=== PATIENT | male | born 1995 | race Caucasian/White ===

== ENCOUNTER 2023-05-27 19:09 | Emergency (ER) | payer OTHER, SELFPAY ==
--- NOTE | 2023-05-27 | ECG_ITS ---
Test Reason : FALL Blood Pressure : / mmHG Vent. Rate : 094 BPM Atrial Rate : 094 BPM P-R Int : 158 ms QRS Dur : 088 ms QT Int : 368 ms P-R-T Axes : 063 050 047 degrees QTc Int : 460 ms Normal sinus rhythm Nonspecific T wave abnormality Prolonged QT Abnormal ECG No previous ECGs available Referred By: Generic ED Physician Electronically Signed By:GEORGI WEAVER
--- NOTE | ~2023-05-27 | XR_ITS ---
EXAMINATION: PORTABLE CHEST 1 VIEW CLINICAL INFORMATION: fall , chest pain left sided. COMPARISON: No recent pertinent prior studies are available for comparison. TECHNIQUE: Portable frontal view of the chest was obtained. FINDINGS: The lungs are well expanded. No focal infiltrate, effusion, edema, or pneumothorax. Cardiac and mediastinal silhouettes are within normal limits for technique. No acute bony abnormality seen. XR/XR chest 1V IMPRESSION: No evidence of acute disease.
[2023-05-27 19:17] VITALS: BP 124/80; PULSE 116; O2SAT 97; BMI 20.7
[2023-05-27 19:24] VITALS: BP 113/79; PULSE 99; RESP 17; TEMP 36.9; O2SAT 89; O2SAT 98
[2023-05-27 19:46] LABS: Hematocrit 34.4 % (42.0-52.0); Hemoglobin 12.5 g/dl (14.0-18.0); Mean Corpuscular HGB Conc 36.3 g/dl (31.0-36.0); Mean Corpuscular Hemoglobin 30.2 pg (27.0-33.0); Mean Corpuscular Volume 83.1 fL (80.0-98.0); Mean Platelet Volume 10.3 fL (9.4-12.4); Platelet Count 423 X10*3/uL (160-400); Red Blood Count 4.14 X10*6/uL (4.60-5.80); Red Cell Distribution Width 11.9 % (11.0-16.0); White Blood Count 9.9 X10*3/uL (4.8-10.8)
[2023-05-27 19:53] LABS: Beta-Hydroxybutyrate 2.52 mmol/L (0.02-0.27)
--- NOTE | 2023-05-27 19:59 | ED_ITS ---
HPI - General Adult General Chief complaint: Fall Stated complaint: L eye bloodshot and blurry, blood sugar is high Time Seen by Provider: 05/27/23 19:36 Source: patient and police Limitations: no limitations History of Present Illness HPI narrative: 28 years old with a past medical history of type 1 diabetes, on short-acting insulin. Not compliant with Lantus, presents emergency room in police custody after a fall. History is taken from the patient and from police. Patient was running away from police when he tripped and fell, banged his head, patient thinks he was unconscious for a few seconds and that he the left side of his face. Placement which is with patient in the room reports that she reach the patient few seconds after he fell and the patient was not unconscious but seemed slightly confused. Confusion however resolved fast. Patient reports pain in the left eye, chest pain, denies ureter weakness, slurred speech. No abdominal pain nausea or vomiting A Patent B bilateral breath sounds C 2+ pulses on all extremities, pelvis stable. D GCS 15 E No deformity. Related Data Allergies Allergy/AdvReac Type Severity Reaction Status Date / Time No Known Allergies Allergy Verified 05/27/23 19:22 Review of Systems 2 Review of Systems: Yes all other systems are reviewed and are negative PMFSH Social History Social History Advance Directives: No Advance Directives Information Provided: No Physical Exam ED Vital Signs: Vital Signs - 24 hr 05/27/23 19:24 05/27/23 19:24 Temperature 98.4 F Pulse Rate 99 Respiratory Rate 17 Blood Pressure 113/79 Pulse Oximetry 89 L 98 Oxygen Delivery Method Room Air Nasal Cannula Oxygen Flow Rate 2 BMI result Body Mass Index 20.7 General: Alert, Not in Distress Skin: No rash, warm HEENT: Atraumatic, No Exudate or Pharyngeal Erythema. Left eye conjunctival erythema> zuniga lamp exam large L eft corneal abrasion Resp: Normal Breath sounds bilaterally Cardio: Regular rate and Rhythm, Normal S1, S2 ABD: Abd soft, non tender, no guarding or rebound. Normal Bowel sounds. : No cva tenderness Neuro: Alert, oriented x4, PERRL Strenght 5/5 on all extremities Sensation is preserved in both lower and upper extremities Index to nose: normal Cranial Nerves II-XII grossly intact No dysarthria, or aphasia No neglet. Visual garg are normal bilaterally Psych: Cooperative, NO SI Course Reevaluation(s) Reevaluation #1: Patient anion gap is 19, creatinine 2.6. VBG is pending lab work is consistent with dehydration, mild DKA. Will give an additional 5 units of insulin for a total of 0.2 units/kg. Time: 20:26 Reevaluation #2: Patient VBG shows pH 7.39 pCO2 51 and bicarb 31. Patient increased anion gap likely secondary from dehydration and acute kidney failure more than DKA. Patient received 10 units of insulin and IV fluids will recheck glucose in 30 minutes. Consulted hospitalist for admission pending recs Time: 20:50 Reevaluation #3: Patient repeated blood sugar is 336. Plan was to admit the patient for HARRIET, lab work including VBG, BMP next meeting patient was more data rated than in the diabetic ketoacidosis, his pH was 7.39 and his bicarb were actually elevated. Patient understands the risk of leaving AMA including . He is able to verbalize the risk and in my opinion has full capacity. Is alert, oriented x4. Will finish 2nd bag of fluid and discharged in police custody. Time: 21:25 Medications Administered Generic Name Dose Route Start Last Admin Trade Name Freq PRN Reason Stop Dose Admin Sodium Chloride 1,000 mls @ 999 mls/hr 05/27/23 21:30 05/27/23 21:24 Ns IV 05/27/23 22:30 999 mls/hr .Q1H1M FRANKLYN Administration Discontinued Medications Generic Name Dose Route Start Last Admin Trade Name Freq PRN Reason Stop Dose Admin Erythromycin 1 cm 05/27/23 20:23 05/27/23 20:29 Erythromycin Base 0.5% Oph Oin 1 Gm Tube EYE-LEFT 05/27/23 20:24 1 cm QID ONE Administration Fluorescein Sodium 1 strip 05/27/23 19:50 05/27/23 20:02 Fluorescein Sodium Strip EYE-LEFT 05/27/23 19:51 1 strip ONCE ONE Administration Sodium Chloride 500 mls @ 999 mls/hr 05/27/23 20:15 05/27/23 20:20 Ns IV 05/27/23 20:45 Not Given .Q31M FRANKLYN Sodium Chloride 500 mls @ 999 mls/hr 05/27/23 20:30 05/27/23 20:29 Ns IV 05/27/23 21:00 Not Given .Q31M FRANKLYN Sodium Chloride 1,000 mls @ 999 mls/hr 05/27/23 20:30 05/27/23 21:24 Ns IV 05/27/23 21:30 Infused .Q1H1M FRANKLYN Infusion Insulin Human Lispro 5 unit 05/27/23 19:47 05/27/23 20:01 Insulin Lispro 100 Unit/Ml 3 Ml Vial SUBCUT 05/27/23 19:48 5 unit ONCE ONE Administration Insulin Human Lispro 5 unit 05/27/23 20:22 05/27/23 20:29 Insulin Lispro 100 Unit/Ml 3 Ml Vial SUBCUT 05/27/23 20:23 5 unit ONCE ONE Administration Tetracaine HCl 3 drop 05/27/23 19:47 05/27/23 20:20 Tetracaine Hcl 0.5% Oph Mony 5 Ml Drops EYE-LEFT 05/27/23 19:48 Not Given ONCE ONE Medical Decision Making Medical Decision Making MDM Narrative: Presents emergency room for medical clearance after a fall. Patient physical exam showed left chest tenderness without crepitus and left eye conjunctival erythema, no signs of depressed skull fracture, laceration no bruising of the face. From a trauma standpoint we will get chest x-ray at this time I do not think patient requires CT head or C-spine based on his physical exam. Patient blood glucose above 700, will give 5 units of insulin and IV fluids betahydroxybutirrate is midly elevated. likely from poor compliance with insulin. Admission/Observation Consideration of admission/observation: Escalation of care including admission/observation considered Consult Healthcare Provider Management of the patient was discussed with: Hospitalist Lab Data 05/27/23 19:32 05/27/23 19:32 Labs: Lab Results 05/27/23 05/27/23 Range/Units 19:32 20:24 WBC 9.9 (4.8-10.8) X10*3/uL RBC 4.14 L (4.60-5.80) X10*6/uL Hgb 12.5 L (14.0-18.0) g/dl Hct 34.4 L (42.0-52.0) % MCV 83.1 (80.0-98.0) fL MCH 30.2 (27.0-33.0) pg MCHC 36.3 H (31.0-36.0) g/dl RDW 11.9 (11.0-16.0) % Plt Count 423 H (160-400) X10*3/uL MPV 10.3 (9.4-12.4) fL Absolute Nucleated RBC 0.000 (0.0-0.012) X10*3/uL Nucleated RBC % (auto) 0.0 (0.0-0.2) /100WBC VBG pH 7.39 (7.32-7.43) VBG pCO2 51 mmHg VBG pO2 71 mmHg VBG HCO3 31 H (22-26) mmol/L VBG O2 Saturation 93.0 % VBG Base Excess 5.3 mmol/L Sodium 127 L (135-145) mmol/L Potassium 3.9 (3.3-5.1) mmol/L Chloride 87 L (96-108) mmol/L Carbon Dioxide 25 (22-29) mmol/L Anion Gap 19 (12-20) BUN 29 H (9-16) mg/dL Creatinine 2.60 H (0.5-1.4) mg/dL Estim Creat Clear Calc 35.5 Estimated GFR 29 Random Glucose 701 H* (60-115) mg/dL Calcium 9.8 (8.4-10.2) mg/dL Total Bilirubin 0.4 (0.0-1.0) mg/dL AST 11 (5-37) U/L ALT 12 (0-40) U/L Alkaline Phosphatase 84 (39-117) U/L Total Protein 7.0 (6.5-8.0) g/dL Albumin 4.2 (3.5-5.0) g/dL Beta-Hydroxybutyrate 2.52 H (0.02-0.27) mmol/L Discharge Plan Discharge Clinical Impression: Acute kidney failure Patient Disposition: Left Against Medical Advice Stand Alone Forms: Against Medical Advice
[2023-05-27] MEDS: Insulin Lispro 100 UNIT/ML 3 ML VIAL SUBCUT ×2 (20:01→20:29)
[2023-05-27] MEDS: Fluorescein Sodium STRIP 1 STRIP EYE-LEFT (20:02)
--- OUTSIDE RECORDS SUMMARY | 2023-05-27 20:03 | XMS_ITS | Continuity of Care Document ---
Author Name Unknown Organization [facility] Address [address] [place] [id number] Care Team Providers Care Balancing Machine Operator Name Role Phone Mylene BUSBY, [facility] Primary Care Physician [place] [facility] [place]): [place] - 03/13/23 [facility] [address] [place] [id number] Attending Physician: Admtr, Izabel Admitting Physician: Admtr, [id number] Referring Physician: Admtr, [id number] Allergies, Adverse Reactions, Alerts No Known Allergies Immunizations Given and Recorded Vaccine Date Status Refusal Reason influenza virus vaccine, inactivated 05/31/13 Give n pneumococcal 23-valent vaccine 05/31/13 Given influ virus vac, H1N1, inactive(oldterm) 05/05/09 Given Medications cloNIDine 0.1 mg oral tablet 0.1 mg, By Mouth, 3 times a day, # 30 tablet, Refills 0, Maintenance, 02/19/23 21:03:00 EDT, Partial fill upon patient request if the prescription is for a schedule II opioid drug. Start Date: 02/19/23 Status: Ordered Dexcom G7 Dexcom G7, See Instructions, # 3 each, Refills 0, Tot. Refills 0, Maintenance, To be used for continuous monitoring of sugars for dosing insulin for management of type I diabetes (E10.9), 03/02/23 14:32:00 EDT, Supply, 170, cm, 02/28/23 23:27:00 EDT,... Start Date: 03/02/23 Status: Ordered hydrOXYzine hydrochloride 25 mg oral tablet 1 tablet = 25 mg, By Mouth, Daily, PRN as needed for anxiety, # 30 tablet, 0 Refills, Maintenance, 02/19/23 21:02:00 EDT, Tablet, Partial fill upon patient request if the prescription is for a schedule II opioid drug. Start Date: 02/19/23 Status: Ordered insulin lispro 100 u/ml subcutaneous injection 5-11 units, Subcutaneous Injection, 3 times a day before meals, << Sliding Scale Comments >> 100 - 149 5 units Call if less than 70 150 - 199 6 units 200 - 249 7 units 250 - 299 8 units 300 - 349 9 units 350 - 399 10 units 400... Start Date: 03/02/23 Status: Ordered Lantus Solostar Pen 100 units/mL subcutaneous solution See Instructions, 24 units Daily, # 15 mL, 5 Refills, Maintenance, 03/02/23 14:29:00 EDT, [facility], duplicate from rx sent 08/06/19 not received by pharmacy, 170, cm, 02/28/23 23:27:00 EDT, Height, 58.8, kg, 02/28/23 23:30:00 EDT, Dry We... Start Date: 03/02/23 Status: Ordered Melatonin 5 mg oral tablet 1 tablet = 5 mg, By Mouth, Daily at bedtime, PRN for insomnia, # 60 tablet, 0 Refills, Maintenance,02/19/23 22:28:00 EDT, Tablet, Partial fill upon patient request if the prescription is for a schedule II opioid drug. Start Date: 02/19/23 Status: Ordered Methadone = 90 mg, By Mouth, Daily, 0 Refills, Maintenance, 02/19/23 22:21:00 EDT, Partial fill upon patient request if the prescription is for a schedule II opioid drug. Start Date: 02/19/23 Status: Ordered Problem List Condition Confirmation Course Effective Dates Status Health Status Informant DIABETES MELLITUS Confirmed 1996 Active Microalbuminuria Confirmed Active PURE HYPERCHOLESTEROLEMIA Confirmed Active Tobacco user Confirmed 03/31/11 Active Type 1 diabetes mellitus Confirmed Active Varicella immune Confirmed 09/29/11 Active Social History Social History Type Response Smoking Status Current every day mae oker; Type: Cigarettes entered on: 04/11/14 Sex Patient Care team information Care Team Personnel Name: Marcelina Vanegas RN Position: [facility] RN Member Role: Primary Care Nurse Name: Lazaro Dodd RN Position: [facility] RN Member Role: Primary Care Nurse Name: Arti Kemp RN Position: [facility] RN Member Role: Primary Care Nurse Name: Tristian Rubalcava RN Position: S RN Member Role: Primary Care Nurse Name: Ben Retana RN Position: S RN Member Role: Primary Care Nurse Name: Thania Chakraborty MD Position: Reference Physician Member Role: PCP Address: Address: [address] [place] [address]- [place] Care Team Related Persons Name: GREGORY MARTINEZ Address: [address] [place] [address] Name: CINDY JIMENEZ Address: home [address] [place], [place] Name: ELVA DHILLON Address: home [address] [place] [address] Name: ANDRE VELEZ Address: home [address] [place] [address]
--- OUTSIDE RECORDS SUMMARY | 2023-05-27 20:03 | XMS_ITS | Continuity of Care Document ---
Author Name Unknown Organization [facility] ter Address [address] [place] [id number] Care Team Providers Care Physician Practice Consultant Name Role Phone Mylene BUSBY, Thania Primary Care Physician Encounter [facility] Date(s): 02/19/23 - 02/21/[address] [address] Encounter Diagnosis DKA (diabetic ketoacidosis)(Final) - 02/19/23 Discharge Disposition: A-D/C Home Attending Physician: Haven Sarah MD Admitting Physician: Danny Morales MD Referring Physician: Not on Staff, Referring MD Allergies, Adverse Reactions, Alerts No Known Allergies Immunizations Given and Recorded Vaccine Date Status Refusal Reason influenza virus vaccine, inactivated 05/31/13 Give n pneumococcal 23-valent vaccine 05/31/13 Given influ virus vac, H1N1, inactive(oldterm) 05/05/09 Given Medications acetaminophen 325 mg oral tablet 650 mg, 2, tablet, By Mouth, Every 4 hours, PRN, # 24 tablet, Refills 0, Tot. Refills 0, Maintenance, as needed for pain, 08/17/16 6:42:58, Print Requisition Start Date: 08/17/16 Status: Ordered cloNIDine 0.1 mg oral tablet 0.1 mg, By Mouth, 3 times a day, # 30 tablet, Refills 0, Maintenance, 02/19/23 21:03:00 EDT, Partial fill upon patient request if the prescription is for a schedule II opioid drug. Start Date: 02/19/23 Status: Ordered hydrOXYzine hydrochloride 25 mg oral tablet 1 tablet = 25 mg, By Mouth, Daily, PRN as needed for anxiety, # 30 tablet, 0 Refills, Maintenance, 02/19/23 21:02:00 EDT, Tablet, Partial fill upon patient request if the prescription is for a schedule II opioid drug. Start Date: 02/19/23 Status: Ordered Insulin Lispro 5-14 units, Subcutaneous Injection, 3 times a day before meals, << Sliding Scale Comments >> 100 - 129 5 units Call if less than 70 130 - 159 6 units 160 - 189 7 units 190 - 219 8 units 220 - 249 9 units 250 - 279 10 units 280... Start Date: 02/21/23 Status: Ordered Lantus Solostar Pen 100 units/mL subcutaneous solution See Instructions, 24 units Daily, # 15 mL, 5 Refills, Maintenance, 07/23/22 15:59:00 EST, [id number], duplicate from rx sent 08/06/19 not received by pharmacy, 167, cm, 07/23/22 15:41:00 EST, Height Start Date: 07/23/22 Status: Ordered Melatonin 5 mg oral tablet [...] drug. Start Date: 02/19/23 Status: Ordered Methadone Tablet 90 mg, Tablet, By Mouth, 02/21/23 9:00:00 EDT Start Date: 02/21/23 Stop Date: 02/21/23 Status: Completed traMADol 50 mg oral tablet 25 mg, Tablet, By Mouth, Every 6 hours, PRN for Pain , Moderate, Routine, 02/19/23 22:44:00 EDT Start Date: 02/19/23 Stop Date: 02/21/23 Status: Discontinued Problem List Condition Confirmation Course Effective Dates Status Health Status Informant DIABETES MELLITUS Confirmed 1996 Active Microalbuminuria Confirmed Active PURE HYPERCHOLESTEROLEMIA Confirmed Active Tobacco user Confirmed 03/31/11 Active Type 1 diabetes mellitus Confirmed Active Varicella immune Confirmed 09/29/11 Active Vital Signs Most recent to oldest [Reference Range]: 1 2 3 Height 170 cm (02/21/23 11:21 AM) 170 cm (02/19/23 11:00 PM) Weight 55.2 kg (02/19/23 11:00 PM) Oxygen Saturation [94-100 %] 98 % (02/21/23 11:21 AM) 99 % (02/21/23 10:00 AM) 100 % (02/21/23 8:00 AM) Pulse Rate [55-90 bpm] 68 bpm (02/21/23 11:21 AM) 71 bpm (02/21/23 8:00 AM) 73 bpm (02/20/23 4:00 PM) Body Mass Index [18.5-24.99 kg/m2] 19.1 kg/m2 (02/19/23 11:00 PM) Blood Pressure [90-138/55-84 mm Hg] 125/83mm Hg (02/21/23 11:21 AM) 100/76mm Hg (02/21/23 8:00 AM) 100/67mm Hg (02/21/23 4:00 AM) Respiratory Rate [16-30 br/min] 18 br/min (02/21/23 11:29 AM) 18 br/min (02/21/23 11:21 AM) 18 br/min (02/21/23 10:51 AM) Temperature [96.8-100.4 DegF] 97.3 DegF (02/21/23 11:21 AM) 97.7 DegF (02/21/23 8:00 AM) 98.3 DegF (02/21/23 4:00 AM) Mode of Delivery (Oxygen) Room air (02/21/23 11:21 AM) Room air (02/21/23 10:00 AM) Room air (02/21/23 8:00 AM) Blood pressure sites Arm, left (02/21/23 11:21 AM) Arm, right (02/21/23 8:00 AM) Arm, right (02/21/23 4:00 AM) Temperature Route Oral (02/21/23 11:21 AM) Axillary (02/21/23 8:00 AM) Oral (02/21/23 4:00 AM) Dry Weight 55.2 kg (02/19/23 11:00 PM) Social History Social History Type Response Smoking Status Current every day mae roberson; Type: Cigarettes entered on: 04/11/14 Sex Admission evaluation note * Rufino Tripp MD: MODIFY, PERFORM Event Display: Admission Note Authored Date: Patient: ??HANS HAND ? Age:??27 Years?Sex:??Male?:??1995?? Chief Complaint/Reason for Consultation n/v/hyperglycemia History of Present Illness 27-year-old male??with PMH of??type 1 diabetes mellitus; opiate dependence on methadone;??presentedto the ED??with chief complaint of??abdominal pain, nausea, vomiting since last 3 days. As per EMS, patient was found at[facility]??acting bizarre. On my evaluation, patient??was??completely alert and oriented,??denied any??fevers, chills,??recentillness??other than??abdominal pain/nausea/vomiting for past 3 days. He also denied any??chest pain, SOB,??diarrhea,??constipation, dysuria,??focal weakness. ?? Vitals:??Afebrile,??HR??90s-100s,??BP 140s/90s,??RR 20, saturating well on room air. Labs:??VBG showed pH 7.26,??PCO2 21.3.?? WBC 21.7; initial??sodium 131,??repeat 139 (another repeatwhat was 109,??labs reading??were spurious, awaiting??repeat BMP);??initial anion gap 39, bicarb 14; initially glucose 670,??beta hydroxybutyrate 10.31, creatinine 1.5, magnesium 2.2, lactate 1.9. ??Urinalysis not suggestive of infection. No imaging or EKG done in the ED. His initial potassium was 5.4,??patient was started on insulin drip. Review of Systems -14 point ROS done, pertinent positives and negative history mentioned in HPI. Objective Vital Signs?? Temperature: 99.5 DegF (09/24/23 00:00:00) Temperature Route: Oral (02/20/23 00:00:00) Pulse Rate:??102 bpm??High (02/19/23 21:59:00) Heart Rate Monitored:??99 bpm??High (02/20/23 00:00:00) Respiratory Rate: 20 br/min (02/20/23 00:00:00) Vented: No (02/20/23 00:00:00) Systolic Blood Pressure:??147 mm Hg??High (02/20/23 00:00:00) Diastolic Blood Pressure:??96 mm Hg??High (02/20/23 00:00:00) Blood pressure sites: Arm, right (02/19/23 21:59:00) Mean Arterial Pressure: 118 mm Hg (02/19/23 14:46:00) Pulse Pressure: 51 mm Hg (02/20/23 00:00:00) Oxygen Saturation: 100 % (02/20/23 00:00:00) Mode of Delivery (Oxygen): Room air (02/20/23 00:00:00) Early Warning Score: 6 (02/20/23 00:55:59) ? Physical Exam General: Awake, alert, oriented x3. ??In moderate distress??because of pain. ??Able to speak in full sentences. Following commands appropriately. HEENT: NC/AT, PERRLA, no pallor, no icterus, moist mucous membranes. Neck: Supple, no JVD Respiratory: Clear to auscultation bilaterally. ??No wheezes, rhonchi or crackles appreciated. CVS: Regular rhythm. ??Normal S1-S2 heard. ??No murmurs appreciated. Abdomen: Soft,??nondistended,??generalized tenderness??to superficial palpation,??hypoactive bowel sounds. Neurological: Moving all 4 limbs freely. ??Speech normal. ??No obvious gross focal neuro deficit appreciated. Extremities: B/L pedal pulses palpable. ??No LE edema. Assessment/Plan Diagnoses HARRIET (acute kidney injury) ??(N17.9) DKA (diabetic ketoacidosis) ??(E11.10) Gastroenteritis ??(K52.9) High anion gap metabolic acidosis ??(E87.29) Leukocytosis ??(D72.829) Opiate dependence ??(F11.20) Sepsis ??(A41.9) Type 1 diabetes mellitus ??(E10.9) ?? Assessment:??27-year-old??male with PMH of type??1 diabetes mellitus;??opiate dependence??on methadone; presented with??abdominal pain??associated with nausea and vomiting;??found to be in DKA;??currently being??admitted under [facility] medicine service. ?? DKA (diabetic ketoacidosis) (E11.10):??- Type 1 diabetes mellitus (E10.9):??- Patient has history of type 1 diabetes mellitus,??takes Lantus??24 units daily??and is on insulin sliding scale.?? He??denies missing??insulin doses,??denies any recent illness, assures compliance. He was found to be??confused,??presented with abdominal pain??with associated nausea and vomiting;??found to have??DKA.?? Started on insulin drip??in the ED. PLAN: -Initially received??2 L??NS, was changed to??half NS??at 150 cc/h;??insulin drip??initially??at the rate of 5 units/h, decreased to 2.5 units/h. -Since blood glucose in??200s,??and??gap has not closed,??continue??insulin drip;??changing fluid to??D5 LR??at 100 cc/h??(sodium 135,??potassium 4.0). -Strict n.p.o.??until gap closes -BMP every 4 hourly -POC glucose checks every hourly. ?? Sepsis (A41.9):??- ??Leukocytosis (D72.829):??- -Patient found to have??tachycardia, leukocytosis; SIRS??likely in setting of DKA. ?? HARRIET (acute kidney injury) (N17.9):??-Likely prerenal in setting of dehydration from DKA. ??Continueto??trend BMP ?? Gastroenteritis (K52.9):??-Likely chemical peritonitis from DKA. ?? High anion gap metabolic acidosis (E87.29):??-Likely in setting of DKA. ??Lactate normal. ?? Opiate dependence (F11.20):??-Patient takes methadone 90 mg once daily,??[facility] [place].?? Morning team??to confirm dose,??reconcile and medications. ?? VTE Prophylaxis:??-PCD ?VTE Prophylaxis Assessment:??Risk Level documented as Low Risk ?? Code Status:??-Full COde ?Order Code Status:??Code Status Ordered ?? Date & Time of Service:??02/19/23; around 8PM Total eval time:: I spent a total of 76 minutes, including both xzao-ja-wqmr and hxg-xesy-pz-face time on the date ofthe encounter, addressing the above diagnoses. Activities performed in this time include chart review, obtaining / reviewing history, performing a medically necessary evaluation, CODE STATUS?? discussion, documentation, charting and counseling, documentation, charting and counseling. ?? Please note: This note has been prepared using voice recognition software. As a result errors may occur. When identified these flavoring maker errors have been corrected. While every attempt is madeto correct errors during dictation, errors may still exist. Histories Allergies Allergies ?(Active and Proposed Allergies Only) NKA? (Severity: Unknown severity, Onset: Unknown) ? Past Medical History/Problem List Active Problems??(6) DIABETES MELLITUS Microalbuminuria PURE HYPERCHOLESTEROLEMIA Tobacco user Type 1 diabetes mellitus Varicella immune ? Past Surgical History No surgery history documented. ? Social History Alcohol Details:??Use: Current. ??Frequency: 1-2 times per year. Employment/School Details:??Status: Unemployed. Exercise Details:??Self assessment: Good condition. ??Regular exercise: Yes. ??Exercise frequency: 1-2 times/week. Home/Environment Details:??Living situation: Home/Independent. ??Lives with: friends. Nutrition/Health Details:??Diet: Regular. Sexual Details:??Sexually involved in last 6 months: Yes. ??Gender identity: Male. Substance Abuse Details:??Use: Current. ??Type: Marijuana. ??Frequency: 1-2 times per week. Tobacco Details:??Current every day smoker, Type: Cigarettes. ? Family History Mother: HIV - Human immunodeficiency virus infection ? Medications Home Medications Acetaminophen (acetaminophen 325 mg oral tablet)?650?Milligram?2?tablet?By Mouth?Every 4 hours?as needed?as needed for pain Clonidine (cloNIDine 0.1 mg oral tablet)?0.1?Milligram?By Mouth?3 times a day Durable Medical Equipment (Ketostix)?See Instructions?Use as directed for type 1 diabetes Durable Medical Equipment (diabetic shoes)?See Instructions?Please provide diabetic shoes.h/odiabetic neuropathy Durable Medical Equipment (Insulin Syringe, BD Ultra-Fine 0.5 cc 31 G x 8 mm (5/16in))?See Instructions?for 30?Days?use as directed for Type 1 Diabetes Mellitus, inject max 5x's/day Durable Medical Equipment (Freestyle Lite Monitor)?See Instructions?for 30?Days?use ??to test SMBG 4 times daily.for T1DM/E10. Durable Medical Equipment (Freestyle Lite Test Strips)?See Instructions?for 30?Days?useto test SMBG 4 times daily. for T1DM/E10. Durable Medical Equipment (Glucagon Emergency Kit)?See Instructions?Inject IM in the event ofsevere hypoglycemia. for T1DM/E10. Durable Medical Equipment (Insulin Syringe, BD Ultra-Fine 1 cc 31 G x 8 mm (5/16in))?See Instructions?Use to inject with insulin up to 5 times a day, E10.9, Must come to appt for further refill Durable Medical Equipment (Pen [place], 31 G x 5 mm BD Ultra Fine III)?See Instructions?Use to inject with insulin up to 4 times a day, E10.9, Durable Medical Equipment (Freestyle Abraham Monitor)?See Instructions?for 30?Days?Use Freestyle 14 Day Mobile to scan blood glucose 4x a day, E10.9 Durable Medical Equipment (Freestyle Abraham Sensor)?See Instructions?for 30?Days?Use Freestyle Abraham 14 Day Sensor to check blood glucose 4x a day, change sensor every 14 days, E10.9 Durable Medical Equipment (DEXCOM G6 BASEBALL PLAYER)?See Instructions?Use to monitor blood glucose levels continuously. E10.9[facility]# [id number] Durable Medical Equipment (DEXCOM G6 TRANSMITTER)?See Instructions?Use with sensor to monitorblood glucose levels continuously. Change every [address]# [id number] Durable Medical Equipment (DEXCOM G6 SENSOR 3-PACK)?See Instructions?Use to monitor blood glucose levels continuously. change every [address]# [id number] Durable Medical Equipment (Alcohol Pads)?See Instructions?Use as directed for type 1 diabetes6-7x/day Durable Medical Equipment (Pen [place], 31 G x 8 mm BD Ultra Fine III)?See Instructions?for 30?Days?use as directed for Type 1 Diabetes Mellitus 90 day QID, E10.9 Durable Medical Equipment (Freestyle Lite Monitor)?See Instructions?for 30?Days?use as directed for Type 1 Diabetes Azwchhkaf12.65 Durable Medical Equipment (Freestyle Lite Test Strips)?See Instructions?for 30?Days?useas directed for Type 1 Diabetes ShyrkfshP83.65 HydrOXYzine (hydrOXYzine hydrochloride 25 mg oral tablet)?1?tab(s)?25?Milligram?By Mouth?Daily?as needed?as needed for anxiety Insulin Glargine (Lantus Solostar Pen 100 units/mL subcutaneous solution)?See Instructions?Take once dailyMax daily dose of 26 units. E10.65 Insulin Lispro (Admelog SoloStar 100 units/mL injectable solution)?TO BE USED DIRECTED FOR TYPE 1 DIABETES. MAX DAILY DOSE 50 UNITS Melatonin (Melatonin 5 mg oral tablet)?1?tab(s)?5?Milligram?By Mouth?Daily at bedtime?as needed?for insomnia Methadone?90?Milligram?By Mouth?Daily Miscellaneous Rx (BD Pen [place] 32G x 6mm)?See Instructions?Use to inject insulin 4 times daily. E10.65 Miscellaneous Rx (FREESTYLE LITE TEST STRIP)?See Instructions?USE DIRECTED ? Results Recent Labs BLOOD COUNT & DIFF WBC 21.7 k/mm3 (High)?? 02/19/2023 15:07 RBC 4.90 m/mm3 ()?? 02/19/2023 15:07 Hgb 14.7 Gm/dL ()?? 02/19/2023 15:07 Hct 45.1 % ()?? 02/19/2023 15:07 MCV 92.0 femtoliters ()?? 02/19/2023 15:07 MCH 30.0 pg ()?? 02/19/2023 15:07 MCHC 32.6 g/dL (Low)?? 02/19/2023 15:07 Platelet Count 474 k/mm3 (High)?? 02/19/2023 15:07 RDW-SD 42.9 femtoliters ()?? 02/19/2023 15:07 MPV 10.7 femtoliters ()?? 02/19/2023 15:07 Nucleated RBC (Automated) 0.0 #/100 WBC'S ()?? 02/19/2023 15:07 Abs. NRBC 0.0 k/mm3 ()?? 02/19/2023 15:07 Hemoglobin (POC) POC Cartridge 12.9 Gm/dL (Low)?? 02/19/2023 21:30 Hematocrit (POC) POC Cartridge 38 % (Low)?? 02/19/2023 21:30 ?? BLOOD GAS pH Venous (POC) POC Cartridge 7.36 ()?? 02/19/2023 21:30 pCO2 Venous (POC) POC Cartridge 28.5 mm Hg (Low)?? 02/19/2023 21:30 pO2 Venous (POC) POC Cartridge 59 mm Hg (High)?? 02/19/2023 21:30 Est Bicarbonate (POC) POC Cartridge 16.1 mmol/L (Low)?? 02/19/2023 21:30 % O2 Sat Venous (POC) POC Cartridge 90 ()?? 02/19/2023 21:30 Base Excess (POC) POC Cartridge NEGATIVE 9 ()?? 02/19/2023 21:30 Specimen Type - Blood Gas VENOUS ()?? 02/19/2023 21:30 pH, Venous 7.29 (Low)?? 02/19/2023 15:47 ?? CHEM GENERAL Sodium 109 mmol/L (Critical)?? 02/19/2023 20:25 Potassium 2.8 mmol/L (Critical)?? 02/19/2023 20:25 Chloride 82 mmol/L (Low)?? 02/19/2023 20:25 Bicarbonate Level 7 mmol/L (Critical)?? 02/19/2023 20:25 Anion Gap 20 (High)?? 02/19/2023 20:25 Sodium (POC) POC Cartridge 135 mmol/L ()?? 02/19/2023 21:30 Potassium (POC) POC Cartridge 4.1 mmol/L ()?? 02/19/2023 21:30 Glucose Level 260 mg/dL (High)?? 02/19/2023 20:25 Glucose (POC) POC Cartridge 386 (High)?? 02/19/2023 21:30 Glucose, POC 218 mg/dL (High)?? 02/20/2023 00:54 Beta Hydroxybutyrate 10.31 mmol/L (High)?? 02/19/2023 15:07 BUN 26 mg/dL (High)?? 02/19/2023 19:15 Creatinine-Blood 1.2 mg/dL ()?? 02/19/2023 19:15 Estimated GFR Creatinine 86 ML/MIN/1.73 M2 ()?? 02/19/2023 19:15 Calcium 4.6 mg/dL (Critical)?? 02/19/2023 20:25 Ionized Calcium (POC) POC Cartridge 1.07 mmol/L (Low)?? 02/19/2023 21:30 Phosphorus 4.8 mg/dL (High)?? 02/19/2023 15:07 Magnesium 1.1 mg/dL (Low)?? 02/19/2023 20:25 Lactate 1.9 mmol/L ()?? 02/19/2023 20:25 ?? HEME OTHER Hold Lavender Top SPECIMEN DISCARDED AFTER 24 HOURS. ()?? 02/19/2023 17:15 ?? MISC. CHEMISTRY Hold Green Top SPECIMEN DISCARDED AFTER 1 WEEK ()?? 02/19/2023 17:15 ?? UA/URINALYSIS Appear/Color, Urine COLORLESS ()?? 02/19/2023 15:58 Specific Earth, Urine 1.026 ()?? 02/19/2023 15:58 pH, Urine 5.5 ()?? 02/19/2023 15:58 Albumin, Urine NEGATIVE ()?? 02/19/2023 15:58 Glucose, Urine 4+ (Abnormal)?? 02/19/2023 15:58 Ketones, Urine 4+ (Abnormal)?? 02/19/2023 15:58 Bilirubin, Urine NEGATIVE ()?? 02/19/2023 15:58 Hemoglobin, Urine NEGATIVE ()?? 02/19/2023 15:58 Nitrite, Urine NEGATIVE ()?? 02/19/2023 15:58 Leukocyte, Urine NEGATIVE ()?? 02/19/2023 15:58 Urobilinogen NORMAL mg/dL ()?? 02/19/2023 15:58 WBC's, Urine <1 /HPF ()?? 02/19/2023 15:58 RBC's, Urine <1 /HPF ()?? 02/19/2023 15:58 Mucus SLIGHT /LPF ()?? 02/19/2023 15:58 Hold Urine Culture Testing available 48 hours from time of collection. ()?? 02/19/2023 15:58 ?? VIROLOGY COVID-19 by RT-PCR NEGATIVE ()?? 02/19/2023 19:25 ? Microbiology ?? COVID-19 (Novel Coronavirus), Rapid PCR?? Completed?? Source: Nasal Body Site: Nose Collected Dt/Tm: 02/19/2023 16:19 Last Updated Dt/Tm: 02/19/2023 21:12 ? * Qasim BUSBY, Rufino: PERFORM Event Display: Admission Note Authored Date: 6 PM BMP pending;??please review the BMP first thing in the morning, and adjust??fluids;??insulin adjustment based on gap, sodium levels, potassium levels. Cardiology * Event Display: Cardiac Rhythm Strips Authored Date: Hospital Progress note * Arti Kemp RN: VERIFY, PERFORM, SIGN Event Display: Progress Note Hospital Authored Date: Patient: HANS HAND Age: 27 years Sex: Male : 1995 Associated Diagnoses: None Author: Arti Kemp RN Findings Problem Related to Alteration in Endocrine : Alteration in Endocrine Function/new 02/21/2023 9:00 EDT Alteration in Endocrine Related to DKA (Diabetic Ketoacidosis) Goals & Outcomes, Endocrine Blood glucose levels will stabilize during hospitalization, Intake & Output will improve & return to baseline, Pt will receive/maintain adequate nutrition status, Pt will resume/maintain adequate cardiac output, Pt will maintain adequate GI/ function appropriate for pt, Pt will resume/maintain adequate hemodynamic status, Pt will tolerate age appropriate diet prior to discharge, Vital signs, electrolytes & blood glucose will stabilize, Pt will be maintained on sc insulin & appropriate diet, Pt will be rehydrated, Pt will resume regular activities, Pt will verbalize psychosocial implications of diabetes, Pt/caregiver will start home management learning, Pt's blood glucose levels will be within MD parameters Interventions, Endocrine Assess/monitor GI/ status, Maintain IV access, Maintain strict I&O, Teach Pt/caregiver signs & symptoms of hypoglycemia, Teach Pt/caregiver signs & symptoms of hyperglycemia, Teach Pt/caregiver use of home glucose monitoring BH Goals/Interventions, Endocrine Yes Endocrine, Problem Start 02/20/2023 7:00 Reviewed Plan with, Endocrine Patient Patient Progression, Endocrine Resolved problem Endocrine, Problem Resolved 02/21/2023 10:00 Comment: Endocrine Status pt being discharged home . Nursing Data Vital Signs : VITAL SIGNS SECTION 02/21/2023 8:00 EDT Temperature 97.7 DegF Temperature Route Axillary Pulse Rate 71 bpm Respiratory Rate 16 br/min Systolic Blood Pressure 100 mm Hg Diastolic Blood Pressure 76 mm Hg Pulse Pressure 24 mm Hg Oxygen Saturation 100 % Mode of Delivery (Oxygen) Room air . Narrative/Incidental patient A&O x4 seen today on [facility] level of care on cont 02 and cardiac monitoring, SR, HR 60s. VSS. Lung sounds clear on room air. Abdomen soft, round and non-tender. Denies N/V. last bm 02/18. pt voiding in urinal concentrated yellow. skin intact. pt stated generalized pain, prn med administered+ relief. K 3.5, notified, replacement administered. POC 109 this AM, Lipsro and lantus administered as ordered. Fluids d/c'd. For more information, see interactive flowsheet and biophysical. Planfor discharge home. 0900: RN called [facility] ([phone]). located on [address] [place] [address]. Verified pt recevied last methadone dose 90 mg on 02/19/2023 at 11:56 am, and pharamcist notified. . * Marcelina Vanegas RN: PERFORM, SIGN, VERIFY Event Display: Progress Note Hospital Authored Date: [id number] Patient: HANS HAND Age: 27 years Sex: Male : 1995 Associated Diagnoses: None Author: Marcelina Vanegas RN Findings Problem Related to Alteration in Endocrine : Alteration in Endocrine Function/new 02/21/2023 4:00 EDT Alteration in Endocrine Related to DKA (Diabetic Ketoacidosis) Goals & Outcomes, Endocrine Blood glucose levels will stabilize during hospitalization, Intake & Output will improve & return to baseline, Pt will receive/maintain adequate nutrition status, Pt will resume/maintain adequate cardiac output, Pt will maintain adequate GI/ function appropriate for pt, Pt will resume/maintain adequate hemodynamic status, Pt will tolerate age appropriate diet prior to discharge, Vital signs, electrolytes & blood glucose will stabilize, Pt will be maintained on sc insulin & appropriate diet, Pt will be rehydrated, Pt will resume regular activities, Pt will verbalize psychosocial implications of diabetes, Pt/caregiver will start home management learning, Pt's blood glucose levels will be within MD parameters Interventions, Endocrine Assess/monitor GI/ status, Assess skin turgor, temperature & capillary refill, Consider Aviation Project Engineer consult; review recommendations, DVT prophylaxis as ordered, Maintain IV access, Maintain strict I&O, Monitor & document daily weight, Monitor pt's response to IVhydration, Provide info on community resources for education, support, Teach Pt/caregiver activity instructions, Teach Pt/caregiver pain management strategies, Teach Pt/caregiver signs & symptomsof hypoglycemia, Teach Pt/caregiver signs & symptoms of hyperglycemia, Teach Pt/caregiver use of home glucose monitoring, Teach Pt/caregiver Medic Alert bracelet/Wallet Notification BH Goals/Interventions, Endocrine Yes Endocrine, Problem Start 02/20/2023 7:00 Reviewed Plan with, Endocrine Patient Patient Progression, Endocrine Pt progressing according to plan . Narrative/Incidental Pt remains on [facility] s/p admission for DKA. Pt's blood glucose remained stable through the day, spoke with MD and q2h blood glucose checks were discontinued. Pt potassium was 3.5, medicated with 40 mEq K-Rand but repeat labs this morning, potassium was unchanged. Pt continues to c/o generalized body pain, 7/10; medicated per eMar with good effect. Pt resting comfortably with no further complaints at this time. Skin and fall precautions maintained. Please see POC and Interactive Flowsheets for more details and further documentation. . * Jessie Junior RN: VERIFY, PERFORM, SIGN Event Display: Progress Note Hospital Authored Date: Patient: HANS HAND Age: 27 years Sex: Male : 1995 Associated Diagnoses: None Author: Jessie Junior RN Findings Problem Related to Alteration in Endocrine : Alteration in Endocrine Function/new 02/20/2023 9:00 EDT Alteration in Endocrine Related to DKA (Diabetic Ketoacidosis) Goals & Outcomes, Endocrine Blood glucose levels will stabilize during hospitalization, Intake & Output will improve & return to baseline, Pt will receive/maintain adequate nutrition status, Pt will resume/maintain adequate cardiac output, Pt will maintain adequate GI/ function appropriate for pt, Pt will resume/maintain adequate hemodynamic status, Pt will tolerate age appropriate diet prior to discharge, Vital signs, electrolytes & blood glucose will stabilize, Pt will be maintained on sc insulin & appropriate diet, Pt will be rehydrated, Pt will resume regular activities, Pt will verbalize psychosocial implications of diabetes, Pt/caregiver will start home management learning, Pt's blood glucose levels will be within MD parameters Interventions, Endocrine Assess/monitor GI/ status, Assess skin turgor, temperature & capillary refill, Consider Aviation Project Engineer consult; review recommendations, DVT prophylaxis as ordered, Maintain IV access, Maintain strict I&O, Monitor pt's response to IV hydration, Provide info on [facility] for education, support, Teach Pt/caregiver activity instructions, Teach Pt/caregiver signs & symptoms of hypoglycemia, Teach Pt/caregiver signs & symptoms of hyperglycemia, Teach Pt/caregiver use of home glucose monitoring, Teach Pt/caregiver Medic Alert bracelet/Wallet Notification, Assess & monitor for insulin effects; hypoglycemia, Assess dietary intake before onset of DKA, Assess for hyper/hypokalemia; monitor ECG for changes, Collaborate w/provider re: insulin dosage adjustments, Identify psychosocial issues related to diabetes, Provide diabetic teaching packet BH Goals/Interventions, Endocrine Yes Endocrine, Problem Start 02/20/2023 7:00 Reviewed Plan with, Endocrine Patient Patient Progression, Endocrine Plan Initiation . Evaluation P: Alteration in Endocrine function I: At start of shift pt on insulin IV at 2 units/hr, D5/LR at 100 mL/hr and receiving PRN IV nauseamedication. E: Per blood work, anion gap closed a pt given 24 units Latus at 1100, insulin drip off at approx 1300. POC glucose 106 at the time. Pt reported some improvement in nausea, able to drink jack elsa but not yet wanting to eat. D5/LR was changed to have the addition of 20 mEq of potassium after 1100. Notified Dr. Rose once pt off insulin and reported serum potassium of 3.3. Fluids transitioned to LR at 125 mL/hr. . Note * Marya Dunbar RN: PERFORM Event Display: Discharge/Transfer Note Hospital Authored Date: [id number] Nursing Discharge Note Entered On: 02/21/2023 17:49 EDT Performed On: 02/21/2023 17:49 EDT by Marya Dunbar RN Nursing Discharge Note 2 Discharge Time : 02/21/2023 14:00 EDT Discharge Level of Care at Discharge : Home/Penitentiary/Foster Care Patient Left Unit Via : Wheelchair Patient Accompanied Off Unit with : Responsible adult DC Instructions Provided & Signed by Pt : Yes Patient Understands D/C Instructions : Yes Verbalized Understanding of D/C Plan By : Patient Patient Instructions Discharge Signed : Yes Did Pt have Specialty Bed or Wound Vac : No Marya Dunbar RN - 02/21/2023 17:49 EDT * Haven Sarah MD: MODIFY, SIGN, VERIFY, PERFORM, SIGN Event Display: Discharge/Transfer Note Hospital Authored Date: [id number] Patient: HANS HAND Age: 27 years Sex: Male : 1995 Associated Diagnoses: None Author: Haven Sarah MD Discharge Information Admission Date: 02/19/2023 Discharge Date 02/21/2023 Primary Care Provider Mylene BUSBY, [facility] Principal Discharge Diagnosis DKA (diabetic ketoacidosis): Present on admission - yes. HARRIET (acute kidney injury): Present on admission - yes. Secondary Discharge Diagnoses Opiate dependence: Present on admission - yes. Type 1 diabetes mellitus: Present on admission - yes. Gastroenteritis: Present on admission - yes. Medications (Selected) Prescriptions Prescribed Lantus Solostar Pen 100 units/mL subcutaneous solution: See Instructions, 24 units Daily, # 15 mL, 5 Refills, Maintenance, 07/23/22 15:59:00 EST, [id number], duplicate from rx sent 08/06/19 notreceived by pharmacy, 167, cm, 07/23/22 15:41:00 EST, Height acetaminophen 325 mg oral tablet: 650 mg, 2, tablet, By Mouth, Every 4 hours, PRN, # 24 tablet, Refills 0, Tot. Refills 0, Maintenance, as needed for pain, 08/17/16 6:42:58, Print Requisition Documented Medications Documented Insulin Lispro: 5-14 units, Subcutaneous Injection, 3 times a day before meals, << Sliding Scale Comments >> 100 - 129 5 units Call if less than 70 130 - 159 6 units 160 - 189 7 units 190 - 219 8 units 220 - 249 9 units 250 - 279 10 units 280... Melatonin 5 mg oral tablet: 1 tablet = 5 mg, By Mouth, Daily at bedtime, PRN for insomnia, # 60 tablet, 0 Refills, Maintenance, 02/19/23 22:28:00 EDT, Tablet, Partial fill upon patient request if theprescription is for a schedule II opioid drug. Methadone: = 90 mg, By Mouth, Daily, 0 Refills, Maintenance, 02/19/23 22:21:00 EDT, Partial fill upon patient request if the prescription is for a schedule II opioid drug. cloNIDine 0.1 mg oral tablet: 0.1 mg, By Mouth, 3 times a day, # 30 tablet, Refills 0, Maintenance,02/19/23 21:03:00 EDT, Partial fill upon patient request if the prescription is for a schedule II opioid drug. hydrOXYzine hydrochloride 25 mg oral tablet: 1 tablet = 25 mg, By Mouth, Daily, PRN as needed for anxiety, # 30 tablet, 0 Refills, Maintenance, 02/19/23 21:02:00 EDT, Tablet, Partial fill upon patient request if the prescription is for a schedule II opioid drug.. Hospital Course Hospital Course 27-year-old male with PMH of type 1 diabetes mellitus; opiate dependence on methadone; admitted with 3 days of fatigue, abdominal pain associated with nausea and vomiting; found to be in DKA. Pt thinks he might have had a viral gastroenteritis prior to admission. Type 1 diabetes mellitus (E10.9): DKA (diabetic ketoacidosis) (E11.10): Possible viral illness leading to DKA. Sx resolved now. Pt assures compliance with Insulin regimen. S/p Insulin gtt and aggressive IVF. Now stable on home regimen insulin. - Lantus Insulin 24 units SQ qd - POC/Lispro Insulin SS Mild HARRIET (acute kidney injury) (N17.9): Creatinine 1.5 on admission. Resolved quickly with IVF. Opiate dependence (F11.20): - Patient takes methadone 90 mg once daily. F/u with BHN at [facility] in [place]. General Appearance NAD. Not dyspneic. Not fatigued. Not ill-appearing. HEENT Moist mucous membranes. Respiratory Lungs: CTA. Cardiac Cardiac: no M/G/R. Rhythms: RRR. Abdomen/GI Abdomen: soft, non-tender, non-distended, bowel sounds, no hepatosplenomegaly. Extremities No edema. Neurologic Alert & oriented x 4 . Results Laboratory : LABORATORY 02/21/2023 8:01 EDT Glucose, POC 109 mg/dL H 02/21/2023 3:41 EDT WBC 14.5 k/mm3 H Hgb 10.8 Gm/dL L Hct 32.0 % L Platelet Count 276 k/mm3 Sodium 139 mmol/L Potassium 3.5 mmol/L L Chloride 103 mmol/L Bicarbonate Level 26 mmol/L Anion Gap 10 BUN 9 mg/dL Creatinine-Blood 0.9 mg/dL Calcium 9.4 mg/dL Calcium 9.2 mg/dL Magnesium 1.8 mg/dL 02/20/2023 20:11 EDT Glucose, POC 139 mg/dL H 02/20/2023 18:55 EDT Glucose, POC 162 mg/dL H 02/20/2023 8:47 EDT WBC 20.0 k/mm3 H 02/19/2023 19:25 EDT COVID-19 by RT-PCR NEGATIVE 02/19/2023 19:15 EDT Sodium 139 mmol/L Potassium 4.0 mmol/L Chloride 95 mmol/L L Bicarbonate Level 11 mmol/L L Anion Gap 33 H Glucose Level 506 mg/dL C BUN 26 mg/dL H Creatinine-Blood 1.2 mg/dL Calcium 8.1 mg/dL L 02/19/2023 15:58 EDT Appear/Color, Urine COLORLESS Specific Earth, Urine 1.026 pH, Urine 5.5 Albumin, Urine NEGATIVE Glucose, Urine 4+ Ketones, Urine 4+ Bilirubin, Urine NEGATIVE Hemoglobin, Urine NEGATIVE Nitrite, Urine NEGATIVE Leukocyte, Urine NEGATIVE Urobilinogen NORMAL mg/dL WBC's, Urine <1 /HPF RBC's, Urine <1 /HPF Mucus SLIGHT /LPF 02/19/2023 15:07 EDT WBC 21.7 k/mm3 H Hgb 14.7 Gm/dL Hct 45.1 % Platelet Count 474 k/mm3 H . Discharge Plan Diet/Activity/Patient Education/Follow Up Follow Up with: Thania Chakraborty Within 2 to 3 days. Discharge Disposition Discharge: home. Code Status: Full Code. Discharge Condition: good, compared to admission improved. 35 minutes spent on discharge * Manjinder RN, Marya Kwong: PERFORM, MODIFY Event Display: Patient Education/Instruction Authored Date: [id number] Inpatient Adult Discharge Instructions [address] [address] Name: HANS VELEZ : 1995 Visit: 02/19/2023 18:21:00 Current Date: 02/21/2023 12:46 Account: [id number] Inpatient Adult Discharge Instructions We would like to thank you for allowing us to assist you with your healthcare needs. The following includes patient education materials and information regarding your injury/illness. Our entire staffstrives to provide an excellent experience for our patients and their families. PLEASE ENSURE YOU FOLLOW-UP PER THE INSTRUCTIONS BELOW! ?? YOUR OPINION IS IMPORTANT TO US! Please complete the survey you may receive by mail or email. Your feedback will be used to make improvements to the healthcare experiences of our patients and their families. Surveys are administered by [employer] ?? If further treatment with your primary care physician or another doctor is recommended, it is important for you to keep the appointment. Call your primary care physician or return to the Emergency Department immediately if your condition worsens, fails to improve, or new symptoms develop. If you need to find a doctor, you can call [email or web address] Link for a referral at [phone] or toll free at [phone]) or log in to [email or web address].. ?? [facility], in keeping with [facility] guidance, no longer requires face masks for staff, patientsor visitors in most situations. Similiar to time spent indoors at other locations, there is the chance that you were exposed to repiratory viruses during your time with us (such as flu or COVID-19). If you develop symptoms concerning for a viral respiratory infection, please seek testing (and treatment if indicated) from your medical provider or home test kit. ?? You can view and manage your care through the patient portal or by using a health care fabrice of your choosing. [employer] is a website that allows you to securely view your medical information including your hospital discharge summary, office visit summaries, medications and follow-up visits. You can also request appointments, renew medications, and request access to your medical information using a health care fabrice of your choosing, or just ask a question. You can enroll at [email or web address] or register during your next office visit. You have been discharged from [facility], Patient Care Unit: S3. If you have any questions regarding these instructions after you leave, please call us and we will be happy to assist you. [facility] Your Care Team Attending Physician Gavi Daily MD, Haven Discharging Providers Gavi Daily MD, Haven Reason for Admission n/v/hyperglycemia Your Diagnosis DKA (diabetic ketoacidosis) Sepsis Leukocytosis Type 1 diabetes mellitus High anion gap metabolic acidosis HARRIET (acute kidney injury) Gastroenteritis Opiate dependence Tests Performed Below is a partial list of the tests performed during your hospitalization. You may have had other tests and procedures not included in this list. Please discuss all test results with your provider. BASE EXCESS POC CARTRIDGE Basic Metabolic Panel Beta Hydroxybutyrate BUN CALCIUM IONIZED POC CART Calcium Level CBC COVID-19 (Novel Coronavirus), Rapid PCR CREATININE Electrolytes Glucose Level GLUCOSE POC GLUCOSE POC CARTRIDGE HEMATOCRIT POC CARTRIDGE HEMOGLOBIN POC CARTRIDGE HOLD GEL TUBE HOLD GREEN TUBE HOLD LAVENDER TUBE Lactate Level Magnesium Level Mg Level PH, VENOUS BLOOD Phosphorus Level POTASSIUM POC CARTRIDGE SODIUM POC CARTRIDGE Urinalysis w/hold for Urine Culture VBG POC CARTRIDGE Primary Care Provider Mylene BUSBY, Thania Advance Directive Health Care Proxy on File No Patient refuses to discuss Discharge Vitals Temperature: 97.3 DegF Height: 170 cm Pulse Rate: 68 bpm Weight: 55.2 kg Respiratory Rate: 18 br/min Body Mass Index: 19.1 kg/m2 Systolic Blood Pressure: 125 mm Hg Body surface area: 1.61 Diastolic Blood Pressure: 83 mm Hg ?? Oxygen Saturation: 98 % ?? Studies Pending All tests and labs ordered during this hospital stay have been completed unless listed below. Please discuss all pending results with your provider listed above in these instructions. ?? Calcium Level Electrolytes Glucose Level Magnesium Level What to do next Instructions From Your Doctor Discharge Orders You Need to Schedule the Following Appointments Follow Up with??Thania Chakraborty When:??Within 2 to 3 days Where: [address] [place] [phone] (1) Discharge Medications HANS HAND :1995 Visit Date:02/19/2023 Medications: Please continue your medications until treatment is completed or stopped by your provider. Medications not listed below should be discontinued. Discuss any questions related to medications with your provider. What How Much When Instructions Next Dose Changed Insulin Glargine (Lantus Solostar Pen 100 units/ mL subcutaneous solution) See instructions 24 units Daily ?? next dose due 02/22 at 9am Changed Insulin Lispro 5-14 units Subcutaneous Injection 3 times a day before meals << Sliding Scale Comments >> 100 - 129 ?? 5 units Call if less than 70 130 - 159 ?? 6 units 160 - 189 ?? 7 units 190 - 219 ?? 8 units 220 - 249 ?? 9 units 250 - 279 ?? 10 units 280 - 309 ?? 11 units 310 - 339 ?? 12 units 340 - 369 ?? 13 units 370 - 399 ?? 14 units Call if greater than 400 << Sliding Scale Comments >> ?? take per sliding scale Unchanged Acetaminophen (acetaminophen 325 mg oral tablet) 2 tab(s) Oral Every 4 hours as needed for as needed for pain take as directed Unchanged Clonidine (cloNIDine 0.1 mg oral tablet) 0.1 Milligram Oral 3 times a day next dose due 02/21 at 3pm Unchanged HydrOXYzine (hydrOXYzine hydrochloride 25 mg oral tablet) 1 tab(s) Oral Daily as needed for as needed for anxiety take as directed Unchanged Melatonin (Melatonin 5 mg oral tablet) 1 tab(s) Oral Daily at Bedtime as needed for for insomnia take as directed Unchanged Methadone 90 Milligram Oral Daily next dose 02/22 at 9am ?? What How Much When Comments Stop Taking Durable Medical Equipment (Alcohol Pads) See instructions Use as directed for type 1 diabetes 6-7x/ day ?? Stop Taking Durable Medical Equipment (DEXCOM G6 BASEBALL PLAYER) See instructions Use to monitor blood glucose levels continuously. E10.[address] [facility]# [id number] ?? Stop Taking Durable Medical Equipment (DEXCOM G6 SENSOR 3-PACK) See instructions Use to monitor blood glucose levels continuously. change every [address] [facility]# [id number] ?? Stop Taking Durable Medical Equipment (DEXCOM G6 TRANSMITTER) See instructions Use with sensor to monitor blood glucose levels continuously. Change every [address] [facility]# [id number] ?? Stop Taking Durable Medical Equipment (diabetic shoes) See instructions Please provide diabetic shoes.h/ o diabetic neuropathy ?? Stop Taking Durable Medical Equipment (Freestyle Abraham Monitor) See instructions Duration: 30 Days Use Freestyle 14 Day Mobile to scan blood glucose 4x a day, E10.9 ?? Stop Taking Durable Medical Equipment (Freestyle Abraham Sensor) See instructions Duration: 30 Days Use Freestyle Abraham 14 Day Sensor to check blood glucose 4x a day, change sensor every 14 days, E10.9 ?? Stop Taking Durable Medical Equipment (Freestyle Lite Monitor) See instructions Duration: 30 Days use as directed for Type 1 Diabetes Mellitus e10.65 ?? Stop Taking Durable Medical Equipment (Freestyle Lite Monitor) See instructions Duration: 30 Days use ??to test SMBG 4 times daily.for T1DM/ E10. ?? Stop Taking Durable Medical Equipment (Freestyle Lite Test Strips) See instructions Duration: 30 Days use to test SMBG 4 times daily. for T1DM/ E10. ?? Stop Taking Durable Medical Equipment (Freestyle Lite Test Strips) See instructions Duration: 30 Days use as directed for Type 1 Diabetes Mellitus ?? E10.65 ?? Stop Taking Durable Medical Equipment (Glucagon Emergency Kit) See instructions Inject IM in the event of severe hypoglycemia. for T1DM/ E10. ?? Stop Taking Durable Medical Equipment (Insulin Syringe, BD Ultra-Fine 0.5 cc 31 G x 8 mm (5/ 16in))See instructions Duration: 30 Days use as directed for Type 1 Diabetes Mellitus, inject max 5x's/ day ?? Stop Taking Durable Medical Equipment (Insulin Syringe, BD Ultra-Fine 1 cc 31 G x 8 mm (5/ 16in)) See instructions Use to inject with insulin up to 5 times a day, E10.9, Must come to appt for further refill ?? Stop Taking Durable Medical Equipment (Ketostix) See instructions Use as directed for type 1 diabetes ?? Stop Taking Durable Medical Equipment (Pen [place], 31 G x 5 mm BD Ultra Fine III) See instructions Use to inject with insulin up to 4 times a day, E10.9, ?? Stop Taking Durable Medical Equipment (Pen [place], 31 G x 8 mm BD Ultra Fine III) See instructions Duration: 30 Days use as directed for Type 1 Diabetes Mellitus 90 day QID, E10.9 ?? Stop Taking Gabapentin (gabapentin 300 mg oral capsule) 1 capsule Oral 3 times a day Stop Taking Lisinopril (lisinopril 5 mg oral tablet) 1 tab(s) Oral Daily Stop Taking Miscellaneous Rx (BD Pen [place] 32G x 6mm) See instructions Use to inject insulin 4 times daily. E10.65 ?? Stop Taking Miscellaneous Rx (FREESTYLE LITE TEST STRIP) See instructions USE DIRECTED ?? Stop Taking Trazodone (traZODone 50 mg oral tablet) 1 tab(s) Oral Daily at Bedtime Test Results Below is a partial list of the most recent Laboratory test results done prior to this discharge. You may have had other tests and procedures not included in this list. Please discuss all test resultswith your provider. Est Creatinine Clearance - 95.41 mL/min (02/21/2023) BASE EXCESS POC CARTRIDGE (02/19/2023) ???Base Excess (POC) POC Cartridge - NEGATIVE 9 Basic Metabolic Panel (02/21/2023) ???Sodium - 139 mmol/L???Potassium - 3.5 mmol/L???Chloride - 103 mmol/L???Bicarbonate Level - 26 mmol/L???Anion Gap - 10???Glucose Level - 54 mg/dL???BUN - 9 mg/dL???Creatinine-Blood - 0.9 mg/dL???Estimated GFR Creatinine - 118 ML/MIN/1.73 M2???Calcium - 9.4 mg/dL Beta Hydroxybutyrate (02/19/2023) ???Beta Hydroxybutyrate - 10.31 mmol/L BUN (02/20/2023) ???BUN - 12 mg/dL CALCIUM IONIZED POC CART (02/19/2023) ???Ionized Calcium (POC) POC Cartridge - 1.07 mmol/L Calcium Level (02/21/2023) ???Calcium - 9.2 mg/dL CBC (02/21/2023) ???WBC - 14.5 k/mm3???RBC - 3.57 m/mm3???Hgb - 10.8 Gm/dL???Hct - 32.0 %???MCV - 89.6 femtoliters???MCH - 30.3 pg???MCHC - 33.8 g/dL???Platelet Count - 276 k/mm3???RDW-SD - 42.7 femtoliters???MPV - 10.0 femtoliters???Nucleated RBC (Automated) - 0.0 #/100 WBC'S???Abs. NRBC - 0.0 k/mm3 COVID-19 (Novel Coronavirus), Rapid PCR (02/19/2023) ???COVID-19 by RT-PCR - NEGATIVE CREATININE (02/20/2023) ???Creatinine-Blood - 1.0 mg/dL???Estimated GFR Creatinine - 112 ML/MIN/1.73 M2 Electrolytes (02/20/2023) ???Sodium - 138 mmol/L???Potassium - 3.5 mmol/L???Chloride - 102 mmol/L???Bicarbonate Level - 26 mmol/L???Anion Gap - 10 Glucose Level (02/20/2023) ???Glucose Level - 90 mg/dL GLUCOSE POC (02/21/2023) ???Glucose, POC - 117 mg/dL GLUCOSE POC CARTRIDGE (02/19/2023) ???Glucose (POC) POC Cartridge - 386 HEMATOCRIT POC CARTRIDGE (02/19/2023) ???Hematocrit (POC) POC Cartridge - 38 % HEMOGLOBIN POC CARTRIDGE (02/19/2023) ???Hemoglobin (POC) POC Cartridge - 12.9 Gm/dL HOLD GEL TUBE (02/20/2023) ???Hold Gel Top - SPECIMEN DISCARDED AFTER 1 WEEK HOLD GREEN TUBE (02/19/2023) ???Hold Green Top - SPECIMEN DISCARDED AFTER 1 WEEK HOLD LAVENDER TUBE (02/19/2023) ???Hold Lavender Top - SPECIMEN DISCARDED AFTER 24 HOURS. Lactate Level (02/19/2023) ???Lactate - 1.9 mmol/L Magnesium Level (02/20/2023) ???Magnesium - 1.9 mg/dL Mg Level (02/21/2023) ???Magnesium - 1.8 mg/dL PH, VENOUS BLOOD (02/19/2023) ???pH, Venous - 7.29 Phosphorus Level (02/19/2023) ???Phosphorus - 4.8 mg/dL POTASSIUM POC CARTRIDGE (02/19/2023) ???Potassium (POC) POC Cartridge - 4.1 mmol/L SODIUM POC CARTRIDGE (02/19/2023) ???Sodium (POC) POC Cartridge - 135 mmol/L Urinalysis w/hold for Urine Culture (02/19/2023) ???Appear/Color, Urine - COLORLESS???Specific Earth, Urine - 1.026???pH, Urine - 5.5???Albumin, Urine - NEGATIVE???Glucose, Urine - 4+???Ketones, Urine - 4+???Bilirubin, Urine - NEGATIVE???Hemoglobin, Urine - NEGATIVE???Nitrite, Urine - NEGATIVE???Leukocyte, Urine - NEGATIVE???Urobilinogen - NORMAL? ?WBC's, Urine - <1 /HPF? ?RBC's, Urine - <1 /HPF? ?Mucus - SLIGHT? ?Hold Urine Culture - Testing available 48 hours from time of collection. VBG POC CARTRIDGE (02/19/2023) ???pH Venous (POC) POC Cartridge - 7.36???pCO2 Venous (POC) POC Cartridge - 28.5 mm Hg???pO2 Venous(POC) POC Cartridge - 59 mm Hg???Est Bicarbonate (POC) POC Cartridge - 16.1 mmol/L???% O2 Sat Venous (POC) POC Cartridge - 90???Specimen Type - Blood Gas - VENOUS Allergies (NKA means No Known Allergies) NKA Problems Active Problems??(6) DIABETES MELLITUS?? Microalbuminuria?? PURE HYPERCHOLESTEROLEMIA?? Tobacco user?? Type 1 diabetes mellitus?? Varicella immune?? Education Materials Below is the list of Educational Leaflet Providered with your Discharge Instructions. Valuables and Belongings I fully understand and agree that [facility] accepts no responsibility for all my personal property including clothing, toilet articles, radios, jewelry, dentures, hearing aids, rings, money, or any other property that is in my possession or is brought to me after admission. I understand certain valuables may be placed in a hospital safe for a short period of time. I understand that the hospital is not liable for loss or damage due to accident, fire, or other natural occurrence while said property is in the safe. I accept full responsibility for any personal property that I keep with me, and will not hold the hospital responsible in case of loss or disappearance. I acknowledge that i have been encouraged to send valuables and belongings home. ?? Review of Valuable and Belonging List: With patient Date for Pt to Sign Valuables/Belongings: 02/21/23 11:21:00 ?? Other Discharge Information ? Pulmonary Rehab Status?? Pulmonary Rehab Discharge Status?? Respiratory Rate: 18 br/min ? Common Emergency Awareness Tips IS IT A STROKE? Act FAST and Check for these signs: FACE Does the face look uneven? ARM Does one arm drift down? SPEECH Does their speech sound strange? TIME Call at any sign of stroke ?? Heart Attack Signs Chest discomfort: Most heart attacks involve discomfort in the center of the chest and lasts more than a few minutes, or goes away and comes back. It can feel like uncomfortable pressure, squeezing, fullness or pain. Discomfort in upper body: Symptoms can include pain or discomfort in one or both arms, back, neck, jaw or stomach. Shortness of breath: With or without discomfort. Other signs: Breaking out in a cold sweat, nausea, or lightheaded. Remember, MINUTES DO MATTER. If you experience any of these heart attack warning signs, call to get immediate medical attention! ?? Smoking can increase your chances of developing chronic health problems and can cause harmful effects to other family members in your house. If you smoke, you are strongly encouraged to quit. Please call [email or web address] Link at [phone] or [phone]) or log in to [email or web address] for referrals to smoking cessation programs. ?? 593 Suicide & Crisis Lifeline is available 20/12 if you or someone you know needs to find a reason to keep living. By calling 241 you'll be connected to a skilled, trained counselor at a crisis center in your area. INPATIENT DISCHARGE INSTRUCTIONS SIGNATURE PAGE AZUL ROSIETRINAHANS Location:[facility] Registration Date and Time:02/19/2023 18:21 EDT Primary Care Physician: Mylene BUSBY, Thania, Attending Physician: Gavi Daily MD, Haven, I HANS HAND, have received the above patient education materials/instructions and have verbalized understanding. If ambulance or transport services are being used I further acknowledge being given a choice of service. ?? If you need to contact me, please call me at this number: . Patient/Technology Manager Name: Patient/Technology Manager Signature: Relationship to Patient: Witness Name/Signature: Date: * Haven Sarah MD: PERFORM, SIGN, VERIFY Event Display: Patient Education Handout Authored Date: [id number] Marya Kapoor RN: PERFORM Event Display: Patient Education Leaflets Authored Date: [id number] Diabetic Ketoacidosis ?? 28895 Diabetic Ketoacidosis Diabetic ketoacidosis (DKA) is a serious problem that can happen in people with diabetes. DKA should be treated as a medical emergency. This is because it can lead to coma or . If you have the symptoms of DKA, get medical help right away. DKA happens more often in people with type 1 diabetes. It can also happen to people with type 2 diabetes who are taking the SLGT-2 inhibitors for diabetes control. It also can happen in women with diabetes during (gestational diabetes). DKA happens when insulin levels are too low. Without enough insulin, sugar (glucose) can???t get tothe cells of your body. The glucose stays in the blood. The liver then puts out even more glucose into the blood. This causes high blood glucose (hyperglycemia). Your body breaks down stored fat, when your cells don't get the glucose they need for energy. When this happens, acids called ketones arereleased into the blood. This is called ketosis. High levels of ketones (ketoacidosis) can be harmful to you. Hyperglycemia and ketoacidosis can also cause serious problems in the blood and your body, such as: ??? Low levels of potassium and phosphate ??? Damage to kidneys or other organs ??? Coma ??? Dehydration What causes diabetic ketoacidosis? In people with diabetes, DKA is most often caused by too little insulin in the body. It's also caused by: ??? Diabetes that's not under good control ??? Infections such as a urinary tract infection or pneumonia ??? Serious health problems such as a heart attack ??? Reactions to certain prescribed medicines used to treat type 2 diabetes ??? Reactions to illegal drugs including cocaine ??? Problemswith insulin delivery from an insulin pump ?? Symptoms of diabetic ketoacidosis DKA most often happens slowly over time. But it can worsen in a few hours if you are vomiting and dehydrated. The first symptoms are: ??? Thirst and dry mouth ??? Urinating a lot ??? Belly pain ??? Nausea or vomiting ??? Breath that smells fruity (from the ketones) Over time, these symptoms may happen or get worse: ??? Dry or flushed skin ??? Nausea and vomiting ??? Loss of appetite ??? Weight loss ??? Belly pain ??? Trouble breathing or breathing that is deep and rapid ??? Trouble thinking or confusion ??? Feeling very tired or weak. This can lead to coma. ?? How is diabetic ketoacidosis diagnosed? Your healthcare provider will ask about your health history. They will give you a physical exam. You may also have these tests: ??? Blood tests to check your glucose levels and ketones ??? Blood tests to check your electrolytes, such as potassium, sodium, and bicarbonate ??? Urine test to check for ketones ??? Electrocardiogram (ECG) These tests are done to check for DKA, and watch it over time. ?? How is diabetic ketoacidosis treated? DKA needs treatment right away in the hospital. Treatment includes: ??? Insulin. This is the main type of treatment. Insulin allows the cells to use the glucose in the blood. This lowers the levels of both blood glucose and ketones. ??? Fluids and electrolytes. These are given by IV (intravenous) line into a vein. Fluids are replaced and abnormal electrolyte levels are corrected. ??? Other medicines. These may be given to treat an illness that caused DKA. For example, antibiotics may be given to treat a urinary tract infection that caused DKA. ?? Preventing diabetic ketoacidosis To help prevent DKA, make sure you: ??? Take all of your medicines for diabetes exactly as prescribed. This includes insulin. ??? Check your blood glucose levels exactly as instructed. ??? Be very careful when you are sick with an illness or an infection. Take extra care to follow diabetes care instructions for sick days. Check your blood glucose more often. Contact your healthcare provider if you have questions about how to manage your diabetes while you are ill. ??? Don't exercise when your blood sugar is high and you have ketones in your urine.? Check your urine ketone levels if told to do so. This is done with a urine test strip. Ask your provider how often to check your urine. ?? When to call your healthcare provider Call your provider right away if you: ??? Have symptoms of DKA ??? Have very high blood glucose levels or high levels of ketones in your urine ??? Are getting sick with another illness ??? Are confused about how to manage your diabetes ?? Last Reviewed Date: 2021 ?? [id number] The [employer]. All rights reserved. This information is not intended as a substitute for professional medical care. Always follow your healthcare professional's instructions. ?? * Manjinder HASKINS, Marya Kwong: PERFORM Event Display: Patient Education Leaflets Authored Date: [id number] Type 1 Diabetes: Counting Carbs ?? Type 1 Diabetes: Counting Carbs - Video People with diabetes often dose their insulin based on how many carbohydrates they've consumed? So,how do you count carbs? dragline engineer Agustina Torres, RD, LD, explains. To view the video go to this web address: [email or web address] Or, scan this QR code with your smart phone ?? The [employer]. All rights reserved. This information is not intended as a substitute for professional medical care. Always follow your healthcare professional's instructions. ?? Patient Care team information Care Team Personnel Name: Marcelina Vanegas RN Position: S RN Member Role: Primary Care Nurse Name: Arti Kemp RN Position: S RN Member Role: Primary Care Nurse Name: Ben Retana RN Position: [facility] RN Member Role: Primary Care Nurse Name: Thania Chakraborty MD Position: Reference Physician Member Role: PCP Address: Address: [address] [place] [address]- Name: *Fatoumata ALARCON Attending Position: [facility] ED Medicine MD Name: Afsaneh Gusman RN Position: [facility] ED RN W/OE and Tasks Member Role: Patient Care Provider Name: Karely Ortiz DO Position: [facility] Resident Member Role: Resident Address: Address: [address] [place] [address] [place] [address]- Care Team Related Persons Name: GREGORY MARTINEZ Address: home [address], [place] Name: CINDY JIMENEZ Address: home [address], [place] Name: ELVA DHILLON Address: home [address], [place] Name: ANDRE VELEZ Address: home [address] [facility] [address] [place] [address]
--- OUTSIDE RECORDS SUMMARY | 2023-05-27 20:03 | XMS_ITS | Continuity of Care Document ---
Author Name Unknown Organization [facility] ter Address [address] [place] [address]- Care Team Providers Care Rug Cleaner Hand Name Role Phone Mylene BUSBY, [place] Primary Care Physician [phone] Encounter [facility] [place] Date(s): 08/29/19 - 09/08/[address] [address]- [facility] Attending Physician: Admtr, Joshua8 Admitting Physician: AdmtrIzabel Referring Physician: Admtr, Ar8 Allergies, Adverse Reactions, Alerts Substance Reaction Severity Status NKA Active Immunizations Given and Recorded Vaccine Date Status [...] Print Requisition Start Date: 08/17/16 Status: Ordered Admelog SoloStar 100 units/mL injectable solution See Instructions, Max daily dose 45 units. E10.65, # 30 mL, 3 Refills, Maintenance, 08/06/19 15:16:00 EDT, [id number], 167, cm, 08/06/19 14:57:00 EDT, Height Start Date: 08/06/19 Status: Ordered Alcohol Pads See Instructions, # 200 each, Refills 11, Tot. Refills 11, Maintenance, Use as directed for type 1 diabetes 6-7x/day, 02/11/14 16:03:21, Compound Start Date: 02/11/14 Status: Ordered BD Pen [place] 32G x 6mm BD Pen [place] 32G x 6mm, See Instructions, # 200 each, Refills 11, Tot. Refills 11, Maintenance, Use to inject insulin 4 times daily. E10.65, 08/06/19 15:15:00 EDT, Supply, 167, cm, 08/06/19 14:57:00 EDT, Height Start Date: 08/06/19 Status: Ordered diabetic shoes diabetic shoes, See Instructions, # 1 case, Refills 0, Tot. Refills 0, Maintenance, Please provide diabetic shoes.h/o diabetic neuropathy, 03/02/17 14:00:45, Compound Start Date: 03/02/17 Status: Ordered fluconazole 100 mg oral tablet = 100 mg, By Mouth, Daily, please take tablet on 06/02/14, # 1 tablet, 0 Refills, Soft Stop, 06/01/1511:44:02, Tablet, 100 mg By Mouth Daily,Instr:please take tablet on 06/02/14 Start Date: 06/01/14 Status: Ordered Freestyle Lite Monitor See Instructions, # 200 each, Refills 4, Tot. Refills 4, Maintenance, use to test SMBG 4 times daily.for T1DM/E10., 10/12/17 16:40:56 EDT, Compound Start Date: 10/12/17 Stop Date: 03/11/18 Status: Ordered Freestyle Lite Test Strips See Instructions, # 200 each, Refills 4, Tot. Refills 4, Maintenance, use to test SMBG 4 times daily. for T1DM/E10., 10/12/17 16:41:03 EDT, Compound Start Date: 10/12/17 Stop Date: 03/11/18 Status: Ordered gabapentin 300 mg oral capsule 300 mg, 1, capsule, By Mouth, 3 times a day, # 270 capsule, Refills 0, Tot. Refills 0, Maintenance,11/08/16 15:53:10, Route to Pharmacy Electronically, [id number], [facility]/pharmacy #[id number] Start Date: 11/08/16 Status: Ordered Glucagon Emergency Kit See Instructions, # 2 kit, Refills 2, Tot. Refills 2, Maintenance, Inject IM in the event of severehypoglycemia. for T1DM/E10., 10/12/17 16:42:34 EDT, Compound Start Date: 10/12/17 Status: Ordered ibuprofen 600 mg oral tablet 600 mg, 1, tablet, By Mouth, 4 times a day, PRN, # 12 tablet, Refills 0, Tot. Refills 0, Maintenance, Pain, 08/17/16 6:42:43, Print Requisition Start Date: 08/17/16 Stop Date: 08/20/16 Status: Ordered Insulin Syringe, BD Ultra-Fine 0.5 cc 31 G x 8 mm (10/12in) See Instructions, # 150 each, Refills 5, Tot. Refills 5, Maintenance, use as directed for Type 1 Diabetes Mellitus, inject max 5x's/day, 10/06/17 9:09:06 EDT, Compound Start Date: 10/06/17 Stop Date: 04/04/18 Status: Ordered Insulin Syringe, BD Ultra-Fine 1 cc 31 G x 8 mm (10/12in) See Instructions, # 150 each, Maintenance, Use to inject with insulin up to 5 times a day, E10.9, Must come to appt for further refill, 12/25/18 14:06:39 EDT, Compound Start Date: 12/25/18 Status: Ordered Ketostix See Instructions, # 150 each, Refills 11, Tot. Refills 11, Maintenance, Use as directed for type 1 diabetes, 02/11/14 23:01:30, Compound Start Date: 02/11/14 Status: Ordered Lantus Solostar Pen 100 units/mL subcutaneous solution = 20 units, Subcutaneous Injection, Daily, Take 20 units once daily in the morning. E10.65, # 15 mL, 5 Refills, Maintenance, 08/08/19 10:45:00 EDT, Solution, [facility]/pharmacy #[id number], duplicate from rx sent 08/06/19 not received by pharmacy, 167, cm, 08/06/19... Start Date: 08/08/19 Status: Ordered Pen [place], 31 G x 5 mm BD Ultra Fine III See Instructions, # 120 each, Maintenance, Use to inject with insulin up to 4 times a day, E10.9,, 08/08/19 10:45:00 EDT, duplicate from rx sent 07/19/19 not received by pharmacy, Compound, 167, cm, 08/06/19 14:57:00 EDT, Height Start Date: 08/08/19 Status: Ordered traZODone 50 mg oral tablet 50 mg, 1, tablet, By Mouth, Daily at bedtime, # 5 tablet, Refills 0, Tot. Refills 0, Maintenance, 08/31/16 14:29:22, Print Requisition Start Date: 08/31/16 Status: Ordered Problem List Condition Effective Dates Status Health Status Inform ant DIABETES MELLITUS(Confirmed) 1996 Active Microalbuminuria(Confirmed) Active PURE HYPERCHOLESTEROLEMIA(Confirmed) Active Tobacco user(Confirmed) 03/31/11 Active Type 1 diabetes mellitus(Confirmed) Active Varicella immune(Confirmed) 09/29/11 Active Social History Social History Type Response Smoking Status Current every day mae roberson; Type: Cigarettes entered on: 04/11/14 Sex
--- OUTSIDE RECORDS SUMMARY | 2023-05-27 20:03 | XMS_ITS | Continuity of Care Document ---
Author Name Unknown Organization [facility] Address [address] [place] [id number]- Care Team Providers Care Gas Engineer Name Role Phone Thania Chakraborty MD Primary Care Physician Encounter [facility] Date(s): 09/01/20 - 12/14/20 [facility] [address] [place] [address]- Attending Physician: Ronni Alejandro MD Admitting Physician: Ronni Alejandro MD Referring Physician: Thania Chakraborty MD Allergies, Adverse Reactions, Alerts Substance Reaction Severity [...] Start Date: 02/11/14 Status: Ordered BD Pen [place] 32G x 6mm BD Pen [place] 32G x 6mm, See Instructions, # 200 each, Refills 11, Tot. Refills 11, Maintenance, Use to inject insulin 4 times daily. E10.65, 08/06/19 15:15:00 EDT, Supply, 167, cm, 08/06/19 14:57:00 EDT, Height Start Date: 08/06/19 Status: Ordered DEXCOM G6 CHEMIST PHYSICAL DEXCOM G6 CHEMIST PHYSICAL, See Instructions, # 1 each, Refills 0, Tot. Refills 0, Maintenance, Use to monitor blood glucose levels continuously. E10.[address] [facility]# [id number], 09/08/20 10:37:00 EDT, Supply, 167,cm, 08/06/19 14:57:00 EDT, Height Start Date: 09/08/20 Status: Ordered DEXCOM G6 SENSOR 3-PACK DEXCOM G6 SENSOR 3-PACK, See Instructions, # 3 each, Refills 3, Tot. Refills 3, Maintenance, Use tomonitor blood glucose levels continuously. change every 10 days. E10.[address] [facility]# [id number], 09/08/2109:37:00 EDT, Supply, 167, cm, 08/06/19 14:57:00 E... Start Date: 09/08/20 Status: Ordered DEXCOM G6 TRANSMITTER DEXCOM G6 TRANSMITTER, See Instructions, # 1 each, Refills 3, Tot. Refills 3, Maintenance, Use withsensor to monitor blood glucose levels continuously. Change every 3 months. E10.9. [facility]# [id number], 09/08/20 10:37:00 EDT, Supply, 167, cm, ... Start Date: 09/08/20 Status: Ordered diabetic shoes diabetic shoes, See [...] 06/02/14 Start Date: 06/01/14 Status: Ordered Freestyle [place] Monitor See Instructions, # 1 each, Refills 0, Tot. Refills 0, Maintenance, Use Freestyle 14 Day [place] to scan blood glucose 4x a day, E10.9, 09/05/20 11:50:00 EDT, Supply, 167, cm, 08/06/19 14:57:00 EDT, Height Start Date: 09/05/20 Stop Date: 10/05/20 Status: Ordered Freestyle [place] Sensor See Instructions, # 2 each, Refills 11, Tot. Refills 11, Maintenance, Use Freestyle [place] 14 Day Sensor to check blood glucose 4x a day, change sensor every 14 days, E10.9, 09/05/20 11:50:00 EDT, Supply, 167, cm, 08/06/19 14:57:00 EDT, Height Start Date: 09/05/20 Stop Date: 08/31/21 Status: Ordered Freestyle Lite Monitor See Instructions, [...] 0, Maintenance,11/08/16 15:53:10, Route to Pharmacy Electronically, [id number], [facility]/pharmacy #[id number] Start Date: 11/08/16 Status: Ordered Glucagon Emergency [...] Pen 100 units/mL subcutaneous solution See Instructions, Max daily dose of 30 units. E10.65, # 30 mL, 5 Refills, Maintenance, 10/10/20 20:34:00 EDT, Solution, [facility]/pharmacy #[id number], duplicate from rx sent 08/06/19 not received by pharmacy, 167, cm, 08/06/19 14:57:00 EDT, Height Start Date: 10/10/20 Status: Ordered lisinopril 5 mg oral tablet 5 mg, 1, tablet, By Mouth, Daily, # 30 tablet, Refills 6, Tot. Refills 6, Maintenance, 10/06/20 11:31:00 EDT, Route to Pharmacy Electronically, [facility]/pharmacy #[id number], Partial fill upon patient request if the prescription is for a schedule II opioid drug.... Start Date: 10/06/20 Status: Ordered Pen [place], 31 G x 5 mm BD Ultra [...] Type Response Smoking Status Current every day sm oker; Type: Cigarettes entered on: 04/11/14 Sex
--- OUTSIDE RECORDS SUMMARY | 2023-05-27 20:03 | XMS_ITS | Continuity of Care Document ---
Author Name Unknown Organization [facility] Address [address] [place] [address]- Care Team Providers Care Assembler Radio And Electrical Name Role Phone Thania Chakraborty MD Primary Care Physician Encounter [facility] Date(s): 09/05/19 - 11/22/19 [facility] [address] [place] [address]- [facility] Attending Physician: Renata Berman MD Admitting Physician: Renata Berman MD Referring Physician: Thania Chakraborty MD Allergies, [...] Start Date: 02/11/14 Status: Ordered BD Pen [place] 32G x 6mm BD Pen [place] 32G x 6mm, See Instructions, # 200 [...] 0, Maintenance,11/08/16 15:53:10, Route to Pharmacy Electronically, [id number], [facility]/pharmacy #[id number] Start Date: 11/08/16 Status: Ordered Glucagon Emergency [...] 5 Refills, Maintenance, 08/08/19 10:45:00 EDT, Solution, [facility]/pharmacy #[id number], duplicate from rx sent 08/06/19 not received by pharmacy, 167, cm, 08/06/19... Start Date: 08/08/19 Status: Ordered Pen [place], 31 G x 5 mm BD Ultra [...]
--- OUTSIDE RECORDS SUMMARY | 2023-05-27 20:03 | XMS_ITS | Continuity of Care Document ---
Author Name Unknown Organization [facility] Address [address] [place] [address]- Care Team Providers Care Spice Mixer Name Role Phone Mylene BUSBY, [facility] Primary Care Physician [phone] Encounter [facility] [place] Date(s): 10/06/20 - 11/05/20 [facility] [address] [place] [id number] Allergies, Adverse Reactions, Alerts Substance Reaction Severity [...] Start Date: 02/11/14 Status: Ordered BD Pen [place] 32G x 6mm BD Pen [place] 32G x 6mm, See Instructions, # 200 each, Refills 11, Tot. Refills 11, Maintenance, Use to inject insulin 4 times daily. E10.65, 08/06/19 15:15:00 EDT, Supply, 167, cm, 08/06/19 14:57:00 EDT, Height Start Date: 08/06/19 Status: Ordered DEXCOM G6 FOOD TRAY ASSEMBLER DEXCOM G6 FOOD TRAY ASSEMBLER, See Instructions, # 1 each, Refills 0, Tot. Refills 0, Maintenance, Use to monitor blood glucose levels continuously. E10.9 [facility]# [id number], 09/08/20 10:37:00 EDT, Supply, 167,cm, 08/06/19 14:57:00 EDT, Height Start Date: 09/08/20 Status: Ordered DEXCOM G6 SENSOR 3-PACK DEXCOM G6 SENSOR 3-PACK, See Instructions, # 3 each, Refills 3, Tot. Refills 3, Maintenance, Use tomonitor blood glucose levels continuously. change every 10 days. E10.9 [facility]# [id number], 09/08/2109:37:00 EDT, Supply, 167, cm, 08/06/19 14:57:00 E... Start Date: 09/08/20 Status: Ordered DEXCOM G6 TRANSMITTER DEXCOM G6 TRANSMITTER, See Instructions, # 1 each, Refills 3, Tot. Refills 3, Maintenance, Use withsensor to monitor blood glucose levels continuously. Change every 3 months. E10.9. [facility]# [id number], 09/08/20 10:37:00 EDT, Supply, 167, cm, ... [...] Refills 0, Maintenance, Use Freestyle 14 Day [place] to scan blood glucose 4x a day, [...] 0, Maintenance,11/08/16 15:53:10, Route to Pharmacy Electronically, [id number], [facility]/pharmacy #[id number] Start Date: 11/08/16 Status: Ordered Glucagon Emergency [...] 5 Refills, Maintenance, 10/10/20 20:34:00 EDT, Solution, [facility]/pharmacy #[id number], duplicate from rx sent 08/06/19 not received by pharmacy, 167, cm, 08/06/19 14:57:00 EDT, Height Start Date: 10/10/20 Status: Ordered lisinopril 5 mg oral tablet 5 mg, 1, tablet, By Mouth, Daily, # 30 tablet, Refills 6, Tot. Refills 6, Maintenance, 10/06/20 11:31:00 EDT, Route to Pharmacy Electronically, [facility]/pharmacy #[id number], Partial fill upon patient request if the prescription is for a schedule II opioid drug.... Start Date: 10/06/20 Status: Ordered Pen [place], 31 G x 5 mm BD Ultra [...]
--- OUTSIDE RECORDS SUMMARY | 2023-05-27 20:03 | XMS_ITS | Continuity of Care Document ---
Author Name Unknown Organization [facility] ter Address [address] [place] [address]- Care Team Providers Care Medical Accountant Name Role Phone Thania Chakraborty MD Primary Care Physician Encounter [facility] [place] Date(s): 08/06/19 - 09/28/[address] [address]- [facility] Attending Physician: Renata Berman MD Admitting Physician: [...] Start Date: 02/11/14 Status: Ordered BD Pen [place] 32G x 6mm BD Pen [place] 32G x 6mm, See Instructions, # 200 [...] 0, Maintenance,11/08/16 15:53:10, Route to Pharmacy Electronically, [id number], [facility]/pharmacy #[id number] Start Date: 11/08/16 Status: Ordered Glucagon Emergency [...] 5 Refills, Maintenance, 08/08/19 10:45:00 EDT, Solution, [id number], duplicate from rx sent 08/06/19 not received by pharmacy, 167, cm, 08/06/19... Start Date: 08/08/19 Status: Ordered Pen [place], 31 G x 5 mm BD Ultra [...]
--- OUTSIDE RECORDS SUMMARY | 2023-05-27 20:03 | XMS_ITS | Continuity of Care Document ---
Author Name Unknown Organization [facility] ter Address [address] [place] [id number] Care Team Providers Care Communications Maintainer Name Role Phone Mylene BUSBY, Thania Primary Care Physician Encounter [facility] Date(s): 02/28/23 - 03/02/[address] [id number] Encounter Diagnosis Diabetic ketoacidosis(Final) - 02/28/23 Discharge Disposition: A-D/C Home Attending Physician: Willie Rojas DO Admitting Physician: Wei BUSBY, Erin Ferrer Referring Physician: Not on Staff, Referring MD [...] mL, 5 Refills, Maintenance, 03/02/23 14:29:00 EDT, [facility], duplicate from rx sent 08/06/19 [...] Methadone Tablet 90 mg, Tablet, By Mouth, dose verified, 03/02/23 9:00:00 EDT Start Date: 03/02/23 Stop Date: 03/02/23 Status: Completed Problem List Condition Confirmation Course Effective Dates Status Health Status Informant DIABETES MELLITUS Confirmed 1996 Active Microalbuminuria Confirmed Active PURE HYPERCHOLESTEROLEMIA Confirmed Active Tobacco user Confirmed 03/31/11 Active Type 1 diabetes mellitus Confirmed Active Varicella immune Confirmed 09/29/11 Active Results Orders for Microbiology Reports Name Date Blood Culture 02/28/23 Blood Culture #2 02/28/23 Microbiology Reports TEST:Blood Culture, Second Order STATUS:Unauthenticated BODY SITE: SOURCE:Blood COLLECTED DATE/TIME:02/28/23 8:23 PM Blood Culture, Second Order SPECIMEN DESCRIPTION : BLOOD LAC SPECIAL REQUESTS : NONE CULTURE : NO GROWTH AFTER 48 HOURS REPORT STATUS : PRELIMINARY REPORT TEST:Blood Culture STATUS:Unauthenticated BODY SITE: SOURCE:Blood COLLECTED DATE/TIME:02/28/23 7:57 PM Blood Culture SPECIMEN DESCRIPTION : BLOOD RIGHT HAND SPECIAL REQUESTS : NONE CULTURE : NO GROWTH AFTER 48 HOURS REPORT STATUS : PRELIMINARY REPORT Vital Signs Most recent to oldest [Reference Range]: 1 2 3 Height 170 cm (02/28/23 11:27 PM) Weight 58.8 kg (02/28/23 11:27 PM) Oxygen Saturation [94-100 %] 100 % (03/02/23 10:00 AM) 100 % (03/02/23 8:00 AM) 100 % (03/02/23 6:00 AM) Pulse Rate [55-90 bpm] 71 bpm (03/02/23 10:00 AM) 70 bpm (03/02/23 6:00 AM) 76 bpm (03/02/23 4:00 AM) Body Mass Index [18.5-24.99 kg/m2] 20.35 kg/m2 (02/28/23 11:27 PM) Blood Pressure [90-138/55-84 mm Hg] 135/97mm Hg (03/02/23 10:27 AM) 110/83mm Hg (03/02/23 6:00 AM) 102/84mm Hg (03/02/23 4:00 AM) Respiratory Rate [16-30 br/min] 18 br/min (03/02/23 10:00 AM) 18 br/min (03/02/23 8:32 AM) 14 br/min *L* (03/02/23 6:00 AM) Temperature [96.8-100.4 DegF] 98.8 DegF (03/02/23 10:00 AM) 97.7 DegF (03/02/23 6:00 AM) 97.8 DegF (03/02/23 2:00 AM) Mode of Delivery (Oxygen) Room air (03/02/23 10:00 AM) Room air (03/02/23 6:00 AM) Room air (03/02/23 4:00 AM) Blood pressure sites Arm, right (03/02/23 10:00 AM) Arm, right (03/02/23 6:00 AM) Arm, right (03/02/23 4:00 AM) Temperature Route Oral (03/02/23 10:00 AM) Oral (03/02/23 6:00 AM) Oral (03/02/23 2:00 AM) Dry Weight 58.8 kg (02/28/23 11:27 PM) Weight Obtained Via Bed scale (02/28/23 11:27 PM) Dry Weight Obtained Via Bed scale (02/28/23 11:27 PM) Social History Social History Type Response Smoking Status Current every day mae roberson; Type: Cigarettes entered on: 04/11/14 Sex History and physical note * Amy BUSBY, Stephen: PERFORM Event Display: History and Physical Hospital Authored Date: Patient: ??CODY HAND ? Age:??27 Years?Sex:??Male?:??1995?? Chief Complaint/Reason for Consultation from home, pt taking insulin to compensate for not feeling well, pt with high blood sugars, vomiting since yesterday History of Present Illness Patient is a 27-year-old male with past medical history of type 1 diabetes, opiate dependence on methadone, anxiety disorder, presents with pain all over, nausea vomiting for the past 3 to 4 days. ??Patient was recently admitted on February 19 for DKA with abdominal pain, nausea and vomiting. ??Hereports recurrence of his symptoms on February 23. ??He reports compliance with insulin though does not know how much insulin he has been taking. ??He reports not taking his methadone today as he was not feeling well and taking insulin all day without much improvement of symptoms. ??He feels very anxious and is requesting pain medications. ??With regards to his pain he stated that he feels pain all over. ??He also reports multiple episodes of vomiting without hematemesis and also complains of abdominal pain from multiple episodes of vomiting but is not global to localize the pain. ??He denies any fevers or cough or runny nose or sore throat. ??He denies any constipation or diarrhea. ??No dysuria urgency or frequency. ??No confusion or headache or vision changes or focal weakness. ?? In the ED he was given 1 L normal saline bolus, started on insulin drip and is being admitted for further management. ?? Review of Systems All other review of systems were negative with the exception of those noted above in the HPI.?? Objective Measurements?? Height: 170 cm (02/28/23) Weight: 58.8 kg (02/28/23) Dry Weight: 58.8 kg (02/28/23) Body Mass Index: 20.35 kg/m2 (02/28/23) ? Vital Signs?? Temperature: 99 DegF (03/01/23 04:00:00) Temperature Route: Oral (03/01/23 04:00:00) Pulse Rate:??94 bpm??High (03/01/23 02:00:00) Heart Rate Monitored: 84 bpm (03/01/23 04:00:00) Respiratory Rate: 21 br/min (03/01/23 04:00:00) Vented: No (03/01/23 04:00:00) Systolic Blood Pressure: 128 mm Hg (03/01/23 04:00:00) Diastolic Blood Pressure: 76 mm Hg (03/01/23 04:00:00) Blood pressure sites: Arm, right (03/01/23 02:00:00) Mean Arterial Pressure: 110 mm Hg (02/28/23 23:27:00) Pulse Pressure: 52 mm Hg (03/01/23 04:00:00) Oxygen Saturation: 100 % (03/01/23 04:00:00) Mode of Delivery (Oxygen): Room air (03/01/23 04:00:00) Early Warning Score: 2 (03/01/23 05:13:43) ? Intake/Output? 02/28 21:56 03/01 07:00 02/28 07:00 02/27 07:00 02/26 07:00 ?? 03/01 05:44 03/01 05:44 03/01 06:59 02/28 06:59 02/27 06:59 Intake ? 2980.4 ? 12.1 ? 2968.3 ?0 ?0 Output ?350 ?0 ?350 ?0 ?0 Net Total ? 2630.4 ? 12.1 ? 2618.3 ?0 ?0 ? Physical Exam Constitutional: Alert, anxious appearing and intermittently shaking??but??it stops on distraction. Head EENT: Extraocular muscle movement intact.??Moist mucous membranes.?? Neck: Supple. No JVD. Respiratory: Clear to auscultation. No wheezing or crackles. No use of accessory muscles. Cardiovascular: S1S2 regular.?? Mild tachycardia.?? No murmurs, rubs or gallops. Gastrointestinal: Abdomen soft, non-tender, non-distended, no rigidity or guarding. Normal bowel sounds. Genitourinary: No CVA tenderness. Extremities: No lower extremity pitting??edema. No cyanosis or clubbing. Neurologic: AAOx3, Speech normal. No focal neurological deficits. Skin: No rash. Psychiatric: Normal mood and affect Assessment/Plan Diagnoses Diabetic ketoacidosis ??(E11.10) 1. ??DKA (diabetic ketoacidosis) ??(E11.10) 2. ??Type 1 diabetes ??(E10.9) 3. ??HARRIET (acute kidney injury) ??(N17.9) 4. ??Opiate dependence ??(F11.20) 5. ??Opiate withdrawal ??(F11.93) 6. ??SIRS (systemic inflammatory response syndrome) ??(R65.10) ?? 27-year-old male with past medical history of type 1 diabetes, opiate dependence on methadone, anxiety, presents with pain all over, abdominal pain with nausea and vomiting, found to be in DKA. ?? DKA Type 1 diabetes Abdomen pain Nausea and vomiting -Etiology is unclear, lipase is normal, no clear signs of infection,??UA not available but he denies any symptoms??of urinary tract infection.?? No chest pain or shortness of breath and EKG without any acute ischemic changes.?? Likely??from noncompliance as??he is unable to tell me how many units of insulin he takes??but reports taking insulin -Bicarb 7 and anion gap 42 on presentation with significantly elevated beta hydroxybutyrate. -Lactic acid??elevated, will recheck??after fluids. -He received 1 L normal saline bolus in the ED. ??Will give??1 L more??LR??over 1 hour and then??0.5 L LR over 1 hour as he appears??significantly dehydrated on exam. -Continue??insulin drip and since now his sugars??less than 300, will give??D5 NS at 250 cc an hour -Every 4 basic metabolic panel and magnesium check.?? Replace potassium as needed and magnesium as needed. -When anion gap closes will consider transitioning.?BIDS consulted ?? SIRS Leukocytosis Likely secondary to DKA -No clinical signs of infection -Blood cultures were sent in the ED, monitor -Trend white cell count and temperature curve ?? HARRIET, appears to be prerenal in the setting of nausea and vomiting??and dehydration.?? Monitor creatinine for improvement with fluids ?? Opiate dependence Opiate??withdrawal Generalized pain -Appears to be in withdrawal but denies using any??opiates over the last 2 weeks other than methadone. ??Reports being on 90 mg methadone daily.?? He states that he was not able to go to the clinic today??because??he was not feeling well. -Unable to tolerate p.o. at this time so??will not give??p.o. methadone. -Day team to verify methadone dose??in the morning -Complains of significant pain all over and abdominal pain from multiple episodes of vomiting so wewill treat with??IV Dilaudid x2.?? We will consult addiction medicine to assist with management as unable to tolerate p.o.? VTE prophylaxis,??pneumatic boots for now,??start heparin if??prolonged admission Full code, confirmed with patient ? Histories Allergies Allergies ?(Active and Proposed Allergies [...] HIV - Human immunodeficiency virus infection ? Travel [facility]: No ?? Medications Home Medications Acetaminophen (acetaminophen 325 mg oral tablet)?650?Milligram?2?tablet?By Mouth?Every 4 hours?as needed?as needed for pain Clonidine (cloNIDine 0.1 mg oral tablet)?0.1?Milligram?By Mouth?3 times a day HydrOXYzine (hydrOXYzine hydrochloride 25 mg oral tablet)?1?tab(s)?25?Milligram?By Mouth?Daily?as needed?as needed for anxiety Insulin Glargine (Lantus Solostar Pen 100 units/mL subcutaneous solution)?See Instructions?24units Daily Insulin Lispro?5-14 units?Subcutaneous Injection?3 times a day before meals?<< Sliding Scale Comments >>100 - 129 ?? 5 units Call if less than [address] - 159 ?? 6 units 160 - 189?? 7 units 190 - 219 ?? 8 units 220 - 249 ?? 9 units 250 - 279 ?? 10 units 280 - 309 ?? 11 units 310 - 339 ?? 12 units 340 - 369 ?? 13 units ... Melatonin (Melatonin 5 mg oral tablet)?1?tab(s)?5?Milligram?By Mouth?Daily at bedtime?as needed?for insomnia Methadone?90?Milligram?By Mouth?Daily ? Inpatient Medications Medications (18) Active SCHEDULED: (6) Metoclopramide 5 mg/mL Inj (2 mL) (Metoclopramide Inj) ??5 mg, IV Push Slowly, 3 times a day beforemeals and bedtime NaCl 0.9% Flush 3ml (NaCL 0.9% Flush) ??3 mL, IV Push, Every 8 hours NaCl 0.9% Flush 3ml (NaCL 0.9% Flush) ??3 mL, IV Push, Every 8 hours Pantoprazole 40 mg Inj (Pantoprazole Inj) ??40 mg, IV Push Slowly, Every 12 hours Remove Patch (Remove ??Patch) ??1 each, Topically, Every 72 hours Scopolamine 1 mg Patch ??1 mg 1 each, Topically, Every 72 hours CONTINUOUS: (2) D5% / NaCL 0.9% (1000 mL) Cont IV 1,000 mL (D5%/NaCl 0.9% 1,000 mL) ??1,000 mL, IV Infusion, 250 mL/hr Insulin R 100 units in 100 mL NaCL 100 units [5.5 units/hr] + NaCL 0.9% Premixed IV 100 mL (InsulinR 100 units in 100 mL Premix 100 units [5.5 units/hr] + NaCL 0.9% Premixed IV 100 mL) ??100 mL, IV Infusion, 5.5 mL/hr PRN: (10) Acetaminophen 325 mg Tablet (Acetaminophen Tablet) ??650 mg, By Mouth, Every 4 hours Dextromethorphan-Guaifenesin 20 mg-200 mg/10 mL Liqu UD (Robitussin DM Liquid) ??10 mL, By Mouth, Every 4 hours Docusate Sodium 100 mg Capsule (Docusate Sodium Capsule) ??100 mg 1 capsule, By Mouth, 2 times a day HydrOXYzine Pamoate 25mg Capsule (hydrOXYzine pamoate 25 mg oral capsule) ??25 mg, By Mouth, Every 6 hours Magnesium Sulfate 2 Gm /50 mL (Magnesium Sulfate IVPB) ??2 Gm 50 mL, IVPB, Every 4 hours Melatonin 3 mg Tablet (Melatonin Tablet) ??3 mg, By Mouth, Daily at bedtime NaCl 0.9% Flush 3ml (NaCL 0.9% Flush) ??3 mL, IV Push, Every 8 hours Polyethylene Glycol 17 Gm Powder (MiraLax Powder) ??17 Gm 1 pack/packet, By Mouth, Daily Senna Tablet ??8.6 mg 1 tablet, By Mouth, 2 times a day Simethicone 80 mg Chewable Tablet (Simethicone Tablet) ??80 mg, Chew, 3 times a day ? Results Recent Labs BLOOD COUNT & DIFF WBC 13.3 k/mm3 (High)?? 02/28/2023 17:55 RBC 4.83 m/mm3 ()?? 02/28/2023 17:55 Hgb 14.2 Gm/dL ()?? 02/28/2023 17:55 Hct 44.5 % ()?? 02/28/2023 17:55 MCV 92.1 femtoliters ()?? 02/28/2023 17:55 MCH 29.4 pg ()?? 02/28/2023 17:55 MCHC 31.9 g/dL (Low)?? 02/28/2023 17:55 Platelet Count 460 k/mm3 ()?? 02/28/2023 17:55 RDW-SD 42.8 femtoliters ()?? 02/28/2023 17:55 MPV 10.2 femtoliters ()?? 02/28/2023 17:55 Nucleated RBC (Automated) 0.0 #/100 WBC'S ()?? 02/28/2023 17:55 Abs. NRBC 0.0 k/mm3 ()?? 02/28/2023 17:55 Abs. Neut 10.3 k/mm3 (High)?? 02/28/2023 17:55 Abs. Lymph 2.0 k/mm3 ()?? 02/28/2023 17:55 Abs. Harnett 0.9 k/mm3 ()?? 02/28/2023 17:55 Abs. Eo 0.0 k/mm3 ()?? 02/28/2023 17:55 Abs. Baso 0.1 k/mm3 ()?? 02/28/2023 17:55 Neut % 77.3 % (High)?? 02/28/2023 17:55 Lymph % 15.0 % ()?? 02/28/2023 17:55 Harnett % 6.6 % ()?? 02/28/2023 17:55 Eos % 0.0 % ()?? 02/28/2023 17:55 Baso % 0.7 % ()?? 02/28/2023 17:55 Imm Gran 0.4 % ()?? 02/28/2023 17:55 Abs. Imm Gran 0.1 k/mm3 ()?? 02/28/2023 17:55 ?? BLOOD GAS pH, Venous 7.25 (Low)?? 02/28/2023 20:27 ?? CHEM GENERAL Sodium 138 mmol/L ()?? 03/01/2023 04:23 Potassium 4.0 mmol/L ()?? 03/01/2023 04:23 Chloride 101 mmol/L ()?? 03/01/2023 04:23 Bicarbonate Level 21 mmol/L (Low)?? 03/01/2023 04:23 Anion Gap 16 ()?? 03/01/2023 04:23 Glucose Level 122 mg/dL (High)?? 03/01/2023 04:23 Glucose, POC 132 mg/dL (High)?? 03/01/2023 04:04 Beta Hydroxybutyrate 13.81 mmol/L (High)?? 02/28/2023 20:10 BUN 20 mg/dL ()?? 03/01/2023 00:21 Creatinine-Blood 1.3 mg/dL (High)?? 03/01/2023 00:21 Estimated GFR Creatinine 78 ML/MIN/1.73 M2 ()?? 03/01/2023 00:21 Calcium 9.3 mg/dL ()?? 03/01/2023 04:23 Magnesium 1.5 mg/dL (Low)?? 03/01/2023 04:23 Protein, Total 7.7 Gm/dL ()?? 02/28/2023 17:55 Albumin 5.2 Gm/dL (High)?? 02/28/2023 17:55 AG Ratio 2.1 ()?? 02/28/2023 17:55 Alkaline Phosphatase 138 units/L (High)?? 02/28/2023 17:55 Lipase 11 units/L (Low)?? 02/28/2023 17:55 AST (SGOT) 11 units/L ()?? 02/28/2023 17:55 ALT (SGPT) 9 units/L ()?? 02/28/2023 17:55 Bilirubin, Total 0.5 mg/dL ()?? 02/28/2023 17:55 Lactate 2.1 mmol/L ()?? 03/01/2023 00:21 ?? HEME OTHER Hold Lavender Top SPECIMEN DISCARDED AFTER 24 HOURS. ()?? 03/01/2023 04:20 Hold Blue Top SPECIMEN DISCARDED AFTER 4 HOURS. ()?? 02/28/2023 17:55 Hold Lavender Top 2 SPECIMEN DISCARDED AFTER 24 HOURS. ()?? 03/01/2023 04:20 ?? MISC. CHEMISTRY Hold Green Top SPECIMEN DISCARDED AFTER 1 WEEK ()?? 03/01/2023 00:21 ?? URINE OTHER Est Creatinine Clearance 70.36 mL/min ()?? 03/01/2023 01:10 ?? VIROLOGY COVID-19 by RT-PCR NEGATIVE ()?? 02/28/2023 21:06 ? Cardiology * Event Display: Cardiac Rhythm Strips Authored Date: EKG study * Event Display: EKG Authored Date: * Event Display: EKG Authored Date: Hospital Progress note * Lazaro Dodd RN: VERIFY, PERFORM, SIGN Event Display: Progress Note Hospital Authored Date: [id number] Patient: CODY HAND Age: 27 years Sex: Male : 1995 Associated Diagnoses: None Author: Lazaro Dodd RN Findings Problem Related to Alteration in Comfort : Alteration in Comfort/new 03/02/2023 15:00 EDT Alteration in Comfort Related to Other: opioid withdrawl Goals & Outcomes: Comfort Pt will report acceptable level of comfort & pain control, Pt will state importance of adhering to pain strategy regime, Pt will demonstrate necessary skills to manage pain, Non-verbal indicators will indicate comfort/pain control Interventions Implemented: Comfort Assess pain using appropriate pain scale/tools, Assess aggravating factors & prevent them accordingly Goals/Interventions, Comfort Yes Comfort, Problem Start 03/01/2023 1:00 Reviewed plan with, Comfort Patient Patient Progression, Comfort Resolved problem Comfort, Problem Ongoing Yes Comfort, Problem Resolved 03/02/2023 15:15 . Alteration in Endocrine : Alteration in Endocrine Function/new 03/02/2023 15:00 EDT Alteration in Endocrine Related to Diabetes, DKA (Diabetic Ketoacidosis) Goals & Outcomes, Endocrine [...] Assess skin turgor, temperature & capillary refill, Maintain IV access, Teach Pt/caregiver activity instructions, Teach Pt/caregiver pain management strategies, Teach Pt/caregiver signs & symptoms of hypoglycemia, Teach Pt/caregiver signs & symptoms of hyperglycemia Goals/Interventions, Endocrine Yes Endocrine, Problem Start 03/01/2023 1:00 Reviewed Plan with, Endocrine Patient Patient Progression, Endocrine Resolved problem Endocrine, Problem Resolved 03/02/2023 15:15 . Nursing Data Vital Signs : VITAL SIGNS SECTION 03/02/2023 10:27 EDT Early Warning Score 0.00 03/02/2023 10:27 EDT Systolic Blood Pressure 135 mm Hg Diastolic Blood Pressure 97 mm Hg H Pulse Pressure 38 mm Hg 03/02/2023 10:20 EDT Early Warning Score 0.00 03/02/2023 10:20 EDT Early Warning Score 0.00 03/02/2023 10:00 EDT Temperature 98.8 DegF Temperature Route Oral Pulse Rate 71 bpm Respiratory Rate 18 br/min Blood pressure sites Arm, right Oxygen Saturation 100 % Mode of Delivery (Oxygen) Room air . Evaluation P: as stated above I: as stated above. E: Patient A+Ox4 vss, patient discharged home, instruction given, denies any CP/SOB/N/V ambulating with steady gate Iv's removed x2. See I view for full assessment.. * Shaikh QI, Demar: PERFORM Event Display: Progress Note Hospital Authored Date: Patient: ??CODY HAND ? Age:??27 Years?Sex:??Male?:??1995?? Chief complaint: Diabetic??ketoacidosis,??opioid drug abuse ?? Brief summary: This is a 27-year-old male with a PMH including type 1 diabetes diagnosed at the age of 2, opiate dependence on methadone who returned to the emergency department for not feeling well,??high blood sugars and vomiting. ??Patient was discharged from hospital on??February 21, 2023. ??He was previously hospitalized with??diabetic ketoacidosis and was discharged on??Lantus 24 units??subcu once a day and lispro??5 units for blood sugar more than 100??with addition of??1 unit for every??30 mg/dL increase in blood sugar levels. ??Patient reported that he was largely compliant with insulin??and was taking Lantus 20 units a day with the lispro 5 units with each meal.?Pt was re- admitted with??DKA??with Bicarb 7 and anion gap 42 with significantly elevated beta hydroxybutyrate level of >14.?Patient was started on insulin drip which was discontinued yesterday afternoon. Endocrine team was asked to??help with the DKA management. ?? 24-hour blood glucose levels: AM:??220?? 14 units of Lantus and 7 units of lispro Before lunch: 118?? no lispro coverage Before dinner 175?? no lispro coverage This morning:??210?? 14 units of Lantus and 7 units of lispro ? Assessment and plan: Briefly this is a 27 years old male with a past medical history of diabetes mellitus??type 1 since the age of 2??opioid dependence on methadone??who was readmitted??to the hospital??with??diabetic ketoacidosis.?? Yesterday morning patient's anion gap closed and he was switched??to subcu insulin. ??Patient also seen by addiction psych due to his chronic opiate drug abuse. ?? Recommendations: -- Continue??Lantus 24 units SQ Qdaily.?? -- Continue lispro sliding scale 5 units per 100 mg/dL increasing by 1 unit per??50 mg/dL, 3 times daily with meals, Hold for NPO --??Check blood sugar levels 4 times a day or more frequently if the patient is hypoglycemic ?? If patient is n.p.o. for any??reason/procedure, please administer??18 units of Lantus insulin. ??Please do not??skip the full dose of lantus insulin??as patient is??type 1 diabetic??and may go into DKA.?Endocrine we will continue to follow this patient with you and make further recommendations based on??patient blood sugar levels. ? Case d/w Dr.??Nii ?? Demar Torres MD Endocrinology Fellow PGY-4 * Nii BUSBY, Issra: PERFORM Event Display: Progress Note Hospital Authored Date: Attending Attestation : I have discussed the case and seen the patient with the fellow, I agree with the evaluation and treatment plan as outlined in the fellow's note . ?? * Guilherme HASKINS, [place]: PERFORM, SIGN, VERIFY Event Display: Progress Note Hospital Authored Date: [id number] Patient: CODY HAND Age: 27 years Sex: Male : 1995 Associated Diagnoses: None Author: Marcelina Vanegas RN Findings Problem Related to Alteration in Comfort : Alteration in Comfort/new 03/02/2023 7:00 EDT Alteration in Comfort Related to Other: opioid withdrawl Goals & Outcomes: Comfort Pt will report acceptable level of comfort & pain control, Pt will state importance of adhering to pain strategy regime, Pt will demonstrate necessary skills to manage pain, Non-verbal indicators will indicate comfort/pain control Interventions Implemented: Comfort Assess pain using appropriate pain scale/tools, Assess aggravating factors & prevent them accordingly, Assess alleviating factors & promote them accordingly BH Goals/Interventions, Comfort Yes Comfort, Problem Start 03/01/2023 1:00 Reviewed plan with, Comfort Patient Patient Progression, Comfort Pt progressing according to plan Comfort, Problem Ongoing Yes . Alteration in Endocrine : Alteration in Endocrine Function/new 03/02/2023 7:00 EDT Alteration in Endocrine Related to Diabetes, DKA (Diabetic Ketoacidosis) Goals & Outcomes, Endocrine [...] skin turgor, temperature & capillary refill, Consider Edge Grinder consult; review recommendations, DVT prophylaxis as ordered, [...] BH Goals/Interventions, Endocrine Yes Endocrine, Problem Start 03/01/2023 1:00 Reviewed Plan with, Endocrine Patient Patient Progression, Endocrine Pt progressing according to plan . Narrative/Incidental Pt remains on IMC unit s/p DKA. Blood glucose is well controlled. He continues to c/o 8/10 abdominal pain, medicated per eMar with good effect. Pt resting comfortably with no further complaints overnight. Skin and fall precautions maintained. Please see POC and Interactive flowsheets for more details and further documentation. . Consult note * Judy Sheffield: PERFORM, SIGN, VERIFY Event Display: Consultation Note Authored Date: Patient: CODY HAND Age: 27 years Sex: Male : 1995 Associated Diagnoses: None Author: Judy Sheffield This underwriter solicitation director met with patient this morning to discuss addiction recovery resources. Patient declinedall addiction resources such as recovery coaching, therapy, NA meetings, IOP, and inpatient treatment programs. If patient decides he would like assistance with connecting with resources, I will meetwith patient again. * Marcia Moffett: PERFORM Event Display: Consultation Note Authored Date: Patient: ??CODY HAND ? Age:??27 Years?Sex:??Male?:??1995?? Reason for Consultation Addiction Med Consult - OUD on methadone, unable to tolerate PO Requested by??Dr Reyes History of Present Illness Cody Song is a 27 yo male with a PMHx of DM T1, OUD on methadone, anxiety. He was admitted 02/28 after presenting with pain, nausea/vomiting x3-4 days. Of note, he was admitted late last month with similar symptoms and treated for DKA. Pt started on insulin drip, glucose levels have been improving. Pt reported he did not take his usual methadone dose on the day of presentation, due to feeling ill. ?? Met with pt this morning. Pt very anxious to get pain medication??or his usual methadone, history limited. He endorses that he attends [facility] on [address] in the community for his methadone. He last was at the clinic on Tuesday for dosing and is on 90mg daily. Reports he has been on the 90mg for awhile now, not requesting any adjustments to dosing currently. Also offered pt referrals for supports such as treatment programs, therapy, recovery coaching, pt declined. Additionally, pt denied any recent use of any recreational opiates. Review of Systems Reporting generalized opioid withdrawal symptoms,??unable to get pt to specify much, although he did report widespread body aches/pain. Physical Exam Vitals & Measurements T:??98.9?F?? TMIN:??98.4?F?? TMAX:??99.3?F?? HR:??82??(Peripheral)?? RR:??13?? BP:??127/74?? SpO2:??100%?? WT:??58.8??kg?? General:??well developed, well nourished,??appears to be stated age.??Breathing is??even and unlabored.??Mild emotional distress,??no diaphoresis. Mental Status Exam: Appearance:??casual?? Attitude:??cooperative? Eye contact:??normal Motor activity:??agitated, restless? Mood:??anxious? Affect:??congruent? Speech:??sparse? Judgment:??appears intact? Insight:??appears intact? Thought process:??linear? Reliability:??likely reliable source? Fund of knowledge:??intact Assessment/Plan Opiate withdrawal (F11.93):??. Opiate dependence (F11.20):??. Pt reporting he is on methadone 90mg through [facility] on [facility]. Would obtain an EKG to ensure QTc is <500ms. If this looks OK, can resume pt on his usual methadone dosing: - if pt is tolerating PO, can start methadone 90mg daily. - if pt is not tolerating PO and IV would be preferred, can do 15mg methadone IVPB q 8 hrs (PO dosing cut in half and split into q 8 hr dosing to account for changes in metabolism). ?? Patient will need a last dose letter on discharge. This is typically a free text note printed with date of discharge and methadone dose received here. ?? Should pt decide he would like to pursue any additional resources, please let us know. ?? Sent update via??[facility] to Dr Dinero. Addiction??Service will sign off at this time. Thank you for allowing us to participate in the care of this patient. Please contact me with any questions or concerns. Problem List/Past Medical History Ongoing DIABETES MELLITUS Microalbuminuria PURE HYPERCHOLESTEROLEMIA Tobacco user Type 1 diabetes mellitus Varicella immune Medications Inpatient Acetaminophen Tablet, 650 mg, By Mouth, Every 4 hours, PRN D5%/NaCl 0.9% 1,000 mL, 1000 mL, IV Infusion Docusate Sodium Capsule, 100 mg= 1 capsule, By Mouth, 2 times a day, PRN hydrOXYzine pamoate 25 mg oral capsule, 25 mg, By Mouth, Every 6 hours, PRN Insulin LISPRO Sliding Scale, 5-11 units, Subcutaneous Injection, 3 times a day before meals Insulin R 100 units in 100 mL Premix 100 units [5.5 units/hr] + NaCL 0.9% Premixed IV 100 mL Lantus Inj, 24 units= 0.24 mL, Subcutaneous Injection, Daily in AM Magnesium Sulfate IVPB, 2 Gm= 50 mL, IVPB, Every 4 hours, PRN Melatonin Tablet, 3 mg, By Mouth, Daily at bedtime, PRN Methadone Tablet, 90 mg, By Mouth, Daily Metoclopramide Inj, 5 mg, IV Push Slowly, 3 times a day before meals and bedtime MiraLax Powder, 17 Gm= 1 pack/packet, By Mouth, Daily, PRN NaCL 0.9% Flush, 3 mL, IV Push, Every 8 hours NaCL 0.9% Flush, 3 mL, IV Push, Every 8 hours, PRN NaCL 0.9% Flush, 3 mL, IV Push, Every 8 hours nalOXONE Inj, 0.2 mg= 0.5 mL, IV Push, Every 5 minutes, PRN Pantoprazole Inj, 40 mg, IV Push Slowly, Every 12 hours Remove Patch, 1 each, Topically, Every 72 hours Robitussin DM Liquid, 10 mL, By Mouth, Every 4 hours, PRN Scopolamine 1 mg Patch, 1 mg= 1 each, Topically, Every 72 hours Senna Tablet, 8.6 mg= 1 tablet, By Mouth, 2 times a day, PRN Simethicone Tablet, 80 mg, Chew, 3 times a day, PRN Zofran Inj, 4 mg, IV Push, Every 6 hours, PRN Home cloNIDine 0.1 mg oral tablet, 0.1 mg, By Mouth, 3 times a day hydrOXYzine hydrochloride 25 mg oral tablet, 25 mg= 1 tablet, By Mouth, Daily, PRN Insulin Lispro, 5-14 units, Subcutaneous Injection, 3 times a day before meals Lantus Solostar Pen 100 units/mL subcutaneous solution, See Instructions, 5 refills Melatonin 5 mg oral tablet, 5 mg= 1 tablet, By Mouth, Daily at bedtime, PRN Methadone, 90 mg, By Mouth, Daily Allergies NKA Social History Alcohol Use: Current. Frequency: 1-2 times per year. Employment/School Status: Unemployed. Exercise Self assessment: Good condition. Regular exercise: Yes. Exercise frequency: 1-2 times/week. Home/Environment Living situation: Home/Independent. Lives with: friends. Nutrition/Health Diet: Regular. Sexual Sexually involved in last 6 months: Yes. Gender identity: Male. Substance Abuse Use: Current. Type: Marijuana. Frequency: 1-2 times per week. Tobacco Current every day smoker, Type: Cigarettes. Family History HIV - Human immunodeficiency virus infection: Mother. Father: History is unknown Immunizations Vaccine Date Status influenza virus vaccine, inactivated - Not Given Comments : Expectation Not Necessary Already given last admit influenza virus vaccine, inactivated 05/31/2013 Given pneumococcal 23-valent vaccine 05/31/2013 Given influ virus vac, H1N1, inactive(oldterm) 05/05/2009 Given Note * Lazaro Dodd RN: PERFORM Event Display: Discharge/Transfer Note Hospital Authored Date: [id number] Nursing Discharge Note Entered On: 03/02/2023 16:07 EDT Performed On: 03/02/2023 16:06 EDT by Lazaro Dodd RN Nursing Discharge Note 2 Discharge Time : 03/02/2023 16:06 EDT Discharge Level of Care at Discharge : Home/Detention/Foster Care Patient Left Unit Via : Ambulatory Patient Accompanied Off Unit with : Responsible adult DC Instructions Provided & Signed by Pt : Yes Patient Understands D/C Instructions : Yes Patient Instructions Discharge Signed : Yes Did Pt have Specialty Bed or Wound Vac : No Yousif HASKINS, Lazaro - 03/02/2023 16:06 EDT * Willie Rojas DO: PERFORM Event Display: Discharge/Transfer Note Hospital Authored Date: Patient: ??CODY HAND ? Age:??27 Years?Sex:??Male?:??1995?? Patient Information Discharge Location: [facility] Primary Care Physician: Thania Chakraborty MD Admit Date/Time: 02/28/23 21:56 Discharge Disposition Discharge Disposition: Home: No Services Discharge Diagnosis DKA (diabetic ketoacidosis) (E11.10) Type 1 diabetes (E10.9) HARRIET (acute kidney injury) (N17.9) Opiate dependence (F11.20) Opiate withdrawal (F11.93) SIRS (systemic inflammatory response syndrome) (R65.10) Diabetic ketoacidosis (E11.10) ?? _ Discharge Medications Clonidine (cloNIDine 0.1 mg oral tablet)?0.1?Milligram?By Mouth?3 times a day HydrOXYzine (hydrOXYzine hydrochloride 25 mg oral tablet)?1?tab(s)?25?Milligram?By Mouth?Daily?as needed?as needed for anxiety Insulin Glargine (Lantus Solostar Pen 100 units/mL subcutaneous solution)?See Instructions?24units Daily Insulin Lispro (insulin lispro 100 u/ml subcutaneous injection)?5-11 units?Subcutaneous Injection?3 times a day before meals?<< Sliding Scale Comments >>100 - 149 ?? 5 units Call if less than [id number] - 199 ?? 6 units 200 - 249 ?? 7 units 250 - 299 ?? 8 units 300 - 349 ?? 9 units 350 - 399 ?? 10 units 400 - 449 ?? 11 units Call if greater than 400<< Sliding Scale Comme... Melatonin (Melatonin 5 mg oral tablet)?1?tab(s)?5?Milligram?By Mouth?Daily at bedtime?as needed?for insomnia Methadone?90?Milligram?By Mouth?Daily Miscellaneous Rx (Dexcom G7)?See Instructions?To be used for continuous monitoring of sugars for dosing insulin for management of type I diabetes (E10.9) ? Medications Started Miscellaneous Rx (Dexcom G7)?See Instructions?To be used for continuous monitoring of sugars for dosing insulin for management of type I diabetes (E10.9) Medications Discontinued None Doses Changed Insulin Glargine (Lantus Solostar Pen 100 units/mL subcutaneous solution)?See Instructions?24units Daily Insulin Lispro (insulin lispro 100 u/ml subcutaneous injection)?5-11 units?Subcutaneous Injection?3 times a day before meals?<< Sliding Scale Comments >>100 - 149 ?? 5 units Call if less than [id number] - 199 ?? 6 units 200 - 249 ?? 7 units 250 - 299 ?? 8 units 300 - 349 ?? 9 units 350 - 399 ?? 10 units 400 - 449 ?? 11 units Call if greater than 400<< Sliding Scale Comme... Allergies Allergies ?(Active and Proposed Allergies Only) NKA? (Severity: Unknown severity, Onset: Unknown) ? Hospital Course Cody is a 27-year-old gentleman with a past medical history of type 1 diabetes, opioid dependenceon methadone and anxiety who presented from home in the setting of nausea and vomiting.?? On presentation patient was noted to be tachycardic but otherwise hemodynamically stable and laboratories aresuggestive of DKA with an elevated glucose, anion gap of 42, bicarbonate of 7, beta hydroxybutyrateof 14 and a lactate of 3.?? Patient was initiated on insulin drip with correction and sugar as wellas closing of anion gap and was evaluated by bids team with adjustments made in his home insulin.??Ultimately given improvement in patient's condition and that he has been transitioned back to subcutaneous insulin he was deemed appropriate for discharge from the hospital.?? Please note patient didreceive his home dosing of methadone while in the hospital and can follow-up with clinic for further adjustment. ?? Type 1 diabetes Diabetic ketoacidosis Patient presenting with laboratory findings suggestive of diabetic ketoacidosis.?? It appears as movement he was having some abdominal pain, nausea and vomiting and there is report of compliance withinsulin however patient does not know how much she was taking.?? Bids team consulted and has made adjustments on her home insulin regimen as well as we will attempt to get Dexcom so that patient can have easier following of blood sugars. ??? Lantus 24 units daily ??? Lispro sliding scale starting at 5 units for 100 mg/dL and increasing by 1 unit for every 50 mg/dL ??? Dexcom ordered ??? Outpatient follow-up with endocrinology ?? Opioid dependence: Continue methadone dosing at clinic Anxiety: Continue home meds Objective Vital Signs?? Temperature: 98.8 DegF (03/02/23 10:00:00) Temperature Route: Oral (03/02/23 10:00:00) Pulse Rate: 71 bpm (03/02/23 10:00:00) Heart Rate Monitored: 76 bpm (03/02/23 04:00:00) Respiratory Rate: 18 br/min (03/02/23 10:00:00) Vented: No (03/02/23 04:00:00) Systolic Blood Pressure: 135 mm Hg (03/02/23 10:27:00) Diastolic Blood Pressure:??97 mm Hg??High (03/02/23 10:27:00) Blood pressure sites: Arm, right (03/02/23 10:00:00) Pulse Pressure: 38 mm Hg (03/02/23 10:27:00) Oxygen Saturation: 100 % (03/02/23 10:00:00) Mode of Delivery (Oxygen): Room air (03/02/23 10:00:00) Early Warning Score: 0 (03/02/23 13:09:47) ? . Physical Exam General Appearance: NAD. Eyes:??No scleral icterus. ENT: ??MM moist. Dentition intact. Cardiovascular: RRR S1 and S2 heard with no M/R/G. No JVD. Respiratory: ??Breath sounds clear to auscultation bilaterally. No wheezing. Good air movement throughout both lungs. GI: Soft. Nontender and nondistended. Normal bowel sounds present throughout abdomen. No Hepatosplenomegaly? MS: ??No edema or erythema in the lower extremities. Skin:??No rashes seen on chest, abdomen, or back. ? Neuro: ??No slurred speech. Moving upper and lower extremities spontaneously. Psych: Alert and oriented x3.?? Consultants Endocrinology Follow-Up Appointments Added Follow Up ?Time Frame ?Comments Thania Chakraborty MD?3-5 day: call to discuss follow up visit Results Discharge Labs BLOOD COUNT & DIFF WBC 8.4 k/mm3 ()?? 03/02/2023 07:35 RBC 4.36 m/mm3 (Low)?? 03/02/2023 07:35 Hgb 13.0 Gm/dL (Low)?? 03/02/2023 07:35 Hct 38.7 % (Low)?? 03/02/2023 07:35 MCV 88.8 femtoliters ()?? 03/02/2023 07:35 MCH 29.8 pg ()?? 03/02/2023 07:35 MCHC 33.6 g/dL ()?? 03/02/2023 07:35 Platelet Count 320 k/mm3 ()?? 03/02/2023 07:35 RDW-SD 41.2 femtoliters ()?? 03/02/2023 07:35 MPV 9.7 femtoliters ()?? 03/02/2023 07:35 Nucleated RBC (Automated) 0.0 #/100 WBC'S ()?? 03/02/2023 07:35 Abs. NRBC 0.0 k/mm3 ()?? 03/02/2023 07:35 Abs. Neut 3.6 k/mm3 ()?? 03/02/2023 07:35 Abs. Lymph 3.9 k/mm3 (High)?? 03/02/2023 07:35 Abs. Harnett 0.8 k/mm3 ()?? 03/02/2023 07:35 Abs. Eo 0.1 k/mm3 ()?? 03/02/2023 07:35 Abs. Baso 0.0 k/mm3 ()?? 03/02/2023 07:35 Neut % 42.9 % (Low)?? 03/02/2023 07:35 Lymph % 45.8 % (High)?? 03/02/2023 07:35 Harnett % 9.7 % ()?? 03/02/2023 07:35 Eos % 1.0 % ()?? 03/02/2023 07:35 Baso % 0.5 % ()?? 03/02/2023 07:35 Imm Gran 0.1 % ()?? 03/02/2023 07:35 Abs. Imm Gran 0.0 k/mm3 ()?? 03/02/2023 07:35 ?? BLOOD GAS pH, Venous 7.25 (Low)?? 02/28/2023 20:27 ? CARDIAC High Sensitivity Troponin (HSTnT) 17 ng/L ()?? 03/01/2023 00:21 ? CHEM GENERAL Sodium 138 mmol/L ()?? 03/02/2023 07:35 Potassium 3.6 mmol/L ()?? 03/02/2023 07:35 Chloride 101 mmol/L ()?? 03/02/2023 07:35 Bicarbonate Level 25 mmol/L ()?? 03/02/2023 07:35 Anion Gap 12 ()?? 03/02/2023 07:35 Glucose Level 199 mg/dL (High)?? 03/02/2023 07:35 Glucose, POC 114 mg/dL (High)?? 03/02/2023 13:08 Beta Hydroxybutyrate 13.81 mmol/L (High)?? 02/28/2023 20:10 BUN 20 mg/dL ()?? 03/01/2023 00:21 Creatinine-Blood 0.9 mg/dL ()?? 03/02/2023 07:35 Estimated GFR Creatinine 121 ML/MIN/1.73 M2 ()?? 03/02/2023 07:35 Calcium 9.6 mg/dL ()?? 03/02/2023 07:35 Magnesium 2.0 mg/dL ()?? 03/02/2023 07:35 Protein, Total 7.7 Gm/dL ()?? 02/28/2023 17:55 Albumin 5.2 Gm/dL (High)?? 02/28/2023 17:55 AG Ratio 2.1 ()?? 02/28/2023 17:55 Alkaline Phosphatase 138 units/L (High)?? 02/28/2023 17:55 Lipase 11 units/L (Low)?? 02/28/2023 17:55 AST (SGOT) 11 units/L ()?? 02/28/2023 17:55 ALT (SGPT) 9 units/L ()?? 02/28/2023 17:55 Bilirubin, Total 0.5 mg/dL ()?? 02/28/2023 17:55 Lactate 2.1 mmol/L ()?? 03/01/2023 00:21 ?? HEME OTHER Hold Lavender Top SPECIMEN DISCARDED AFTER 24 HOURS. ()?? 03/01/2023 04:20 Hold Blue Top SPECIMEN DISCARDED AFTER 4 HOURS. ()?? 02/28/2023 17:55 Hold Lavender Top 2 SPECIMEN DISCARDED AFTER 24 HOURS. ()?? 03/01/2023 04:20 ? MISC. CHEMISTRY Hold Green Top SPECIMEN DISCARDED AFTER 1 WEEK ()?? 03/01/2023 00:21 ? URINE OTHER Est Creatinine Clearance 101.63 mL/min ()?? 03/02/2023 08:51 ? VIROLOGY COVID-19 by RT-PCR NEGATIVE ()?? 02/28/2023 21:06 ? Microbiology ?? COVID-19 (Novel Coronavirus), Rapid PCR?? Completed?? Source: Nasal Body Site: Nose Collected Dt/Tm: 02/28/2023 19:50 Last Updated Dt/Tm: 02/28/2023 21:56 ? 37??minutes spent on discharge * Lazaro Dodd RN: PERFORM Event Display: Patient Education/Instruction Authored Date: [id number] Inpatient Adult Discharge Instructions [address] [address] Name: CODY SONG : 1995 Visit: 02/28/2023 21:56:00 Current Date: 03/02/2023 15:46 Account: [id number] Inpatient Adult Discharge Instructions We would like [...] and their families. Surveys are administered by [employer] ?? If further treatment with your primary care physician or another doctor is recommended, it is important for you to keep the appointment. Call your primary care physician or return to the Emergency Department immediately if your condition worsens, fails to improve, or new symptoms develop. If you need to find a doctor, you can call [facility] [employer] Link for a referral at [phone] or toll free at [phone] or log in to [email or web address].. ?? [facility], in keeping with [facility] guidance, no longer requires face masks for [...] a health care fabrice of your choosing. [employer] is a website that allows you to securely view your medical information including your hospital discharge summary, office visit summaries, medications and follow-up visits. You can also request appointments, renew medications, and request access to your medical information using a health care fabrice of your choosing, or just ask a question. You can enroll at [email or web address] or register during your next office visit. You have been discharged from [facility], Patient Care Unit: SW5. If you have any questions regarding these instructions after you leave, please call us and we will be happy to assist you. [facility] Your Care Team Attending Physician Willie Rojas DO Consulting Providers Umu Bales MD Discharging Providers Willie Rojas DO Reason for Admission from home, pt taking insulin to compensate for not feeling well, pt with high blood sugars, vomiting since yesterday Your Diagnosis Diabetic ketoacidosis DKA (diabetic ketoacidosis) Type 1 diabetes HARRIET (acute kidney injury) Opiate dependence Opiate withdrawal SIRS (systemic inflammatory response syndrome) Tests Performed Below is a partial list of the tests performed during your hospitalization. You may have had other tests and procedures not included in this list. Please discuss all test results with your provider. Basic Metabolic Panel Beta Hydroxybutyrate Calcium Level CBC w/ Differential Comprehensive Metabolic Panel COVID-19 (Novel Coronavirus), Rapid PCR Creatinine Electrolytes Glucose Level GLUCOSE POC High Sensitivity Troponin T Hold Blue Top Tube HOLD GREEN TUBE HOLD LAVENDER TOP X2 HOLD LAVENDER TUBE Lactate Level Lactic Acid Level Lipase Magnesium Level pH Venous Urinalysis w/hold for Urine Culture?-- Results Pending -- You will be contacted within 72 hours with your results. Primary Care Provider Mylene BUSBY, [facility] Advance Directive Health Care Proxy on File Yes - Health Care Proxy Discharge Vitals Temperature: 98.8 DegF Height: 170 cm Pulse Rate: 71 bpm Weight: 58.8 kg Respiratory Rate: 18 br/min Body Mass Index: 20.35 kg/m2 Systolic Blood Pressure: 135 mm Hg Body surface area: 1.67 Diastolic Blood Pressure:??97 mm Hg??High ?? Oxygen Saturation: 100 % ?? Studies Pending All tests and labs ordered during this hospital stay have been completed unless listed below. Please discuss all pending results with your provider listed above in these instructions. ?? Add On Lab Order Amphetamine Urine Screen Blood Culture Blood Culture #2 Calcium Level Cannabinoid Urine Screen Cocaine Urine Screen Electrolytes Glucose Level High??Sensitivity??Troponin T (Troponin T, High Sensitivity) Magnesium Level Opiate Screen Urine UA W/Reflex Culture & Renal Urinalysis w/hold for Urine Culture What to do next Instructions From Your Doctor Discharge Orders You Need to Schedule the Following Appointments Follow Up with??Mylene BUSBY, Thania When:??Within 3-5 day: call to discuss follow up visit Where: [address] [place] [id number]- Discharge Medications CODY HAND :1995 Visit Date:02/28/2023 Medications: Please continue your medications until treatment is completed or stopped by your provider. Medications not listed below should be discontinued. Discuss any questions related to medications with your provider. What How Much When Instructions Next Dose New Miscellaneous Rx (Dexcom G7) See instructions To be used for continuous monitoring of sugars for dosing insulin for management of type I diabetes(E10.9) ?? Pickup at [facility] 3 Changed Insulin Glargine (Lantus Solostar Pen 100 units/ mL subcutaneous solution) See instructions 24 units Daily ?? Pickup at [facility] 3 9am Changed Insulin Lispro (insulin lispro 100 u/ ml subcutaneous injection) 5-11 units Subcutaneous Injection 3 times a day before meals << Sliding Scale Comments >> 100 - 149 ?? 5 units Call if less than 70 150 - 199 ?? 6 units 200 - 249 ?? 7 units 250 - 299 ?? 8 units 300 - 349 ?? 9 units 350 - 399 ?? 10 units 400 - 449 ?? 11 units Call if greater than 400 << Sliding Scale Comments >> ?? Pickup at [facility] 3 5pm Unchanged Clonidine (cloNIDine 0.1 mg oral tablet) 0.1 Milligram Oral 3 times a day continue as currently prescribed Unchanged HydrOXYzine (hydrOXYzine hydrochloride 25 mg oral tablet) 1 tab(s) Oral Daily as needed for as needed for anxiety continue as currently prescribed Unchanged Melatonin (Melatonin 5 mg oral tablet) 1 tab(s) Oral Daily at Bedtime as needed for for insomnia continue as currently prescribed Unchanged Methadone 90 Milligram Oral Daily 9am tomorrow Pharmacy Information [facility]: [address], [place] [id number] [phone] Test Results Below is a partial list of the most recent Laboratory test results done prior to this discharge. You may have had other tests and procedures not included in this list. Please discuss all test resultswith your provider. Est Creatinine Clearance - 101.63 mL/min (03/02/2023) Basic Metabolic Panel (03/01/2023) ???Sodium - 138 mmol/L???Potassium - 4.6 mmol/L???Chloride - 97 mmol/L???Bicarbonate Level - 15 mmol/L???Anion Gap - 26???Glucose Level - 255 mg/dL???BUN - 20 mg/dL???Creatinine-Blood - 1.3 mg/dL???Estimated GFR Creatinine - 78 ML/MIN/1.73 M2???Calcium - 9.3 mg/dL Beta Hydroxybutyrate (02/28/2023) ???Beta Hydroxybutyrate - 13.81 mmol/L Calcium Level (03/02/2023) ???Calcium - 9.6 mg/dL CBC w/ Differential (03/02/2023) ???WBC - 8.4 k/mm3???RBC - 4.36 m/mm3???Hgb - 13.0 Gm/dL???Hct - 38.7 %???MCV - 88.8 femtoliters???MCH - 29.8 pg???MCHC - 33.6 g/dL???Platelet Count - 320 k/mm3???RDW-SD - 41.2 femtoliters???MPV - 9.7 femtoliters???Nucleated RBC (Automated) - 0.0 #/100 WBC'S???Abs. NRBC - 0.0 k/mm3???Abs. Neut - 3.6 k/mm3???Abs. Lymph - 3.9 k/mm3???Abs. Harnett - 0.8 k/mm3???Abs. Eo - 0.1 k/mm3???Abs. Baso - 0.0 k/mm3???Neut % - 42.9 %???Lymph % - 45.8 %???Harnett % - 9.7 %???Eos % - 1.0 %???Baso % - 0.5 %???Imm Gran- 0.1 %???Abs. Imm Gran - 0.0 k/mm3 Comprehensive Metabolic Panel (02/28/2023) ???Sodium - 131 mmol/L???Potassium - 5.0 mmol/L???Chloride - 82 mmol/L???Bicarbonate Level - 7 mmol/L???Anion Gap - 42???Glucose Level - 474 mg/dL???BUN - 24 mg/dL???Creatinine-Blood - 1.6 mg/dL???Estimated GFR Creatinine - 60 ML/MIN/1.73 M2???Calcium - 10.5 mg/dL???Protein, Total - 7.7 Gm/dL???Albu min - 5.2 Gm/dL???AG Ratio - 2.1???Alkaline Phosphatase - 138 units/L???AST (SGOT) - 11 units/L???ALT (SGPT) - 9 units/L???Bilirubin, Total - 0.5 mg/dL COVID-19 (Novel Coronavirus), Rapid PCR (02/28/2023) ???COVID-19 by RT-PCR - NEGATIVE Creatinine (03/02/2023) ???Creatinine-Blood - 0.9 mg/dL???Estimated GFR Creatinine - 121 ML/MIN/1.73 M2 Electrolytes (03/02/2023) ???Sodium - 138 mmol/L???Potassium - 3.6 mmol/L???Chloride - 101 mmol/L???Bicarbonate Level - 25 mmol/L???Anion Gap - 12 Glucose Level (03/02/2023) ???Glucose Level - 199 mg/dL GLUCOSE POC (03/02/2023) ???Glucose, POC - 114 mg/dL High Sensitivity Troponin T (03/01/2023) ???High Sensitivity Troponin (HSTnT) - 17 ng/L Hold Blue Top Tube (02/28/2023) ???Hold Blue Top - SPECIMEN DISCARDED AFTER 4 HOURS. HOLD GREEN TUBE (03/01/2023) ???Hold Green Top - SPECIMEN DISCARDED AFTER 1 WEEK HOLD LAVENDER TOP X2 (03/01/2023) ???Hold Lavender Top - SPECIMEN DISCARDED AFTER 24 HOURS.???Hold Lavender Top 2 - SPECIMEN DISCARDED AFTER 24 HOURS. HOLD LAVENDER TUBE (03/01/2023) ???Hold Lavender Top - SPECIMEN DISCARDED AFTER 24 HOURS. Lactate Level (03/01/2023) ???Lactate - 2.1 mmol/L Lactic Acid Level (02/28/2023) ???Lactate - 3.7 mmol/L Lipase (02/28/2023) ???Lipase - 11 units/L Magnesium Level (03/02/2023) ???Magnesium - 2.0 mg/dL pH Venous (02/28/2023) ???pH, Venous - 7.25 Allergies (NKA means No Known Allergies) NKA Problems Active Problems??(6) DIABETES MELLITUS?? Microalbuminuria?? PURE HYPERCHOLESTEROLEMIA?? Tobacco user?? Type 1 diabetes mellitus?? Varicella immune?? Education Materials Below is the list of Educational Leaflet Providered with your Discharge Instructions. Valuables and Belongings I fully understand and agree that [facility] accepts no responsibility for all my personal [...] Review of Valuable and Belonging List: With patient, With witness Date for Pt to Sign Valuables/Belongings: 02/28/23 23:33:00 ?? Other Discharge Information ? Pulmonary Rehab [...] are strongly encouraged to quit. Please call [facility] Link at [phone] or [phone]) or log in to [email or web address] for referrals to smoking cessation programs. ?? 096 Suicide & Crisis Lifeline is available 20/12 if you or someone you know needs to find a reason to keep living. By calling 517 you'll be connected to a skilled, trained counselor at a crisis center in your area. INPATIENT DISCHARGE INSTRUCTIONS SIGNATURE PAGE AZUL SONG CODY Location:[facility] Registration Date and Time:02/28/2023 21:56 EDT Primary Care Physician: Mylene BUSBY, Thania, Attending Physician: Willie Rojas DO, I CODY HAND, have received the above patient education materials/instructions and have verbalized understanding. If ambulance or transport services are being used I further acknowledge being given a choice of service. ?? If you need to contact me, please call me at this number: . Patient/Wardrobe Coordinator Name: Patient/Wardrobe Coordinator Signature: Relationship to Patient: Witness Name/Signature: Date: Patient Care team information Care Team Personnel Name: Marcelina Vanegas RN Position: [facility] [facility] RN Member Role: Primary Care Nurse Name: Lazaro Dodd RN Position: [facility] RN Member Role: Primary Care Nurse Name: Arti Kemp RN Position: [facility] RN Member Role: Primary Care Nurse Name: Tristian Rubalcava RN Position: [facility] RN Member Role: Primary Care Nurse Name: Ben Retana RN Position: [facility] RN Member Role: Primary Care Nurse Name: Thania Chakraborty MD Position: Reference Physician Member Role: PCP Address: Address: [address] [place] [address]- Name: *Fatoumata ALARCON Attending Position: [facility] ED Medicine Name: Kamini Rucker [place] Position: [facility] ED TA YESSICA Member Role: Patient Care Provider Name: Nayeli Sotelo MD Position: [facility] Resident Member Role: ED Resident Address: Address: [address] [place] [address] [place], [place] [address]R[place] Care Team Related Persons Name: GREGORY MARTINEZ Address: home [address] [place] [address] Name: CINDY JIMENEZ Address: home [address] [place] [address] Name: ELVA DHILLON Address: home [address] [place] [address] Name: ANDRE SONG Address: home [address] [place] [address]
--- OUTSIDE RECORDS SUMMARY | 2023-05-27 20:03 | XMS_ITS | Continuity of Care Document ---
Author Name Unknown Organization [facility] Address [address] [place] [address]- Care Team Providers Care Operator/Assistant Foreman Name Role Phone Mylene BUSBY, Thania Primary Care Physician Encounter [facility] [place] Date(s): 06/15/19 - 06/25/19 [facility] [address] [place] [address] [facility] Attending Physician: Izabel Vizcaino Admitting Physician: AdmIzabel ortega Referring Physician: AdmtrIzabel Allergies, Adverse Reactions, Alerts Substance Reaction Severity [...] SoloStar 100 units/mL injectable solution See Instructions, for use three times daily before meals, max daily dose of 45 units, schedule follow up for further refills, # 15 mL, 0 Refills, Maintenance, 05/28/19 11:32:00 EST, [id number], 167, cm, 10/11/17 8:37:00 EDT, Height Start Date: 05/28/19 Status: Ordered Alcohol Pads See Instructions, # 200 each, Refills 11, Tot. Refills 11, Maintenance, Use as directed for type 1 diabetes 6-7x/day, 02/11/14 16:03:21, Compound Start Date: 02/11/14 Status: Ordered diabetic shoes diabetic shoes, See [...] 0, Maintenance,11/08/16 15:53:10, Route to Pharmacy Electronically, [id number], [facility]/pharmacy #[id number] Start Date: 11/08/16 Status: Ordered Glucagon Emergency [...] 0.5 cc 31 G x 8 mm (5/16in) See Instructions, # 150 each, Refills 5, Tot. Refills 5, Maintenance, use as directed for Type 1 Diabetes Mellitus, inject max 5x's/day, 10/06/17 9:09:06 EDT, Compound Start Date: 10/06/17 Stop Date: 04/04/18 Status: Ordered Insulin Syringe, BD Ultra-Fine 1 cc 31 G x 8 mm (516in) See Instructions, # 150 each, Maintenance, Use to inject with insulin up to 5 times a day, E10.9, Must come to appt for further refill, 12/25/18 14:06:39 EDT, Compound Start Date: 12/25/18 Status: Ordered Ketostix See Instructions, # 150 each, Refills 11, Tot. Refills 11, Maintenance, Use as directed for type 1 diabetes, 02/11/14 23:01:30, Compound Start Date: 02/11/14 Status: Ordered Lantus 100 u/ml subcutaneous solution = 20 units, Subcutaneous Injection, Daily in AM, for T1DM/E10, # 30 mL, 4 Refills, Maintenance, 10/11/17 9:07:28 EDT Start Date: 10/11/17 Stop Date: 03/10/18 Status: Ordered traZODone 50 mg oral tablet [...]
--- OUTSIDE RECORDS SUMMARY | 2023-05-27 20:03 | XMS_ITS | Continuity of Care Document ---
Author Name Unknown Organization [facility] ter Address [address] [place] [address]- Care Team Providers Care Data Lead Name Role Phone Thania Chakraborty MD Primary Care Physician Encounter [facility] [place] Date(s): 09/01/20 - 10/30/[address] [address] Attending Physician: Renata Berman MD Admitting Physician: [...] Start Date: 02/11/14 Status: Ordered BD Pen [place] 32G x 6mm BD Pen [place] 32G x 6mm, See Instructions, # 200 each, Refills 11, Tot. Refills 11, Maintenance, Use to inject insulin 4 times daily. E10.65, 08/06/19 15:15:00 EDT, Supply, 167, cm, 08/06/19 14:57:00 EDT, Height Start Date: 08/06/19 Status: Ordered DEXCOM G6 NAPKIN BAND WRAPPER DEXCOM G6 NAPKIN BAND WRAPPER, See Instructions, # 1 each, Refills 0, Tot. Refills 0, Maintenance, Use to monitor blood glucose levels continuously. E10.9 [facility]# [id number], 09/08/20 10:37:00 EDT, Supply, 167,cm, 08/06/19 14:57:00 EDT, Height Start Date: 09/08/20 Status: Ordered DEXCOM G6 SENSOR 3-PACK DEXCOM G6 SENSOR 3-PACK, See Instructions, # 3 each, Refills 3, Tot. Refills 3, Maintenance, Use tomonitor blood glucose levels continuously. change every 10 days. E10.9 [facility]# [id number], 09/08/2109:37:00 EDT, Supply, 167, cm, 08/06/19 14:57:00 E... Start Date: 09/08/20 Status: Ordered DEXCOM G6 TRANSMITTER DEXCOM G6 TRANSMITTER, See Instructions, # 1 each, Refills 3, Tot. Refills 3, Maintenance, Use withsensor to monitor blood glucose levels continuously. Change every 3 months. E10.9. [facility]# [id number], 09/08/20 10:37:00 EDT, Supply, 167, cm, ... [...] Refills 0, Maintenance, Use Freestyle 14 Day [place] to scan blood glucose 4x a day, [...] 0, Maintenance,11/08/16 15:53:10, Route to Pharmacy Electronically, [id number], [facility]/pharmacy #[id number] Start Date: 11/08/16 Status: Ordered Glucagon Emergency [...] 5 Refills, Maintenance, 10/10/20 20:34:00 EDT, Solution, [facility]/pharmacy #[id number], duplicate from rx sent 08/06/19 not received by pharmacy, 167, cm, 08/06/19 14:57:00 EDT, Height Start Date: 10/10/20 Status: Ordered lisinopril 5 mg oral tablet 5 mg, 1, tablet, By Mouth, Daily, # 30 tablet, Refills 6, Tot. Refills 6, Maintenance, 10/06/20 11:31:00 EDT, Route to Pharmacy Electronically, [facility]/pharmacy #[id number], Partial fill upon patient request if the prescription is for a schedule II opioid drug.... Start Date: 10/06/20 Status: Ordered Pen [place], 31 G x 5 mm BD Ultra [...]
--- OUTSIDE RECORDS SUMMARY | 2023-05-27 20:03 | XMS_ITS | Continuity of Care Document ---
Author Name Unknown Organization [facility] Address [address] [place] [address]- Care Team Providers Care Front Maker Name Role Phone Mylene BUSBY, Thania Primary Care Physician [phone] [place] [facility] 09/02/20 - 10/02/20 [facility] [address] [place] [id number] Allergies, Adverse Reactions, Alerts Substance Reaction [...] Start Date: 02/11/14 Status: Ordered BD Pen [place] 32G x 6mm BD Pen [place] 32G x 6mm, See Instructions, # 200 each, Refills 11, Tot. Refills 11, Maintenance, Use to inject insulin 4 times daily. E10.65, 08/06/19 15:15:00 EDT, Supply, 167, cm, 08/06/19 14:57:00 EDT, Height Start Date: 08/06/19 Status: Ordered DEXCOM G6 HEALTH ADMINISTRATION TEACHER DEXCOM G6 HEALTH ADMINISTRATION TEACHER, See Instructions, # 1 each, Refills 0, Tot. Refills 0, Maintenance, Use to monitor blood glucose levels continuously. E10.9 [facility]# [id number], 09/08/20 10:37:00 EDT, Supply, 167,cm, 08/06/19 14:57:00 EDT, Height Start Date: 09/08/20 Status: Ordered DEXCOM G6 SENSOR 3-PACK DEXCOM G6 SENSOR 3-PACK, See Instructions, # 3 each, Refills 3, Tot. Refills 3, Maintenance, Use tomonitor blood glucose levels continuously. change every 10 days. E10.9 [facility]# [id number], 09/08/2109:37:00 EDT, Supply, 167, cm, 08/06/19 14:57:00 E... Start Date: 09/08/20 Status: Ordered DEXCOM G6 TRANSMITTER DEXCOM G6 TRANSMITTER, See Instructions, # 1 each, Refills 3, Tot. Refills 3, Maintenance, Use withsensor to monitor blood glucose levels continuously. Change every 3 months. E10.9. [facility]# [id number], 09/08/20 10:37:00 EDT, Supply, 167, cm, ... [...] Refills 0, Maintenance, Use Freestyle 14 Day [place] to scan blood glucose 4x a day, [...] 0, Maintenance,11/08/16 15:53:10, Route to Pharmacy Electronically, [id number], [facility]/pharmacy #[id number] Start Date: 11/08/16 Status: Ordered Glucagon Emergency [...] 0.5 cc 31 G x 8 mm (16in) See Instructions, # 150 each, Refills 5, [...] = 20 units, Subcutaneous Injection, Daily, Take 35 units once daily in the morning. E10.65, # 30 mL, 5 Refills, Maintenance, 07/23/20 12:16:00 EST, [facility], [id number], duplicate from rx sent 08/06/19 not received by pharmacy, 167, kaelyn, 08/06/19... Start Date: 07/23/20 Status: Ordered Pen [place], 31 G x 5 mm BD Ultra [...]
--- OUTSIDE RECORDS SUMMARY | 2023-05-27 20:03 | XMS_ITS | Continuity of Care Document ---
Author Name Unknown Organization [facility] ter Address [address] [place] [address]- Care Team Providers Care Caster Operator Name Role Phone Mylene BUSBY, Thania Primary Care Physician Encounter [facility] Date(s): 11/30/20 - 12/01/[address] [address]- Encounter Diagnosis Altered mental status(Final) - 12/01/20 Discharge Disposition: A-D/C Home Attending Physician: Pancho Spivey DO Admitting Physician: Pancho Spivey DO Referring Physician: Not on Staff, Referring MD Allergies, Adverse Reactions, Alerts Substance Reaction [...] mL, 3 Refills, Maintenance, 08/06/19 15:16:00 EDT, [facility]/pharmacy #[id number], 167, cm, 08/06/19 14:57:00 EDT, Height Start Date: 08/06/19 Status: Ordered Alcohol Pads See Instructions, # 200 each, Refills 11, Tot. Refills 11, Maintenance, Use as directed for type 1 diabetes 6-7x/day, 02/11/14 16:03:21, Compound Start Date: 02/11/14 Status: Ordered BD Pen [place] 32G x 6mm BD Pen [place] 32G x 6mm, See Instructions, # 200 each, Refills 11, Tot. Refills 11, Maintenance, Use to inject insulin 4 times daily. E10.65, 08/06/19 15:15:00 EDT, Supply, 167, cm, 08/06/19 14:57:00 EDT, Height Start Date: 08/06/19 Status: Ordered DEXCOM G6 INSURANCE SOLICITOR DEXCOM G6 INSURANCE SOLICITOR, See Instructions, # 1 each, Refills 0, Tot. Refills 0, Maintenance, Use to monitor blood glucose levels continuously. E10.[address] [facility]# [id number], 09/08/20 10:37:00 EDT, Supply, 167,cm, 08/06/19 14:57:00 EDT, Height Start Date: 09/08/20 Status: Ordered DEXCOM G6 SENSOR 3-PACK DEXCOM G6 SENSOR 3-PACK, See Instructions, # 3 each, Refills 3, Tot. Refills 3, Maintenance, Use tomonitor blood glucose levels continuously. change every [address] [facility]# [id number], 09/08/2109:37:00 EDT, Supply, 167, cm, 08/06/19 14:57:00 E... Start Date: 09/08/20 Status: Ordered DEXCOM G6 TRANSMITTER DEXCOM G6 TRANSMITTER, See Instructions, # 1 each, Refills 3, Tot. Refills 3, Maintenance, Use withsensor to monitor blood glucose levels continuously. Change every 3 [address] [facility]# [id number], 09/08/20 10:37:00 EDT, Supply, 167, cm, ... [...] Refills 0, Maintenance, Use Freestyle 14 Day [place] to scan blood glucose 4x a day, [...] 0, Maintenance,11/08/16 15:53:10, Route to Pharmacy Electronically, [id number], [facility]/pharmacy #[id number] Start Date: 11/08/16 Status: Ordered Glucagon Emergency [...] 5 Refills, Maintenance, 10/10/20 20:34:00 EDT, [facility], [id number], duplicate from rx sent [...] drug.... Start Date: 10/06/20 Status: Ordered Pen [place], 31 G x 5 mm BD Ultra [...] diabetes mellitus(Confirmed) Active Varicella immune(Confirmed) 09/29/11 Active Vital Signs Most recent to oldest [Reference Range]: 1 2 3 Oxygen Saturation [94-100 %] 99 % (12/01/20 12:35 AM) 100 % (11/30/20 9:04 PM) 100 % (11/30/20 6:52 PM) Pulse Rate [55-90 bpm] 86 bpm (12/01/20 12:35 AM) 78 bpm (11/30/20 9:04 PM) 81 bpm (11/30/20 6:52 PM) Blood Pressure [90-138/55-84 mm Hg] 108/59mm Hg (12/01/20 12:35 AM) 117/68mm Hg (11/30/20 9:04 PM) 127/79mm Hg (11/30/20 6:52 PM) Respiratory Rate [16-30 br/min] 16 br/min (12/01/20 12:35 AM) 16 br/min (11/30/20 9:04 PM) 14 br/min *L* (11/30/20 6:52 PM) Temperature [96.8-100.4 DegF] 98.3 DegF (12/01/20 12:35 AM) 98.6 DegF (11/30/20 9:04 PM) 98.4 DegF (11/30/20 6:52 PM) Mode of Delivery (Oxygen) Room air (12/01/20 12:35 AM) Room air (11/30/20 9:04 PM) Room air (11/30/20 6:52 PM) Blood pressure sites Arm, left (12/01/20 12:35 AM) Arm, right (11/30/20 9:04 PM) Arm, left (11/30/20 6:52 PM) Temperature Route Oral (12/01/20 12:35 AM) Oral (11/30/20 9:04 PM) Oral (11/30/20 6:52 PM) Social History Social History Type Response Smoking Status Current every day mae roberson; Type: Cigarettes entered on: 04/11/14 Sex
--- OUTSIDE RECORDS SUMMARY | 2023-05-27 20:03 | XMS_ITS | Continuity of Care Document ---
Author Name Unknown Organization [facility] Address [address] [place] [address]- Care Team Providers Care Geodetic Surveyor Technologist Name Role Phone Mylene BUSBY, [facility] Primary Care Physician Encounter [facility] [place] Date(s): 10/10/20 - 11/09/20 [facility] [address] [place] [id number] Allergies, Adverse Reactions, Alerts Substance Reaction [...] Start Date: 02/11/14 Status: Ordered BD Pen [place] 32G x 6mm BD Pen [place] 32G x 6mm, See Instructions, # 200 each, Refills 11, Tot. Refills 11, Maintenance, Use to inject insulin 4 times daily. E10.65, 08/06/19 15:15:00 EDT, Supply, 167, cm, 08/06/19 14:57:00 EDT, Height Start Date: 08/06/19 Status: Ordered DEXCOM G6 DINING ROOM COORDINATOR DEXCOM G6 DINING ROOM COORDINATOR, See Instructions, # 1 each, Refills 0, Tot. Refills 0, Maintenance, Use to monitor blood glucose levels continuously. E10.9 [facility]# [id number], 09/08/20 10:37:00 EDT, Supply, 167,cm, 08/06/19 14:57:00 EDT, Height Start Date: 09/08/20 Status: Ordered DEXCOM G6 SENSOR 3-PACK DEXCOM G6 SENSOR 3-PACK, See Instructions, # 3 each, Refills 3, Tot. Refills 3, Maintenance, Use tomonitor blood glucose levels continuously. change every 10 days. E10.9 [facility]# [id number], 09/08/2109:37:00 EDT, Supply, 167, cm, 08/06/19 14:57:00 E... Start Date: 09/08/20 Status: Ordered DEXCOM G6 TRANSMITTER DEXCOM G6 TRANSMITTER, See Instructions, # 1 each, Refills 3, Tot. Refills 3, Maintenance, Use withsensor to monitor blood glucose levels continuously. Change every 3 months. E10.9. [facility]# [id number], 09/08/20 10:37:00 EDT, Supply, 167, cm, ... [...] Refills 0, Maintenance, Use Freestyle 14 Day [place] to scan blood glucose 4x a day, [...] 0, Maintenance,11/08/16 15:53:10, Route to Pharmacy Electronically, [id number], [facility]/pharmacy #[id number] Start Date: 11/08/16 Status: Ordered Glucagon Emergency [...] 5 Refills, Maintenance, 10/10/20 20:34:00 EDT, Solution, [facility]/pharmacy #[id number], duplicate from rx sent 08/06/19 not received by pharmacy, 167, cm, 08/06/19 14:57:00 EDT, Height Start Date: 10/10/20 Status: Ordered lisinopril 5 mg oral tablet 5 mg, 1, tablet, By Mouth, Daily, # 30 tablet, Refills 6, Tot. Refills 6, Maintenance, 10/06/20 11:31:00 EDT, Route to Pharmacy Electronically, [facility]/pharmacy #[id number], Partial fill upon patient request if the prescription is for a schedule II opioid drug.... Start Date: 10/06/20 Status: Ordered Pen [place], 31 G x 5 mm BD Ultra [...]
--- OUTSIDE RECORDS SUMMARY | 2023-05-27 20:04 | XMS_ITS | Continuity of Care Document ---
Author Name Unknown Organization [facility] Diabetes Address [address] [place] [address]- Care Team Providers Care Counselor Education Professor Name Role Phone Thania Chakraborty MD Primary Care Physician Encounter [facility] Date(s): 01/08/21 - 02/21/21 [facility] Diabetes [address] [place] [id number] Attending Physician: Renata Berman [...] Start Date: 02/11/14 Status: Ordered BD Pen [place] 32G x 6mm BD Pen [place] 32G x 6mm, See Instructions, # 200 each, Refills 11, Tot. Refills 11, Maintenance, Use to inject insulin 4 times daily. E10.65, 08/06/19 15:15:00 EDT, Supply, 167, cm, 08/06/19 14:57:00 EDT, Height Start Date: 08/06/19 Status: Ordered DEXCOM G6 SCHEDULE ANALYST DEXCOM G6 SCHEDULE ANALYST, See Instructions, # 1 each, Refills 0, Tot. Refills 0, Maintenance, Use to monitor blood glucose levels continuously. E10.9 [facility]# [id number], 09/08/20 10:37:00 EDT, Supply, 167,cm, 08/06/19 14:57:00 EDT, Height Start Date: 09/08/20 Status: Ordered DEXCOM G6 SENSOR 3-PACK DEXCOM G6 SENSOR 3-PACK, See Instructions, # 3 each, Refills 3, Tot. Refills 3, Maintenance, Use tomonitor blood glucose levels continuously. change every 10 days. E10.9 [facility]# [id number], 09/08/2109:37:00 EDT, Supply, 167, cm, 08/06/19 14:57:00 E... Start Date: 09/08/20 Status: Ordered DEXCOM G6 TRANSMITTER DEXCOM G6 TRANSMITTER, See Instructions, # 1 each, Refills 3, Tot. Refills 3, Maintenance, Use withsensor to monitor blood glucose levels continuously. Change every 3 months. E10.9. [facility]# [id number], 09/08/20 10:37:00 EDT, Supply, 167, cm, ... [...] Refills 0, Maintenance, Use Freestyle 14 Day [place] to scan blood glucose 4x a day, [...] 0, Maintenance,11/08/16 15:53:10, Route to Pharmacy Electronically, [id number], [facility]/pharmacy #[id number] Start Date: 11/08/16 Status: Ordered Glucagon Emergency [...] 10/06/20 11:31:00 EDT, Route to Pharmacy Electronically, [facility]/pharmacy #[id number], Partial fill upon patient request if the prescription is for a schedule II opioid drug.... Start Date: 10/06/20 Status: Ordered Pen [place], 31 G x 5 mm BD Ultra [...]
--- OUTSIDE RECORDS SUMMARY | 2023-05-27 20:04 | XMS_ITS | Continuity of Care Document ---
Author Name Unknown Organization [facility] Diabetes Address [address] [place] [address]- Care Team Providers Care Cementer [employer] Name Role Phone Thania Chakraborty MD Primary Care Physician [phone] En[place] [facility] [place] 04/11/21 - 08/09/21 [facility] Diabetes [address] [place] [address]- Attending Physician: Guillermina Stone DO Admitting Physician: Guillermina Stone DO Referring Physician: Thania Chakraborty MD Allergies, Adverse Reactions, Alerts No Known [...] SoloStar 100 units/mL injectable solution See Instructions, INJECT MAX DAILY DOSE 45 UNITS., # 30 Unknown, 2 Refills, Maintenance, 04/01/21 14:06:00 EDT, [id number], 167, cm, 08/06/19 14:57:00 EDT, Height Start Date: 04/01/21 Status: Ordered Alcohol Pads See Instructions, # 200 each, Refills 11, Tot. Refills 11, Maintenance, Use as directed for type 1 diabetes 6-7x/day, 02/11/14 16:03:21, Compound Start Date: 02/11/14 Status: Ordered BD Pen [place] 32G x 6mm BD Pen [place] 32G x 6mm, See Instructions, # 200 each, Refills 11, Tot. Refills 11, Maintenance, Use to inject insulin 4 times daily. E10.65, 08/06/19 15:15:00 EDT, Supply, 167, cm, 08/06/19 14:57:00 EDT, Height Start Date: 08/06/19 Status: Ordered DEXCOM G6 DOCUMENT REVIEWER DEXCOM G6 DOCUMENT REVIEWER, See Instructions, # 1 each, Refills 0, Tot. Refills 0, Maintenance, Use to monitor blood glucose levels continuously. E10.9 [facility]# [id number], 09/08/20 10:37:00 EDT, Supply, 167,cm, 08/06/19 14:57:00 EDT, Height Start Date: 09/08/20 Status: Ordered DEXCOM G6 SENSOR 3-PACK DEXCOM G6 SENSOR 3-PACK, See Instructions, # 3 each, Refills 3, Tot. Refills 3, Maintenance, Use tomonitor blood glucose levels continuously. change every 10 days. E10.9 [facility]# [id number], 09/08/2109:37:00 EDT, Supply, 167, cm, 08/06/19 14:57:00 E... Start Date: 09/08/20 Status: Ordered DEXCOM G6 TRANSMITTER DEXCOM G6 TRANSMITTER, See Instructions, # 1 each, Refills 3, Tot. Refills 3, Maintenance, Use withsensor to monitor blood glucose levels continuously. Change every 3 months. E10.9. [facility]# [id number], 09/08/20 10:37:00 EDT, Supply, 167, cm, ... [...] Refills 0, Maintenance, Use Freestyle 14 Day [place] to scan blood glucose 4x a day, [...] 0, Maintenance,11/08/16 15:53:10, Route to Pharmacy Electronically, [id number], [facility]/pharmacy #[id number] Start Date: 11/08/16 Status: Ordered Glucagon Emergency Kit See Instructions, # 2 kit, Refills 2, Tot. Refills 2, Maintenance, Inject IM in the event of severehypoglycemia. for T1DM/E10., 10/12/17 16:42:34 EDT, Compound Start Date: 10/12/17 Status: Ordered Humalog Kwik Pen 100 units/mL subcutaneous injection See Instructions, Subcutaneous Infusion, Use as directed for Diabetes mellitus type 1. (Max Dose=50units/day), # 3 each, 5 Refills, Maintenance, 04/01/21 23:24:00 EDT, [facility]/pharmacy #[id number], Partial fill upon patient request if the prescription is for a... Start Date: 04/01/21 Stop Date: 09/28/21 Status: Ordered ibuprofen 600 mg oral tablet [...] 1 cc 31 G x 8 mm (5/16in) See Instructions, # 150 each, Maintenance, Use [...] 5 Refills, Maintenance, 10/10/20 20:34:00 EDT, Solution, [facility]/pharmacy #[id number], duplicate from rx sent 08/06/19 not received by pharmacy, 167, cm, 08/06/19 14:57:00 EDT, Height Start Date: 10/10/20 Status: Ordered lisinopril 5 mg oral tablet 5 mg, 1, tablet, By Mouth, Daily, # 30 tablet, Refills 6, Tot. Refills 6, Maintenance, 10/06/20 11:31:00 EDT, Route to Pharmacy Electronically, [facility]/pharmacy #[id number], Partial fill upon patient request if the prescription is for a schedule II opioid drug.... Start Date: 10/06/20 Status: Ordered Pen [place], 31 G x 5 mm BD Ultra [...]
--- OUTSIDE RECORDS SUMMARY | 2023-05-27 20:04 | XMS_ITS | Continuity of Care Document ---
Author Name Unknown Organization [facility] Endocrinolo gy and Diabetes Address [address] [place] [address]- Care Team Providers Care Academic Department Chair Name Role Phone Mylene BUSBY, Thania Primary Care Physician Encounter [facility] [place] Date(s): 08/29/20 - 09/28/20 [facility] Endocrinology and Diabetes [address] [place] [id number] Attending Physician: Izabel Vizcaino Admitting Physician: Izabel Vizcaino Referring Physician: AdmtrIzabel Allergies, Adverse Reactions, Alerts [...] Start Date: 02/11/14 Status: Ordered BD Pen [place] 32G x 6mm BD Pen [place] 32G x 6mm, See Instructions, # 200 each, Refills 11, Tot. Refills 11, Maintenance, Use to inject insulin 4 times daily. E10.65, 08/06/19 15:15:00 EDT, Supply, 167, cm, 08/06/19 14:57:00 EDT, Height Start Date: 08/06/19 Status: Ordered DEXCOM G6 GAUGE AND WEIGH MACHINE ADJUSTER DEXCOM G6 GAUGE AND WEIGH MACHINE ADJUSTER, See Instructions, # 1 each, Refills 0, Tot. Refills 0, Maintenance, Use to monitor blood glucose levels continuously. E10.9 [facility]# [id number], 09/08/20 10:37:00 EDT, Supply, 167,cm, 08/06/19 14:57:00 EDT, Height Start Date: 09/08/20 Status: Ordered DEXCOM G6 SENSOR 3-PACK DEXCOM G6 SENSOR 3-PACK, See Instructions, # 3 each, Refills 3, Tot. Refills 3, Maintenance, Use tomonitor blood glucose levels continuously. change every 10 days. E10.9 [facility]# [id number], 09/08/2109:37:00 EDT, Supply, 167, cm, 08/06/19 14:57:00 E... Start Date: 09/08/20 Status: Ordered DEXCOM G6 TRANSMITTER DEXCOM G6 TRANSMITTER, See Instructions, # 1 each, Refills 3, Tot. Refills 3, Maintenance, Use withsensor to monitor blood glucose levels continuously. Change every 3 months. E10.9. [facility]# [id number], 09/08/20 10:37:00 EDT, Supply, 167, cm, ... [...] Refills 0, Maintenance, Use Freestyle 14 Day [place] to scan blood glucose 4x a day, [...] 0, Maintenance,11/08/16 15:53:10, Route to Pharmacy Electronically, [id number], [facility]/pharmacy #[id number] Start Date: 11/08/16 Status: Ordered Glucagon Emergency [...] by pharmacy, 167, cm, 08/06/19... Start Date: 07/23/20 Status: Ordered Pen [place], 31 G x 5 mm BD Ultra [...]
--- OUTSIDE RECORDS SUMMARY | 2023-05-27 20:04 | XMS_ITS | Continuity of Care Document ---
Author Name Unknown Organization [facility] ter Address [address] [place] [address]- Care Team Providers Care Ice Cream Vault Worker Name Role Phone Mylene BUSBY, Thania Primary Care Physician [phone] Encounter [facility] [id number] Date(s): 09/30/20 - 10/30/[address] [address] Attending Physician: Admtr, Izabel Admitting Physician: Admtr, Izabel Referring Physician: Admtr, Ar8 Allergies, Adverse Reactions, [...] Start Date: 02/11/14 Status: Ordered BD Pen [place] 32G x 6mm BD Pen [place] 32G x 6mm, See Instructions, # 200 each, Refills 11, Tot. Refills 11, Maintenance, Use to inject insulin 4 times daily. E10.65, 08/06/19 15:15:00 EDT, Supply, 167, cm, 08/06/19 14:57:00 EDT, Height Start Date: 08/06/19 Status: Ordered DEXCOM G6 COMMERCIAL SEWING INSTRUCTOR DEXCOM G6 COMMERCIAL SEWING INSTRUCTOR, See Instructions, # 1 each, Refills 0, Tot. Refills 0, Maintenance, Use to monitor blood glucose levels continuously. E10.9 [facility]# [id number], 09/08/20 10:37:00 EDT, Supply, 167,cm, 08/06/19 14:57:00 EDT, Height Start Date: 09/08/20 Status: Ordered DEXCOM G6 SENSOR 3-PACK DEXCOM G6 SENSOR 3-PACK, See Instructions, # 3 each, Refills 3, Tot. Refills 3, Maintenance, Use tomonitor blood glucose levels continuously. change every 10 days. E10.9 [facility]# [id number], 09/08/2109:37:00 EDT, Supply, 167, cm, 08/06/19 14:57:00 E... Start Date: 09/08/20 Status: Ordered DEXCOM G6 TRANSMITTER DEXCOM G6 TRANSMITTER, See Instructions, # 1 each, Refills 3, Tot. Refills 3, Maintenance, Use withsensor to monitor blood glucose levels continuously. Change every 3 months. E10.9. [facility]# [id number], 09/08/20 10:37:00 EDT, Supply, 167, cm, ... [...] Refills 0, Maintenance, Use Freestyle 14 Day [place] to scan blood glucose 4x a day, [...] 0, Maintenance,11/08/16 15:53:10, Route to Pharmacy Electronically, [id number], [facility]/pharmacy #[id number] Start Date: 11/08/16 Status: Ordered Glucagon Emergency [...] drug.... Start Date: 10/06/20 Status: Ordered Pen [place], 31 G x 5 mm BD Ultra [...] Response Smoking Status Current every day mae okgem; Type: Cigarettes entered on: 04/11/14 Sex
--- OUTSIDE RECORDS SUMMARY | 2023-05-27 20:04 | XMS_ITS | Continuity of Care Document ---
Author Name Unknown Organization [facility] Endocrinolo gy and Diabetes Address [address] [place] [address]- Care Team Providers Care Trade Analyst Name Role Phone Mylene BUSBY, Thania Primary Care Physician [phone] Encounter [facility] Date(s): 01/22/21 - 02/21/21 [facility] Endocrinology and Diabetes [address] [place] [id number] Attending Physician: Izabel Vizcaino Admitting Physician: Izabel [...] Start Date: 02/11/14 Status: Ordered BD Pen [place] 32G x 6mm BD Pen [place] 32G x 6mm, See Instructions, # 200 each, Refills 11, Tot. Refills 11, Maintenance, Use to inject insulin 4 times daily. E10.65, 08/06/19 15:15:00 EDT, Supply, 167, cm, 08/06/19 14:57:00 EDT, Height Start Date: 08/06/19 Status: Ordered DEXCOM G6 LIBRARY SERVICES ASSISTANT DEXCOM G6 LIBRARY SERVICES ASSISTANT, See Instructions, # 1 each, Refills 0, Tot. Refills 0, Maintenance, Use to monitor blood glucose levels continuously. E10.9 [facility]# [id number], 09/08/20 10:37:00 EDT, Supply, 167,cm, 08/06/19 14:57:00 EDT, Height Start Date: 09/08/20 Status: Ordered DEXCOM G6 SENSOR 3-PACK DEXCOM G6 SENSOR 3-PACK, See Instructions, # 3 each, Refills 3, Tot. Refills 3, Maintenance, Use tomonitor blood glucose levels continuously. change every 10 days. E10.9 [facility]# [id number], 09/08/2109:37:00 EDT, Supply, 167, cm, 08/06/19 14:57:00 E... Start Date: 09/08/20 Status: Ordered DEXCOM G6 TRANSMITTER DEXCOM G6 TRANSMITTER, See Instructions, # 1 each, Refills 3, Tot. Refills 3, Maintenance, Use withsensor to monitor blood glucose levels continuously. Change every 3 months. E10.9. [facility]# [id number], 09/08/20 10:37:00 EDT, Supply, 167, cm, ... [...] Refills 0, Maintenance, Use Freestyle 14 Day [place] to scan blood glucose 4x a day, [...] 0, Maintenance,11/08/16 15:53:10, Route to Pharmacy Electronically, [id number], [facility]/pharmacy #[id number] Start Date: 11/08/16 Status: Ordered Glucagon Emergency [...] 10/06/20 11:31:00 EDT, Route to Pharmacy Electronically, [facility]/pharmacy #[id number], Partial fill upon patient request if the prescription is for a schedule II opioid drug.... Start Date: 10/06/20 Status: Ordered Pen [place], 31 G x 5 mm BD Ultra [...]
--- OUTSIDE RECORDS SUMMARY | 2023-05-27 20:04 | XMS_ITS | Continuity of Care Document ---
Author Name Unknown Organization [facility] Endocrinolo gy and Diabetes Address [address] [place] [address]- Care Team Providers Care Resource Efficiency Manager Name Role Phone Mylene BUSBY, [facility] Primary Care Physician [place] [facility] Date(s): 06/08/19 - 08/19/19 [facility] Endocrinology and Diabetes [address] [place] [address]- [facility] Attending Physician: Renata Berman MD Admitting Physician: Renata Berman MD Allergies, Adverse Reactions, Alerts Substance Reaction [...] Start Date: 02/11/14 Status: Ordered BD Pen [place] 32G x 6mm BD Pen [place] 32G x 6mm, See Instructions, # 200 [...] 0, Maintenance,11/08/16 15:53:10, Route to Pharmacy Electronically, [id number], [facility]/pharmacy #[id number] Start Date: 11/08/16 Status: Ordered Glucagon Emergency [...] Refills, Maintenance, 08/08/19 10:45:00 EDT, Solution, [facility]acy #[id number], duplicate from rx sent 08/06/19 not received by pharmacy, 167, cm, 08/06/19... Start Date: 08/08/19 Status: Ordered Pen [place], 31 G x 5 mm BD Ultra [...]
--- OUTSIDE RECORDS SUMMARY | 2023-05-27 20:04 | XMS_ITS | Continuity of Care Document ---
Author Name Unknown Organization [facility] ter Address [address] [place] [address]- Care Team Providers Care Superintendent Distribution Name Role Phone Thania Chakraborty MD Primary Care Physician [phone] Encounter [facility] [place] Date(s): 07/23/22 - 09/03/[address] [address] Attending Physician: Orquidea Williamson MD Admitting Physician: Orquidea Williamson MD Referring Physician: Thania Chakraborty MD Allergies, [...] SoloStar 100 units/mL injectable solution See Instructions, To be used as directed for type 1 diabetes. Max daily dose 50 units, # 15 mL, 4 Refills, Maintenance, 02/15/22 10:54:00 EDT, [facility]/pharmacy #[id number], Partial fill upon patient request ifthe prescription is for a schedule II opioid drug. Start Date: 02/15/22 Status: Ordered Alcohol Pads See Instructions, # 200 each, Refills 11, Tot. Refills 11, Maintenance, Use as directed for type 1 diabetes 6-7x/day, 02/16/22 18:25:00 EDT, Compound Start Date: 02/16/22 Status: Ordered BD Pen [place] 32G x 6mm BD Pen [place] 32G x 6mm, See Instructions, # 200 each, Refills 11, Tot. Refills 11, Maintenance, Use to inject insulin 4 times daily. E10.65, 08/06/19 15:15:00 EDT, Supply, 167, cm, 08/06/19 14:57:00 EDT, Height Start Date: 08/06/19 Status: Ordered DEXCOM G6 BUSINESS INTERN DEXCOM G6 BUSINESS INTERN, See Instructions, # 1 each, Refills 0, Tot. Refills 0, Maintenance, Use to monitor blood glucose levels continuously. E10.9 [facility]# [id number], 09/08/20 10:37:00 EDT, Supply, 167,cm, 08/06/19 14:57:00 EDT, Height Start Date: 09/08/20 Status: Ordered DEXCOM G6 SENSOR 3-PACK DEXCOM G6 SENSOR 3-PACK, See Instructions, # 3 each, Refills 3, Tot. Refills 3, Maintenance, Use tomonitor blood glucose levels continuously. change every 10 days. E10.9 [facility]# [id number], 09/08/2109:37:00 EDT, Supply, 167, cm, 08/06/19 14:57:00 E... Start Date: 09/08/20 Status: Ordered DEXCOM G6 TRANSMITTER DEXCOM G6 TRANSMITTER, See Instructions, # 1 each, Refills 3, Tot. Refills 3, Maintenance, Use withsensor to monitor blood glucose levels continuously. Change every 3 months. E10.9. [facility]# [id number], 09/08/20 10:37:00 EDT, Supply, 167, cm, ... [...] Refills 0, Maintenance, Use Freestyle 14 Day [place] to scan blood glucose 4x a day, [...] Stop Date: 03/11/18 Status: Ordered Freestyle Lite Monitor See Instructions, # 1 each, Refills 5, Tot. Refills 5, Maintenance, use as directed for Type 1 Diabetes Mellitus e10.65, 07/23/22 15:59:00 EST, Supply, 167, cm, 07/23/22 15:41:00 EST, Height Start Date: 07/23/22 Stop Date: 01/19/23 Status: Ordered Freestyle Lite Test Strips See Instructions, # 200 each, Refills 4, Tot. Refills 4, Maintenance, use to test SMBG 4 times daily. for T1DM/E10., 10/12/17 16:41:03 EDT, Compound Start Date: 10/12/17 Stop Date: 03/11/18 Status: Ordered Freestyle Lite Test Strips See Instructions, # 200 each, Tot. Refills 5, Maintenance, use as directed for Type 1 Diabetes Mellitus E10.65, 07/23/22 15:59:00 EST, Supply, 167, cm, 07/23/22 15:41:00 EST, Height Start Date: 07/23/22 Stop Date: 08/22/22 Status: Ordered gabapentin 300 mg oral capsule 300 mg, 1, capsule, By Mouth, 3 times a day, # 270 capsule, Refills 0, Tot. Refills 0, Maintenance,11/08/16 15:53:10, Route to Pharmacy Electronically, [id number], [facility]/pharmacy #[id number] Start Date: 11/08/16 Status: Ordered Glucagon Emergency [...] 08/17/16 Stop Date: 08/20/16 Status: Ordered Insulin Lispro KwikPen 100 units/mL injectable solution = 10 units, Subcutaneous Infusion, 3 times a day before meals, E10.9 type I DM , Max Dose=50 units/day, # 45 mL, 4 Refills, Maintenance, 07/23/22 16:00:00 EST, [facility]/pharmacy #[id number], Partial fill upon patient request if the prescription is for a schedule... Start Date: 07/23/22 Stop Date: 10/16/23 Status: Ordered Insulin Syringe, BD Ultra-Fine 0.5 cc 31 G x 8 mm (516in) See Instructions, # 150 each, Refills 5, [...] Pen 100 units/mL subcutaneous solution See Instructions, Take once daily Max daily dose of 26 units. E10.65, # 30 mL, 5 Refills, Maintenance, 07/23/22 15:59:00 EST, Solution, [facility]/pharmacy #[id number], duplicate from rx sent 08/06/19 not received by pharmacy, 167, cm, 07/23/22 15:41:00 EST, Height Start Date: 07/23/22 Status: Ordered lisinopril 5 mg oral tablet 5 mg, 1, tablet, By Mouth, Daily, # 30 tablet, Refills 6, Tot. Refills 6, Maintenance, 10/06/20 11:31:00 EDT, Route to Pharmacy Electronically, [facility]/pharmacy #[id number], Partial fill upon patient request if the prescription is for a schedule II opioid drug.... Start Date: 10/06/20 Status: Ordered Pen [place], 31 G x 5 mm BD Ultra Fine III See Instructions, # 120 each, Maintenance, Use to inject with insulin up to 4 times a day, E10.9,, 08/08/19 10:45:00 EDT, duplicate from rx sent 07/19/19 not received by pharmacy, Compound, 167, cm, 08/06/19 14:57:00 EDT, Height Start Date: 08/08/19 Status: Ordered Pen [place], 31 G x 8 mm BD Ultra Fine III See Instructions, # 100 each, Refills 5, Tot. Refills 5, Maintenance, use as directed for Type 1 Diabetes Mellitus 90 day QID, E10.9, 02/16/22 18:26:00 EDT, Supply Start Date: 02/16/22 Stop Date: 08/15/22 Status: Ordered traZODone 50 mg oral tablet 50 mg, 1, tablet, By Mouth, Daily at bedtime, # 5 tablet, Refills 0, Tot. Refills 0, Maintenance, 08/31/16 14:29:22, Print Requisition Start Date: 08/31/16 Status: Ordered Problem List Condition Confirmation Course [...] Care team information Care Team Personnel Name: Thania Chakraborty MD Position: Reference Physician Member Role: PCP Address: Address: [address] [place] [address]- Care Team Related Persons Name: GREGORY MARTINEZ Address: home [address] [place] [address] Name: CINDY JIMENEZ Address: home [address] [place] [address] Name: ELVA DHILLON Address: home [address] [place] [address] Name: ANDRE VELEZ Address: home [address] [place] [address]
--- OUTSIDE RECORDS SUMMARY | 2023-05-27 20:04 | XMS_ITS | Continuity of Care Document ---
Author Name Unknown Organization [facility] Endocrinolo gy and Diabetes Address [address] [place] [address]- Care Team Providers Care Mill Platform Supervisor Name Role Phone Mylene BUSBY, Ricomd Primary Care Physician [place] [facility]14[place]20 - 12/14/20 [facility] Endocrinology and Diabetes [address] [place] [address]- Attending Physician: AdmIzabel ortega Admitting Physician: Admtr, Ar8 Referring Physician: Admtr, Ar8 Allergies, Adverse Reactions, [...] Start Date: 02/11/14 Status: Ordered BD Pen [place] 32G x 6mm BD Pen [place] 32G x 6mm, See Instructions, # 200 each, Refills 11, Tot. Refills 11, Maintenance, Use to inject insulin 4 times daily. E10.65, 08/06/19 15:15:00 EDT, Supply, 167, cm, 08/06/19 14:57:00 EDT, Height Start Date: 08/06/19 Status: Ordered DEXCOM G6 ENAMEL MACHINE OPERATOR DEXCOM G6 ENAMEL MACHINE OPERATOR, See Instructions, # 1 each, Refills 0, Tot. Refills 0, Maintenance, Use to monitor blood glucose levels continuously. E10.9 [facility]# [id number], 09/08/20 10:37:00 EDT, Supply, 167,cm, 08/06/19 14:57:00 EDT, Height Start Date: 09/08/20 Status: Ordered DEXCOM G6 SENSOR 3-PACK DEXCOM G6 SENSOR 3-PACK, See Instructions, # 3 each, Refills 3, Tot. Refills 3, Maintenance, Use tomonitor blood glucose levels continuously. change every 10 days. E10.9 [facility]# [id number], 09/08/2109:37:00 EDT, Supply, 167, cm, 08/06/19 14:57:00 E... Start Date: 09/08/20 Status: Ordered DEXCOM G6 TRANSMITTER DEXCOM G6 TRANSMITTER, See Instructions, # 1 each, Refills 3, Tot. Refills 3, Maintenance, Use withsensor to monitor blood glucose levels continuously. Change every 3 months. E10.9. [facility]# [id number], 09/08/20 10:37:00 EDT, Supply, 167, cm, ... [...] Refills 0, Maintenance, Use Freestyle 14 Day [place] to scan blood glucose 4x a day, [...] 0, Maintenance,11/08/16 15:53:10, Route to Pharmacy Electronically, [id number], [facility]/pharmacy #[id number] Start Date: 11/08/16 Status: Ordered Glucagon Emergency [...] 5 Refills, Maintenance, 10/10/20 20:34:00 EDT, Solution, [facility]/pharmacy #[id number], duplicate from rx sent 08/06/19 not received by pharmacy, 167, cm, 08/06/19 14:57:00 EDT, Height Start Date: 10/10/20 Status: Ordered lisinopril 5 mg oral tablet 5 mg, 1, tablet, By Mouth, Daily, # 30 tablet, Refills 6, Tot. Refills 6, Maintenance, 10/06/20 11:31:00 EDT, Route to Pharmacy Electronically, [facility]/pharmacy #[id number], Partial fill upon patient request if the prescription is for a schedule II opioid drug.... Start Date: 10/06/20 Status: Ordered Pen [place], 31 G x 5 mm BD Ultra [...] Response Smoking Status Current every day sm okgem; Type: Cigarettes entered on: 04/11/14 Sex
--- OUTSIDE RECORDS SUMMARY | 2023-05-27 20:04 | XMS_ITS | Continuity of Care Document ---
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 your healthcare professional's instructions. ?? Patient Care team information Care Team Personnel Name: Marcelina Vanegas RN Position: [facility] RN Member Role: Primary Care Nurse Name: Li Zapata RN Position: S RN Member Role: Primary Care Nurse Name: Denzel Francis RN Position: S RN Member Role: Primary Care Nurse Name: Lazaro Dodd RN Position: [facility] [place] RN W/OE and Tasks Member Role: Primary Care Nurse Name: Arti Kemp RN Position: [facility] RN Member Role: Primary Care Nurse Name: Yulia Henry RN Position: [facility] RN Member Role: Primary Care Nurse Name: Tristian Rubalcava RN Position: [facility] RN Member Role: Primary Care Nurse Name: Suly Fair LPN Position: [facility] RN Member Role: Primary Care Nurse Name: Ila Valentine RN Position: [facility] RN Member Role: Primary Care Nurse Name: Yulia Lopez RN Position: [facility] RN Member Role: Primary Care Nurse Name: Ben Retana RN Position: [facility] RN Member Role: Primary Care Nurse Name: Thania Chakraborty MD Position: Reference Physician Member Role: PCP Address: Address: [address] [place] [id number] Name: *[facility], Trauma Attending Position: [facility] ED Attendings Patient Name: Linda Canales RN Position: [facility] ED RN W/OE and Tasks Member Role: Patient Care Provider Name: Gloria Dean Position: [facility] ED TA [facility] Member Role: Patient Care Provider Name: Milly Allen Position: [facility] ED OA Charge Member Role: ED Associate Care Team Related Persons Name: GREGORY MARTINEZ Address: home [address] [place], [place] Name: ELVA SMITH Address: home [address] [place], [place] Name: ANDRE VELEZ Address: home [address] [address]
--- OUTSIDE RECORDS SUMMARY | 2023-05-27 20:04 | XMS_ITS | Continuity of Care Document ---
Author Name Unknown Organization [facility] Address [address] [place] [address]- Care Team Providers Care Color Depositing Machine Tender Name Role Phone Not on Staff, PCP Primary Care Physician Unavail able Encounter [facility] Date(s): 04/11/23 - 05/11/23 [facility] [address] [place] [id number] Allergies, Adverse Reactions, Alerts No Known Allergies Immunizations Given and Recorded Vaccine Date Status Refusal Reason influenza virus vaccine, inactivated 05/31/13 Give n pneumococcal 23-valent vaccine 05/31/13 Given influ virus vac, H1N1, inactive(oldterm) 05/05/09 Given Medications Alcohol Pads See Instructions, # 200 each, [...] for management of type I diabetes (E10.9), 04/14/23 12:57:00 EST, Supply, 170, cm, 04/14/23 12:39:00 EST,... Start Date: 04/14/23 Status: Ordered Freestyle lite glucometer Freestyle lite glucometer, See Instructions, # 1 pack/packet, Refills 0, Tot. Refills 0, Maintenance, Use to monitor blood sugars up to 4 times daily for type 1 diabetes mellitus, 04/14/23 8:38:00 EST, Supply, 170, cm, 02/28/23 23:27:00 EDT, Height, 6... Start Date: 04/14/23 Status: Ordered freestyle lite lancets freestyle lite lancets, See Instructions, # 120 each, Refills 6, Tot. Refills 6, Maintenance, to use to check blood sugars up to 4 times a day with 30 days supply, 04/11/23 18:35:00 EST, Supply, 170,cm, 02/28/23 23:27:00 EDT, Height, 61.63, kg, 03/27... Start Date: 04/11/23 Status: Ordered freestyle lite strips freestyle lite strips, See Instructions, # 120 each, Refills 6, Tot. Refills 6, Maintenance, freestyle lite strips to check blood sugars four times a day 30 days supply, 04/11/23 18:35:00 EST, Supply, 170, cm, 02/28/23 23:27:00 EDT, Height, 61.63, kg,... Start Date: 04/11/23 Status: Ordered hydrOXYzine hydrochloride 25 mg oral tablet 1 tablet = 25 mg, By Mouth, Daily, PRN as needed for anxiety, # 30 tablet, 0 Refills, Maintenance, 03/27/23 19:02:00 EDT, Tablet, Partial fill upon patient request if the prescription is for a schedule II opioid drug. Start Date: 03/27/23 Status: Ordered Insulin Lispro KwikPen 100 units/mL injectable solution See Instructions, Take 4-11U three times a day with meals per sliding scale for type 1 DM, # 10 mL,5 Refills, Maintenance, 04/11/23 18:30:00 EST, [facility]/pharmacy #[id number], Partial fill upon patient request if the prescription is for a schedule II opioid . Start Date: 04/11/23 Status: Ordered Lantus Solostar Pen 100 units/mL subcutaneous solution = 12 units, Subcutaneous Injection, Daily, # 3 mL, 0 Refills, Maintenance, 04/11/23 18:30:00 EST, Solution, [facility]/pharmacy #[id number], Partial fill upon patient request if the prescription is for a scheduleII opioid drug., 170, cm, 02/28/23 23:27:00 EDT, He... Start Date: 04/11/23 Status: Ordered Melatonin 5 mg oral tablet [...] opioid drug. Start Date: 03/27/23 Status: Ordered ondansetron 4 mg oral tablet 1 tablet = 4 mg, By Mouth, Every 8 hours, # 12 tablet, 0 Refills, Maintenance, 04/09/23 0:11:00 EST, Tablet, [facility], Partial fill upon patient request if the prescription is for a schedule II opioid drug., 170, cm, 02/28/23 23:27:00... Start Date: 04/09/23 Status: Ordered oxyCODONE 5 mg oral capsule 1 capsule = 5 mg, By Mouth, Every 6 hours, PRN as needed for pain, # 20 capsule, 0 Refills, Maintenance, 04/04/23 16:38:00 EST, Capsule, [facility], Partial fill upon patient request ifthe prescription is for a schedule II opioid drug.,... Start Date: 04/04/23 Stop Date: 04/09/23 Status: Ordered Pen [place], 29 G x 12.7 mm BD Ultra [...] Care team information Care Team Personnel Name: Li Zapata RN Position: [facility] RN Member Role: Primary Care Nurse Name: Denzel Francis RN Position: [facility] RN Member Role: Primary Care Nurse Name: Lazaro Dodd RN Position: [facility] ED RN W/OE and Tasks Member Role: Primary Care Nurse Name: Arti Kemp RN Position: [facility] RN Member Role: Primary Care Nurse Name: Yulia Henry RN Position: [facility] RN Member Role: Primary Care Nurse Name: Tristian Rubalcava RN Position: S RN Member Role: Primary Care Nurse Name: Suly Fair LPN Position: [facility] RN Member Role: Primary Care Nurse Name: Ila Valentine RN Position: [facility] RN Member Role: Primary Care Nurse Name: Not on Staff, PCP Position: [facility] Physician (General Medicine) Member Role: PCP Name: Ben Retana RN Position: [facility] RN Member Role: Primary Care Nurse Care Team Related Persons Name: MICHELLEGREGORY Address: home [address] [place] [address] Name: ELVA DHILLON Address: home [address] [place] [address] Name: ANDRE VELEZ Address: home [address] [address]
--- OUTSIDE RECORDS SUMMARY | 2023-05-27 20:04 | XMS_ITS | Continuity of Care Document ---
Author Name Unknown Organization [facility] Address [address] [place] [address]- Care Team Providers Care Date Pitter Name Role Phone Mylene BUSBY, Thania Primary Care Physician [phone] Encounter [facility] Date(s): 06/08/22 - 07/08/22 [facility] [address] [place] [id number] Allergies, Adverse Reactions, Alerts No Known Allergies [...] mL, 4 Refills, Maintenance, 02/15/22 10:54:00 EDT, [facility]/pharmacy #[id number], Partial fill upon patient request ifthe prescription is for a schedule II opioid drug. Start Date: 02/15/22 Status: Ordered Alcohol Pads See Instructions, # 200 each, Refills 11, Tot. Refills 11, Maintenance, Use as directed for type 1 diabetes 6-7x/day, 02/16/22 18:25:00 EDT, Compound Start Date: 02/16/22 Status: Ordered BD Pen [place] 32G x 6mm BD Pen [place] 32G x 6mm, See Instructions, # 200 each, Refills 11, Tot. Refills 11, Maintenance, Use to inject insulin 4 times daily. E10.65, 08/06/19 15:15:00 EDT, Supply, 167, cm, 08/06/19 14:57:00 EDT, Height Start Date: 08/06/19 Status: Ordered DEXCOM G6 PHARMACEUTICAL PLANT OPERATOR DEXCOM G6 PHARMACEUTICAL PLANT OPERATOR, See Instructions, # 1 each, Refills 0, Tot. Refills 0, Maintenance, Use to monitor blood glucose levels continuously. E10.9 [facility]# [id number], 09/08/20 10:37:00 EDT, Supply, 167,cm, 08/06/19 14:57:00 EDT, Height Start Date: 09/08/20 Status: Ordered DEXCOM G6 SENSOR 3-PACK DEXCOM G6 SENSOR 3-PACK, See Instructions, # 3 each, Refills 3, Tot. Refills 3, Maintenance, Use tomonitor blood glucose levels continuously. change every 10 days. E10.9 [facility]# [id number], 09/08/2109:37:00 EDT, Supply, 167, cm, 08/06/19 14:57:00 E... Start Date: 09/08/20 Status: Ordered DEXCOM G6 TRANSMITTER DEXCOM G6 TRANSMITTER, See Instructions, # 1 each, Refills 3, Tot. Refills 3, Maintenance, Use withsensor to monitor blood glucose levels continuously. Change every 3 months. E10.9. [facility]# [id number], 09/08/20 10:37:00 EDT, Supply, 167, cm, ... [...] Refills 0, Maintenance, Use Freestyle 14 Day [place] to scan blood glucose 4x a day, [...] 0, Maintenance,11/08/16 15:53:10, Route to Pharmacy Electronically, [id number], [facility]/pharmacy #[id number] Start Date: 11/08/16 Status: Ordered Glucagon Emergency [...] , Max Dose=50 units/day, # 45 mL, 3 Refills, Maintenance, 02/16/22 18:16:00 EDT, [facility]/pharmacy #[id number], Partial fill upon patient request if the prescription is for a schedule... Start Date: 02/16/22 Stop Date: 02/11/23 Status: Ordered Insulin Syringe, BD Ultra-Fine 0.5 [...] 10/06/20 11:31:00 EDT, Route to Pharmacy Electronically, [facility]/pharmacy #[id number], Partial fill upon patient request if the prescription is for a schedule II opioid drug.... Start Date: 10/06/20 Status: Ordered Pen [place], 31 G x 5 mm BD Ultra Fine III See Instructions, # 120 each, Maintenance, Use to inject with insulin up to 4 times a day, E10.9,, 08/08/19 10:45:00 EDT, duplicate from rx sent 07/19/19 not received by pharmacy, Compound, 167, cm, 08/06/19 14:57:00 EDT, Height Start Date: 08/08/19 Status: Ordered Pen [place], 31 G x 8 mm BD Ultra [...] Reference Physician Member Role: PCP Address: Address: [address] [place] [address]- Care Team Related Persons Name: GREGORY MARTINEZ Address: home [address] [place] [address] Name: CINDY JIMEENZ Address: home [address] [place] [address] Name: ELVA DHILLON Address: [address] [place] [address] Name: ANDRE VELEZ Address: [address] [place] [address]
--- OUTSIDE RECORDS SUMMARY | 2023-05-27 20:04 | XMS_ITS | Continuity of Care Document ---
Author Name Unknown Organization [facility] Address [address] [place] [address]- Care Team Providers Care Fastener Technologist Name Role Phone Thania Chakraborty MD Primary Care Physician [phone] [place] [facility] [place]s): 07/19/19 - 08/30/19 [facility] [address] [place] [address] [facility] Attending Physician: Kareem Ambriz MD Admitting Physician: Kareem Ambriz MD Referring Physician: Thania Chakraborty MD Allergies, [...] Start Date: 02/11/14 Status: Ordered BD Pen [place] 32G x 6mm BD Pen [place] 32G x 6mm, See Instructions, # 200 [...] 0, Maintenance,11/08/16 15:53:10, Route to Pharmacy Electronically, [id number], [facility]/pharmacy #[id number] Start Date: 11/08/16 Status: Ordered Glucagon Emergency [...] Refills, Maintenance, 08/08/19 10:45:00 EDT, Solution, [id number], duplicate from rx sent 08/06/19 not received by pharmacy, 167, cm, 08/06/19... Start Date: 08/08/19 Status: Ordered Pen [place], 31 G x 5 mm BD Ultra [...]
--- OUTSIDE RECORDS SUMMARY | 2023-05-27 20:04 | XMS_ITS | Continuity of Care Document ---
Author Name Unknown Organization [facility] Address [address] [place] [address]- Care Team Providers Care Cyber Systems Administrator Name Role Phone Mylene BUSBY, Ricotn Primary Care Physician Encounter [facility] Date(s): 07/30/19 - 09/01/19 [facility] [address] [place] [address] [facility] Attending Physician: Renata Berman MD [...] Start Date: 02/11/14 Status: Ordered BD Pen [place] 32G x 6mm BD Pen [place] 32G x 6mm, See Instructions, # 200 [...] 0, Maintenance,11/08/16 15:53:10, Route to Pharmacy Electronically, [id number], [facility]/pharmacy #[id number] Start Date: 11/08/16 Status: Ordered Glucagon Emergency [...] Refills, Maintenance, 08/08/19 10:45:00 EDT, Solution, [id number], duplicate from rx sent 08/06/19 not received by pharmacy, 167, cm, 08/06/19... Start Date: 08/08/19 Status: Ordered Pen [place], 31 G x 5 mm BD Ultra [...]
--- OUTSIDE RECORDS SUMMARY | 2023-05-27 20:04 | XMS_ITS | Continuity of Care Document ---
Author Name Unknown Organization [facility] Address [address] [place] [address]- Care Team Providers Care Set Up Inspector Name Role Phone Mylene BUSBY, Thania Primary Care Physician [phone] Encounter [facility] Date(s): 09/05/20 - 10/05/20 [facility]/[address] [address]- Allergies, Adverse Reactions, Alerts Substance Reaction Severity [...] Start Date: 02/11/14 Status: Ordered BD Pen [place] 32G x 6mm BD Pen [place] 32G x 6mm, See Instructions, # 200 each, Refills 11, Tot. Refills 11, Maintenance, Use to inject insulin 4 times daily. E10.65, 08/06/19 15:15:00 EDT, Supply, 167, cm, 08/06/19 14:57:00 EDT, Height Start Date: 08/06/19 Status: Ordered DEXCOM G6 HARD METALS ENGRAVER HAND DEXCOM G6 HARD METALS ENGRAVER HAND, See Instructions, # 1 each, Refills 0, Tot. Refills 0, Maintenance, Use to monitor blood glucose levels continuously. E10.9 [facility]# [id number], 09/08/20 10:37:00 EDT, Supply, 167,cm, 08/06/19 14:57:00 EDT, Height Start Date: 09/08/20 Status: Ordered DEXCOM G6 SENSOR 3-PACK DEXCOM G6 SENSOR 3-PACK, See Instructions, # 3 each, Refills 3, Tot. Refills 3, Maintenance, Use tomonitor blood glucose levels continuously. change every 10 days. E10.9 [facility]# [id number], 09/08/2109:37:00 EDT, Supply, 167, cm, 08/06/19 14:57:00 E... Start Date: 09/08/20 Status: Ordered DEXCOM G6 TRANSMITTER DEXCOM G6 TRANSMITTER, See Instructions, # 1 each, Refills 3, Tot. Refills 3, Maintenance, Use withsensor to monitor blood glucose levels continuously. Change every 3 months. E10.9. [facility]# [id number], 09/08/20 10:37:00 EDT, Supply, 167, cm, ... [...] Refills 0, Maintenance, Use Freestyle 14 Day [place] to scan blood glucose 4x a day, [...] 0, Maintenance,11/08/16 15:53:10, Route to Pharmacy Electronically, [id number], [facility]/pharmacy #[id number] Start Date: 11/08/16 Status: Ordered Glucagon Emergency [...] 08/06/19... Start Date: 07/23/20 Status: Ordered Pen [place], 31 G x 5 mm BD Ultra [...]
--- OUTSIDE RECORDS SUMMARY | 2023-05-27 20:04 | XMS_ITS | Continuity of Care Document ---
Author Name Unknown Organization [facility] Address [address] [place] [address]- Care Team Providers Care Sound Effects Manager Name Role Phone Not on Staff, PCP Primary Care Physician Unavail able Encounter [facility] Date(s): 04/14/23 - 05/14/23 [facility] [address] [place] [id number] Attending Physician: Izabel Vizcaino Admitting Physician: AdmtrIzabel Referring Physician: Admtr, Ar8 [...] 10 mL,5 Refills, Maintenance, 04/11/23 18:30:00 EST, [facility]/pharmacy #[id number], Partial fill upon patient request if the prescription is for a schedule II opioid dr... Start Date: 04/11/23 Status: Ordered Lantus Solostar Pen 100 units/mL subcutaneous solution = 12 units, Subcutaneous Injection, Daily, # 3 mL, 0 Refills, Maintenance, 04/11/23 18:30:00 EST, Solution, [facility]/pharmacy #[id number], Partial fill upon patient request if [...] 0 Refills, Maintenance, 04/09/23 0:11:00 EST, Tablet, [facility], Partial fill upon patient request if the prescription is for a schedule II opioid drug., 170, cm, 02/28/23 23:27:00... Start Date: 04/09/23 Status: Ordered oxyCODONE 5 mg oral capsule 1 capsule = 5 mg, By Mouth, Every 6 hours, PRN as needed for pain, # 20 capsule, 0 Refills, Maintenance, 04/04/23 16:38:00 EST, Capsule, [facility], Partial fill upon patient request ifthe prescription is for a schedule II opioid drug.,... Start Date: 04/04/23 Stop Date: 04/09/23 Status: Ordered Pen [place], 29 G x 12.7 mm BD Ultra [...] Team Personnel Name: Li Zapata RN Position: [facility] RN Member Role: Primary Care Nurse Name: Denzel Francis RN Position: [facility] RN Member Role: Primary Care Nurse Name: Lazaro Dodd RN Position: [facility] ED RN W/OE and Tasks Member Role: Primary Care Nurse Name: Arti Kemp RN Position: [facility] RN Member Role: Primary Care Nurse Name: Yulia Henry RN Position: [facility] RN Member Role: Primary Care Nurse Name: Tristian Rubalcava RN Position: [facility] RN Member Role: Primary Care Nurse Name: Suly Fair LPN Position: [facility] RN Member Role: Primary Care Nurse Name: Ila Valentine RN Position: [facility] RN Member Role: Primary Care Nurse Name: Not on Staff, PCP Position: [facility] Physician (General Medicine) Member Role: PCP Name: Ben Retana RN Position: [facility] RN Member Role: Primary Care Nurse Care Team Related Persons Name: GREGORY MARTINEZ Address: [address] [place] [address] Name: ELVA DHILLON Address: [address] [place] [address] Name: ANDRE VELEZ Address: home [address] [address]
--- OUTSIDE RECORDS SUMMARY | 2023-05-27 20:04 | XMS_ITS | Continuity of Care Document ---
Author Name Unknown Organization [facility] Address [address] [place] [address]- Care Team Providers Care Pulp Mill Operator Name Role Phone Mylene BUSBY, Thania Primary Care Physician [phone] En[place] [facility] Date(s): 07/10/21 - 08/09/21 [facility] [address] [place] [address]- Attending Physician: Izabel Vizcaino Admitting Physician: Izabel Vizcaino Referring Physician: AdmtrIzabel Allergies, Adverse Reactions, Alerts No Known Allergies [...] Start Date: 02/11/14 Status: Ordered BD Pen [place] 32G x 6mm BD Pen [place] 32G x 6mm, See Instructions, # 200 each, Refills 11, Tot. Refills 11, Maintenance, Use to inject insulin 4 times daily. E10.65, 08/06/19 15:15:00 EDT, Supply, 167, cm, 08/06/19 14:57:00 EDT, Height Start Date: 08/06/19 Status: Ordered DEXCOM G6 ADJUTANT GENERAL DEXCOM G6 ADJUTANT GENERAL, See Instructions, # 1 each, Refills 0, Tot. Refills 0, Maintenance, Use to monitor blood glucose levels continuously. E10.9 [facility]# [id number], 09/08/20 10:37:00 EDT, Supply, 167,cm, 08/06/19 14:57:00 EDT, Height Start Date: 09/08/20 Status: Ordered DEXCOM G6 SENSOR 3-PACK DEXCOM G6 SENSOR 3-PACK, See Instructions, # 3 each, Refills 3, Tot. Refills 3, Maintenance, Use tomonitor blood glucose levels continuously. change every 10 days. E10.9 [facility]# [id number], 09/08/2109:37:00 EDT, Supply, 167, cm, 08/06/19 14:57:00 E... Start Date: 09/08/20 Status: Ordered DEXCOM G6 TRANSMITTER DEXCOM G6 TRANSMITTER, See Instructions, # 1 each, Refills 3, Tot. Refills 3, Maintenance, Use withsensor to monitor blood glucose levels continuously. Change every 3 months. E10.9. [facility]# [id number], 09/08/20 10:37:00 EDT, Supply, 167, cm, ... [...] 0, Maintenance, Use Freestyle 14 Day [place] to scan blood glucose 4x a day, [...] 0, Maintenance,11/08/16 15:53:10, Route to Pharmacy Electronically, [id number], [facility]/pharmacy #[id number] Start Date: 11/08/16 Status: Ordered Glucagon Emergency [...] each, 5 Refills, Maintenance, 04/01/21 23:24:00 EDT, [facility]/pharmacy #[id number], Partial fill upon patient request if [...] 5 Refills, Maintenance, 10/10/20 20:34:00 EDT, Solution, [facility]/pharmacy #[id number], duplicate from rx sent 08/06/19 not received by pharmacy, 167, cm, 08/06/19 14:57:00 EDT, Height Start Date: 10/10/20 Status: Ordered lisinopril 5 mg oral tablet 5 mg, 1, tablet, By Mouth, Daily, # 30 tablet, Refills 6, Tot. Refills 6, Maintenance, 10/06/20 11:31:00 EDT, Route to Pharmacy Electronically, [facility]/pharmacy #[id number], Partial fill upon patient request if the prescription is for a schedule II opioid drug.... Start Date: 10/06/20 Status: Ordered Pen [place], 31 G x 5 mm BD Ultra [...]
--- OUTSIDE RECORDS SUMMARY | 2023-05-27 20:04 | XMS_ITS | Continuity of Care Document ---
Author Name Unknown Organization [facility] Endocrinolo gy and Diabetes Address [address] [place] [address]- Care Team Providers Care Bulk Mail Technician Name Role Phone Mylene BUSBY, [facility] Primary Care Physician Encounter [facility] Date(s): 09/04/20 - 10/04/20 [facility] Endocrinology and Diabetes [address] [place] [address] Allergies, Adverse Reactions, Alerts Substance [...] Start Date: 02/11/14 Status: Ordered BD Pen [place] 32G x 6mm BD Pen [place] 32G x 6mm, See Instructions, # 200 each, Refills 11, Tot. Refills 11, Maintenance, Use to inject insulin 4 times daily. E10.65, 08/06/19 15:15:00 EDT, Supply, 167, cm, 08/06/19 14:57:00 EDT, Height Start Date: 08/06/19 Status: Ordered DEXCOM G6 MEDICAL SERVICES MANAGER DEXCOM G6 MEDICAL SERVICES MANAGER, See Instructions, # 1 each, Refills 0, Tot. Refills 0, Maintenance, Use to monitor blood glucose levels continuously. E10.9 [facility]# [id number], 09/08/20 10:37:00 EDT, Supply, 167,cm, 08/06/19 14:57:00 EDT, Height Start Date: 09/08/20 Status: Ordered DEXCOM G6 SENSOR 3-PACK DEXCOM G6 SENSOR 3-PACK, See Instructions, # 3 each, Refills 3, Tot. Refills 3, Maintenance, Use tomonitor blood glucose levels continuously. change every [address] [facility]# [id number], 09/08/2109:37:00 EDT, Supply, 167, cm, 08/06/19 14:57:00 E... Start Date: 09/08/20 Status: Ordered DEXCOM G6 TRANSMITTER DEXCOM G6 TRANSMITTER, See Instructions, # 1 each, Refills 3, Tot. Refills 3, Maintenance, Use withsensor to monitor blood glucose levels continuously. Change every [address] [facility]# [id number], 09/08/20 10:37:00 EDT, Supply, 167, cm, ... [...] Refills 0, Maintenance, Use Freestyle 14 Day [place] to scan blood glucose 4x a day, [...] 0, Maintenance,11/08/16 15:53:10, Route to Pharmacy Electronically, [id number], [facility]/pharmacy #[id number] Start Date: 11/08/16 Status: Ordered Glucagon Emergency [...] 08/06/19... Start Date: 07/23/20 Status: Ordered Pen [place], 31 G x 5 mm BD Ultra [...]
--- OUTSIDE RECORDS SUMMARY | 2023-05-27 20:04 | XMS_ITS | Continuity of Care Document ---
Author Name Unknown Organization [facility] Endocrinolo gy and Diabetes Address [address] [place] [address]- Care Team Providers Care Motor Checker Name Role Phone Mylene BUSBY, [facility] Primary Care Physician [phone] [facility] Date(s): 10/01/20 - 10/31/20 [facility] Endocrinology and Diabetes [address] [place] [id number] Allergies, Adverse Reactions, Alerts Substance Reaction [...] Start Date: 02/11/14 Status: Ordered BD Pen [place] 32G x 6mm BD Pen [place] 32G x 6mm, See Instructions, # 200 each, Refills 11, Tot. Refills 11, Maintenance, Use to inject insulin 4 times daily. E10.65, 08/06/19 15:15:00 EDT, Supply, 167, cm, 08/06/19 14:57:00 EDT, Height Start Date: 08/06/19 Status: Ordered DEXCOM G6 OB/GYN NURSE DEXCOM G6 OB/GYN NURSE, See Instructions, # 1 each, Refills 0, Tot. Refills 0, Maintenance, Use to monitor blood glucose levels continuously. E10.9 [facility]# [id number], 09/08/20 10:37:00 EDT, Supply, 167,cm, 08/06/19 14:57:00 EDT, Height Start Date: 09/08/20 Status: Ordered DEXCOM G6 SENSOR 3-PACK DEXCOM G6 SENSOR 3-PACK, See Instructions, # 3 each, Refills 3, Tot. Refills 3, Maintenance, Use tomonitor blood glucose levels continuously. change every [address] [facility]# [id number], 09/08/2109:37:00 EDT, Supply, 167, cm, 08/06/19 14:57:00 E... Start Date: 09/08/20 Status: Ordered DEXCOM G6 TRANSMITTER DEXCOM G6 TRANSMITTER, See Instructions, # 1 each, Refills 3, Tot. Refills 3, Maintenance, Use withsensor to monitor blood glucose levels continuously. Change every [address] [facility]# [id number], 09/08/20 10:37:00 EDT, Supply, 167, cm, ... [...] Refills 0, Maintenance, Use Freestyle 14 Day [place] to scan blood glucose 4x a day, [...] 0, Maintenance,11/08/16 15:53:10, Route to Pharmacy Electronically, [id number], [facility]/pharmacy #[id number] Start Date: 11/08/16 Status: Ordered Glucagon Emergency [...] Refills, Maintenance, 10/10/20 20:34:00 EDT, Solution, [facility]/pharmacy #[id number], duplicate from rx sent 08/06/19 not received by pharmacy, 167, cm, 08/06/19 14:57:00 EDT, Height Start Date: 10/10/20 Status: Ordered lisinopril 5 mg oral tablet 5 mg, 1, tablet, By Mouth, Daily, # 30 tablet, Refills 6, Tot. Refills 6, Maintenance, 10/06/20 11:31:00 EDT, Route to Pharmacy Electronically, [facility]/pharmacy #[id number], Partial fill upon patient request if the prescription is for a schedule II opioid drug.... Start Date: 10/06/20 Status: Ordered Pen [place], 31 G x 5 mm BD Ultra [...]
--- OUTSIDE RECORDS SUMMARY | 2023-05-27 20:04 | XMS_ITS | Continuity of Care Document ---
Author Name Unknown Organization [facility] ter Address [address] [place] [address]- Care Team Providers Care Content Designer Name Role Phone Mylene BUSBY, Thania Primary Care Physician [phone] Encounter [facility] Date(s): 08/04/22 - 09/03/[address] [address] Attending Physician: Izabel Vizcaino Admitting Physician: AdmIzabel [...] mL, 4 Refills, Maintenance, 02/15/22 10:54:00 EDT, [facility]/pharmacy #[id number], Partial fill upon patient request ifthe prescription is for a schedule II opioid drug. Start Date: 02/15/22 Status: Ordered Alcohol Pads See Instructions, # 200 each, Refills 11, Tot. Refills 11, Maintenance, Use as directed for type 1 diabetes 6-7x/day, 02/16/22 18:25:00 EDT, Compound Start Date: 02/16/22 Status: Ordered BD Pen [place] 32G x 6mm BD Pen [place] 32G x 6mm, See Instructions, # 200 each, Refills 11, Tot. Refills 11, Maintenance, Use to inject insulin 4 times daily. E10.65, 08/06/19 15:15:00 EDT, Supply, 167, cm, 08/06/19 14:57:00 EDT, Height Start Date: 08/06/19 Status: Ordered DEXCOM G6 COORDINATOR INTEGRATED MARKETING DEXCOM G6 COORDINATOR INTEGRATED MARKETING, See Instructions, # 1 each, Refills 0, Tot. Refills 0, Maintenance, Use to monitor blood glucose levels continuously. E10.9 [facility]# [id number], 09/08/20 10:37:00 EDT, Supply, 167,cm, 08/06/19 14:57:00 EDT, Height Start Date: 09/08/20 Status: Ordered DEXCOM G6 SENSOR 3-PACK DEXCOM G6 SENSOR 3-PACK, See Instructions, # 3 each, Refills 3, Tot. Refills 3, Maintenance, Use tomonitor blood glucose levels continuously. change every 10 days. E10.9 [facility]# [id number], 09/08/2109:37:00 EDT, Supply, 167, cm, 08/06/19 14:57:00 E... Start Date: 09/08/20 Status: Ordered DEXCOM G6 TRANSMITTER DEXCOM G6 TRANSMITTER, See Instructions, # 1 each, Refills 3, Tot. Refills 3, Maintenance, Use withsensor to monitor blood glucose levels continuously. Change every 3 months. E10.9. [facility]# [id number], 09/08/20 10:37:00 EDT, Supply, 167, cm, ... [...] Refills 0, Maintenance, Use Freestyle 14 Day [place] to scan blood glucose 4x a day, [...] 0, Maintenance,11/08/16 15:53:10, Route to Pharmacy Electronically, [id number], [facility]/pharmacy #[id number] Start Date: 11/08/16 Status: Ordered Glucagon [...] mL, 4 Refills, Maintenance, 07/23/22 16:00:00 EST, [facility]/pharmacy #[id number], Partial fill upon patient request [...] 5 Refills, Maintenance, 07/23/22 15:59:00 EST, Solution, [facility]/pharmacy #[id number], duplicate from rx sent 08/06/19 not received by pharmacy, 167, cm, 07/23/22 15:41:00 EST, Height Start Date: 07/23/22 Status: Ordered lisinopril 5 mg oral tablet 5 mg, 1, tablet, By Mouth, Daily, # 30 tablet, Refills 6, Tot. Refills 6, Maintenance, 10/06/20 11:31:00 EDT, Route to Pharmacy Electronically, [facility]/pharmacy #[id number], Partial fill upon patient request if the prescription is for a schedule II opioid drug.... Start Date: 10/06/20 Status: Ordered Pen [place], 31 G x 5 mm BD Ultra Fine III See Instructions, # 120 each, Maintenance, Use to inject with insulin up to 4 times a day, E10.9,, 08/08/19 10:45:00 EDT, duplicate from rx sent 07/19/19 not received by pharmacy, Compound, 167, cm, 08/06/19 14:57:00 EDT, Height Start Date: 08/08/19 Status: Ordered Pen [place], 31 G x 8 mm BD Ultra [...] Care team information Care Team Personnel Name: Mylene BUSBY, Thania Position: Reference Physician Member Role: PCP Address: Address: [address] [place] [address]- Care Team Related Persons Name: GREGORY MARTINEZ Address: home [address] [place] [address] Name: CINDY JIMENEZ Address: home [address] [place] [address] Name: ELVA DHILLON Address: home [address] [place] [address] Name: ANDRE VELEZ Address: home [address] [place] [address]
--- OUTSIDE RECORDS SUMMARY | 2023-05-27 20:04 | XMS_ITS | Continuity of Care Document ---
Author Name Unknown Organization [facility] Endocrinolo gy and Diabetes Address [address] [place] [address]- Care Team Providers Care Miller Head Assistant Wet Process Name Role Phone Mylene BUSBY, Thania Primary Care Physician [phone] Encounter [facility] Date(s): 08/27/20 - 09/26/20 [facility] Endocrinology and Diabetes [address] [place] [address]- Allergies, Adverse Reactions, Alerts Substance Reaction Severity [...] Start Date: 02/11/14 Status: Ordered BD Pen [place] 32G x 6mm BD Pen [place] 32G x 6mm, See Instructions, # 200 each, Refills 11, Tot. Refills 11, Maintenance, Use to inject insulin 4 times daily. E10.65, 08/06/19 15:15:00 EDT, Supply, 167, cm, 08/06/19 14:57:00 EDT, Height Start Date: 08/06/19 Status: Ordered DEXCOM G6 PUBLIC AREA SUPERVISOR DEXCOM G6 PUBLIC AREA SUPERVISOR, See Instructions, # 1 each, Refills 0, Tot. Refills 0, Maintenance, Use to monitor blood glucose levels continuously. E10.9 [facility]# [id number], 09/08/20 10:37:00 EDT, Supply, 167,cm, 08/06/19 14:57:00 EDT, Height Start Date: 09/08/20 Status: Ordered DEXCOM G6 SENSOR 3-PACK DEXCOM G6 SENSOR 3-PACK, See Instructions, # 3 each, Refills 3, Tot. Refills 3, Maintenance, Use tomonitor blood glucose levels continuously. change every 10 days. E10.9 [facility]# [id number], 09/08/2109:37:00 EDT, Supply, 167, cm, 08/06/19 14:57:00 E... Start Date: 09/08/20 Status: Ordered DEXCOM G6 TRANSMITTER DEXCOM G6 TRANSMITTER, See Instructions, # 1 each, Refills 3, Tot. Refills 3, Maintenance, Use withsensor to monitor blood glucose levels continuously. Change every 3 months. E10.9. [facility]# [id number], 09/08/20 10:37:00 EDT, Supply, 167, cm, ... [...] Refills 0, Maintenance, Use Freestyle 14 Day [place] to scan blood glucose 4x a day, [...] 0, Maintenance,11/08/16 15:53:10, Route to Pharmacy Electronically, [id number], [facility]/pharmacy #[id number] Start Date: 11/08/16 Status: Ordered Glucagon Emergency [...] 08/06/19... Start Date: 07/23/20 Status: Ordered Pen [place], 31 G x 5 mm BD Ultra [...]
--- OUTSIDE RECORDS SUMMARY | 2023-05-27 20:04 | XMS_ITS | Continuity of Care Document ---
Author Name Unknown Organization [facility] Endocrinolo gy and Diabetes Address [address] [place] [address]- Care Team Providers Care Etcher Apprentice Name Role Phone Not on Staff, PCP Primary Care Physician Unavail able Encounter [facility] Date(s): 04/13/23 - 05/13/23 [facility] Endocrinology and Diabetes [address] [place] [address] Allergies, Adverse Reactions, Alerts No [...] 10 mL,5 Refills, Maintenance, 04/11/23 18:30:00 EST, [facility]/pharmacy #[id number], Partial fill upon patient request if the prescription is for a schedule II opioid . Start Date: 04/11/23 Status: Ordered Lantus Solostar Pen 100 units/mL subcutaneous solution = 12 units, Subcutaneous Injection, Daily, # 3 mL, 0 Refills, Maintenance, 04/11/23 18:30:00 EST, Solution, [facility]/pharmacy #[id number], Partial fill upon patient request [...] 0 Refills, Maintenance, 04/09/23 0:11:00 EST, Tablet, [facility], Partial fill upon patient request if the prescription is for a schedule II opioid drug., 170, cm, 02/28/23 23:27:00... Start Date: 04/09/23 Status: Ordered oxyCODONE 5 mg oral capsule 1 capsule = 5 mg, By Mouth, Every 6 hours, PRN as needed for pain, # 20 capsule, 0 Refills, Maintenance, 04/04/23 16:38:00 EST, Capsule, [facility], Partial fill upon patient request ifthe prescription is for a schedule II opioid drug.,... Start Date: 04/04/23 Stop Date: 04/09/23 Status: Ordered Pen [place], 29 G x 12.7 mm BD Ultra [...] Team Personnel Name: Li Zapata RN Position: [facility] RN Member Role: Primary Care Nurse Name: Denzel Francis RN Position: [facility] RN Member Role: Primary Care Nurse Name: Lazaro Dodd RN Position: [facility] ED RN W/OE and Tasks Member Role: Primary Care Nurse Name: Arti Kemp RN Position: [facility] RN Member Role: Primary Care Nurse Name: Yulia Henry RN Position: [facility] RN Member Role: Primary Care Nurse Name: Tristian Rubalcava RN Position: S RN Member Role: Primary Care Nurse Name: Suly Fair LPN Position: [facility] RN Member Role: Primary Care Nurse Name: Ila Valentine RN Position: [facility] RN Member Role: Primary Care Nurse Name: Not on Staff, PCP Position: [facility] Physician (General Medicine) Member Role: PCP Name: Ben Retana RN Position: [facility] RN Member Role: Primary Care Nurse Care Team Related Persons Name: MICHELLEGREGORY Address: home [address] [place] [address] Name: ELVA DHILLON Address: home [address] [place] [address] Name: ANDRE VELEZ Address: home [address] [place] [address]
--- OUTSIDE RECORDS SUMMARY | 2023-05-27 20:04 | XMS_ITS | Continuity of Care Document ---
Author Name Unknown Organization [facility] ter Address [address] [place] [address]- Care Team Providers Care Special Delivery Mail Carrier Name Role Phone Mylene BUSBY, Thania Primary Care Physician Encounter [facility] Date(s): 04/08/23 - 04/09/[address] [address]- Encounter Diagnosis Opiate dependence(Final) - 04/08/23 Insulin dependent type 1 diabetes mellitus(Final) - 04/08/23 Discharge Disposition: A-D/C Home Attending Physician: Iraj Michelle MD Admitting Physician: Iraj Michelle MD Referring Physician: Not on Staff, Referring [...] 04/04/23 16:38:00 EST, Route to Pharmacy Electronically, [facility], Partial fill upon pa... [...] 1 Refills, Maintenance, 04/04/23 16:38:00 EST, Injection, [facility], Partial fill upon patient request if the prescription is for a sche... Start Date: 04/04/23 Status: Ordered insulin lispro 100 u/ml subcutaneous injection 4-11 units, Subcutaneous Injection, 3 times a day before meals, # 15 mL, 1 Refills, Maintenance, 04/04/23 16:38:00 EST, Injection, [facility], Partial fill upon patient [...] 0 Refills, Maintenance, 04/09/23 0:11:00 EST, Tablet, [facility], Partial fill upon patient request if the prescription is for a schedule II opioid drug., 170, cm, 02/28/23 23:27:00... Start Date: 04/09/23 Status: Ordered oxyCODONE 5 mg oral capsule 1 capsule = 5 mg, By Mouth, Every 6 hours, PRN as needed for pain, # 20 capsule, 0 Refills, Maintenance, 04/04/23 16:38:00 EST, Capsule, [facility], Partial fill upon patient request ifthe prescription is for a schedule II opioid drug.,... Start Date: 04/04/23 Stop Date: 04/09/23 Status: Ordered Pen [place], 29 G x 12.7 mm BD Ultra [...] Exam Date Time Procedure Performing Provider Status 04/08/23 3:21 PM Chest Portable Vladislav , Cale; Au th (Verified) Notes: (Chest Portable) Reason For Exam: Cough RESULT: Chest Portable Chest Portable Hx of Present Illness: abd pain with lethargy, nvd. took insulin at 530 and still feels unwell.; Reason: Cough; Clinical Question(s): Pneumonia COMPARISON: 03/27/2023 FINDINGS: LINES AND TUBES: None. LUNGS AND PLEURA: Clear lungs. Normal pulmonary vascularity. No pleural effusion. No pneumothorax. HEART, MEDIASTINUM AND KOTA: Heart is normal in size. Normal mediastinal and hilar contour. BONES AND SOFT TISSUES: No acute abnormality. IMPRESSION: No acute abnormality. WSN: [id number] Ordering Physician: Shanna Hayes Dictated By: Amadou Cook MD Dictated Date/Time: 04/08/23 3:22 pm Reviewed By: Amadou Cook MD Signed By: Amadou Cook MD Signed Date/Time: 04/08/23 3:22 pm Transcribed By: SONJA Transcribed Date/Time: 04/08/23 3:21 pm Vital Signs Most recent to oldest [Reference Range]: 1 2 3 Oxygen Saturation [94-100 %] 97 % (04/09/23 12:35 AM) 95 % (04/08/23 8:12 PM) 100 % (04/08/23 5:26 PM) Pulse Rate [55-90 bpm] 87 bpm (04/09/23 12:35 AM) 75 bpm (04/08/23 8:12 PM) 85 bpm (04/08/23 5:26 PM) Blood Pressure [90-138/55-84 mm Hg] 112/75mm Hg (04/09/23 12:35 AM) 115/73mm Hg (04/08/23 8:12 PM) 149/91mm Hg *H* (04/08/23 5:26 PM) Respiratory Rate [16-30 br/min] 17 br/min (04/09/23 12:35 AM) 16 br/min (04/08/23 8:12 PM) 18 br/min (04/08/23 5:26 PM) Temperature [96.8-100.4 DegF] 98.4 DegF (04/09/23 12:35 AM) 98.4 DegF (04/08/23 8:12 PM) Mode of Delivery (Oxygen) Room air (04/09/23 12:35 AM) Room air (04/08/23 8:12 PM) Room air (04/08/23 5:26 PM) Blood pressure sites Arm, right (04/09/23 12:35 AM) Arm, right (04/08/23 8:12 PM) Arm, right (04/08/23 5:26 PM) Temperature Route Oral (04/09/23 12:35 AM) Oral (04/08/23 8:12 PM) Oral (04/08/23 4:06 PM) Social History Social History Type Response Smoking Status Current every day sm oker; Type: Cigarettes entered on: 04/11/14 Sex Patient Care team information Care Team Personnel Name: Marcelina Vanegas RN Position: [facility] RN Member Role: Primary Care Nurse Name: Li Zapata RN Position: [facility] RN Member Role: Primary Care Nurse Name: Denzel Francis RN Position: [facility] RN Member Role: Primary Care Nurse Name: Lazaro Dodd RN Position: [facility] RN Member Role: Primary Care Nurse Name: Arti Kemp RN Position: [facility] RN Member Role: Primary Care Nurse Name: Yulia Henry RN Position: [facility] RN Member Role: Primary Care Nurse Name: Tristian Rubalcava RN Position: [facility] RN Member Role: Primary Care Nurse Name: Suly Fair LPN Position: [facility] RN Member Role: Primary Care Nurse Name: Ila Valentine RN Position: [facility] RN Member Role: Primary Care Nurse Name: Ben Retana RN Position: [facility] RN Member Role: Primary Care Nurse Name: Thania Chakraborty MD Position: Reference Physician Member Role: PCP Address: Address: [address] [place] [address]- [place] Name: Iraj Michelle MD Position: [facility] ED Medicine MD Member Role: ED Attending Physician Address: Address: [address] [place] [address] [place] [address]- [place] Name: Faina Lai Position: [facility] ED RN W/OE and Tasks Member Role: Patient Care Provider Name: Kamini Rucker [place] Position: [facility] ED TA [facility] Name: Danny Multani DO Position: [facility] Resident Member Role: ED Resident Address: Address: [address] [place] [address] [place] [address]- Care Team Related Persons Name: GREGORY MARTINEZ Address: home [address] [place] [address] Name: ELVA DHILLON Address: home [address] [place] [address] Name: ANDRE VELEZ Address: home [address] [place] [address]
--- OUTSIDE RECORDS SUMMARY | 2023-05-27 20:04 | XMS_ITS | Continuity of Care Document ---
Author Name Unknown Organization [facility] Endocrinolo gy and Diabetes Address [address] [place] [address]- Care Team Providers Care Videotape Operator Name Role Phone Thania Chakraborty MD Primary Care Physician Encounter [facility] Date(s): 06/04/19 - 07/15/19 [facility] Endocrinology and Diabetes [address] [place] [address] [facility] Attending Physician: Renata Berman MD Admitting [...] meals, max daily dose of 45 units, Please request further refills at 07/20/19 appt, # 15 mL, 0 Refills, Maintenance, 06/27/19 9:08:00 EST, [id number], 167, cm, 10/11/17 8:37:00 EDT, Height Start Date: 06/27/19 Status: Ordered Alcohol Pads See Instructions, # [...] 0, Maintenance,11/08/16 15:53:10, Route to Pharmacy Electronically, [id number], [facility]/pharmacy #[id number] Start Date: 11/08/16 Status: Ordered Glucagon Emergency [...]
--- OUTSIDE RECORDS SUMMARY | 2023-05-27 20:04 | XMS_ITS | Continuity of Care Document ---
Author Name Unknown Organization [facility] Endocrinolo gy and Diabetes Address [address] [place] [address]- Care Team Providers Care Acquisition Analyst Name Role Phone Thania Chakraborty MD Primary Care Physician Encounter [facility] Date(s): 05/28/19 - 06/28/19 [facility] Endocrinology and Diabetes [address] [place] [address] [facility] Attending Physician: Renata Berman MD [...] 0, Maintenance,11/08/16 15:53:10, Route to Pharmacy Electronically, [id number], [facility]/pharmacy #[id number] Start Date: 11/08/16 Status: Ordered Glucagon Emergency [...]
--- OUTSIDE RECORDS SUMMARY | 2023-05-27 20:04 | XMS_ITS | Continuity of Care Document ---
Author Name Unknown Organization [facility] Address [address] [place] [address]- Care Team Providers Care Nonprofit Manager Name Role Phone Mylene BUSBY, Thania Primary Care Physician [phone] [place] [facility] [place] 04/01/21 - 05/01/21 [facility] [address] [place] [id number] Allergies, Adverse Reactions, Alerts Substance Reaction [...] Start Date: 02/11/14 Status: Ordered BD Pen Yeoman 32G x 6mm BD Pen Yeoman 32G x 6mm, See Instructions, # 200 each, Refills 11, Tot. Refills 11, Maintenance, Use to inject insulin 4 times daily. E10.65, 08/06/19 15:15:00 EDT, Supply, 167, cm, 08/06/19 14:57:00 EDT, Height Start Date: 08/06/19 Status: Ordered DEXCOM G6 REHABILITATION SERVICES AIDE DEXCOM G6 REHABILITATION SERVICES AIDE, See Instructions, # 1 each, Refills 0, Tot. Refills 0, Maintenance, Use to monitor blood glucose levels continuously. E10.9 [facility]# [id number], 09/08/20 10:37:00 EDT, Supply, 167,cm, 08/06/19 14:57:00 EDT, Height Start Date: 09/08/20 Status: Ordered DEXCOM G6 SENSOR 3-PACK DEXCOM G6 SENSOR 3-PACK, See Instructions, # 3 each, Refills 3, Tot. Refills 3, Maintenance, Use tomonitor blood glucose levels continuously. change every 10 days. E10.9 [facility]# [id number], 09/08/2109:37:00 EDT, Supply, 167, cm, 08/06/19 14:57:00 E... Start Date: 09/08/20 Status: Ordered DEXCOM G6 TRANSMITTER DEXCOM G6 TRANSMITTER, See Instructions, # 1 each, Refills 3, Tot. Refills 3, Maintenance, Use withsensor to monitor blood glucose levels continuously. Change every 3 months. E10.9. [facility]# [id number], 09/08/20 10:37:00 EDT, Supply, 167, cm, ... [...] Refills 0, Maintenance, Use Freestyle 14 Day [place] to scan blood glucose 4x a day, [...] 0, Maintenance,11/08/16 15:53:10, Route to Pharmacy Electronically, [id number], [facility]/pharmacy #[id number] Start Date: 11/08/16 Status: Ordered Glucagon Emergency [...] each, 5 Refills, Maintenance, 04/01/21 23:24:00 EDT, [id number], Partial fill upon patient request if [...] 10/06/20 11:31:00 EDT, Route to Pharmacy Electronically, [facility]/pharmacy #[id number], Partial fill upon patient request if the prescription is for a schedule II opioid drug.... Start Date: 10/06/20 Status: Ordered Pen Yeoman, 31 G x 5 mm BD Ultra [...]
--- OUTSIDE RECORDS SUMMARY | 2023-05-27 20:04 | XMS_ITS | Continuity of Care Document ---
Author Name Unknown Organization [facility] Address [address] [place] [address]- Care Team Providers Care Meter Readers Supervisor Name Role Phone Not on Staff, PCP Primary Care Physician Unavail able Encounter [facility] Date(s): 04/04/23 - 05/04/[address] [address]- Attending Physician: Not on Staff, Attending MD Admitting Physician: Not on Staff, Admitting MD Referring Physician: Not on Staff, Referring [...] 10 mL,5 Refills, Maintenance, 04/11/23 18:30:00 EST, [facility]/pharmacy #[id number], Partial fill upon patient request if the prescription is for a schedule II opioid dr... Start Date: 04/11/23 Status: Ordered Lantus Solostar Pen 100 units/mL subcutaneous solution = 12 units, Subcutaneous Injection, Daily, # 3 mL, 0 Refills, Maintenance, 04/11/23 18:30:00 EST, Solution, [facility]/pharmacy #[id number], Partial fill upon patient request if [...] 0 Refills, Maintenance, 04/09/23 0:11:00 EST, Tablet, [facility], Partial fill upon patient request if the prescription is for a schedule II opioid drug., 170, cm, 02/28/23 23:27:00... Start Date: 04/09/23 Status: Ordered oxyCODONE 5 mg oral capsule 1 capsule = 5 mg, By Mouth, Every 6 hours, PRN as needed for pain, # 20 capsule, 0 Refills, Maintenance, 04/04/23 16:38:00 EST, Capsule, [facility], Partial fill upon patient request ifthe prescription is for a schedule II opioid drug.,... Start Date: 04/04/23 Stop Date: 04/09/23 Status: Ordered Pen Webster, 29 G x 12.7 mm BD Ultra [...] Team Personnel Name: Li Zapata RN Position: [facility] RN Member Role: Primary Care Nurse Name: Denzel Francis RN Position: [facility] RN Member Role: Primary Care Nurse Name: Lazaro Dodd RN Position: [facility] ED RN W/OE and Tasks Member Role: Primary Care Nurse Name: Arti Kemp RN Position: [facility] RN Member Role: Primary Care Nurse Name: Yulia Henry RN Position: [facility] RN Member Role: Primary Care Nurse Name: Tristian Rubalcava RN Position: [facility] RN Member Role: Primary Care Nurse Name: Suly Fair LPN Position: [facility] RN Member Role: Primary Care Nurse Name: Ila Valentine RN Position: [facility] RN Member Role: Primary Care Nurse Name: Not on Staff, PCP Position: [facility] Physician (General Medicine) Member Role: PCP Name: Ben Retana RN Position: [facility] RN Member Role: Primary Care Nurse Care Team Related Persons Name: GREGORY MARTINEZ Address: [address] [address] Name: ELVA DHILLON Address: home [address] [place] [address] Name: ANDRE VELEZ Address: home [address] [address]
--- OUTSIDE RECORDS SUMMARY | 2023-05-27 20:04 | XMS_ITS | Continuity of Care Document ---
Author Name Unknown Organization [facility] Address [address] [place] [address]- Care Team Providers Care Piper Helper Name Role Phone Mylene BUSBY, Thania Primary Care Physician En[place] [facility] [place] Date(s): 02/22/22 - 03/24/22 [facility] [address] [place] [id number] Allergies, Adverse Reactions, Alerts No [...] mL, 4 Refills, Maintenance, 02/15/22 10:54:00 EDT, [facility]/pharmacy #[id number], Partial fill upon patient request ifthe prescription is for a schedule II opioid drug. Start Date: 02/15/22 Status: Ordered Alcohol Pads See Instructions, # 200 each, Refills 11, Tot. Refills 11, Maintenance, Use as directed for type 1 diabetes 6-7x/day, 02/16/22 18:25:00 EDT, Compound Start Date: 02/16/22 Status: Ordered BD Pen [place] 32G x 6mm BD Pen [place] 32G x 6mm, See Instructions, # 200 each, Refills 11, Tot. Refills 11, Maintenance, Use to inject insulin 4 times daily. E10.65, 08/06/19 15:15:00 EDT, Supply, 167, cm, 08/06/19 14:57:00 EDT, Height Start Date: 08/06/19 Status: Ordered DEXCOM G6 NEAR EAST ARCHEOLOGY PROFESSOR DEXCOM G6 NEAR EAST ARCHEOLOGY PROFESSOR, See Instructions, # 1 each, Refills 0, Tot. Refills 0, Maintenance, Use to monitor blood glucose levels continuously. E10.9 [facility]# [id number], 09/08/20 10:37:00 EDT, Supply, 167,cm, 08/06/19 14:57:00 EDT, Height Start Date: 09/08/20 Status: Ordered DEXCOM G6 SENSOR 3-PACK DEXCOM G6 SENSOR 3-PACK, See Instructions, # 3 each, Refills 3, Tot. Refills 3, Maintenance, Use tomonitor blood glucose levels continuously. change every 10 days. E10.9 [facility]# [id number], 09/08/2109:37:00 EDT, Supply, 167, cm, 08/06/19 14:57:00 E... Start Date: 09/08/20 Status: Ordered DEXCOM G6 TRANSMITTER DEXCOM G6 TRANSMITTER, See Instructions, # 1 each, Refills 3, Tot. Refills 3, Maintenance, Use withsensor to monitor blood glucose levels continuously. Change every 3 months. E10.9. [facility]# [id number], 09/08/20 10:37:00 EDT, Supply, 167, cm, ... [...] Refills 0, Maintenance, Use Freestyle 14 Day [place] to scan blood glucose 4x a day, [...] 0, Maintenance,11/08/16 15:53:10, Route to Pharmacy Electronically, [id number], [facility]/pharmacy #[id number] Start Date: 11/08/16 Status: Ordered Glucagon Emergency [...] mL, 3 Refills, Maintenance, 02/16/22 18:16:00 EDT, [facility]/pharmacy #[id number], Partial fill upon patient request [...] 10/06/20 11:31:00 EDT, Route to Pharmacy Electronically, [facility]/pharmacy #[id number], Partial fill upon patient request if the prescription is for a schedule II opioid drug.... Start Date: 10/06/20 Status: Ordered Pen [place], 31 G x 5 mm BD Ultra Fine III See Instructions, # 120 each, Maintenance, Use to inject with insulin up to 4 times a day, E10.9,, 08/08/19 10:45:00 EDT, duplicate from rx sent 07/19/19 not received by pharmacy, Compound, 167, cm, 08/06/19 14:57:00 EDT, Height Start Date: 08/08/19 Status: Ordered Pen [place], 31 G x 8 mm BD Ultra [...] on: 04/11/14 Sex Patient Care team information Personnel Name: Mylene BUSBY, Thania Address: Address: [address] [place] [address]
--- OUTSIDE RECORDS SUMMARY | 2023-05-27 20:04 | XMS_ITS | Continuity of Care Document ---
Author Name Unknown Organization [facility] Address [address] [place] [address]- Care Team Providers Care Proposal Rep Name Role Phone Thania Chakraborty MD Primary Care Physician [place] [facility] [place] Date(s): 10/08/22 - 11/07/22 [facility] [address] [place] [id number] Attending Physician: Izabel Vizcaino Admitting Physician: Izabel Vizcaino Referring Physician: Izabel Vizcaino Allergies, Adverse Reactions, Alerts No Known Allergies [...] mL, 4 Refills, Maintenance, 02/15/22 10:54:00 EDT, [facility]/pharmacy #[id number], Partial fill upon patient request ifthe prescription is for a schedule II opioid drug. Start Date: 02/15/22 Status: Ordered Alcohol Pads See Instructions, # 200 each, Refills 11, Tot. Refills 11, Maintenance, Use as directed for type 1 diabetes 6-7x/day, 02/16/22 18:25:00 EDT, Compound Start Date: 02/16/22 Status: Ordered BD Pen Gifford 32G x 6mm BD Pen G[place]ord 32G x 6mm, See Instructions, # 200 each, Refills 11, Tot. Refills 11, Maintenance, Use to inject insulin 4 times daily. E10.65, 08/06/19 15:15:00 EDT, Supply, 167, cm, 08/06/19 14:57:00 EDT, Height Start Date: 08/06/19 Status: Ordered DEXCOM G6 INDUSTRIAL ACCOUNTANT DEXCOM G6 INDUSTRIAL ACCOUNTANT, See Instructions, # 1 each, Refills 0, Tot. Refills 0, Maintenance, Use to monitor blood glucose levels continuously. E10.9 [facility]# [id number], 09/08/20 10:37:00 EDT, Supply, 167,cm, 08/06/19 14:57:00 EDT, Height Start Date: 09/08/20 Status: Ordered DEXCOM G6 SENSOR 3-PACK DEXCOM G6 SENSOR 3-PACK, See Instructions, # 3 each, Refills 3, Tot. Refills 3, Maintenance, Use tomonitor blood glucose levels continuously. change every 10 days. E10.9 [facility]# [id number], 09/08/2109:37:00 EDT, Supply, 167, cm, 08/06/19 14:57:00 E... Start Date: 09/08/20 Status: Ordered DEXCOM G6 TRANSMITTER DEXCOM G6 TRANSMITTER, See Instructions, # 1 each, Refills 3, Tot. Refills 3, Maintenance, Use withsensor to monitor blood glucose levels continuously. Change every 3 months. E10.9. [facility]# [id number], 09/08/20 10:37:00 EDT, Supply, 167, cm, ... [...] Refills 0, Maintenance, Use Freestyle 14 Day [place] to scan blood glucose 4x a day, [...] Date: 07/23/22 Stop Date: 01/19/23 Status: Ordered FREESTYLE LITE TEST STRIP FREESTYLE LITE TEST STRIP, See Instructions, # 200 Unknown, 0 Refills, Maintenance, USE DIRECTED, 10/29/22 21:35:00 EDT, 167, cm, 07/23/22 15:41:00 EST, Height Start Date: 10/29/22 Status: Ordered Freestyle Lite Test Strips See [...] 0, Maintenance,11/08/16 15:53:10, Route to Pharmacy Electronically, [id number], [facility]/pharmacy #[id number] Start Date: 11/08/16 Status: Ordered Glucagon Emergency [...] mL, 4 Refills, Maintenance, 07/23/22 16:00:00 EST, [facility]/pharmacy #[id number], Partial fill upon patient [...] 5 Refills, Maintenance, 07/23/22 15:59:00 EST, Solution, [facility]/pharmacy #[id number], duplicate from rx sent 08/06/19 not received by pharmacy, 167, cm, 07/23/22 15:41:00 EST, Height Start Date: 07/23/22 Status: Ordered lisinopril 5 mg oral tablet 5 mg, 1, tablet, By Mouth, Daily, # 30 tablet, Refills 6, Tot. Refills 6, Maintenance, 10/06/20 11:31:00 EDT, Route to Pharmacy Electronically, [facility]/pharmacy #[id number], Partial fill upon patient request if the prescription is for a schedule II opioid drug.... Start Date: 10/06/20 Status: Ordered Pen [place], 31 G x 5 mm BD Ultra Fine III See Instructions, # 120 each, Maintenance, Use to inject with insulin up to 4 times a day, E10.9,, 08/08/19 10:45:00 EDT, duplicate from rx sent 07/19/19 not received by pharmacy, Compound, 167, cm, 08/06/19 14:57:00 EDT, Height Start Date: 08/08/19 Status: Ordered Pen G[place], 31 G x 8 mm BD Ultra [...] Reference Physician Member Role: PCP Address: Address: [address] [place] [address]- Care Team Related Persons Name: GREGORY MARTINEZ Address: home [address] [place] [address] Name: CINDY JIMENEZ Address: home [address], [place] Name: ELVA DHILLON Address: home [address] [place] [address] Name: ANDRE VELEZ Address: home [address] [place] [address]
[2023-05-27 20:05] LABS: Alanine Aminotransferase 12 U/L (0-40); Albumin Level 4.2 g/dL (3.5-5.0); Alkaline Phosphatase 84 U/L (39-117); Anion Gap 19 (12-20); Aspartate Amino Transferase 11 U/L (5-37); Bilirubin Total 0.4 mg/dL (0.0-1.0); Blood Urea Nitrogen 29 mg/dL (9-16); Calcium 9.8 mg/dL (8.4-10.2); Carbon Dioxide 25 mmol/L (22-29); Chloride 87 mmol/L (96-108); Creatinine Clr Calc Pharmacy 35.5; Estimated Glomerular Filt Rate 29; Glucose Random 701 mg/dL (60-115); Potassium 3.9 mmol/L (3.3-5.1); Sodium 127 mmol/L (135-145)
--- OUTSIDE RECORDS SUMMARY | 2023-05-27 20:05 | XMS_ITS | Continuity of Care Document ---
Author Name Unknown Organization [facility] Address [address] [place] [address]- Care Team Providers Care Bee Producer Name Role Phone Thania Chakraborty MD Primary Care Physician [place] [facility] [place] 04/02/19 - 06/21/19 [facility] [address] [place] [address] [facility] Attending Physician: Renata Berman MD Admitting Physician: [...] 0 Refills, Maintenance, 05/28/19 11:32:00 EST, [id number], 167, cm, 10/11/17 8:37:00 EDT, Height Start [...] 0, Maintenance,11/08/16 15:53:10, Route to Pharmacy Electronically, [id number], [facility]/pharmacy #[id number] Start Date: 11/08/16 Status: Ordered Glucagon Emergency [...]
--- OUTSIDE RECORDS SUMMARY | 2023-05-27 20:05 | XMS_ITS | Continuity of Care Document ---
Author Name Unknown Organization [facility] Address [address] [place] [address]- Care Team Providers Care Criminal Lawyer Name Role Phone Mylene BUSBY, Thania Primary Care Physician En[place] [facility] [place] Date(s): 10/23/19 - 11/22/19 [facility] [address] [place] [address] [facility] Attending Physician: Izabel Vizcaino Admitting Physician: AdmIzabel [...] Start Date: 02/11/14 Status: Ordered BD Pen [place] 32G x 6mm BD Pen [place] 32G x 6mm, See Instructions, # 200 [...] 0, Maintenance,11/08/16 15:53:10, Route to Pharmacy Electronically, [id number], [facility]/pharmacy #[id number] Start Date: 11/08/16 Status: Ordered Glucagon Emergency [...] 5 Refills, Maintenance, 08/08/19 10:45:00 EDT, Solution, [facility]/pharmacy #[id number], duplicate from rx sent 08/06/19 not received by pharmacy, 167, cm, 08/06/19... Start Date: 08/08/19 Status: Ordered Pen [place], 31 G x 5 mm BD Ultra [...]
--- OUTSIDE RECORDS SUMMARY | 2023-05-27 20:05 | XMS_ITS | Continuity of Care Document ---
Author Name Unknown Organization [facility] Address [address] [place] [address]- Care Team Providers Care Manager Recovery Name Role Phone Mylene BUSBY, [facility] Primary Care Physician [phone] [place] [facility] [place](s): 07/22/20 - 08/21/20 [facility] [address] [place] [id number] Allergies, Adverse Reactions, Alerts Substance Reaction Severity [...] Start Date: 02/11/14 Status: Ordered BD Pen Eck[place] 32G x 6mm BD Pen Eck[place] 32G x 6mm, See Instructions, # 200 [...] 0, Maintenance,11/08/16 15:53:10, Route to Pharmacy Electronically, [id number], [facility]/pharmacy #[id number] Start Date: 11/08/16 Status: Ordered Glucagon Emergency [...] 08/06/19... Start Date: 07/23/20 Status: Ordered Pen Eckerman, 31 G x 5 mm BD Ultra [...]
--- OUTSIDE RECORDS SUMMARY | 2023-05-27 20:05 | XMS_ITS | Continuity of Care Document ---
Author Name Unknown Organization [facility] Address [address] [place] [address]- Care Team Providers Care Motorboat Mechanic Inboard Name Role Phone Thania Chakraborty MD Primary Care Physician [phone] Encounter [facility] Date(s): 07/23/22 - 11/07/22 [facility] [address] [place] [id number] Attending Physician: Orquidea Williamson MD Admitting Physician: [...] 4 Refills, Maintenance, 02/15/22 10:54:00 EDT, [facility]/pharmacy #[id number], Partial fill upon patient request ifthe prescription is for a schedule II opioid drug. Start Date: 02/15/22 Status: Ordered Alcohol Pads See Instructions, # 200 each, Refills 11, Tot. Refills 11, Maintenance, Use as directed for type 1 diabetes 6-7x/day, 02/16/22 18:25:00 EDT, Compound Start Date: 02/16/22 Status: Ordered BD Pen [place] 32G x 6mm BD Pen [place] 32G x 6mm, See Instructions, # 200 each, Refills 11, Tot. Refills 11, Maintenance, Use to inject insulin 4 times daily. E10.65, 08/06/19 15:15:00 EDT, Supply, 167, cm, 08/06/19 14:57:00 EDT, Height Start Date: 08/06/19 Status: Ordered DEXCOM G6 DEAN OF ADMISSIONS DEXCOM G6 DEAN OF ADMISSIONS, See Instructions, # 1 each, Refills 0, Tot. Refills 0, Maintenance, Use to monitor blood glucose levels continuously. E10.9 [facility]# [id number], 09/08/20 10:37:00 EDT, Supply, 167,cm, 08/06/19 14:57:00 EDT, Height Start Date: 09/08/20 Status: Ordered DEXCOM G6 SENSOR 3-PACK DEXCOM G6 SENSOR 3-PACK, See Instructions, # 3 each, Refills 3, Tot. Refills 3, Maintenance, Use tomonitor blood glucose levels continuously. change every 10 days. E10.9 [facility]# [id number], 09/08/2109:37:00 EDT, Supply, 167, cm, 08/06/19 14:57:00 E... Start Date: 09/08/20 Status: Ordered DEXCOM G6 TRANSMITTER DEXCOM G6 TRANSMITTER, See Instructions, # 1 each, Refills 3, Tot. Refills 3, Maintenance, Use withsensor to monitor blood glucose levels continuously. Change every 3 months. E10.9. [facility]# [id number], 09/08/20 10:37:00 EDT, Supply, 167, cm, ... [...] Refills 0, Maintenance, Use Freestyle 14 Day [place] to scan blood glucose 4x a day, [...] 0, Maintenance,11/08/16 15:53:10, Route to Pharmacy Electronically, [id number], [facility]/pharmacy #[id number] Start Date: 11/08/16 Status: Ordered Glucagon Emergency [...] 4 Refills, Maintenance, 07/23/22 16:00:00 EST, [facility]/pharmacy #[id number], Partial fill upon patient [...] Refills, Maintenance, 07/23/22 15:59:00 EST, Solution, [facility]/pharmacy #[id number], duplicate from rx sent 08/06/19 not received by pharmacy, 167, cm, 07/23/22 15:41:00 EST, Height Start Date: 07/23/22 Status: Ordered lisinopril 5 mg oral tablet 5 mg, 1, tablet, By Mouth, Daily, # 30 tablet, Refills 6, Tot. Refills 6, Maintenance, 10/06/20 11:31:00 EDT, Route to Pharmacy Electronically, [facility]/pharmacy #[id number], Partial fill upon patient request if the prescription is for a schedule II opioid drug.... Start Date: 10/06/20 Status: Ordered Pen [place], 31 G x 5 mm BD Ultra Fine III See Instructions, # 120 each, Maintenance, Use to inject with insulin up to 4 times a day, E10.9,, 08/08/19 10:45:00 EDT, duplicate from rx sent 07/19/19 not received by pharmacy, Compound, 167, cm, 08/06/19 14:57:00 EDT, Height Start Date: 08/08/19 Status: Ordered Pen [place], 31 G x 8 mm BD Ultra [...] Reference Physician Member Role: PCP Address: Address: [address] [place] [address]- Care Team Related Persons Name: GREGORY MARTINEZ Address: home [address] [place] [address] Name: CINDY JIMENEZ Address: [address] [place], [place] Name: ELVA DHILLON Address: home [address] [place] [address] Name: ANDRE VELEZ Address: [address] [place] [address]
[2023-05-27] MEDS: 0.9 % Sodium Chloride 1,000 ML 999 ML IV ×2 (20:22→21:24)
[2023-05-27] MEDS: Erythromycin Base 0.5% Oph Oin 1 GM TUBE 1 CM EYE-LEFT (20:29)
[2023-05-27 20:30] LABS: Venous Blood Gas Refer to POC result
[2023-05-27 20:30] LABS: VBG Base Excess 5.3 mmol/L; VBG HCO3 31 mmol/L (22-26); VBG pCO2 51 mmHg; VBG pH 7.39 (7.32-7.43); VBG pO2 71 mmHg
[2023-05-27 21:46] LABS: Glucose, Whole Blood 337 mg/dL (60-115)
== END 2023-05-27 22:35 | disposition left against medical advice (07) ==
PROVIDERS: Emergency Provider Student in an Organized Health Care Education/Training Program
DX: N17.9 Acute kidney failure, unspecified (principal); S09.90XA Unspecified injury of head, initial encounter; W01.0XXA Fall on same level from slipping, tripping and stumbling without subsequent striking against object, initial encounter; Y35.93XA Legal intervention, means unspecified, suspect injured, initial encounter; Y92.9 Unspecified place or not applicable; Y99.9 Unspecified external cause status; R07.9 Chest pain, unspecified; E10.8 Type 1 diabetes mellitus with unspecified complications; Z79.4 Long term (current) use of insulin
CPT/HCPCS: 36415; 71045; 80053; 82010; 82803; 82947; 85027; 93005; 96360; 96361; 99284; 99285

== ENCOUNTER → 2023-05-27 19:41 | Outpatient (BNV) | payer OTHER, SELFPAY | PROVIDERS: Emergency Provider Student in an Organized Health Care Education/Training Program; Visit Provider Internal Medicine | DX: I45.81 Long QT syndrome (principal) | CPT/HCPCS: 93010 ==

== ENCOUNTER 2023-05-28 00:47 | Emergency (ER) | payer OTHER, SELFPAY ==
--- NOTE | 2023-05-28 | ECG_ITS ---
Test Reason : CHEST PAIN Blood Pressure : / mmHG Vent. Rate : 082 BPM Atrial Rate : 082 BPM P-R Int : 160 ms QRS Dur : 080 ms QT Int : 402 ms P-R-T Axes : 057 030 058 degrees QTc Int : 469 ms Normal sinus rhythm Nonspecific T wave abnormality Prolonged QT Abnormal ECG When compared with ECG of 27-MAY-2023 19:41, No significant change was found Referred By: Generic ED Physician Electronically Signed By:GEORGI WEAVER
[2023-05-28 00:55] VITALS: BP 143/104; BP 144/80; PULSE 83; PULSE 88; RESP 17; TEMP 36.8; O2SAT 95; O2SAT 98; BMI 21.1
[2023-05-28 01:01] VITALS: BP 132/99; PULSE 80; RESP 14; TEMP 36.7; O2SAT 100
[2023-05-28 01:30] LABS: Glucose, Whole Blood 223 mg/dL (60-115)
--- NOTE | 2023-05-28 02:35 | ED.CHESTPAIN ---
HPI - Chest Pain General Chief Complaint: Chest Pain Stated Complaint: cp Time Seen by Provider: 05/28/23 02:29 Source: patient and police Mode of arrival: ambulatory Limitations: no limitations History of Present Illness HPI narrative: Patient comes to emergency room complaining of high blood sugars. Patient was seen earlier today, diagnosed with a corneal abrasion, also patient was told that his creatinine levels were elevated and that his glucose was high. Patient states that he did not want to stay, was hoping to go back to the police station, get bailed out and then come back tomorrow. However, when patient got back to the police station, he was told that he would not be billed out. Therefore, patient decided to come to the emergency room, patient in police custody. Related Data Previous Rx's Medication Instructions Recorded erythromycin 5 mg/gram (0.5 %) eye 1 appl ophthalmic (eye) Q6H #3.5 05/27/23 ointment grams Allergies Allergy/AdvReac Type Severity Reaction Status Date / Time No Known Allergies Allergy Verified 05/28/23 00:55 Review of Systems Review of Systems: Constitutional : No Weight loss, No Fever, No Chills, No Night Sweats, No Fatigue, No Malaise ENT/Mouth : No Hearing loss, No Ear Pain, No Nasal Congestion, No Sinus Pain, No Hoarseness, No sore throat, No Rhinorrhea, No Swallowing Difficulty Eyes: Eye erythema, diagnosed with corneal abrasion, complaining of sticky discharge Cardiovascular : No Chest Pain, No SOB, No Dyspnea on Exertion, No Orthopnea, No Edema, No Palpitations Respiratory : No Cough, No Sputum, No Wheezing, No Smoke Exposure, No Dyspnea Gastrointestinal : No Nausea, No Vomiting, No Diarrhea, No Constipation, No abdominal Pain, No Hematochezia, No Melena Genitourinary : no irregular bleeding, No Dysuria, No Urinary Frequency, No Hematuria, No Urinary Incontinence, No Urgency, No Flank Pain, No Urinary Flow Changes, No Hesitancy Musculoskeletal : No joint pain, No Myalgias, No Joint Swelling Skin : No Skin Lesions, No rash Neuro : No Weakness, No Numbness, No Paresthesias, No Loss of Consciousness, No Dizziness, No Headache Psych : No Anxiety/Panic, No Depression, No SI/HI/AH/VH, No Social Issues, Heme/Lymph: No Bruising, No Bleeding,No Lymphadenopathy Endocrine : No Polyuria, No Polydipsia, No Temperature Intolerance complaining of high blood sugar [facility] Past Medical History Medical History (Updated 05/28/23 @ 07:09 by oLla Wiley MD) Type 1 diabetes Social History Social History Smoked in Last 30 Days: Yes Use of substances other than those prescribed or required for medical reasons: No Substance Use Type: Former Substance User Advance Directives: No Advance Directives Information Provided: Yes Physical Exam Vital Signs: Vital Signs: Last Vital Signs Temp 97.9 F 05/28/23 06:20 Pulse 82 05/28/23 06:20 Resp 14 05/28/23 06:20 BP 134/99 H 05/28/23 06:20 Pulse Ox 100 05/28/23 06:20 O2 Del Method Room Air 05/28/23 06:20 BMI result Body Mass Index 21.1 Const: Other: Appearance: Alert. Oriented X3. No acute distress. Eyes: Pupils equal, round and reactive to light. Left eye erythematous, early today diagnosed with a corneal abrasion. Gewy discharge present ENT: Pharynx normal. Neck: Normal inspection. Neck supple. No lymph nodes noted. No crepitus CVS: Normal heart rate and rhythm. Pulses normal. Normal S1 and S2 Respiratory: No respiratory distress. Breath sounds normal. No Wheezing. No rales Abdomen: Soft and nontender. No rigidity. No distention. Skin: Skin warm and dry. Normal skin color. Normal skin turgor. Extremities: No lower extremity edema. No Lacerations. No Rash Neuro: Oriented X 3. No motor deficit. No sensory deficit. Moving all extremities. No slurred speech. CN 2 through 12 grossly intact Psych: calm, cooperative, normal affect Medications Administered Discontinued Medications Generic Name Dose Route Start Last Admin Trade Name Freq PRN Reason Stop Dose Admin Erythromycin 1 cm 05/28/23 02:33 05/28/23 04:07 Erythromycin Base 0.5% Oph Oin 1 Gm Tube EYE-LEFT 05/28/23 02:34 1 cm ONCE ONE Administration Hydroxyzine HCl 50 mg 05/28/23 04:23 05/28/23 06:44 Hydroxyzine Hcl 50 Mg Tablet PO 05/28/23 04:24 50 mg ONCE ONE Administration Sodium Chloride 2,000 mls @ 999 mls/hr 05/28/23 02:33 05/28/23 04:07 Ns IVCONT 05/28/23 04:33 999 mls/hr .Q2H1M ONE Administration Insulin Human Regular 10 unit 05/28/23 02:33 05/28/23 04:06 Insulin Regular, Human 100 Unit/Ml 3 Ml Vial IVPUSH 05/28/23 02:34 10 unit ONCE ONE Administration Medical Decision Making Medical Decision Making [facility] Narrative: -my interpretation of labs: White blood cell count 13.0, likely reactive leukocytosis. -after 2 L of fluids and insulin, patient's glucose is 284, HARRIET resolved, anion gap is closed, patient asymptomatic. Beta hydroxybutyrate 1.82 which improved from almost 4. I discussed the patient with Dr. Sanchez, slight increase in beta hydroxybutyrate not a reason for admission. Patient can be safely discharged. -patient is under police custody, does not know when he will be getting his next methadone dose. Per patient's request and also PD, we will confirm patient's methadone dose and will get his first dose -methadone dose pending, sign out given to my colleage Dr. Shaw Differential Diagnosis Differential Diagnoses: The differential diagnosis associated with the presentation includes (Hyperglycemia, HARRIET, DKA) Admission/Observation Consideration of admission/observation: Escalation of care including admission/observation considered (Given patient's labs, admission was considered.) Consult Healthcare Provider Management of the patient was discussed with: Hospitalist Lab Data [facility] Lab Attestation statement: I reviewed the patient's lab results. 05/28/23 03:55 05/28/23 06:38 Labs: Lab Results 05/28/23 05/28/23 05/28/23 Range/Units 01:25 03:55 03:57 WBC 13.0 H (4.8-10.8) X10*3/uL RBC 4.12 L (4.60-5.80) X10*6/uL Hgb 12.2 L (14.0-18.0) g/dl Hct 34.9 L (42.0-52.0) % MCV 84.7 (80.0-98.0) fL MCH 29.6 (27.0-33.0) pg MCHC 35.0 (31.0-36.0) g/dl RDW 12.0 (11.0-16.0) % Plt Count 357 (160-400) X10*3/uL MPV 10.1 (9.4-12.4) fL Immature Gran % (Auto) 0.3 (0.0-0.4) % Neut % (Auto) 57.5 (45-73) % Lymph % (Auto) 30.0 (20-40) % [place] % (Auto) 10.3 (2-11) % Eos % (Auto) 1.5 (0-4) % Baso % (Auto) 0.4 (0-2) % Lymph # (Auto) 3.9 (1.2-4.9) X10*3/uL [place] # (Auto) 1.3 H (0.1-1.2) X10*3/uL Eos # (Auto) 0.2 (0.0-0.4) X10*3/uL Baso # (Auto) 0.1 (0.0-0.2) X10*3/uL Abs Immat Gran (auto) 0.04 H (0.00-0.03) X10*3/uL Absolute Neuts (auto) 7.5 (2.0-8.3) x10*3/uL Absolute Nucleated RBC 0.000 (0.0-0.012) X10*3/uL Nucleated RBC % (auto) 0.0 (0.0-0.2) /100WBC VBG pH 7.43 (7.32-7.43) VBG pCO2 37 mmHg VBG pO2 51 mmHg VBG HCO3 24 (22-26) mmol/L VBG O2 Saturation 85.0 % VBG Base Excess 0.6 mmol/L Sodium 134 L (135-145) mmol/L Potassium 3.8 (3.3-5.1) mmol/L Chloride 95 L (96-108) mmol/L Carbon Dioxide 23 (22-29) mmol/L Anion Gap 20 (12-20) BUN 23 H (9-16) mg/dL Creatinine 1.66 H (0.5-1.4) mg/dL Estim Creat Clear Calc 56.8 Estimated GFR 49 POC Glucose 223 H (60-115) mg/dL Random Glucose 300 H (60-115) mg/dL Calcium 9.0 D (8.4-10.2) mg/dL Magnesium 2.2 (1.6-2.6) mg/dL Total Bilirubin 0.3 (0.0-1.0) mg/dL Direct Bilirubin 0.1 (0.0-0.5) mg/dL AST 12 (5-37) U/L ALT 11 (0-40) U/L Alkaline Phosphatase 80 (39-117) U/L Troponin I High Sens < 2.7 (<3.5-35.0) ng/L Total Protein 6.7 (6.5-8.0) g/dL Albumin 4.1 (3.5-5.0) g/dL Lipase 9 (8-78) U/L Beta-Hydroxybutyrate 3.97 H (0.02-0.27) mmol/L Ethyl Alcohol < 10 mg/dL 05/28/23 05/28/23 Range/Units 05:13 06:38 WBC (4.8-10.8) X10*3/uL RBC (4.60-5.80) X10*6/uL Hgb (14.0-18.0) g/dl Hct (42.0-52.0) % MCV (80.0-98.0) fL MCH (27.0-33.0) pg MCHC (31.0-36.0) g/dl RDW (11.0-16.0) % Plt Count (160-400) X10*3/uL MPV (9.4-12.4) fL Immature Gran % (Auto) (0.0-0.4) % Neut % (Auto) (45-73) % Lymph % (Auto) (20-40) % [place] % (Auto) (2-11) % Eos % (Auto) (0-4) % Baso % (Auto) (0-2) % Lymph # (Auto) (1.2-4.9) X10*3/uL [place] # (Auto) (0.1-1.2) X10*3/uL Eos # (Auto) (0.0-0.4) X10*3/uL Baso # (Auto) (0.0-0.2) X10*3/uL Abs Immat Gran (auto) (0.00-0.03) X10*3/uL Absolute Neuts (auto) (2.0-8.3) x10*3/uL Absolute Nucleated RBC (0.0-0.012) X10*3/uL Nucleated RBC % (auto) (0.0-0.2) /100WBC VBG pH (7.32-7.43) VBG pCO2 mmHg VBG pO2 mmHg VBG HCO3 (22-26) mmol/L VBG O2 Saturation % VBG Base Excess mmol/L Sodium 136 (135-145) mmol/L Potassium 3.5 (3.3-5.1) mmol/L Chloride 101 (96-108) mmol/L Carbon Dioxide 24 (22-29) mmol/L Anion Gap 15 (12-20) BUN 19 H (9-16) mg/dL Creatinine 1.38 (0.5-1.4) mg/dL Estim Creat Clear Calc 68.4 Estimated GFR > 60 POC Glucose 242 H (60-115) mg/dL Random Glucose 284 H (60-115) mg/dL Calcium 8.2 L D (8.4-10.2) mg/dL Magnesium (1.6-2.6) mg/dL Total Bilirubin (0.0-1.0) mg/dL Direct Bilirubin (0.0-0.5) mg/dL AST (5-37) U/L ALT (0-40) U/L Alkaline Phosphatase (39-117) U/L Troponin I High Sens (<3.5-35.0) ng/L Total Protein (6.5-8.0) g/dL Albumin (3.5-5.0) g/dL Lipase (8-78) U/L Beta-Hydroxybutyrate 1.82 H (0.02-0.27) mmol/L Ethyl Alcohol mg/dL Independent Historian Clinical information obtained from an independent historian. History obtained from or confirmed by: Other (Diabetes) Critical Care Time Critical Care Time Critical Care Time: Yes Total Critical Care Time: 75 Attestation: I have personally provided critical care time. Time includes review of lab data, radiology results, discussion with consultants, and monitoring for potential decompensation. Intervention performed as documented. Discharge Plan Discharge Clinical Impression: Acute hyperglycemia, DKA, type 1 Patient Disposition: Home, Self-Care Instructions: Dehydration (ED), Diabetic Hyperglycemia (ED) Additional Instructions: Please follow-up with your primary care physician tomorrow. If you have any worsening or new symptoms, please return to the emergency room or call 911 Prescriptions: No Action erythromycin 5 mg/gram (0.5 %) ointment 1 appl ophthalmic (eye) Q6H Qty: 3.5 0RF
[2023-05-28 04:01] LABS: Basophils Absolute Auto 0.1 X10*3/uL (0.0-0.2); Basophils Percent Auto 0.4 % (0-2); Eosinophils Absolute Auto 0.2 X10*3/uL (0.0-0.4); Eosinophils Percent Auto 1.5 % (0-4); Hematocrit 34.9 % (42.0-52.0); Hemoglobin 12.2 g/dl (14.0-18.0); Imm Gran Abs Auto 0.04 X10*3/uL (0.00-0.03); Imm Gran Pct Auto 0.3 % (0.0-0.4); Lymphocytes Absolute Auto 3.9 X10*3/uL (1.2-4.9); MANUAL DIFF FLAG NO; Mean Corpuscular Hemoglobin 29.6 pg (27.0-33.0); Mean Corpuscular Volume 84.7 fL (80.0-98.0); Mean Platelet Volume 10.1 fL (9.4-12.4); Monocytes Absolute Auto 1.3 X10*3/uL (0.1-1.2); Monocytes Percent Auto 10.3 % (2-11); Neutrophils Absolute Auto 7.5 x10*3/uL (2.0-8.3); Neutrophils Percent Auto 57.5 % (45-73); Platelet Count 357 X10*3/uL (160-400); Red Blood Count 4.12 X10*6/uL (4.60-5.80)
[2023-05-28 04:02] LABS: Venous Blood Gas Refer to POC result
[2023-05-28 04:04] LABS: VBG Base Excess 0.6 mmol/L; VBG HCO3 24 mmol/L (22-26); VBG pCO2 37 mmHg; VBG pH 7.43 (7.32-7.43); VBG pO2 51 mmHg
[2023-05-28] MEDS: Insulin Regular, Human 100 UNIT/ML 3 ML VIAL 10 UNIT IVPUSH (04:06)
[2023-05-28] MEDS: 0.9 % Sodium Chloride 2,000 ML 999 ML IVCONT (04:07)
[2023-05-28] MEDS: Erythromycin Base 0.5% Oph Oin 1 GM TUBE 1 CM EYE-LEFT (04:07)
[2023-05-28 04:14] LABS: Beta-Hydroxybutyrate 3.97 mmol/L (0.02-0.27)
[2023-05-28 04:15] LABS: Alanine Aminotransferase 11 U/L (0-40); Albumin Level 4.1 g/dL (3.5-5.0); Alkaline Phosphatase 80 U/L (39-117); Anion Gap 20 (12-20); Aspartate Amino Transferase 12 U/L (5-37); Bilirubin Direct 0.1 mg/dL (0.0-0.5); Bilirubin Total 0.3 mg/dL (0.0-1.0); Blood Urea Nitrogen 23 mg/dL (9-16); Carbon Dioxide 23 mmol/L (22-29); Chloride 95 mmol/L (96-108); Creatinine Clr Calc Pharmacy 56.8; Estimated Glomerular Filt Rate 49; Ethanol < 10 mg/dL; Glucose Random 300 mg/dL (60-115); Lipase 9 U/L (8-78); Magnesium 2.2 mg/dL (1.6-2.6); Potassium 3.8 mmol/L (3.3-5.1); Sodium 134 mmol/L (135-145); Total Protein 6.7 g/dL (6.5-8.0)
[2023-05-28 04:21] LABS: Troponin-I High Sensitivity < 2.7 ng/L (<3.5-35.0)
[2023-05-28 05:17] LABS: Glucose, Whole Blood 242 mg/dL (60-115)
[2023-05-28 06:20] VITALS: BP 134/99; PULSE 82; RESP 14; TEMP 36.6; O2SAT 100
--- NOTE | 2023-05-28 06:25 | PC.NURSE ---
PER MD, will hold on giving the last Liter of NS and repeat labs first. Pt was requesting something for anxiety, MD put in for hydralazine and when attempting to administer pt was sleeping.
[2023-05-28] MEDS: hydrOXYzine HCL 50 MG TABLET PO (06:44)
[2023-05-28 06:54] LABS: Anion Gap 15 (12-20); Beta-Hydroxybutyrate 1.82 mmol/L (0.02-0.27); Blood Urea Nitrogen 19 mg/dL (9-16); Calcium 8.2 mg/dL (8.4-10.2); Carbon Dioxide 24 mmol/L (22-29); Chloride 101 mmol/L (96-108); Creatinine Clr Calc Pharmacy 68.4; Estimated Glomerular Filt Rate > 60; Glucose Random 284 mg/dL (60-115); Potassium 3.5 mmol/L (3.3-5.1); Sodium 136 mmol/L (135-145)
--- NOTE | 2023-05-28 07:44 | PC.NURSE ---
assumed care of this pt at 0700. pt in [employer] custody, Tracey campbell handcuffed to [facility]. two police officers at the pt's bedside. Pt reports that he is on methadone and doses at [facility] on [facility]. in [place], last dose was 55 mg 05/27/23 in the morning. this rn called clinic twice, no answer, will call back.
[2023-05-28 07:52] LABS: Appearance Urine Clear; Color Urine Yellow; Glucose Urine UA >=1000 mg/dL (Negative); Leukocyte Esterase Urine Negative (Negative); Nitrite Urine Negative (Negative); Specific Gravity - Urine 1.025 (1.005-1.025); UMIC TRIGGER UACC YES; Urine Blood Trace (Negative); Urine Ketones 15 mg/dL (Negative); Urine Protein Trace mg/dL (Neg-Trace)
[2023-05-28 07:57] LABS: Bacteria Urine None Seen (None Seen); Hyaline Casts Urine 0-2 /LPF (0-2); RBC Urine 0-2 /HPF (0-2); Squamous Epithelial Cell Urine 0-2 /HPF (0-2); WBC Urine 0-5 /HPF (0-5)
[2023-05-28 08:00] LABS: Amphetamine Screen Urine POSITIVE (Not Detect); Barbiturates, Urine Not Detected (Not Detect); Benzodiazepines Screen Urine Not Detected (Not Detect); Cannabinoid Screen Urine POSITIVE (Not Detect); Cocaine Screen Urine Not Detected (Not Detect); Fentanyl, urine POSITIVE (Not Detect); Opiate Screen Urine Not Detected (Not Detect); Phencyclidine Screen Urine POSITIVE (Not Detect)
[2023-05-28] MEDS: methADONE HCl 20 MG/2 ML ORAL.CONC 30 MG PO (08:49)
[2023-05-28 09:10] VITALS: BP 137/91; PULSE 86; RESP 16; O2SAT 98
--- NOTE | 2023-05-28 09:11 | PC.NURSE ---
Addendum entered by Justina Delgado RN 05/28/23 09:16: iv removed prior to discharge Original Note: pt medically cleared for discharge, he was dosed with 30 mg of methadone prior to discharge. pt discharged in police custody. discharge summary given to police lieutenant patrol. sandwich given prior to discharge. vss.
== END 2023-05-28 09:16 | disposition home or self-care (01) ==
PROVIDERS: Emergency Provider Emergency Medicine
DX: R07.89 Other chest pain (principal); Z79.899 Other long term (current) drug therapy
CPT/HCPCS: 36415; 80048; 80076; 80307; 81001; 82010; 82803; 82947; 83690; 83735; 84484; 85025; 93005; 96361; 96374; 99284; 99285

== ENCOUNTER → 2023-05-28 00:57 | Outpatient (BNV) | payer OTHER, SELFPAY | PROVIDERS: Emergency Provider Emergency Medicine; Visit Provider Internal Medicine | DX: I45.81 Long QT syndrome (principal) | CPT/HCPCS: 93010 ==

== ENCOUNTER 2023-08-03 10:03 | Inpatient (IN) | payer OTHER, SELFPAY ==
[2023-08-03] VITALS (7 sets, daily range): BP systolic 136–160; BP diastolic 81–100; PULSE 74–85; RESP 14–18; TEMP 36–37.1; O2SAT 98–100; BMI 22.6
--- NOTE | 2023-08-03 10:18 | ED_ITS ---
HPI - General Adult General Chief complaint: General Medical Stated complaint: NAUSEA VOMITING DIARRHEA Time Seen by Provider: 08/03/23 10:18 Source: patient and EMS Mode of arrival: EMS Limitations: no limitations History of Present Illness HPI narrative: Patient is a 28 year old, assigned male at , presents to the emergency department complaining of N/V/D. Patient arrived via EMS, who reported a POC of >500. Patient has a history significant for DM type 1 and reports running out of insulin with his last dose of insulin being yesterday, 08/03/2023, at approximately 10 am. Patient endorses aching abdominal pain, headache, feeling anxious, and very thirsty. EMS states that the patient was found in a room full of urine and trash. MD complaint: N/V/D Onset (ago): hour(s) Location: abdomen Radiation: non-radiation Severity: mild Severity scale (1-10): 3 Pain Consistency: constant Relieving factors: none Exacerbating factors: none Associated symptoms: denies other symptoms Treatments prior to arrival: none Related Data Allergies Allergy/AdvReac Type Severity Reaction Status Date / Time No Known Allergies Allergy Verified 05/28/23 00:55 Review of Systems 2 Constitutional: Constitutional: Reports no additional constitutional complaints, Denies chills, Reports fatigue, Denies fever(s), Reports headache(s), Denies night sweats and Reports weakness Eyes: Eyes: Denies blurry vision, Reports change in vision, Denies diplopia, Denies eye discharge, Denies loss of vision and Denies eye pain ENT: Denies dizziness and Reports headache(s) Cardiovascular: Cardiovascular: Reports no additional cardiovascular complaints, Denies chest pain, Denies lightheadedness, Denies Loss of Consciousness, Reports palpitations and Denies dyspnea Respiratory: Respiratory: Reports no additional respiratory complaints and Denies dyspnea Gastrointestinal: Gastrointestinal: Reports no additional gastrointestinal complaints, Reports abdominal pain, Denies melena, Denies hematochezia, Denies change in bowel habits, Denies change in stool character, Reports nausea and Reports vomiting Genitourinary: Genitourinary: Reports no additional male genitourinary complaints, Denies hematuria, Denies oliguria, Denies difficulty urinating, Denies dysuria, Denies urinary frequency, Denies urinary hesitancy, Denies urinary incontinence and Denies urinary urgency Musculoskeletal: Musculoskeletal: Reports no additional musculoskeletal complaints, Denies numbness and Denies tingling Neurologic: Denies dizziness, Reports headache(s), Denies loss of vision, Denies numbness, Denies tingling and Reports weakness Psychiatric: Psychiatric: Reports no additional psychiatric complaints Endocrine: Endocrine: Reports no additional endocrine complaints, Reports fatigue, Reports polydipsia and Reports palpitations Hematologic/Lymphatic: Hematologic/Lymphatic: Reports no additional hematologic/lymphatic complaints Allergic/Immunologic: Allergic/Immunologic: Reports no additional allergic/immunologic complaints [facility] Past Medical History Attestation statement: The following information was validated with the patient. Source: old records reviewed and nursing notes reviewed Medical History Type 1 diabetes Social History Social History Smoked in Last 30 Days: Yes Use of substances other than those prescribed or required for medical reasons: Yes Substance Use Type: Marijuana Advance Directives: No Physical Exam ED Vital Signs: Vital Signs - 24 hr 08/03/23 10:18 08/03/23 13:19 08/03/23 15:02 Temperature 96.8 F Pulse Rate 81 79 85 Respiratory Rate 18 16 18 Blood Pressure 152/98 H 142/86 H 146/90 H Pulse Oximetry 98 100 100 Oxygen Delivery Method Room Air Room Air BMI result Body Mass Index 22.6 Const General: in distress and anxious Nutritional Appearance: average body habitus Orientation/consciousness: patient oriented x3 Limitations: no limitations HENMT Head: Yes normal to inspection Ears: hearing grossly normal bilaterally General nose exam: Normal external nose present Face and sinus: Yes normal facial exam Mouth: Normal oral and palatal mucosa present Throat: Yes posterior oropharynx normal Eyes General: appearance normal, both eyes and all related structures Periorbital: periorbital findings normal Eyelids: Yes eyelids normal Conjunctivae: conjunctivae normal Pupils: Equal, round and reactive pupils present EOM: EOMs intact bilaterally Neck Neck: Yes normal visual inspection, Yes full ROM and Yes no lymphadenopathy Chest Chest palpation & inspection: normal inspection of the chest Resp Effort & Inspection: normal respiratory effort and able to speak in complete sentences Auscultation: clear to auscultation bilaterally Cardio Jugular venous distension: no JVD Palpation: normal PMI Rate: regular rate Rhythm: regular rhythm GI Inspection: Yes normal to inspection Palpation (GI): Soft to palpation, not firm, nontender, no guarding and not rigid Neuro General: patient oriented x3 Cranial nerves: Yes Equal, round and reactive pupils present Cognition (Neuro): normal cognition Motor exam (neuro): 5/5 motor strength present throughout Sensory Exam: Normal double simultaneous stimulation for sensation Coordination: [id number] test normal Extrem General: Yes normal to inspection, Yes full ROM and Yes capillary refill normal Psych Appearance: grossly normal Mental Status: mental status grossly normal Affect: normal affect Attitude: cooperative Thought process: Normal thought process present Thought content: Normal thought content present Insight: Good insight present (Psych) Medications Administered Discontinued Medications Generic Name Dose Route Start Last Admin Trade Name Freq PRN Reason Stop Dose Admin Droperidol 1.25 mg 08/03/23 11:21 08/03/23 11:27 Droperidol 5 Mg/2 Ml Vial IVPUSH 08/03/23 11:22 1.25 mg ONCE ONE Administration Hydromorphone HCl 2 mg 08/03/23 13:09 08/03/23 13:16 Hydromorphone Hcl 2 Mg/Ml Vial IVPUSH 08/03/23 13:10 2 mg ONCE ONE Administration Protocol Sodium Chloride 1,000 mls @ 999 mls/hr 08/03/23 10:30 08/03/23 12:46 Ns IV 08/03/23 11:30 Infused .Q1H1M FRANK[place]N Infusion Sodium Chloride 1,000 mls @ 999 mls/hr 08/03/23 12:00 08/03/23 13:52 Ns IV 08/03/23 13:00 Infused .Q1H1M [place]N Infusion Insulin Human Lispro 10 unit 08/03/23 12:00 08/03/23 12:14 Insulin Lispro 100 Unit/Ml 3 Ml Vial SUBCUT 08/03/23 12:01 10 unit ONCE ONE Administration Insulin Human Regular 6 unit 08/03/23 11:09 08/03/23 11:26 Insulin Regular, Human 100 Unit/Ml 3 Ml Vial 0.1 unit/kg (6 unit) 08/03/23 11:10 6 unit IVPUSH Administration ONCE ONE Morphine Sulfate 4 mg 08/03/23 10:47 08/03/23 10:55 Morphine Sulfate 4 Mg/Ml Cartridge IVPUSH 08/03/23 10:48 4 mg ONCE ONE Administration Protocol Ondansetron HCl 4 mg 08/03/23 10:19 08/03/23 10:56 Ondansetron Hcl 4 Mg/2 Ml Vial IVPUSH 08/03/23 10:20 4 mg ONCE ONE Administration Pantoprazole Sodium 40 mg 08/03/23 10:47 08/03/23 10:56 Pantoprazole Sodium 40 Mg/10 Ml Vial IVPUSH 08/03/23 10:48 40 mg ONCE ONE Administration Medical Decision Making Medical Decision Making [facility] Narrative: Patient is a 28 year old assigned male at with a history of type 1 diabetes presenting to the emergency department today with epigastric pain, nausea, and vomiting. Patient's physical exam was unremarkable. Patient's blood work showed an anion gap of 29, BUN of 30, CR of 1.53, glucose of 523, potassium of 3.8, beta-hydroxybute of 7.54, and VBG ph of 7.42. Patient was given 2 liters of NS, 6 units of IV insulin, and 10 units of subq insulin. Repeat labs showed anion gap of 22, BUN of 27, CR of 1.34, and glucose of 269. I spoke to the hospitalist team who agreed to admission. I explained my physical exam findings as well as all test results to the patient. I answered all questions asked by the patient. Patient verbalized agreement and understanding with this treatment plan and admission. Differential Diagnosis Differential Diagnoses: The differential diagnosis associated with the presentation includes Hyperglycemia Nausea Vomiting DKA Admission/Observation Consideration of admission/observation: Escalation of care including admission/observation considered Patient admitted. Consult Healthcare Provider Management of the patient was discussed with: Hospitalist (agreed to admission.) Lab Data [facility] Lab Attestation statement: I reviewed the patient's lab results. My interpretation of these results are in the [facility] Rationale portion of this note. 08/03/23 11:16 08/03/23 14:01 Labs: Lab Results 08/03/23 08/03/23 08/03/23 Range/Units 11:16 11:22 12:06 WBC 14.3 H (4.8-10.8) X10*3/uL RBC 4.40 L (4.60-5.80) X10*6/uL Hgb 13.3 L (14.0-18.0) g/dl Hct 36.7 L (42.0-52.0) % MCV 83.4 (80.0-98.0) fL MCH 30.2 (27.0-33.0) pg MCHC 36.2 H (31.0-36.0) g/dl RDW 12.5 (11.0-16.0) % Plt Count 301 (160-400) X10*3/uL MPV 9.9 (9.4-12.4) fL Immature Gran % (Auto) 0.7 H (0.0-0.4) % Neut % (Auto) 77.3 H (45-73) % Lymph % (Auto) 14.6 L (20-40) % Person % (Auto) 6.7 (2-11) % Eos % (Auto) 0.2 (0-4) % Baso % (Auto) 0.5 (0-2) % Lymph # (Auto) 2.1 (1.2-4.9) X10*3/uL Person # (Auto) 1.0 (0.1-1.2) X10*3/uL Eos # (Auto) 0.0 (0.0-0.4) X10*3/uL Baso # (Auto) 0.1 (0.0-0.2) X10*3/uL Abs Immat Gran (auto) 0.10 H (0.00-0.03) X10*3/uL Absolute Neuts (auto) 11.0 H (2.0-8.3) x10*3/uL Absolute Nucleated RBC 0.000 (0.0-0.012) X10*3/uL Nucleated RBC % (auto) 0.0 (0.0-0.2) /100WBC VBG pH 7.42 (7.32-7.43) VBG pCO2 24 mmHg VBG pO2 45 mmHg VBG HCO3 16 L (22-26) mmol/L VBG O2 Saturation 70.0 % VBG Base Excess -5.7 mmol/L Sodium 133 L (135-145) mmol/L Potassium 3.8 (3.3-5.1) mmol/L Chloride 90 L (96-108) mmol/L Carbon Dioxide 18 L (22-29) mmol/L Anion Gap 29 H (12-20) BUN 30 H (9-16) mg/dL Creatinine 1.53 H (0.5-1.4) mg/dL Estim Creat Clear Calc 63.9 Estimated GFR 54 Random Glucose 523 H* (60-115) mg/dL Calcium 9.2 D (8.4-10.2) mg/dL Magnesium 1.8 (1.6-2.6) mg/dL Total Bilirubin 0.7 (0.0-1.0) mg/dL AST 21 (5-37) U/L ALT 30 (0-40) U/L Alkaline Phosphatase 109 (39-117) U/L Total Protein 7.4 (6.5-8.0) g/dL Albumin 4.4 (3.5-5.0) g/dL Beta-Hydroxybutyrate 7.54 H (0.02-0.27) mmol/L Urine Color Yellow Urine Appearance Clear Urine pH 6.5 (5.0-9.0) Ur Specific [place] 1.025 (1.005-1.025) Urine Protein Trace (Neg-Trace) mg/dL Urine Glucose (UA) >=1000 H (Negative) mg/dL Urine Ketones >=160 (Negative) mg/dL Urine Blood Trace H (Negative) Urine Nitrite Negative (Negative) Ur Leukocyte Esterase Negative (Negative) Urine RBC 3-5 H (0-2) /HPF Urine WBC 0-5 (0-5) /HPF Ur Squamous Epith Cells 0-2 (0-2) /HPF Urine Bacteria None Seen (None Seen) Hyaline Casts 0-2 (0-2) /LPF 08/03/23 Range/Units 14:01 WBC (4.8-10.8) X10*3/uL RBC (4.60-5.80) X10*6/uL Hgb (14.0-18.0) g/dl Hct (42.0-52.0) % MCV (80.0-98.0) fL MCH (27.0-33.0) pg MCHC (31.0-36.0) g/dl RDW (11.0-16.0) % Plt Count (160-400) X10*3/uL MPV (9.4-12.4) fL Immature Gran % (Auto) (0.0-0.4) % Neut % (Auto) (45-73) % Lymph % (Auto) (20-40) % Person % (Auto) (2-11) % Eos % (Auto) (0-4) % Baso % (Auto) (0-2) % Lymph # (Auto) (1.2-4.9) X10*3/uL Person # (Auto) (0.1-1.2) X10*3/uL Eos # (Auto) (0.0-0.4) X10*3/uL Baso # (Auto) (0.0-0.2) X10*3/uL Abs Immat Gran (auto) (0.00-0.03) X10*3/uL Absolute Neuts (auto) (2.0-8.3) x10*3/uL Absolute Nucleated RBC (0.0-0.012) X10*3/uL Nucleated RBC % (auto) (0.0-0.2) /100WBC VBG pH (7.32-7.43) VBG pCO2 mmHg VBG pO2 mmHg VBG HCO3 (22-26) mmol/L VBG O2 Saturation % VBG Base Excess mmol/L Sodium 136 (135-145) mmol/L Potassium 3.7 (3.3-5.1) mmol/L Chloride 95 L (96-108) mmol/L Carbon Dioxide 23 (22-29) mmol/L Anion Gap 22 H (12-20) BUN 27 H (9-16) mg/dL Creatinine 1.34 (0.5-1.4) mg/dL Estim Creat Clear Calc 73.0 Estimated GFR > 60 Random Glucose 269 H (60-115) mg/dL Calcium 9.5 (8.4-10.2) mg/dL Magnesium (1.6-2.6) mg/dL Total Bilirubin 0.5 (0.0-1.0) mg/dL AST 23 (5-37) U/L ALT 24 (0-40) U/L Alkaline Phosphatase 108 (39-117) U/L Total Protein 7.4 (6.5-8.0) g/dL Albumin 4.5 (3.5-5.0) g/dL Beta-Hydroxybutyrate (0.02-0.27) mmol/L Urine Color Urine Appearance Urine pH (5.0-9.0) Ur Specific [place] (1.005-1.025) Urine Protein (Neg-Trace) mg/dL Urine Glucose (UA) (Negative) mg/dL Urine Ketones (Negative) mg/dL Urine Blood (Negative) Urine Nitrite (Negative) Ur Leukocyte Esterase (Negative) Urine RBC (0-2) /HPF Urine WBC (0-5) /HPF Ur Squamous Epith Cells (0-2) /HPF Urine Bacteria (None Seen) Hyaline Casts (0-2) /LPF Independent Historian Clinical information obtained from an independent historian. History obtained from or confirmed by: EMS (EMS provided additional history and confirmed the history provided by the patient.) Critical Care Time Critical Care Time Critical Care Time: Yes Total Critical Care Time: 55 Attestation: I spent 55 minutes of Critical Care Time with this patient. This does not include time spent on separately reported billable procedures. Discharge Plan Discharge Clinical Impression: Hyperglycemia Patient Disposition: Admitted As Inpatient
[2023-08-03] MEDS: Morphine Sulfate 4 MG/ML CARTRIDGE IVPUSH (10:55)
[2023-08-03] MEDS: Pantoprazole Sodium 40 MG/10 ML VIAL IVPUSH (10:56)
[2023-08-03] MEDS: ondansetron HCL 4 MG/2 ML VIAL IVPUSH ×2 (10:56→19:38)
[2023-08-03] MEDS: 0.9 % Sodium Chloride 1,000 ML 999 ML IV ×2 (10:56→12:12)
[2023-08-03 11:23] LABS: MANUAL DIFF FLAG NO
[2023-08-03 11:24] LABS: Basophils Absolute Auto 0.1 X10*3/uL (0.0-0.2); Basophils Percent Auto 0.5 % (0-2); Eosinophils Percent Auto 0.2 % (0-4); Hematocrit 36.7 % (42.0-52.0); Hemoglobin 13.3 g/dl (14.0-18.0); Imm Gran Pct Auto 0.7 % (0.0-0.4); Lymphocytes Absolute Auto 2.1 X10*3/uL (1.2-4.9); Lymphocytes Percent Auto 14.6 % (20-40); Mean Corpuscular HGB Conc 36.2 g/dl (31.0-36.0); Mean Corpuscular Hemoglobin 30.2 pg (27.0-33.0); Mean Corpuscular Volume 83.4 fL (80.0-98.0); Mean Platelet Volume 9.9 fL (9.4-12.4); Monocytes Percent Auto 6.7 % (2-11); Neutrophils Percent Auto 77.3 % (45-73); Platelet Count 301 X10*3/uL (160-400); Red Cell Distribution Width 12.5 % (11.0-16.0); White Blood Count 14.3 X10*3/uL (4.8-10.8)
[2023-08-03] MEDS: Insulin Regular, Human 100 UNIT/ML 3 ML VIAL 6 UNIT IVPUSH (11:26)
[2023-08-03 11:27] LABS: Venous Blood Gas Refer to POC result
[2023-08-03 11:27] LABS: VBG Base Excess -5.7 mmol/L; VBG HCO3 16 mmol/L (22-26); VBG pCO2 24 mmHg; VBG pH 7.42 (7.32-7.43); VBG pO2 45 mmHg
[2023-08-03] MEDS: droPERidol 5 MG/2 ML VIAL 1.25 MG IVPUSH ×2 (11:27→18:30)
[2023-08-03 11:46] LABS: Alanine Aminotransferase 30 U/L (0-40); Albumin Level 4.4 g/dL (3.5-5.0); Alkaline Phosphatase 109 U/L (39-117); Anion Gap 29 (12-20); Aspartate Amino Transferase 21 U/L (5-37); Bilirubin Total 0.7 mg/dL (0.0-1.0); Blood Urea Nitrogen 30 mg/dL (9-16); Calcium 9.2 mg/dL (8.4-10.2); Carbon Dioxide 18 mmol/L (22-29); Chloride 90 mmol/L (96-108); Creatinine Clr Calc Pharmacy 63.9; Estimated Glomerular Filt Rate 54; Glucose Random 523 mg/dL (60-115); Magnesium 1.8 mg/dL (1.6-2.6); Potassium 3.8 mmol/L (3.3-5.1); Sodium 133 mmol/L (135-145); Total Protein 7.4 g/dL (6.5-8.0)
[2023-08-03 12:01] LABS: Beta-Hydroxybutyrate 7.54 mmol/L (0.02-0.27)
[2023-08-03] MEDS: Insulin Lispro 100 UNIT/ML 3 ML VIAL 10 UNIT SUBCUT (12:14)
[2023-08-03 12:17] LABS: Appearance Urine Clear; Color Urine Yellow; Glucose Urine UA >=1000 mg/dL (Negative); Leukocyte Esterase Urine Negative (Negative); Nitrite Urine Negative (Negative); PH 6.5 (5.0-9.0); Specific Gravity - Urine 1.025 (1.005-1.025); UMIC TRIGGER UACC YES; Urine Blood Trace (Negative); Urine Ketones >=160 mg/dL (Negative); Urine Protein Trace mg/dL (Neg-Trace)
[2023-08-03 12:22] LABS: Bacteria Urine None Seen (None Seen); Hyaline Casts Urine 0-2 /LPF (0-2); Squamous Epithelial Cell Urine 0-2 /HPF (0-2); WBC Urine 0-5 /HPF (0-5)
--- NOTE | 2023-08-03 12:51 | PC.NURSE ---
pt restless in room. keeps getting out of bed and yelling nurse . pt redirected multiple times to get back in bed. came in with 20G IV to left hand via EMS. 2nd 20G IV placed to left forearm. labs drawn and sent. fluids infusing and pt medicated per mar. pt now sleeping, rr even/unlabored. call torres within reach. plan of care ongoing.
[2023-08-03] MEDS: HYDROmorphone HCl 2 MG/ML VIAL IVPUSH (13:16)
[2023-08-03 14:26] LABS: Alanine Aminotransferase 24 U/L (0-40); Albumin Level 4.5 g/dL (3.5-5.0); Alkaline Phosphatase 108 U/L (39-117); Anion Gap 22 (12-20); Aspartate Amino Transferase 23 U/L (5-37); Bilirubin Total 0.5 mg/dL (0.0-1.0); Blood Urea Nitrogen 27 mg/dL (9-16); Calcium 9.5 mg/dL (8.4-10.2); Carbon Dioxide 23 mmol/L (22-29); Chloride 95 mmol/L (96-108); Estimated Glomerular Filt Rate > 60; Glucose Random 269 mg/dL (60-115); Potassium 3.7 mmol/L (3.3-5.1); Sodium 136 mmol/L (135-145); Total Protein 7.4 g/dL (6.5-8.0)
--- NOTE | 2023-08-03 14:46 | P.HPHOSP_ITS ---
History of Present Illness Date of Service: 08/03/23 <ABILIO Mosley - Last Filed: 08/03/23 16:11> Attending physician on admission: Gaye Kuo <ABILIO Mosley - Last Filed: 08/03/23 16:11> Chief Complaint: Nausea, vomiting, diarrhea <ABILIO Mosley - Last Filed: 08/03/23 16:11> Pt is a 28-year-old male with a PMH significant for?type 1 diabetes not compliant with Lantus and opioid use disorder on methadone who presents to the ED with?intractable nausea, vomiting, diarrhea, abdominal pain, and increasing blood sugars at home. EMS report apparently finding patient in a room filled a trash in urine. Patient seen and evaluated bedside where he appears slightly agitated. Patient is vague and a rather poor historian, but reports he ran out of Lantus sometime yesterday. States otherwise has compliant with home medications. Today woke up with nausea, vomiting, diarrhea, and abdominal pain. Unable to clarify how many episodes of vomiting or diarrhea he has had, but states pain is in the center of his abdomen. He has also had headache and been very thirsty. Patient denies recent alcohol, tobacco, or illicit substance use. Denies any other acute medical complaints at this time. No chest pain/pressure, palpitations. No shortness of breath. In the ED pt was hypertensive up to 152/98, vitals otherwise WNL. Labs were significant for leukocytosis 14.3, H&H 13.3/36.7, sodium 133, bicarb initially 18, initial anion gap 29, BUN 30, creatinine 1.53, initial random glucose 523, and beta hydroxybutyrate 7.54. VBG pH 7.42. UA negative for UTI. Pt was treated with IVF, morphine, ondansetron, droperidol, pantoprazole, insulin 6 units IV, insulin lispro 10 units, and Dilaudid 2 mg. Pt will be admitted to the hospital for intractable nausea and abdominal pain in the setting of hyperglycemia with secondary to noncompliance with insulin. <ABILIO Mosley - Last Filed: 08/03/23 16:11> Review of Systems 2 Review of Systems: Headache Nausea, vomiting, diarrhea, central abdominal pain Headache Polyuria Denies fever, chills No chest pain/pressure, palpitations Denies shortness of breath <ABILIO Mosley - Last Filed: 08/03/23 16:11> [facility] Medical History: Medical History (Updated 08/04/23 @ 11:48 by Gaye Kuo MD) Opioid use disorder Type 1 diabetes <ABILIO Mosley - Last Filed: 08/03/23 16:11> Social History: Social History Patient Tobacco Use Status: Never used Tobacco Smoked in Last 30 Days: Yes Use of substances other than those prescribed or required for medical reasons: Yes Substance Use Type: Marijuana Advance Directives: No Nutrition Risks: No Nutritional Risk service: No <ABILIO Mosley - Last Filed: 08/03/23 16:11> Meds Allergies/Adverse reactions: Allergies Allergy/AdvReac Type Severity Reaction Status Date / Time No Known Allergies Allergy Verified 05/28/23 00:55 <ABILIO Mosley - Last Filed: 08/03/23 16:11> Home medications: Home Medications Medication Instructions Recorded Confirmed Last Taken Type insulin glargine-yfgn 100 unit/mL 12 unit subcut DAILY 08/03/23 08/03/23 Unknown History (3 mL) subcutaneous pen insulin lispro 100 unit/mL 0 sliding scale dose subcut QIDACHS 08/03/23 08/03/23 Unknown History subcutaneous pen methadone 10 mg/mL oral 85 mg PO DAILY 08/03/23 08/03/23 08/01/23 History concentrate (Methadose) <ABILIO Mosley - Last Filed: 08/03/23 16:11> Physical Exam 2 Vital Signs and Narrative: Vital Signs: Last Vital Signs Temp 96.8 F 08/03/23 10:18 Pulse 79 08/03/23 13:19 Resp 16 08/03/23 13:19 BP 142/86 H 08/03/23 13:19 Pulse Ox 100 08/03/23 13:19 O2 Del Method Room Air 08/03/23 10:18 BMI result Body Mass Index 22.6 <ABILIO Mosley Last Filed: 08/03/23 16:11> Constitutional: Alert, slightly agitated, in no acute distress. Mental Status: Oriented to person, place and time. Eyes: Pupils are equal, round, and reactive to light. Ear, Nose, and Throat: Oropharynx clear, mucous membranes moist. Ears and nose without deformities. Trachea midline. Respiratory: Clear to auscultation bilaterally. No wheezing, rales, or rhonchi. Cardiovascular: S1, S2 regular. No murmurs, rubs, or gallops. Gastrointestinal: Abdomen soft, non-distended, with mild central abdominal tenderness. Normal bowel sounds. Neurologic: Cranial nerves II-XII are grossly intact bilaterally. No focal neurological deficits. Moves all extremities spontaneously. Skin: Warm, dry. Musculoskeletal: No cyanosis or clubbing. Extremities: No edema. Psychiatric: Normal mood and affect. <ABILIO Mosley - Last Filed: 08/03/23 16:11> Results Labs CBC and Chem 7: 08/04/23 07:30 08/04/23 07:30 <ABILIO Mosley - Last Filed: 08/03/23 16:11> Labs: Laboratory Results - last 24 hr 08/03/23 08/03/23 08/03/23 11:16 11:22 12:06 MCV 83.4 MCH 30.2 MCHC 36.2 H RDW 12.5 Plt Count 301 MPV 9.9 Immature Gran % (Auto) 0.7 H Neut % (Auto) 77.3 H Lymph % (Auto) 14.6 L [place] % (Auto) 6.7 Eos % (Auto) 0.2 Baso % (Auto) 0.5 Lymph # (Auto) 2.1 [place] # (Auto) 1.0 Eos # (Auto) 0.0 Baso # (Auto) 0.1 Abs Immat Gran (auto) 0.10 H Absolute Neuts (auto) 11.0 H Absolute Nucleated RBC 0.000 Nucleated RBC % (auto) 0.0 VBG pH 7.42 VBG pCO2 24 VBG pO2 45 VBG HCO3 16 L VBG O2 Saturation 70.0 VBG Base Excess -5.7 Anion Gap 29 H Estim Creat Clear Calc 63.9 Estimated GFR 54 Random Glucose 523 H* Calcium 9.2 D Magnesium 1.8 Total Bilirubin 0.7 AST 21 ALT 30 Alkaline Phosphatase 109 Total Protein 7.4 Albumin 4.4 Beta-Hydroxybutyrate 7.54 H Urine Color Yellow Urine Appearance Clear Urine pH 6.5 Ur Specific [place] 1.025 Urine Protein Trace Urine Glucose (UA) >=1000 H Urine Ketones >=160 Urine Blood Trace H Urine Nitrite Negative Ur Leukocyte Esterase Negative Urine RBC 3-5 H Urine WBC 0-5 Ur Squamous Epith Cells 0-2 Urine Bacteria None Seen Hyaline Casts 0-2 08/03/23 14:01 MCV MCH MCHC RDW Plt Count MPV Immature Gran % (Auto) Neut % (Auto) Lymph % (Auto) [place] % (Auto) Eos % (Auto) Baso % (Auto) Lymph # (Auto) [place] # (Auto) Eos # (Auto) Baso # (Auto) Abs Immat Gran (auto) Absolute Neuts (auto) Absolute Nucleated RBC Nucleated RBC % (auto) VBG pH VBG pCO2 VBG pO2 VBG HCO3 VBG O2 Saturation VBG Base Excess Anion Gap 22 H Estim Creat Clear Calc 73.0 Estimated GFR > 60 Random Glucose 269 H Calcium 9.5 Magnesium Total Bilirubin 0.5 AST 23 ALT 24 Alkaline Phosphatase 108 Total Protein 7.4 Albumin 4.5 Beta-Hydroxybutyrate Urine Color Urine Appearance Urine pH Ur Specific [place] Urine Protein Urine Glucose (UA) Urine Ketones Urine Blood Urine Nitrite Ur Leukocyte Esterase Urine RBC Urine WBC Ur Squamous Epith Cells Urine Bacteria Hyaline Casts <ABILIO Mosley - Last Filed: 08/03/23 16:11> Assessment and Plan (1) Hyperglycemia: Status: Acute <ABILIO Mosley - Last Filed: 08/03/23 16:11> (2) Diabetic ketoacidosis: Status: Acute <ABILIO Mosley - Last Filed: 08/03/23 16:11> (3) Acute kidney injury: Status: Acute <ABILIO Mosley - Last Filed: 08/03/23 16:11> (4) Metabolic acidosis due to diabetes mellitus: Status: Acute <ABILIO Mosley Last Filed: 08/03/23 16:11> Pt is a 28-year-old male with a PMH significant for?type 1 diabetes not compliant with Lantus and opioid use disorder on methadone who presents to the ED with?intractable nausea, vomiting, diarrhea, abdominal pain, and increasing blood sugars at home. Pt will be admitted to the hospital for intractable nausea and abdominal pain in the setting of hyperglycemia with secondary to noncompliance with insulin. Hyperglycemia/type 1 diabetes Initial Glucose 523, bicarb 18, anion gap 29, a BPH 7.42, improved to glucose of 269 and anion gap 22 after insulin and fluids Patient with N/V/D and abd pain Secondary to non-compliance with home insulin Patient given IVF, insulin 60 units IV, insulin lispro, and 10 units subQ in the ED Will place on SSI, Lantus Analgesics and antiemetics Check A1c Follow BMP Elevated creatinine, resolved Creatinine 1.53, up from baseline around 1.35 Likely secondary to N/V/D from insulin noncompliance Patient received IVF in ED, creatinine improved to 1.[address] on maintenance fluids Follows BMP Hyponatremia, resolved Sodium 133 presentation Likely secondary to N/V/D from insulin noncompliance Patient received IVF in ED, sodium improved [address] on maintenance fluids Follows BMP Polysubstance use disorder Continue methadone Will check tox screen Full Code Attending:?Dr. Kuo DVT Prophylaxis: Lovenox Pt will require a hospitalization of at least two nights for treatment of?hyperglycemia with intractable nausea, vomiting, diarrhea, and abdominal pain in the setting of insulin noncompliance. Patient required hospitalization for close monitoring labs and blood glucose, and treatment with insulin, IV antiemetics, and IV analgesics. <ABILIO Mosley - Last Filed: 08/03/23 16:11> Pt is a 28-year-old male with a PMH significant for?type 1 diabetes not compliant with Lantus and opioid use disorder on methadone who presents to the ED with?intractable nausea, vomiting, diarrhea, abdominal pain, and increasing blood sugars at home. Pt will be admitted to the hospital for intractable nausea and abdominal pain in the setting of hyperglycemia with secondary to noncompliance with insulin. Diabetic ketoacidosis w Hyperglycemia in uncontrolled type 1 diabetes Initial Glucose 523, bicarb 18, anion gap 29, a BPH 7.42, improved to glucose of 269 and anion gap 22 after insulin and fluids Patient with N/V/D and abd pain Secondary to non-compliance with home insulin Patient given IVF, insulin 60 units IV, insulin lispro, and 10 units subQ in the ED Will place on SSI, Lantus Analgesics and antiemetics Check A1c Follow BMP Acute kidney injury Creatinine 1.53, up from baseline around 1.35 Likely secondary to N/V/D from insulin noncompliance Patient received IVF in ED, creatinine improved to 1.[address] on maintenance fluids Follows BMP PseudoHyponatremia, resolved Sodium 133 presentation Likely secondary to N/V/D from insulin noncompliance Patient received IVF in ED, sodium improved [address] on maintenance fluids Follows BMP Polysubstance use disorder Continue methadone Will check tox screen Full Code Attending:?Dr. Kuo DVT Prophylaxis: Lovenox Pt will require a hospitalization of at least two nights for treatment of?hyperglycemia with intractable nausea, vomiting, diarrhea, and abdominal pain in the setting of insulin noncompliance. Patient required hospitalization for close monitoring labs and blood glucose, and treatment with insulin, IV antiemetics, and IV analgesics. <Gaye Kuo MD - Last Filed: 08/04/23 11:49> Quality Stroke Does the patient have a stroke diagnosis?: No <ABILIO Mosley - Last Filed: 08/03/23 16:11> VTE Prior VTE?: No <ABILIO Mosley - Last Filed: 08/03/23 16:11> VTE Risk Level:: Medical - moderate - high <ABILIO Mosley - Last Filed: 08/03/23 16:11> VTE Device Contraindication: Treatment Not Indicated <ABILIO Mosley - Last Filed: 08/03/23 16:11> VTE Drug Contraindication: N/A - Med Ordered <ABILIO Mosley - Last Filed: 08/03/23 16:11>
--- NOTE | 2023-08-03 15:34 | PC.NURSE ---
methadone verification complete an faxed to pharmacy.
[2023-08-03 16:09] LABS: Estimated Average Glucose 292 mg/dL; Hemoglobin A1c % 11.8 % (<6.0)
[2023-08-03] MEDS: Insulin Glargine,Hum.rec.anlog 100 UNIT/ML 10 ML VIAL 8 UNIT SUBCUT (16:18)
[2023-08-03] MEDS: Enoxaparin Sodium 40 MG/0.4 ML SYRINGE SUBCUT (16:18)
--- NOTE | 2023-08-03 16:23 | PHA.MEDREC ---
Pharmacy Consult ? Medication Reconciliation Pharmacy has completed the medication reconciliation. Patient reported using sliding scale for both Lantus and Humalog. The prescription for Lantus is 12 units, so I put in the home list as prescription states. Reports no other medications. Ramona Rothman, PharmD
--- NOTE | 2023-08-03 16:41 | HE.PHANOTE ---
METHADONE CONFIRMATION FORM RECEIVED PATIENT TAKES 85 MG FROM [facility]. LAST DOSE 07/31
[2023-08-03 17:10] LABS: Glucose, Whole Blood 275 mg/dL (60-115)
[2023-08-03] MEDS: Insulin Lispro 100 UNIT/ML 3 ML VIAL SUBCUT ×2 (17:34→21:21)
[2023-08-03] MEDS: Morphine Sulfate 4 MG/ML CARTRIDGE IM ×2 (17:35→21:24)
[2023-08-03 17:36] LABS: Influenza A PCR NEGATIVE (Negative); Influenza B PCR NEGATIVE (Negative); Resp Syncy Virus RNA Qual PCR NEGATIVE (Negative); SARS COV2 PCR INHOUSE NEGATIVE (Negative)
--- NOTE | 2023-08-03 17:53 | PC.NURSE ---
pt anxious and in pain. pt recently medicated with morphine per jul. ABILIO Jensen notified of pt's anxiety and request for medication. plan of care ongoing.
[2023-08-03 18:06] LABS: Amphetamine Screen Urine Not Detected (Not Detect); Barbiturates, Urine Not Detected (Not Detect); Benzodiazepines Screen Urine Not Detected (Not Detect); Cannabinoid Screen Urine POSITIVE (Not Detect); Cocaine Screen Urine Not Detected (Not Detect); Fentanyl, urine POSITIVE (Not Detect); Opiate Screen Urine POSITIVE (Not Detect); Phencyclidine Screen Urine Not Detected (Not Detect)
[2023-08-03] MEDS: methADONE HCl 20 MG/2 ML ORAL.CONC 85 MG PO (19:35)
--- NOTE | 2023-08-03 20:26 | PC.NURSE ---
Gave patient methadone shortly after he vomited it all up. Po Troncoso NP notified. Will not be given anymore methadone. Gave iv zofran for nausea.
[2023-08-03 21:05] LABS: Glucose, Whole Blood 234 mg/dL (60-115)
[2023-08-03] MEDS: Melatonin 3 MG TABLET 6 MG PO (21:24)
--- NOTE | 2023-08-03 21:30 | PC.NURSE ---
Assumed care of patients at this time.
[2023-08-03] MEDS: cloNIDine HCL 0.1 MG TABLET PO (23:44)
[2023-08-03] MEDS: Acetaminophen 325 MG TABLET 650 MG PO (23:45)
[2023-08-03] MEDS: Cyclobenzaprine HCl 5 MG TABLET PO (23:45)
[2023-08-03] MEDS: hydrOXYzine HCL 50 MG TABLET PO (23:45)
[2023-08-04] MEDS: Nicotine 21 MG PATCH.TD24 TRANSDERMA ×2 (00:19→08:32)
[2023-08-04] MEDS: 0.9 % Sodium Chloride Flush 3 ML SYRINGE IVFLUSH ×2 (00:20→08:35)
[2023-08-04] MEDS: Morphine Sulfate 4 MG/ML CARTRIDGE IVPUSH ×3 (01:26→09:31)
[2023-08-04] MEDS: hydrOXYzine HCL 50 MG TABLET PO (05:23)
[2023-08-04] MEDS: ondansetron HCL 4 MG/2 ML VIAL IVPUSH (05:24)
[2023-08-04] MEDS: Acetaminophen 325 MG TABLET 650 MG PO (05:24)
[2023-08-04 05:58] VITALS: BP 132/72; PULSE 72; RESP 16; TEMP 36.8; O2SAT 98
[2023-08-04 07:21] LABS: Glucose, Whole Blood 246 mg/dL (60-115)
[2023-08-04 07:36] LABS: Hematocrit 34.4 % (42.0-52.0); Hemoglobin 12.4 g/dl (14.0-18.0); Mean Corpuscular Hemoglobin 29.7 pg (27.0-33.0); Mean Corpuscular Volume 82.5 fL (80.0-98.0); Mean Platelet Volume 9.4 fL (9.4-12.4); Platelet Count 261 X10*3/uL (160-400); Red Blood Count 4.17 X10*6/uL (4.60-5.80); Red Cell Distribution Width 12.8 % (11.0-16.0); White Blood Count 11.4 X10*3/uL (4.8-10.8)
[2023-08-04 07:51] LABS: Anion Gap 14 (12-20); Blood Urea Nitrogen 20 mg/dL (9-16); Calcium 9.6 mg/dL (8.4-10.2); Carbon Dioxide 27 mmol/L (22-29); Chloride 95 mmol/L (96-108); Creatinine Clr Calc Pharmacy 82.9; Estimated Glomerular Filt Rate > 60; Glucose Random 271 mg/dL (60-115); Potassium 3.4 mmol/L (3.3-5.1); Sodium 133 mmol/L (135-145)
[2023-08-04] MEDS: Insulin Lispro 100 UNIT/ML 3 ML VIAL SUBCUT ×2 (08:24→12:16)
[2023-08-04] MEDS: methADONE HCl 20 MG/2 ML ORAL.CONC 85 MG PO (08:29)
[2023-08-04] MEDS: cloNIDine HCL 0.1 MG TABLET PO (08:31)
[2023-08-04] MEDS: Insulin Glargine,Hum.rec.anlog 100 UNIT/ML 10 ML VIAL 10 UNIT SUBCUT (08:32)
--- NOTE | 2023-08-04 09:21 | PC.NURSE ---
patient with one episode of vomiting, stating it is from withdrawal. medicated per the MAR, requesting PRN morphine at this time. potential discharge this afternoon per hospitalist pending patient's dispo. moved into overflow 4 for privacy per patient's request. no obvious signs/symptoms of distress noted. ambulates with steady gait around unit.
--- NOTE | 2023-08-04 10:59 | MHC.CM.PN ---
Addendum entered by Alma Dawn 08/04/23 12:40: PT WILL DC HOME TODAY VIA PRIVATE TRANSPORT Original Note: PT REPORTS HE LIVES ALONE AND IS INDEPENDENT WITH CARE HE HAS NO SERVICES AND NO DME PT SAYS HE HAS A HCP, COPY REQUESTED PCP: MICHAEL CAMERON DCP: HOME NO SERVICES VIA PRIVATE TRASPORT
[2023-08-04 11:08] LABS: Glucose, Whole Blood 255 mg/dL (60-115)
--- NOTE | 2023-08-04 11:29 | PC.NURSE ---
resting quietly in room w/ eyes closed. previously requesting discharge paperwork as patient is feeling much better at this time. hospitalist aware, pending order.
--- NOTE | 2023-08-04 12:19 | PM.DS ---
DS: Providers Provider Date of Service: 08/04/23 Date of admission: 08/03/23 15:29 Primary care physician: Unknown Physician Consults: 08/03/23 17:24 Addiction Medicine Routine Consulting Provider: Addiction Covering Reason for consultation: Polysubstance use disorder, unable to verify methadone dosage DS: Diagnosis Discharge Diagnosis (1) Hyperglycemia: Status: Acute (2) Diabetic ketoacidosis: Status: Acute (3) Acute kidney injury: Status: Acute (4) Metabolic acidosis due to diabetes mellitus: Status: Acute DS: Summary Hospital Course Hospital Course: Admission note HPI Pt is a 28-year-old male with a PMH significant for?type 1 diabetes not compliant with Lantus and opioid use disorder on methadone who presents to the ED with?intractable nausea, vomiting, diarrhea, abdominal pain, and increasing blood sugars at home. EMS report apparently finding patient in a room filled a trash in urine. Patient seen and evaluated bedside where he appears slightly agitated. Patient is vague and a rather poor historian, but reports he ran out of Lantus sometime yesterday. States otherwise has compliant with home medications. Today woke up with nausea, vomiting, diarrhea, and abdominal pain. Unable to clarify how many episodes of vomiting or diarrhea he has had, but states pain is in the center of his abdomen. He has also had headache and been very thirsty. Patient denies recent alcohol, tobacco, or illicit substance use. Denies any other acute medical complaints at this time. No chest pain/pressure, palpitations. No shortness of breath. In the ED pt was hypertensive up to 152/98, vitals otherwise WNL. Labs were significant for leukocytosis 14.3, H&H 13.3/36.7, sodium 133, bicarb initially 18, initial anion gap 29, BUN 30, creatinine 1.53, initial random glucose 523, and beta hydroxybutyrate 7.54. VBG pH 7.42. UA negative for UTI. Pt was treated with IVF, morphine, ondansetron, droperidol, pantoprazole, insulin 6 units IV, insulin lispro 10 units, and Dilaudid 2 mg. Pt will be admitted to the hospital for intractable nausea and abdominal pain in the setting of hyperglycemia with secondary to noncompliance with insulin Hospital course The patient made quicker than expected recovery and will not need to spend a 2nd night in hospital. The patient was admitted for treatment of Diabetic ketoacidosis w Hyperglycemia in uncontrolled type 1 diabetes with HbA1c of 13 secondary to non-compliance with home insulin. he is very vague about his medications use and how adherent he is. He was treated with IV fluids and insulin as GAP closed in ED. Started on Lantus and SSI with fair control over sugar readings in 200s. He was strongly advised to take his Lantus and SSI. check sugar levels and follow with PCP for further adjustments of his home medications. He was noted to have Acute kidney injury on CKD2 with creatinine improving during hospital stay from 1.5 on admission to 1.18 on discharge with usage of IV fluids. Addiction team consulted Take your medications all the time Take Lantus 12 units daily Sliding scale insulin per protocol Follow with PCP for further adjustment of your medications Time Attestation Discharge Coordination Time (in mins): 37 Quality: Safe Use of Opioids Does Pt have an Active Cancer Diagnosis on the Problem List?: No Quality: Stroke Does the patient have a stroke diagnosis?: No Physical Exam Vital Signs: Vital Signs: Last Vital Signs Temp 98.2 F 08/04/23 05:58 Pulse 72 08/04/23 05:58 Resp 16 08/04/23 05:58 BP 132/72 08/04/23 05:58 Pulse Ox 98 08/04/23 05:58 O2 Del Method Room Air 08/04/23 05:58 BMI result Body Mass Index 22.6 Const: Other: Constitutional : Awake, interactive, not in distress Neck : Normal inspection, Supple Cardiovascular : RRR, no JVP, no lower extremity edema Respiratory : good bilateral air entry, no crackles, wheezes or rhonchi Gastrointestinal: soft, lax, Normal bowel sounds, Non tender Skin : Warm, Dry Neurological : Alert & oriented x3, No focal deficit , CN 2-12 within normal DS: Data Data Completed and Pending Labs on day of discharge: Laboratory Results - last 24 hr 08/03/23 08/03/23 08/03/23 11:16 12:06 14:01 WBC RBC Hgb Hct MCV MCH MCHC RDW Plt Count MPV Absolute Nucleated RBC Nucleated RBC % (auto) Sodium 136 Potassium 3.7 Chloride 95 L Carbon Dioxide 23 Anion Gap 22 H BUN 27 H Creatinine 1.34 Estim Creat Clear Calc 73.0 Estimated GFR > 60 POC Glucose Random Glucose 269 H Estimat Average Glucose 292 Hemoglobin A1c % 11.8 H Calcium 9.5 Total Bilirubin 0.5 AST 23 ALT 24 Alkaline Phosphatase 108 Total Protein 7.4 Albumin 4.5 Urine Color Yellow Urine Appearance Clear Urine pH 6.5 Ur Specific [place] 1.025 Urine Protein Trace Urine Glucose (UA) >=1000 H Urine Ketones >=160 Urine Blood Trace H Urine Nitrite Negative Ur Leukocyte Esterase Negative Urine RBC 3-5 H Urine WBC 0-5 Ur Squamous Epith Cells 0-2 Urine Bacteria None Seen Hyaline Casts 0-2 Urine Opiates Screen Urine Fentanyl Screen Ur Barbiturates Screen Ur Phencyclidine Scrn Ur Amphetamines Screen U Benzodiazepines Scrn Urine Cocaine Screen U Marijuana (THC) Screen Influenza Type A (PCR) NEGATIVE Influenza Type B (PCR) NEGATIVE RSV RNA Qual (PCR) NEGATIVE SARS-CoV-2 RNA (RT-PCR) NEGATIVE 08/03/23 08/03/23 08/03/23 17:04 17:52 21:01 WBC RBC Hgb Hct MCV MCH MCHC RDW Plt Count MPV Absolute Nucleated RBC Nucleated RBC % (auto) Sodium Potassium Chloride Carbon Dioxide Anion Gap BUN Creatinine Estim Creat Clear Calc Estimated GFR POC Glucose 275 H 234 H Random Glucose Estimat Average Glucose Hemoglobin A1c % Calcium Total Bilirubin AST ALT Alkaline Phosphatase Total Protein Albumin Urine Color Urine Appearance Urine pH Ur Specific [place] Urine Protein Urine Glucose (UA) Urine Ketones Urine Blood Urine Nitrite Ur Leukocyte Esterase Urine RBC Urine WBC Ur Squamous Epith Cells Urine Bacteria Hyaline Casts Urine Opiates Screen POSITIVE H Urine Fentanyl Screen POSITIVE H Ur Barbiturates Screen Not Detected Ur Phencyclidine Scrn Not Detected Ur Amphetamines Screen Not Detected U Benzodiazepines Scrn Not Detected Urine Cocaine Screen Not Detected U Marijuana (THC) Screen POSITIVE H Influenza Type A (PCR) Influenza Type B (PCR) RSV RNA Qual (PCR) SARS-CoV-2 RNA (RT-PCR) 08/04/23 08/04/23 08/04/23 07:17 07:30 11:05 WBC 11.4 H RBC 4.17 L Hgb 12.4 L Hct 34.4 L MCV 82.5 MCH 29.7 MCHC 36.0 RDW 12.8 Plt Count 261 MPV 9.4 Absolute Nucleated RBC 0.000 Nucleated RBC % (auto) 0.0 Sodium 133 L Potassium 3.4 Chloride 95 L Carbon Dioxide 27 Anion Gap 14 BUN 20 H Creatinine 1.18 Estim Creat Clear Calc 82.9 Estimated GFR > 60 POC Glucose 246 H 255 H Random Glucose 271 H Estimat Average Glucose Hemoglobin A1c % Calcium 9.6 Total Bilirubin AST ALT Alkaline Phosphatase Total Protein Albumin Urine Color Urine Appearance Urine pH Ur Specific [place] Urine Protein Urine Glucose (UA) Urine Ketones Urine Blood Urine Nitrite Ur Leukocyte Esterase Urine RBC Urine WBC Ur Squamous Epith Cells Urine Bacteria Hyaline Casts Urine Opiates Screen Urine Fentanyl Screen Ur Barbiturates Screen Ur Phencyclidine Scrn Ur Amphetamines Screen U Benzodiazepines Scrn Urine Cocaine Screen U Marijuana (THC) Screen Influenza Type A (PCR) Influenza Type B (PCR) RSV RNA Qual (PCR) SARS-CoV-2 RNA (RT-PCR) Discharge Plan Discharge Anticipated Discharge Date/Time: 08/04/23 11:47 Patient Disposition: Home, Self-Care Discharge Diagnosis: Diabetic ketoacidosis Acute kidney injury Referrals: Physician,Jere J [Physician] - 1 Week Discharge Medications: New (DME) pen needle, diabetic [Pen Needle] 31 gauge x 5/16 needle See Rx Instructions .ROUTE .MEDSUPPLY Qty: 1200 0RF Rx Instructions: As directed (DME) lancets [facility] [place] .ROUTE .MEDSUPPLY Qty: 100 0RF Rx Instructions: 4 times daily Continued methadone [Methadose] 10 mg/mL Concentrate 85 mg PO DAILY insulin lispro 100 unit/mL insulin pen 0 sliding scale dose subcut QIDACHS Qty: 15 0RF Protocol: Insulin Correction Scale Less than or equal to 110 ---- Give (units): 0 111 to 150 Give (units): 0 151 to 200 Give (units): 2 201 to 250 Give (units): 4 251 to 300 Give (units): 6 301 to 350 Give (units): 8 Greater than 350 Give (units): 10 Call MD if Blood Glucose > : 350 insulin glargine-yfgn 100 unit/mL (3 mL) insulin pen 12 unit subcut DAILY Qty: 15 0RF Discharge Orders: Discharge Order (Routine); Ordered 08/04/23 Ordered By: Gaye Kuo Diet: Diabetic diet Activity on Discharge: As tolerated Stand Alone Forms: Patient Portal Discharge page Care Plan Goals: Read below Health Concerns: Read below Plan of Treatment: Read below Assessment: You were treated for diabetic ketoacidosis with fluids and insulin with good response. Take your medications all the time Take Lantus 12 units daily Sliding scale insulin per protocol Follow with PCP for further adjustment of your medications Discharge Date/Time: 08/04/23 13:04
--- NOTE | 2023-08-04 12:54 | PC.NURSE ---
patient refusing to meet with recovery team, stating he sees people at [facility] and does not feel as if he needs it at this time.
== END 2023-08-04 13:04 | disposition home or self-care (01) | DRG 420 ==
LOC: HO.ED 15:34 → HO.EDOVER 15:43
PROVIDERS: Physician Assistant Medical; Admitting Provider Student in an Organized Health Care Education/Training Program; Emergency Provider Emergency Medicine; PCP Internal Medicine; Visit Provider Student in an Organized Health Care Education/Training Program
DX: E10.10 Type 1 diabetes mellitus with ketoacidosis without coma (principal); N17.9 Acute kidney failure, unspecified; F11.20 Opioid dependence, uncomplicated; E10.22 Type 1 diabetes mellitus with diabetic chronic kidney disease; N18.2 Chronic kidney disease, stage 2 (mild); F19.90 Other psychoactive substance use, unspecified, uncomplicated; Z20.822 Contact with and (suspected) exposure to COVID-19; Z91.148 Patient's other noncompliance with medication regimen for other reason
CPT/HCPCS: 0241U; 36415; 80048; 80053; 80307; 81001; 82010; 82803; 82947; 83036; 83735; 85025; 85027; 99221; 99285; C9113; J1170; J1650; J1790; J2270; J2405

== ENCOUNTER → 2023-08-03 15:29 | Outpatient (BNV) | payer OTHER, SELFPAY | PROVIDERS: Admitting Provider Student in an Organized Health Care Education/Training Program; Emergency Provider Emergency Medicine; Visit Provider Student in an Organized Health Care Education/Training Program | DX: E10.65 Type 1 diabetes mellitus with hyperglycemia (principal); E10.10 Type 1 diabetes mellitus with ketoacidosis without coma; N17.9 Acute kidney failure, unspecified; N18.2 Chronic kidney disease, stage 2 (mild) | CPT/HCPCS: 99223; 99239 ==

== ENCOUNTER 2023-09-03 12:54 | Inpatient (IN) | payer OTHER, SELFPAY ==
--- NOTE | ~2023-09-03 | CT_ITS ---
EXAMINATION: CT ABDOMEN AND PELVIS WITHOUT CONTRAST CLINICAL INFORMATION: Diffuse abdominal pain COMPARISON: None available. TECHNIQUE: Multidetector volumetric imaging was performed from the superior aspect of the liver through the pubic symphysis. Sagittal and coronal reformatted images were obtained on the technologist's workstation. This CT examination was performed using dose optimization techniques as appropriate, variously including the following: *Automated exposure control *Adjustment of mA and/or kV according to patient size (this includes techniques or standardized protocols for targeted exams where dose is matched to indication/reason for exam; i.e. extremities or head) *Use of iterative reconstruction technique DLP: 363 mGy-cm FINDINGS: LUNG BASES: Respiratory motion artifact limits evaluation. No pneumothorax. No large pleural effusion. Slight elevation the left hemidiaphragm. LIVER, GALLBLADDER, AND BILIARY TREE: Liver is enlarged measuring 21.8 cm. No focal hepatic lesion or biliary ductal dilatation is present. The gallbladder is unremarkable with no evidence of radiopaque gallstones, gallbladder wall thickening, or obvious pericholecystic inflammatory changes. PANCREAS: Unremarkable. SPLEEN: Unremarkable. 8 mm splenule. ADRENAL GLANDS: Unremarkable. KIDNEYS AND URETERS: Sided nephrolithiasis measuring 3 mm without hydronephrosis. No right-sided nephrolithiasis or hydronephrosis. BLADDER: Borderline urinary bladder wall thickening without perivesicular inflammatory changes. GASTROINTESTINAL TRACT: Small hiatal hernia. Potential asymmetric thickening along the posterior intraluminal aspect of the rectal wall (series 4, image 640) versus underdistention. Correlation with symptomatology. Mild fecal loading throughout the colon. The small and large bowel are unremarkable. The appendix is not definitively visualized. ABDOMINAL WALL: No significant hernia is appreciated. LYMPH NODES: No enlarged lymph nodes per size criteria. VASCULAR: Abdominal aorta is nonaneurysmal. Pelvic phleboliths are noted. PELVIC VISCERA: Prostate measures 4.3 cm.. OSSEOUS STRUCTURES: Unremarkable. CT/CT abdomen pelvis wo IV con IMPRESSION: 1. Liver is enlarged measuring 21.8 cm. 2. Left-sided nephrolithiasis without hydronephrosis. 3. Borderline urinary bladder wall thickening without perivesicular inflammatory changes. 4. Small hiatal hernia. 5. Potential asymmetric thickening along the posterior intraluminal aspect of the rectal wall versus underdistention. Correlation with symptomatology.
[2023-09-03 13:01] VITALS: BP 160/90; PULSE 82; O2SAT 99
[2023-09-03 13:02] VITALS: BP 159/104; PULSE 76; RESP 20; TEMP 36.2; O2SAT 100; BMI 21.9
--- NOTE | 2023-09-03 13:03 | ED_ITS ---
HPI - Nausea/Vomiting/Diarrhea General Chief complaint: Abdominal Pain Stated complaint: T1D, LORENZO, vomitting- missed 2x methadone Time Seen by Provider: 09/03/23 13:46 Source: patient and EMS Mode of arrival: EMS Limitations: no limitations History of Present Illness HPI Narrative: This is a 28-year-old male history of type 1 diabetes, substance use disorder presenting to the emergency department via ambulance with diffuse abdominal pain, nausea, vomiting and overall feeling of unwell. Symptoms started yesterday. He reports he has not taken insulin for awhile. And he is also missed his last 2 doses of methadone. Patient reports he feels terrible he is yelling that he needs help. He tells me he is very anxious. Denies chest pain, shortness of breath, fevers, chills, hematemesis, hematochezia, headache, vision changes, dizziness. Related Data Home Medications ?Medication ?Instructions ?Recorded ?Confirmed methadone 10 mg/mL oral 85 mg PO DAILY 08/03/23 08/03/23 concentrate (Methadose) Previous Rx's ?Medication ?Instructions ?Recorded insulin glargine-yfgn 100 unit/mL 12 unit (0.12 mL) subcut DAILY #15 08/04/23 (3 mL) subcutaneous pen mL insulin lispro 100 unit/mL 0 sliding scale dose subcut 08/04/23 subcutaneous pen QIDACHS #15 mL lancets #100 ea 08/04/23 pen needle, diabetic 31 gauge x #1,200 ea 08/04/23 5/16 (Pen Needle) Allergies Allergy/AdvReac Type Severity Reaction Status Date / Time No Known Allergies Allergy Verified 09/03/23 13:05 Review of Systems 2 Review of Systems: Yes all other systems are reviewed and are negative PMFSH Past Medical History Attestation statement: The following information was validated with the patient. Source: old records reviewed and nursing notes reviewed Medical History Opioid use disorder Type 1 diabetes Social History Social History Patient Tobacco Use Status: Never used Tobacco Smoked in Last 30 Days: No Use of substances other than those prescribed or required for medical reasons: Yes Substance Use Type: Marijuana Advance Directives: No service: No Physical Exam 2 Vital Signs: Vital Signs: Last Vital Signs Temp 97.1 F 09/03/23 13:02 Pulse 76 09/03/23 13:02 Resp 20 09/03/23 13:02 BP 159/104 H 09/03/23 13:02 Pulse Ox 100 09/03/23 13:02 O2 Del Method Room Air 09/03/23 13:02 BMI result Body Mass Index 21.9 HTN likley secondary to acute anxiety and pain Appearance: Alert.? Oriented X3.? 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 CVS: Normal heart rate and rhythm.? Pulses normal.? Respiratory: No respiratory distress.? Breath sounds normal.? Abdomen: Soft and diffuse abdominal discomfort w/ palpation normal active bs. .? Skin: Skin warm and dry.? Normal skin color.? Normal skin turgor.? Extremities: No lower extremity edema.? No calf ttp. 5/5 strength to bilateral upper and lower extremities Back: No midline tenderness, no C-spine tenderness, full range of motion, no CVA tenderness bilaterally Neuro: Oriented X 3.? No motor deficit.? No sensory deficit. CN 2-12 intact Course Course Course Narrative: This is a Rapid Medical Examination (RME) in triage, full HPI, ROS, assessment and plan per primary provider in the Main ED. 28 y/o male with history of DMI, LORENZO who presents today for vomiting for 1 day, missed 2x methadone doses, and allover abdominal pain. Unknown when last insulin- per patient been a while . BS per EMS is 370. In triage, patient is tearful, uncomfortable, restless, pale, and actively vomiting. Concern for DKA Plan: IVF, pain meds, antiemetics, labs. hold on insulin until K+ results Reevaluation(s) Reevaluation #1: CBC with leukocytosis and left shift likely secondary to reactivity from nausea and vomiting. Chemistry with elevated BUN and creatinine likely secondary to poor p.o. intake/dehydration. No anion gap. Normal potassium. Random glucose is elevated 357, fluids ordered at this time will also order insulin. Slightly elevated beta hydroxybutyrate likely secondary to dehydration, patient appears to have chronically elevated beta hydroxybutyrate. VBG without acidosis. I do not suspect DKA at this time. Patient likely cyclic vomiting versus opiate withdrawal. Ethanol negative. CT scan pending Patient still vomiting. Droperidol ordered Time: 17:46 Reevaluation #2: Patient to be admitted at this time. CT abdomen pending. Time: 18:10 Medications Administered Discontinued Medications Generic Name Dose Route Start Last Admin Trade Name Freq PRN Reason Stop Dose Admin Droperidol 1.25 mg 09/03/23 17:38 09/03/23 17:51 Droperidol 5 Mg/2 Ml Vial IVPUSH 09/03/23 17:39 1.25 mg ONCE ONE Administration Sodium Chloride 1,000 mls @ 999 mls/hr 09/03/23 13:15 09/03/23 15:31 Ns IVCONT 09/03/23 14:15 Infused .Q1H1M FRANKLYN Infusion Sodium Chloride 1,000 mls @ 999 mls/hr 09/03/23 14:00 09/03/23 16:56 Ns IV 09/03/23 15:00 Infused .Q1H1M FRANKLYN Infusion Lorazepam 1 mg 09/03/23 13:49 09/03/23 14:17 Lorazepam 2 Mg/Ml Vial IVPUSH 09/03/23 13:50 1 mg STAT STA Administration Morphine Sulfate 4 mg 09/03/23 13:08 09/03/23 14:17 Morphine Sulfate 4 Mg/Ml Cartridge IVPUSH 09/03/23 13:09 4 mg ONCE ONE Administration Protocol Ondansetron HCl 4 mg 09/03/23 13:08 09/03/23 14:17 Ondansetron Hcl 4 Mg/2 Ml Vial IVPUSH 09/03/23 13:09 4 mg ONCE ONE Administration Medical Decision Making Medical Decision Making [facility] Narrative: 1353 28-year-old male presents for evaluation of nausea, vomiting, abdominal pain since yesterday. Type 1 diabetic not on insulin compliant. Physical exam significant abdominal discomfort. History and physical exam concerning for DKA versus diabetic gastroparesis versus opiate withdrawal. Will rule out metabolic derangements. Unlikely acute abdomen, appendicitis, diverticulitis, cholecystitis, obstruction, pancreatitis. Plan at this time labs, imaging, urine. Differential Diagnosis Differential Diagnoses: The differential diagnosis associated with the presentation includes History and physical exam concerning for DKA versus diabetic gastroparesis versus opiate withdrawal. Will rule out metabolic derangements. Unlikely acute abdomen, appendicitis, diverticulitis, cholecystitis, obstruction, pancreatitis. Admission/Observation Consideration of admission/observation: Escalation of care including admission/observation considered Likely Consult Healthcare Provider Management of the patient was discussed with: Hospitalist Lab Data MDM Lab Attestation statement: I reviewed the patient's lab results. 09/03/23 15:38 09/03/23 15:38 Labs: Lab Results 09/03/23 09/03/23 09/03/23 Range/Units 14:46 15:38 15:45 WBC 13.2 H (4.8-10.8) X10*3/uL RBC 4.59 L (4.60-5.80) X10*6/uL Hgb 13.8 L (14.0-18.0) g/dl Hct 40.6 L (42.0-52.0) % MCV 88.5 (80.0-98.0) fL MCH 30.1 (27.0-33.0) pg MCHC 34.0 (31.0-36.0) g/dl RDW 12.6 (11.0-16.0) % Plt Count 245 (160-400) X10*3/uL MPV 10.8 (9.4-12.4) fL Immature Gran % (Auto) 0.6 H (0.0-0.4) % Neut % (Auto) 86.0 H (45-73) % Lymph % (Auto) 9.9 L (20-40) % [place] % (Auto) 2.9 (2-11) % Eos % (Auto) 0.2 (0-4) % Baso % (Auto) 0.4 (0-2) % Lymph # (Auto) 1.3 (1.2-4.9) X10*3/uL [place] # (Auto) 0.4 (0.1-1.2) X10*3/uL Eos # (Auto) 0.0 (0.0-0.4) X10*3/uL Baso # (Auto) 0.1 (0.0-0.2) X10*3/uL Abs Immat Gran (auto) 0.08 H (0.00-0.03) X10*3/uL Absolute Neuts (auto) 11.3 H (2.0-8.3) x10*3/uL Absolute Nucleated RBC 0.000 (0.0-0.012) X10*3/uL Nucleated RBC % (auto) 0.0 (0.0-0.2) /100WBC PT 10.5 L (11.1-13.3) SEC INR 0.9 (0.9-1.1) VBG pH 7.41 (7.32-7.43) VBG pCO2 34 mmHg VBG pO2 45 mmHg VBG HCO3 22 (22-26) mmol/L VBG O2 Saturation 72.0 % VBG Base Excess -1.5 mmol/L Sodium 135 (135-145) mmol/L Potassium 4.3 D (3.3-5.1) mmol/L Chloride 99 (96-108) mmol/L Carbon Dioxide 21 L (22-29) mmol/L Anion Gap 19 (12-20) BUN 23 H (9-16) mg/dL Creatinine 1.13 (0.5-1.4) mg/dL Estim Creat Clear Calc 86.6 Estimated GFR > 60 POC Glucose 318 H (60-115) mg/dL Random Glucose 357 H* (60-115) mg/dL Calcium 9.6 (8.4-10.2) mg/dL Magnesium 1.6 (1.6-2.6) mg/dL Total Bilirubin 0.5 (0.0-1.0) mg/dL Direct Bilirubin 0.1 (0.0-0.5) mg/dL AST 34 (5-37) U/L ALT 25 (0-40) U/L Alkaline Phosphatase 91 (39-117) U/L Total Protein 7.8 (6.5-8.0) g/dL Albumin 4.9 (3.5-5.0) g/dL Lipase 14 (8-78) U/L Beta-Hydroxybutyrate 1.76 H (0.02-0.27) mmol/L Ethyl Alcohol < 10 mg/dL Independent Interpretation I performed an independent interpretation of an: CT Scan Radiology Impression Discussion of test interpretation with radiology: I have reviewed the radiologist's reading. External Record Review External record reviewed: Inpatient record, Office record, Outpatient record, Prior outpatient labs, Prior outpatient radiology, Primary care record and Outside ED record Chronic Conditions Patient?s care impacted by: Other (lorenzo, anxiety ) Critical Care Time Critical Care Time Critical Care Time: Yes Total Critical Care Time: 45 Attestation: I attest to this time spent taking care of the patient, obtaining history, physical, reviewing labs, imaging, speaking to my attending Discharge Plan Discharge Clinical Impression: Diabetic gastroparesis, Abdominal pain, Opiate withdrawal, Nausea & vomiting Patient Disposition: Admitted As Inpatient Print Language: Khmer
[2023-09-03] MEDS: ondansetron HCL 4 MG/2 ML VIAL IVPUSH (14:17)
[2023-09-03] MEDS: LORazepam 2 MG/ML VIAL 1 MG IVPUSH (14:17)
[2023-09-03] MEDS: Morphine Sulfate 4 MG/ML CARTRIDGE IVPUSH (14:17)
[2023-09-03] MEDS: 0.9 % Sodium Chloride 1,000 ML 999 ML IVCONT (14:22)
[2023-09-03 14:50] LABS: Glucose, Whole Blood 318 mg/dL (60-115)
[2023-09-03] MEDS: 0.9 % Sodium Chloride 1,000 ML 999 ML IV (15:31)
--- NOTE | 2023-09-03 15:31 | PC.NURSE ---
Patient continues to refuse blood draws despite repeated attempts
[2023-09-03 15:45] LABS: MANUAL DIFF FLAG NO
[2023-09-03 15:54] LABS: VBG Base Excess -1.5 mmol/L; VBG HCO3 22 mmol/L (22-26); VBG pCO2 34 mmHg; VBG pH 7.41 (7.32-7.43); VBG pO2 45 mmHg
[2023-09-03 15:56] LABS: Basophils Absolute Auto 0.1 X10*3/uL (0.0-0.2); Basophils Percent Auto 0.4 % (0-2); Eosinophils Percent Auto 0.2 % (0-4); Hematocrit 40.6 % (42.0-52.0); Hemoglobin 13.8 g/dl (14.0-18.0); Imm Gran Abs Auto 0.08 X10*3/uL (0.00-0.03); Imm Gran Pct Auto 0.6 % (0.0-0.4); Lymphocytes Absolute Auto 1.3 X10*3/uL (1.2-4.9); Lymphocytes Percent Auto 9.9 % (20-40); Mean Corpuscular Hemoglobin 30.1 pg (27.0-33.0); Mean Corpuscular Volume 88.5 fL (80.0-98.0); Mean Platelet Volume 10.8 fL (9.4-12.4); Monocytes Absolute Auto 0.4 X10*3/uL (0.1-1.2); Monocytes Percent Auto 2.9 % (2-11); Neutrophils Absolute Auto 11.3 x10*3/uL (2.0-8.3); Platelet Count 245 X10*3/uL (160-400); Red Blood Count 4.59 X10*6/uL (4.60-5.80); Red Cell Distribution Width 12.6 % (11.0-16.0); White Blood Count 13.2 X10*3/uL (4.8-10.8)
[2023-09-03 16:00] LABS: Venous Blood Gas Refer to POC result
[2023-09-03 16:13] LABS: INTERNATIONAL NORM RATIO 0.9 (0.9-1.1); Prothrombin Time 10.5 SEC (11.1-13.3)
--- NOTE | 2023-09-03 16:59 | PC.NURSE ---
Patient ambulating around ED despite constant requests to sit or lay in bed, patient declining to go back to his bed siting in chair in hallway
[2023-09-03 17:29] LABS: Beta-Hydroxybutyrate 1.76 mmol/L (0.02-0.27)
[2023-09-03 17:32] LABS: Alanine Aminotransferase 25 U/L (0-40); Albumin Level 4.9 g/dL (3.5-5.0); Alkaline Phosphatase 91 U/L (39-117); Anion Gap 19 (12-20); Aspartate Amino Transferase 34 U/L (5-37); Bilirubin Direct 0.1 mg/dL (0.0-0.5); Bilirubin Total 0.5 mg/dL (0.0-1.0); Blood Urea Nitrogen 23 mg/dL (9-16); Calcium 9.6 mg/dL (8.4-10.2); Carbon Dioxide 21 mmol/L (22-29); Chloride 99 mmol/L (96-108); Creatinine Clr Calc Pharmacy 86.6; Estimated Glomerular Filt Rate > 60; Ethanol < 10 mg/dL; Glucose Random 357 mg/dL (60-115); Lipase 14 U/L (8-78); Magnesium 1.6 mg/dL (1.6-2.6); Potassium 4.3 mmol/L (3.3-5.1); Sodium 135 mmol/L (135-145); Total Protein 7.8 g/dL (6.5-8.0)
[2023-09-03] MEDS: droPERidol 5 MG/2 ML VIAL 1.25 MG IVPUSH (17:51)
[2023-09-03] MEDS: Insulin Regular, Human 100 UNIT/ML 3 ML VIAL 6 UNIT IVPUSH (18:10)
[2023-09-03 18:29] VITALS: BP 153/99; PULSE 86; RESP 16; TEMP 37.5; O2SAT 100
--- NOTE | 2023-09-03 18:48 | PC.NURSE ---
During pt move to CT, 2 vapes and an empty insulin injector were found under stretcher. Items placed in specimen bag, labelled and given to oncoming primary RN.
--- NOTE | 2023-09-03 18:58 | P.HPHOSP_ITS ---
History of Present Illness Date of Service: 09/03/23 Attending physician on admission: Minesh Squires Chief Complaint: Intractable nausea, vomiting, abdominal pain Pt is a 28-year-old male with a PMH significant for type 1 diabetes not compliant with Lantus and opioid use disorder on methadone who presents to the ED with intractable nausea, vomiting, diarrhea, and abdominal pain since last night. Describes pain as sharp and shooting, centrally located, and rates it a 10/10. Is unable to quantify how many episodes of vomiting and diarrhea he has had. Reports to this interviewer he has been compliant with his insulin, taking 4 units last night, though reported to the ED provider he has not been taking his insulin ?for a while?. Pt also notes he has missed his last two methadone doses. Reports last used fentanyl ?2-3 weeks ago? and occasionally uses marijuana. Denies any other acute medical issues at this time: No fever, chills. Denies chest pain/pressure, palpitations. No shortness of breath. In the ED pt was hypertensive up to 159/104 had elevated temperature of 99.5, vitals otherwise WNL. Labs were significant for leukocytosis 13.2, random glucose 357, and beta hydroxybutyrate mildly elevated at 1.76. N electrolytes largely WNL. Creatinine at baseline at 1.13. o acidosis. ABG WNL. CT of abdomen and pelvis pending. Pt was treated with ondansetron, morphine, lorazepam, IVF, droperidol, and 6 units regular insulin. Pt will be admitted to the hospital for treatment and further evaluation of intractable nausea, vomiting, diarrhea, and abdominal pain in the setting of hyperglycemia likely secondary to noncompliance with insulin. Review of Systems 2 Review of Systems: Nausea, vomiting, diarrhea, central abdominal pain Denies fever, chills No chest pain/pressure, palpitations Denies shortness of breath PMFSH Medical History Opioid use disorder Type 1 diabetes Social History Patient Tobacco Use Status: Never used Tobacco Smoked in Last 30 Days: No Use of substances other than those prescribed or required for medical reasons: Yes Substance Use Type: Marijuana Advance Directives: No service: No Meds Allergies Allergy/AdvReac Type Severity Reaction Status Date / Time No Known Allergies Allergy Verified 09/03/23 13:05 Home Medications ?Medication ?Instructions ?Recorded ?Confirmed ?Last Taken ?Type methadone 10 mg/mL oral 85 mg PO DAILY 08/03/23 08/03/23 08/01/23 History concentrate (Methadose) Physical Exam 2 Vital Signs and Narrative: Vital Signs: Last Vital Signs Temp 99.5 F 09/03/23 18:29 Pulse 86 09/03/23 18:29 Resp 16 09/03/23 18:29 BP 153/99 H 09/03/23 18:29 Pulse Ox 100 09/03/23 18:29 O2 Del Method Room Air 09/03/23 18:29 BMI result Body Mass Index 21.9 Constitutional: Alert, appears uncomfortable, slightly agitated, in no acute distress. Mental Status: Oriented to person, place and time. Eyes: Pupils are equal, round, and reactive to light. Ear, Nose, and Throat: Oropharynx clear, mucous membranes moist. Ears and nose without deformities. Trachea midline. Respiratory: Clear to auscultation bilaterally. No wheezing, rales, or rhonchi. Cardiovascular: S1, S2 regular. No murmurs, rubs, or gallops. Gastrointestinal: Abdomen soft, non-distended, diffuse abdominal tenderness with guarding. Normal bowel sounds. Neurologic: Cranial nerves II-XII are grossly intact bilaterally. No focal neurological deficits. Moves all extremities spontaneously. Skin: Warm, dry. Extremities: No edema. Results Labs 09/03/23 15:38 09/03/23 15:38 Labs: Laboratory Results - last 24 hr 09/03/23 09/03/23 09/03/23 14:46 15:38 15:45 MCV 88.5 MCH 30.1 MCHC 34.0 RDW 12.6 Plt Count 245 MPV 10.8 Immature Gran % (Auto) 0.6 H Neut % (Auto) 86.0 H Lymph % (Auto) 9.9 L [place] % (Auto) 2.9 Eos % (Auto) 0.2 Baso % (Auto) 0.4 Lymph # (Auto) 1.3 [place] # (Auto) 0.4 Eos # (Auto) 0.0 Baso # (Auto) 0.1 Abs Immat Gran (auto) 0.08 H Absolute Neuts (auto) 11.3 H Absolute Nucleated RBC 0.000 Nucleated RBC % (auto) 0.0 PT 10.5 L INR 0.9 VBG pH 7.41 VBG pCO2 34 VBG pO2 45 VBG HCO3 22 VBG O2 Saturation 72.0 VBG Base Excess -1.5 Anion Gap 19 Estim Creat Clear Calc 86.6 Estimated GFR > 60 POC Glucose 318 H Random Glucose 357 H* Calcium 9.6 Magnesium 1.6 Total Bilirubin 0.5 Direct Bilirubin 0.1 AST 34 ALT 25 Alkaline Phosphatase 91 Total Protein 7.8 Albumin 4.9 Lipase 14 Beta-Hydroxybutyrate 1.76 H Ethyl Alcohol < 10 Assessment and Plan (1) Nausea & vomiting: Status: Acute (2) Hyperglycemia: Status: Acute Plan Pt is a 28-year-old male with a PMH significant for type 1 diabetes not compliant with Lantus and opioid use disorder on methadone who presents to the ED with intractable nausea, vomiting, diarrhea, and abdominal pain since last night. Pt will be admitted to the hospital for treatment and further evaluation of intractable nausea, vomiting, diarrhea, and abdominal pain in the setting of hyperglycemia likely secondary to noncompliance with insulin. Hyperglycemia/type 1 diabetes Initial Glucose 357, no anion gap, no acidosis, no DKA Patient with N/V/D and abd pain Secondary to non-compliance with home insulin A1c 11.8 at last admission on 08/03/2023 Patient given IVF, regular insulin 6 units IV in the ED Will place on SSI, Lantus Analgesics and antiemetics Clear liquid diet for now, advance as tolerated Follow BMP Leukocytosis WBC 13.2 at time of presentation Likely secondary to N/V/D from insulin noncompliance No sign of bacterial infection, no sepsis, no indication for abx at this time Check CT of abd/pelvis Polysubstance use disorder Continue methadone Full Code Attending:?Dr. Rodriguez DVT Prophylaxis: Lovenox Pt will require a hospitalization of at least two nights for treatment of?hyperglycemia with intractable nausea, vomiting, diarrhea, and abdominal pain in the setting of insulin noncompliance. Patient required hospitalization for close monitoring labs and blood glucose, and treatment with insulin, IV antiemetics, and IV analgesics. Quality Stroke Does the patient have a stroke diagnosis?: No VTE Prior VTE?: No VTE Risk Level:: Medical - moderate - high VTE Device Contraindication: Treatment Not Indicated VTE Drug Contraindication: N/A - Med Ordered
[2023-09-03] MEDS: Prochlorperazine Edisylate 10 MG/2 ML VIAL 5 MG IVPUSH (19:36)
[2023-09-03] MEDS: methADONE HCl 20 MG/2 ML ORAL.CONC 30 MG PO (19:36)
[2023-09-03 21:58] LABS: Glucose, Whole Blood 350 mg/dL (60-115)
[2023-09-03] MEDS: Insulin Lispro 100 UNIT/ML 3 ML VIAL SUBCUT (22:06)
[2023-09-03] MEDS: Insulin Glargine,Hum.rec.anlog 100 UNIT/ML 10 ML VIAL 12 UNIT SUBCUT (22:08)
[2023-09-03] MEDS: Ketorolac Tromethamine 30 MG/ML VIAL IVPUSH (22:41)
[2023-09-03] MEDS: 0.9 % Sodium Chloride Flush 3 ML SYRINGE IVFLUSH (22:42)
[2023-09-03 23:16] VITALS: BP 139/77; PULSE 89; RESP 16; TEMP 37.2; O2SAT 99
[2023-09-04 02:37] LABS: Appearance Urine Clear; Color Urine Yellow; Glucose Urine UA >=1000 mg/dL (Negative); Leukocyte Esterase Urine Negative (Negative); Nitrite Urine Negative (Negative); PH 5.5 (5.0-9.0); Specific Gravity - Urine 1.025 (1.005-1.025); UMIC TRIGGER UACC YES; Urine Blood Small (1+) (Negative); Urine Ketones 80 mg/dL (Negative); Urine Protein 100 (2+) mg/dL (Neg-Trace)
[2023-09-04 02:51] LABS: Bacteria Urine None Seen (None Seen); Hyaline Casts Urine 0-2 /LPF (0-2); RBC Urine 0-2 /HPF (0-2); Squamous Epithelial Cell Urine 0-2 /HPF (0-2); WBC Urine 0-5 /HPF (0-5)
[2023-09-04 03:44] VITALS: BP 148/98; PULSE 93; RESP 18; TEMP 37.2; O2SAT 99
[2023-09-04] MEDS: Ketorolac Tromethamine 30 MG/ML VIAL IVPUSH ×3 (05:44→21:02)
[2023-09-04 06:11] LABS: Hematocrit 37.7 % (42.0-52.0); Hemoglobin 12.5 g/dl (14.0-18.0); Mean Corpuscular HGB Conc 33.2 g/dl (31.0-36.0); Mean Corpuscular Hemoglobin 30.1 pg (27.0-33.0); Mean Corpuscular Volume 90.8 fL (80.0-98.0); Mean Platelet Volume 12.8 fL (9.4-12.4); Platelet Count 111 X10*3/uL (160-400); Red Blood Count 4.15 X10*6/uL (4.60-5.80); Red Cell Distribution Width 12.6 % (11.0-16.0); White Blood Count 13.2 X10*3/uL (4.8-10.8)
[2023-09-04 07:47] LABS: Glucose, Whole Blood 256 mg/dL (60-115)
[2023-09-04] MEDS: 0.9 % Sodium Chloride Flush 3 ML SYRINGE IVFLUSH ×2 (08:00→20:54)
[2023-09-04 08:15] LABS: Amphetamine Screen Urine NOT DETECTED (Not Detect); Benzodiazepines Screen Urine NOT DETECTED (Not Detect); Cannabinoid Screen Urine POSITIVE (Not Detect); Cocaine Screen Urine NOT DETECTED (Not Detect); Fentanyl, urine Not Detected (Not Detect); Phencyclidine Screen Urine NOT DETECTED (Not Detect)
[2023-09-04 08:16] LABS: Barbiturates, Urine NOT DETECTED (Not Detect)
[2023-09-04] MEDS: Insulin Lispro 100 UNIT/ML 3 ML VIAL SUBCUT ×4 (08:20→20:53)
--- NOTE | 2023-09-04 09:04 | P.PNIM_ITS ---
Subjective Subjective Date of Service: 09/04/23 Interval History: f/u on abdominal pain, n/v Physical Exam 2 Vital Signs: Vital Signs: Last Vital Signs Temp 99 F 09/04/23 03:44 Pulse 93 09/04/23 03:44 Resp 18 09/04/23 03:44 BP 148/98 H 09/04/23 03:44 Pulse Ox 99 09/04/23 03:44 O2 Del Method Room Air 09/04/23 03:44 BMI result Body Mass Index 21.9 General: AO X 3, no acute distress Resp: CTA bilateral CVS: S1,S2,RRR GI: +BS, non specific tenderness, +BS Skin: No rash Neuro: motor grossly intact Psych: appropriate affect Objective Data Active Medications Acetaminophen (Acetaminophen 325 Mg Tablet) 650 mg PO Q6H PRN PRN Reason: Pain, Mild (Pain Scale 1-3) Benzonatate (Benzonatate 100 Mg Capsule) 100 mg PO TID PRN PRN Reason: Cough Docusate Sodium (Docusate Sodium 100 Mg Capsule) 100 mg PO DAILY PRN PRN Reason: Constipation Enoxaparin Sodium (Enoxaparin Sodium 40 Mg/0.4 Ml Syringe) 40 mg SUBCUT Q24H [facility] Last Admin: 09/03/23 21:47 Dose: Not Given Documented By: ANTONIETTA Non-Admin Reason: Patient Refused Glucose (Glucose Gel 15 Gm Gel..Gram.) 15 gm PO Q15M PRN; Protocol PRN Reason: per Hypoglycemia Standing Ord. Dextrose (D10) 250 mls @ 750 mls/hr IV Q15M PRN; Protocol PRN Reason: per Hypoglycemia Standing Ord. Lactated Ringer's (Lr) 1,000 mls @ 150 mls/hr IVCONT .Q6H40M [facility] Insulin Human Lispro (Insulin Lispro 100 Unit/Ml 3 Ml Vial) 0 unit SUBCUT QIDACHS [facility]; Protocol Last Admin: 09/04/23 08:20 Dose: 6 unit Documented By: VERONICA Ketorolac Tromethamine (Ketorolac Tromethamine 30 Mg/Ml Vial) 30 mg IVPUSH Q6H PRN PRN Reason: Pain, Severe (Pain Scale 7-10) Last Admin: 09/04/23 05:44 Dose: 30 mg Documented By: HO.WRIGHTS Melatonin (Melatonin 3 Mg Tablet) 6 mg PO BEDTIME PRN PRN Reason: Insomnia Metoclopramide HCl (Metoclopramide Hcl 10 Mg/2 Ml Vial) 5 mg IVPUSH Q6H PRN PRN Reason: Nausea and Vomiting Sodium Chloride (0.9 % Sodium Chloride Flush 3 Ml Syringe) 3 ml IVFLUSH QSHIFT [facility] Last Admin: 09/03/23 22:42 Dose: 3 ml Documented By: MATTHEW Labs 09/04/23 05:34 09/03/23 15:38 Labs: Laboratory Results - last 24 hr 09/03/23 09/03/23 09/03/23 14:46 15:38 15:45 MCV 88.5 MCH 30.1 MCHC 34.0 RDW 12.6 Plt Count 245 MPV 10.8 Immature Gran % (Auto) 0.6 H Neut % (Auto) 86.0 H Lymph % (Auto) 9.9 L [place] % (Auto) 2.9 Eos % (Auto) 0.2 Baso % (Auto) 0.4 Lymph # (Auto) 1.3 [place] # (Auto) 0.4 Eos # (Auto) 0.0 Baso # (Auto) 0.1 Abs Immat Gran (auto) 0.08 H Absolute Neuts (auto) 11.3 H Absolute Nucleated RBC 0.000 Nucleated RBC % (auto) 0.0 PT 10.5 L INR 0.9 VBG pH 7.41 VBG pCO2 34 VBG pO2 45 VBG HCO3 22 VBG O2 Saturation 72.0 VBG Base Excess -1.5 Anion Gap 19 Estim Creat Clear Calc 86.6 Estimated GFR > 60 POC Glucose 318 H Random Glucose 357 H* Calcium 9.6 Magnesium 1.6 Total Bilirubin 0.5 Direct Bilirubin 0.1 AST 34 ALT 25 Alkaline Phosphatase 91 Total Protein 7.8 Albumin 4.9 Lipase 14 Beta-Hydroxybutyrate 1.76 H Urine Color Urine Appearance Urine pH Ur Specific [place] Urine Protein Urine Glucose (UA) Urine Ketones Urine Blood Urine Nitrite Ur Leukocyte Esterase Urine RBC Urine WBC Ur Squamous Epith Cells Urine Bacteria Hyaline Casts Urine Fentanyl Screen Ur Barbiturates Screen Ur Phencyclidine Scrn Ur Amphetamines Screen U Benzodiazepines Scrn Urine Cocaine Screen U Marijuana (THC) Screen Ethyl Alcohol < 10 09/03/23 09/04/23 09/04/23 21:54 01:27 05:34 MCV 90.8 MCH 30.1 MCHC 33.2 RDW 12.6 Plt Count 111 L D MPV 12.8 H Immature Gran % (Auto) Neut % (Auto) Lymph % (Auto) [place] % (Auto) Eos % (Auto) Baso % (Auto) Lymph # (Auto) [place] # (Auto) Eos # (Auto) Baso # (Auto) Abs Immat Gran (auto) Absolute Neuts (auto) Absolute Nucleated RBC 0.000 Nucleated RBC % (auto) 0.0 PT INR VBG pH VBG pCO2 VBG pO2 VBG HCO3 VBG O2 Saturation VBG Base Excess Anion Gap Estim Creat Clear Calc Estimated GFR POC Glucose 350 H* Random Glucose Calcium Magnesium Total Bilirubin Direct Bilirubin AST ALT Alkaline Phosphatase Total Protein Albumin Lipase Beta-Hydroxybutyrate Urine Color Yellow Urine Appearance Clear Urine pH 5.5 Ur Specific [place] 1.025 Urine Protein 100 (2+) H Urine Glucose (UA) >=1000 H Urine Ketones 80 Urine Blood Small (1+) H Urine Nitrite Negative Ur Leukocyte Esterase Negative Urine RBC 0-2 Urine WBC 0-5 Ur Squamous Epith Cells 0-2 Urine Bacteria None Seen Hyaline Casts 0-2 Urine Fentanyl Screen Not Detected Ur Barbiturates Screen NOT DETECTED Ur Phencyclidine Scrn NOT DETECTED Ur Amphetamines Screen NOT DETECTED U Benzodiazepines Scrn NOT DETECTED Urine Cocaine Screen NOT DETECTED U Marijuana (THC) Screen POSITIVE H Ethyl Alcohol 09/04/23 07:43 MCV MCH MCHC RDW Plt Count MPV Immature Gran % (Auto) Neut % (Auto) Lymph % (Auto) [place] % (Auto) Eos % (Auto) Baso % (Auto) Lymph # (Auto) [place] # (Auto) Eos # (Auto) Baso # (Auto) Abs Immat Gran (auto) Absolute Neuts (auto) Absolute Nucleated RBC Nucleated RBC % (auto) PT INR VBG pH VBG pCO2 VBG pO2 VBG HCO3 VBG O2 Saturation VBG Base Excess Anion Gap Estim Creat Clear Calc Estimated GFR POC Glucose 256 H Random Glucose Calcium Magnesium Total Bilirubin Direct Bilirubin AST ALT Alkaline Phosphatase Total Protein Albumin Lipase Beta-Hydroxybutyrate Urine Color Urine Appearance Urine pH Ur Specific [place] Urine Protein Urine Glucose (UA) Urine Ketones Urine Blood Urine Nitrite Ur Leukocyte Esterase Urine RBC Urine WBC Ur Squamous Epith Cells Urine Bacteria Hyaline Casts Urine Fentanyl Screen Ur Barbiturates Screen Ur Phencyclidine Scrn Ur Amphetamines Screen U Benzodiazepines Scrn Urine Cocaine Screen U Marijuana (THC) Screen Ethyl Alcohol Assessment and Plan (1) Nausea & vomiting: Status: Acute (2) Diabetic gastroparesis: Status: Acute Plan 28-year-old male with a PMH significant for type 1 diabetes not compliant with Lantus and opioid use disorder on methadone who presents to the ED with intractable nausea, vomiting, diarrhea, and abdominal pain since last night. Pt will be admitted to the hospital for treatment and further evaluation of intractable nausea, vomiting, diarrhea, and abdominal pain in the setting of hyperglycemia likely secondary to noncompliance with insulin. Hyperglycemia/type 1 diabetes Initial Glucose 357, no anion gap, no acidosis, no DKA He states he doesn't take Lantus, only sliding sclae. Received Lantus 12 unit last night and will continue in addition to sliding scale Nausea, vomitting and abdominal pain--likely d/t Cyclical vomitting d/t canabis, and gastroparesis -IVF hydration, pain med, and antiemtics Leukocytosis, unchanged, likely reactive. No other si/sx of infection, CT abd, no convincing sings of acute infectious process -monitor Polysubstance use disorder Continue methadone and consider addiction med consult Full Code DVT Prophylaxis: Lovenox need for inpatien:IVF for N/V and abd pain, not tolerating PO Quality Stroke Does the patient have a stroke diagnosis?: No VTE Prior VTE?: No VTE Risk Level:: Medical - moderate - high VTE Device Contraindication: Treatment Not Indicated VTE Drug Contraindication: N/A - Med Ordered
--- NOTE | 2023-09-04 09:21 | PHA.MEDREC ---
Pharmacy Consult ? Medication Reconciliation Pharmacy has completed the medication reconciliation. Patient reports only using lispro sliding scale and methadone 85mg daily from [facility].
--- NOTE | 2023-09-04 09:40 | MHC.RECOVRN ---
9:30AM-Verified with [facility], Татьяна Pierre LPN, methadone last dose of 85mg received on 09/03/23 at 11:17AM.
--- NOTE | 2023-09-04 09:43 | MHC.RECOVRN ---
Received request for Eval for 383-1. Reviewed chart and received report from pt's nurse Odette. Pt is in bed resting and is requesting I come back later. I did obtain his methadone dosing and home clinic location from pt and will call to received last dose information. Will f/U with pt later today or tomorrow. Add: Called [facility] clinic and received last dose verification-see note. Request sent to provider to resume previous methadone dosing.
--- NOTE | 2023-09-04 10:51 | HE.PHANOTE ---
Methadone Received verfication form from RN. Patient gets Methadone 85 mg daily at [facility]. [phone]. Last dose was given 09/03/23 @3093
[2023-09-04] MEDS: Metoclopramide HCl 10 MG/2 ML VIAL 5 MG IVPUSH (11:19)
[2023-09-04] MEDS: methADONE HCl 20 MG/2 ML ORAL.CONC 85 MG PO (11:20)
[2023-09-04] MEDS: Lactated Ringers 1,000 ML 150 ML IVCONT ×2 (11:24→18:09)
[2023-09-04 11:25] LABS: Glucose, Whole Blood 209 mg/dL (60-115)
[2023-09-04 11:26] LABS: Opiate Screen Urine NOT DETECTED (Not Detect)
--- NOTE | 2023-09-04 13:19 | MHC.CM.PN ---
pt was sleepy during interview he said he will need a ride to the care home that is manged by chd when he is dcd pt is on methadone which is from [facility]
[2023-09-04 15:24] LABS: Anion Gap 12 (12-20)
[2023-09-04 15:28] LABS: Blood Urea Nitrogen 26 mg/dL (9-16); Calcium 9.3 mg/dL (8.4-10.2); Carbon Dioxide 27 mmol/L (22-29); Chloride 101 mmol/L (96-108); Creatinine Clr Calc Pharmacy 85.1; Estimated Glomerular Filt Rate > 60; Glucose Random 154 mg/dL (60-115); Potassium 3.7 mmol/L (3.3-5.1); Sodium 136 mmol/L (135-145)
[2023-09-04 15:47] VITALS: BP 120/82; PULSE 75; RESP 16; TEMP 36.2; O2SAT 96
[2023-09-04 16:15] LABS: Glucose, Whole Blood 156 mg/dL (60-115)
--- NOTE | 2023-09-04 16:20 | MHC.RECOVRN ---
Met with pt in 383- after consult placed to Addiction Medicine OUD and currently on Methadone.? Chart review completed and received report from floor nurse Odette. Pt had presented to the ED via EMS with all over abd pain/vomiting, missed his methadone-[facility] on [facility]? ems gave 4 zofran.? Pt was admitted to the floor for treatment of?hyperglycemia with intractable nausea, vomiting, diarrhea, and abdominal pain in the setting of insulin noncompliance.? He is currently on 85mg methadone for MAT with a h/o OUD. Upon assessment pt is lying in bed awake and alert.?He easily engages in conversation.? He received his methadone dose this AM and feels well supported on it.? ?He denies any W/D sx and none observed.?? Pt reports He has been using opiates for approx. 1 year.? He reports that he uses percs 30 ?blues? (which is pressed fentanyl) via nasal or oral route.? He denies IV use.? Pt reports that he started using when he lost several family members but that he became involved in the methadone clinic approx. 3 weeks ago and has maintained his sobriety since. Pt does not like the fact that methadone is daily dosing and that if he misses one dose he gets so ill.? This has a significant effect on his diabetes and he would like to explore other options. Pt was initially considering just tapering off the methadone but after receiving education on other options available for support during early sobriety, pt is hoping to find out more about his options.? T/W provided pt with resources for harm reduction and safe use.? Also provided resources on other MOUD and what it takes to transition off methadone.? ?? Pt looking forward to meeting with [facility] further to learn more. Report provided to [facility] team and F/U will be provided during pt?s hospitalization. T/W available as needed.
[2023-09-04] MEDS: Nicotine 14 MG PATCH.TD24 TRANSDERMA (19:05)
[2023-09-04 19:48] LABS: Glucose, Whole Blood 186 mg/dL (60-115)
[2023-09-04 19:57] VITALS: BP 125/87; PULSE 100; RESP 20; TEMP 36.3; O2SAT 100
[2023-09-04] MEDS: Enoxaparin Sodium 40 MG/0.4 ML SYRINGE SUBCUT (20:52)
[2023-09-04] MEDS: Insulin Glargine,Hum.rec.anlog 100 UNIT/ML 10 ML VIAL 12 UNIT SUBCUT (20:52)
[2023-09-04] MEDS: Melatonin 3 MG TABLET 6 MG PO (21:06)
[2023-09-04 21:32] VITALS: RESP 18
[2023-09-04 22:06] VITALS: RESP 16
[2023-09-05] MEDS: Lactated Ringers 1,000 ML 150 ML IVCONT (00:56)
[2023-09-05 03:14] VITALS: BP 122/82; PULSE 76; RESP 18; TEMP 36.2; O2SAT 97
[2023-09-05 07:32] VITALS: BP 134/82; PULSE 80; RESP 18; TEMP 36.1; O2SAT 99
[2023-09-05 07:42] LABS: Glucose, Whole Blood 130 mg/dL (60-115)
[2023-09-05] MEDS: Nicotine 14 MG PATCH.TD24 TRANSDERMA (07:48)
[2023-09-05] MEDS: Ketorolac Tromethamine 30 MG/ML VIAL IVPUSH (07:48)
[2023-09-05] MEDS: methADONE HCl 20 MG/2 ML ORAL.CONC 85 MG PO (07:49)
--- NOTE | 2023-09-05 08:46 | PM.DS ---
DS: Providers Provider Date of Service: 09/05/23 Date of admission: 09/03/23 19:48 Primary care physician: Unknown Physician Consults: 09/03/23 22:38 Addiction Medicine Routine Consulting Provider: Addiction Covering Reason for consultation: OUD on methadone DS: Diagnosis Discharge Diagnosis (1) Nausea & vomiting: Status: Acute (2) Diabetic gastroparesis: Status: Acute DS: Summary Hospital Course Hospital Course: admission hpi Chief Complaint: Intractable nausea, vomiting, abdominal pain Pt is a 28-year-old male with a PMH significant for type 1 diabetes not compliant with Lantus and opioid use disorder on methadone who presents to the ED with intractable nausea, vomiting, diarrhea, and abdominal pain since last night. Describes pain as sharp and shooting, centrally located, and rates it a 10/10. Is unable to quantify how many episodes of vomiting and diarrhea he has had. Reports to this interviewer he has been compliant with his insulin, taking 4 units last night, though reported to the ED provider he has not been taking his insulin ?for a while?. Pt also notes he has missed his last two methadone doses. Reports last used fentanyl ?2-3 weeks ago? and occasionally uses marijuana. Denies any other acute medical issues at this time: No fever, chills. Denies chest pain/pressure, palpitations. No shortness of breath. In the ED pt was hypertensive up to 159/104 had elevated temperature of 99.5, vitals otherwise WNL. Labs were significant for leukocytosis 13.2, random glucose 357, and beta hydroxybutyrate mildly elevated at 1.76. N electrolytes largely WNL. Creatinine at baseline at 1.13. o acidosis. ABG WNL. CT of abdomen and pelvis pending. Pt was treated with ondansetron, morphine, lorazepam, IVF, droperidol, and 6 units regular insulin. Pt will be admitted to the hospital for treatment and further evaluation of intractable nausea, vomiting, diarrhea, and abdominal pain in the setting of hyperglycemia likely secondary to noncompliance with insulin. Hospital course: Patient presented with symptoms of nausea, vomiting, and abdominal pain. CT scan of the abdomen revealed no acute findings, and diabetic ketoacidosis (DKA) was ruled out. The clinical presentation was most consistent with either cyclical vomiting syndrome due to marijuana use or gastroparesis. Management involved intravenous fluid (IVF) hydration, antiemetic medications to control vomiting, and pain relief. The patient responded well to treatment and experienced a rapid recovery. His diet was gradually advanced, and he is currently tolerating a regular diet without any issues. Symptoms of pain, nausea, and vomiting have completely resolved, and he is comfortable being discharged home. Of note he has not been taking Lantus at home and he has been restarted on Lantus at 12 units at bedtime, FBS 130 Time Attestation Discharge Coordination Time (in mins): 35 Quality: Safe Use of Opioids Does Pt have an Active Cancer Diagnosis on the Problem List?: No Quality: Stroke Does the patient have a stroke diagnosis?: No Physical Exam Vital Signs: Vital Signs: Last Vital Signs Temp 97.0 F 09/05/23 07:32 Pulse 80 09/05/23 07:32 Resp 18 09/05/23 07:32 BP 134/82 09/05/23 07:32 Pulse Ox 99 09/05/23 07:32 O2 Del Method Room Air 09/05/23 07:32 BMI result Body Mass Index 21.9 General: AO X 3, no acute distress Resp: CTA bilateral CVS: S1,S2,RRR GI: +BS, NT, no distention Skin: No rash Neuro: motor grossly intact Psych: appropriate affect DS: Data Data Completed and Pending Labs on day of discharge: Laboratory Results - last 24 hr 09/04/23 09/04/23 09/04/23 01:27 11:06 15:02 Sodium 136 Potassium 3.7 Chloride 101 Carbon Dioxide 27 Anion Gap 12 BUN 26 H Creatinine 1.15 Estim Creat Clear Calc 85.1 Estimated GFR > 60 POC Glucose 209 H Random Glucose 154 H Calcium 9.3 Urine Opiates Screen NOT DETECTED 09/04/23 09/04/23 09/05/23 16:07 19:38 07:32 Sodium Potassium Chloride Carbon Dioxide Anion Gap BUN Creatinine Estim Creat Clear Calc Estimated GFR POC Glucose 156 H 186 H 130 H Random Glucose Calcium Urine Opiates Screen Discharge Plan Discharge Anticipated Discharge Date/Time: 09/05/23 08:42 Patient Disposition: Home, Self-Care Discharge Diagnosis: Cyclical vomitting syndrome, gastroparesis Referrals: Physician,Unknown J [Primary Care Provider] - 1 Week Discharge Medications: New insulin glargine [Lantus Solostar U-100 Insulin] 100 unit/mL (3 mL) insulin pen 12 unit subcut QPM Qty: 15 0RF Continued methadone [Methadose] 10 mg/mL Concentrate 85 mg PO DAILY Patient Comments: [place] [address] insulin lispro 100 unit/mL insulin pen 1 sliding scale dose subcut QIDACHS Protocol: Insulin Correction Scale Less than or equal to 110 ---- Give (units): 0 111 to 150 Give (units): 0 151 to 200 Give (units): 2 201 to 250 Give (units): 4 251 to 300 Give (units): 6 301 to 350 Give (units): 8 Greater than 350 Give (units): 10 Call MD if Blood Glucose > : 350 No Action (DME) pen needle, diabetic [Pen Needle] 31 gauge x 5/16 needle See Rx Instructions .ROUTE .MEDSUPPLY Qty: 1200 0RF Rx Instructions: As directed (DME) [facility] [place] See Rx Instructions .ROUTE .MEDSUPPLY Qty: 100 0RF Rx Instructions: 4 times daily Discharge Orders: Discharge Order (Routine); Ordered 09/05/23 Ordered By: Jadon Toney Diet: Diabetic diet Activity on Discharge: As tolerated Stand Alone Forms: Patient Portal Discharge page Print Language: Faroese Care Plan Goals: recovery to normal funtion, and resolution of nausea and vomitting Health Concerns: nausea and vomitting, cyclical vomitting Plan of Treatment: Drink plenty of fluid, avoid canabis take Lantus and humalog for diabetes as directed, check your sugars before meals and at bedtime follow up with your Doctor in a week, jonathon for appointment Assessment: see above
--- NOTE | 2023-09-05 09:12 | MHC.CM.PN ---
EMR reviewed. Patient is medically cleared for dc home self care. Patient reports he lives alone in an apartment in [place] (not in a jail) and has his own ride home. Last dose letter provided.
== END 2023-09-05 09:00 | disposition home or self-care (01) | DRG 420 ==
LOC: HO.ED 17:47 → HO.EDOVER 20:12 → HO.S3 20:42
PROVIDERS: Internal Medicine; Physician Assistant; Student in an Organized Health Care Education/Training Program; Admitting Provider Student in an Organized Health Care Education/Training Program; Emergency Provider Student in an Organized Health Care Education/Training Program; Visit Provider Internal Medicine
DX: E10.65 Type 1 diabetes mellitus with hyperglycemia (principal); E10.43 Type 1 diabetes mellitus with diabetic autonomic (poly)neuropathy; K31.84 Gastroparesis; F11.23 Opioid dependence with withdrawal; T38.3X6A Underdosing of insulin and oral hypoglycemic [antidiabetic] drugs, initial encounter; T40.3X6A Underdosing of methadone, initial encounter; R11.2 Nausea with vomiting, unspecified; F12.90 Cannabis use, unspecified, uncomplicated
CPT/HCPCS: 36415; 74176; 80048; 80076; 80307; 81001; 82010; 82803; 82947; 83690; 83735; 85025; 85027; 85610; 99285; J0737; J1650; J1790; J1885; J2060; J2270; J2405; J2765; J7120

== ENCOUNTER → 2023-09-03 19:48 | Outpatient (BNV) | payer OTHER, SELFPAY | PROVIDERS: Admitting Provider Student in an Organized Health Care Education/Training Program; Emergency Provider Student in an Organized Health Care Education/Training Program; Visit Provider Internal Medicine | DX: E10.43 Type 1 diabetes mellitus with diabetic autonomic (poly)neuropathy (principal); R11.2 Nausea with vomiting, unspecified; K31.84 Gastroparesis | CPT/HCPCS: 99223; 99232; 99239 ==

== ENCOUNTER 2024-02-07 09:18 | Emergency (ER) | payer OTHER, SELFPAY ==
--- NOTE | ~2024-02-07 | CT_ITS ---
EXAMINATION: CT ABDOMEN AND PELVIS WITHOUT CONTRAST CLINICAL INFORMATION: Abdominal pain COMPARISON: CT abdomen and pelvis 09/03/2023 TECHNIQUE: Multidetector volumetric imaging was performed from the superior aspect of the liver through the pubic symphysis. Sagittal and coronal reformatted images were obtained on the technologist's workstation. This CT examination was performed using dose optimization techniques as appropriate, variously including the following: *Automated exposure control *Adjustment of mA and/or kV according to patient size (this includes techniques or standardized protocols for targeted exams where dose is matched to indication/reason for exam; i.e. extremities or head) *Use of iterative reconstruction technique DLP: 421 mGy-cm FINDINGS: LUNG BASES: The visualized lung bases are unremarkable. LIVER, GALLBLADDER, AND BILIARY TREE: The liver is normal in size, shape, and attenuation. No focal hepatic lesion or biliary ductal dilatation is present. The gallbladder is unremarkable with no evidence of radiopaque gallstones, gallbladder wall thickening, or obvious pericholecystic inflammatory changes. PANCREAS: Unremarkable. SPLEEN: Unremarkable. ADRENAL GLANDS: Unremarkable. KIDNEYS AND URETERS: The kidneys are normal in size, shape, and attenuation. No hydronephrosis, hydroureter, or calculi seen. No perinephric stranding. BLADDER: Unremarkable. GASTROINTESTINAL TRACT: The small and large bowel are unremarkable. The appendix is unremarkable. ABDOMINAL WALL: No significant hernia is appreciated. LYMPH NODES: Normal. VASCULAR: Unremarkable. PELVIC VISCERA: Mild BPH. Seminal vesicles appear normal OSSEOUS STRUCTURES: Unremarkable. CT/CT abdomen pelvis wo IV con IMPRESSION: No significant abnormality. Fleischner guidelines were followed. Electronically signed by: Montana Somers MD 02/07/2024 03:37 PM EDT
[2024-02-07 09:28] VITALS: BP 134/86; BP 164/92; PULSE 82; RESP 20; TEMP 36.6; O2SAT 98; O2SAT 99; BMI 22.6
[2024-02-07 09:35] LABS: Glucose, Whole Blood 395 mg/dL (60-115)
--- NOTE | 2024-02-07 09:35 | ECG_ITS ---
Test Reason : cp Blood Pressure : / mmHG Vent. Rate : 076 BPM Atrial Rate : 076 BPM P-R Int : 158 ms QRS Dur : 080 ms QT Int : 364 ms P-R-T Axes : 054 039 043 degrees QTc Int : 409 ms Normal sinus rhythm Nonspecific T wave abnormality Abnormal ECG When compared with ECG of 28-MAY-2023 00:57, QT has shortened T wave inversion more evident in Anterior leads Referred By: Lupis Gerber Electronically Signed By:LAKESHIA CEJA
[2024-02-07] MEDS: 0.9 % Sodium Chloride 1,000 ML 999 ML IV ×2 (09:39→11:21)
--- NOTE | 2024-02-07 09:39 | ED_ITS ---
HPI - Nausea/Vomiting/Diarrhea General Chief complaint: Nausea/Vomiting/Diarrhea Stated complaint: NAUSEA,VOMITING,HIGH BS 450 PER EMS Time Seen by Provider: 02/07/24 09:27 History of Present Illness HPI Narrative: Patient is a 27-year-old male presented today with having nausea vomiting. Patient admits to using marijuana. Has a history of diabetes. Also at high sugar. Patient is from home. Was given Zofran prior to arrival. No coughing or congestion or upper respiratory symptoms. No diaphoresis. Question compliance with his insulin. No chest pain. Related Data Home Medications ?Medication ?Instructions ?Recorded ?Confirmed methadone 10 mg/mL oral 85 mg PO DAILY 08/03/23 09/04/23 concentrate (Methadose) insulin lispro 100 unit/mL 1 sliding scale dose subcut QIDACHS 09/04/23 09/04/23 subcutaneous pen Previous Rx's ?Medication ?Instructions ?Recorded lancets #100 ea 08/04/23 pen needle, diabetic 31 gauge x #1,200 ea 08/04/23 5/16 (Pen Needle) insulin glargine 100 unit/mL (3 12 unit (0.12 mL) subcut QPM #15 mL 09/05/23 mL) subcutaneous pen (Lantus Solostar U-100 Insulin) Allergies Allergy/AdvReac Type Severity Reaction Status Date / Time No Known Allergies Allergy Verified 02/07/24 09:33 Review of Systems 2 Review of Systems: Positive nausea vomiting Yes all other systems are reviewed and are negative PMFSH Past Medical History Attestation statement: The following information was validated with the patient. Medical History Opioid use disorder Type 1 diabetes Social History Social History Household Members: None Housing: House Patient Tobacco Use Status: Never used Tobacco Smoked in Last 30 Days: Yes e-Cigarette/Vaping Use: Currently Using Use of substances other than those prescribed or required for medical reasons: Yes Substance Use Type: Marijuana Advance Directives: No Advance Directives Information Provided: No Do you have a plan to hurt others: No Plan service: No Physical Exam 2 Vital Signs: Vital Signs: Last Vital Signs Temp 97.9 F 02/07/24 09:28 Pulse 76 02/07/24 15:12 Resp 18 02/07/24 15:12 BP 138/88 02/07/24 15:12 Pulse Ox 100 02/07/24 15:12 O2 Del Method Room Air 02/07/24 15:12 BMI result Body Mass Index 22.6 Appearance: Alert. Oriented X3. No acute distress. Eyes: Pupils equal, round and reactive to light. ENT: Pharynx normal. Neck: Normal inspection. Neck supple. No lymph nodes noted. No crepitus CVS: Normal heart rate and rhythm. Pulses normal. Normal S1 and S2 Respiratory: No respiratory distress. Breath sounds normal. No Wheezing. No rales Abdomen: Soft and nontender. No rigidity. No distention. good BS x4 Skin: Skin warm and dry. Normal skin color. Normal skin turgor. Extremities: No lower extremity edema. Neurovascular intact to all extremities. No Lacerations. No Rash Neuro: Oriented X 3. No motor deficit. No sensory deficit. Moving all extermities. No slurred speech Medications Administered Discontinued Medications Generic Name Dose Route Start Last Admin Trade Name Rochelle PRN Reason Stop Dose Admin Diazepam 2.5 mg 02/07/24 12:30 02/07/24 12:48 Diazepam 10 Mg/2 Ml Cartridge IVPUSH 02/07/24 12:31 2.5 mg STAT STA Administration Diazepam 2.5 mg 02/07/24 14:41 02/07/24 15:10 Diazepam 10 Mg/2 Ml Cartridge IVPUSH 02/07/24 14:42 2.5 mg STAT STA Administration Haloperidol Lactate 5 mg 02/07/24 09:35 02/07/24 10:26 Haloperidol Lactate 5 Mg/Ml Vial IM 02/07/24 09:36 5 mg ONCE ONE Administration Sodium Chloride 1,000 mls @ 999 mls/hr 02/07/24 09:45 02/07/24 10:48 Ns IV 02/07/24 10:45 Infused .Q1H1M FRANKLYN Infusion Sodium Chloride 1,000 mls @ 999 mls/hr 02/07/24 09:45 02/07/24 12:16 Ns IV 02/07/24 10:45 Infused .Q1H1M [place]N Infusion Insulin Human Regular 5 unit 02/07/24 09:44 02/07/24 10:26 Insulin Regular, Human 100 Unit/Ml 10 Ml Vial IVPUSH 02/07/24 09:45 5 unit ONCE ONE Administration Medical Decision Making Medical Decision Making [facility] Narrative: Patient initially presented after having nausea vomiting. Used marijuana extensively. Patient's sugar was elevated at approximately 400. Patient's labs showed a slightly elevated anion gap however patient's pH was normal. Does have an elevated creatinine 1.5 likely from dehydration. Patient was aggressively rehydrated. Given Haldol for marijuana induced hyperemesis. Because of excruciating abdominal pain a CT scan of the abdomen pelvis was done. CT was negative for any acute evidence of obstruction abscess perforation no acute finding. Patient's urine was negative for infection. Patient's tox screen was positive for marijuana. After aggressive rehydration patient's labs were repeated. Patient's anion gap is now normal. Creatinine is down to 1.09. Sugars down to 212. Patient's bicarb is 22. Does not have DKA. Will discharge patient home. In stable condition Differential Diagnosis Differential Diagnoses: The differential diagnosis associated with the presentation includes Nausea vomiting, marijuana induced hyperemesis, obstruction, perforation, DKA Admission/Observation Consideration of admission/observation: Escalation of care including admission/observation considered Lab Data [facility] Lab Attestation statement: I reviewed the patient's lab results. 02/07/24 10:16 02/07/24 14:08 Labs: Lab Results 02/07/24 02/07/24 02/07/24 Range/Units 09:32 10:16 10:21 WBC 10.0 (4.8-10.8) X10*3/uL RBC 4.48 L (4.60-5.80) X10*6/uL Hgb 13.4 L (14.0-18.0) g/dl Hct 39.0 L (42.0-52.0) % MCV 87.1 (80.0-98.0) fL MCH 29.9 (27.0-33.0) pg MCHC 34.4 (31.0-36.0) g/dl RDW 12.6 (11.0-16.0) % Plt Count 255 D (160-400) X10*3/uL MPV 10.8 (9.4-12.4) fL Immature Gran % (Auto) 0.5 H (0.0-0.4) % Neut % (Auto) 69.7 (45-73) % Lymph % (Auto) 21.8 (20-40) % Rock % (Auto) 5.4 (2-11) % Eos % (Auto) 1.9 (0-4) % Baso % (Auto) 0.7 (0-2) % Lymph # (Auto) 2.2 (1.2-4.9) X10*3/uL Rock # (Auto) 0.5 (0.1-1.2) X10*3/uL Eos # (Auto) 0.2 (0.0-0.4) X10*3/uL Baso # (Auto) 0.1 (0.0-0.2) X10*3/uL Abs Immat Gran (auto) 0.05 H (0.00-0.03) X10*3/uL Absolute Neuts (auto) 6.9 (2.0-8.3) x10*3/uL Absolute Nucleated RBC 0.000 (0.0-0.012) X10*3/uL Nucleated RBC % (auto) 0.0 (0.0-0.2) /100WBC VBG pH 7.50 H (7.32-7.43) VBG pCO2 24 mmHg VBG pO2 35 mmHg VBG HCO3 19 L (22-26) mmol/L VBG O2 Saturation 70.0 % VBG Base Excess -1.5 mmol/L Sodium 137 (135-145) mmol/L Potassium 4.7 D (3.3-5.1) mmol/L Chloride 99 (96-108) mmol/L Carbon Dioxide 22 (22-29) mmol/L Anion Gap 21 H (12-20) BUN 23 H (9-16) mg/dL Creatinine 1.58 H (0.5-1.4) mg/dL Estim Creat Clear Calc 61.9 Estimated GFR 52 POC Glucose 395 H* (60-115) mg/dL Random Glucose 384 H* (60-115) mg/dL Calcium 9.6 (8.4-10.2) mg/dL Total Bilirubin 0.6 (0.0-1.0) mg/dL Direct Bilirubin 0.1 (0.0-0.5) mg/dL AST 22 (5-37) U/L ALT 23 (0-40) U/L Alkaline Phosphatase 118 H (39-117) U/L Total Protein 7.1 (6.5-8.0) g/dL Albumin 4.3 (3.5-5.0) g/dL Lipase 7 L (8-78) U/L Beta-Hydroxybutyrate 3.81 H (0.02-0.27) mmol/L Urine Color Urine Appearance Urine pH (5.0-9.0) Ur Specific [place] (1.005-1.025) Urine Protein (Neg-Trace) mg/dL Urine Glucose (UA) (Negative) mg/dL Urine Ketones (Negative) mg/dL Urine Blood (Negative) Urine Nitrite (Negative) Ur Leukocyte Esterase (Negative) Urine RBC (0-2) /HPF Urine WBC (0-5) /HPF Ur Squamous Epith Cells (0-2) /HPF Urine Bacteria (None Seen) Hyaline Casts (0-2) /LPF Urine Opiates Screen (Not Detect) Ur Buprenorphine Scrn (Not Detect) ng/mL Ur Oxycodone Screen (Not Detect) ng/mL Urine Methadone Screen (Not Detect) ng/mL Urine Fentanyl Screen (Not Detect) Ur Barbiturates Screen (Not Detect) Ur Phencyclidine Scrn (Not Detect) Ur Amphetamines Screen (Not Detect) U Benzodiazepines Scrn (Not Detect) Urine Cocaine Screen (Not Detect) U Marijuana (THC) Screen (Not Detect) 02/07/24 02/07/24 02/07/24 Range/Units 11:22 11:56 14:08 WBC (4.8-10.8) X10*3/uL RBC (4.60-5.80) X10*6/uL Hgb (14.0-18.0) g/dl Hct (42.0-52.0) % MCV (80.0-98.0) fL MCH (27.0-33.0) pg MCHC (31.0-36.0) g/dl RDW (11.0-16.0) % Plt Count (160-400) X10*3/uL MPV (9.4-12.4) fL Immature Gran % (Auto) (0.0-0.4) % Neut % (Auto) (45-73) % Lymph % (Auto) (20-40) % Rock % (Auto) (2-11) % Eos % (Auto) (0-4) % Baso % (Auto) (0-2) % Lymph # (Auto) (1.2-4.9) X10*3/uL Rock # (Auto) (0.1-1.2) X10*3/uL Eos # (Auto) (0.0-0.4) X10*3/uL Baso # (Auto) (0.0-0.2) X10*3/uL Abs Immat Gran (auto) (0.00-0.03) X10*3/uL Absolute Neuts (auto) (2.0-8.3) x10*3/uL Absolute Nucleated RBC (0.0-0.012) X10*3/uL Nucleated RBC % (auto) (0.0-0.2) /100WBC VBG pH (7.32-7.43) VBG pCO2 mmHg VBG pO2 mmHg VBG HCO3 (22-26) mmol/L VBG O2 Saturation % VBG Base Excess mmol/L Sodium 137 (135-145) mmol/L Potassium 4.5 (3.3-5.1) mmol/L Chloride 100 (96-108) mmol/L Carbon Dioxide 22 (22-29) mmol/L Anion Gap 20 (12-20) BUN 16 (9-16) mg/dL Creatinine 1.09 (0.5-1.4) mg/dL Estim Creat Clear Calc 89.8 Estimated GFR > 60 POC Glucose 247 H (60-115) mg/dL Random Glucose 213 H (60-115) mg/dL Calcium 9.3 (8.4-10.2) mg/dL Total Bilirubin (0.0-1.0) mg/dL Direct Bilirubin (0.0-0.5) mg/dL AST (5-37) U/L ALT (0-40) U/L Alkaline Phosphatase (39-117) U/L Total Protein (6.5-8.0) g/dL Albumin (3.5-5.0) g/dL Lipase (8-78) U/L Beta-Hydroxybutyrate 4.59 H (0.02-0.27) mmol/L Urine Color Yellow Urine Appearance Clear Urine pH 8.0 (5.0-9.0) Ur Specific [place] 1.010 (1.005-1.025) Urine Protein Negative (Neg-Trace) mg/dL Urine Glucose (UA) 500 H (Negative) mg/dL Urine Ketones Trace (Negative) mg/dL Urine Blood Negative (Negative) Urine Nitrite Negative (Negative) Ur Leukocyte Esterase Negative (Negative) Urine RBC 0-2 (0-2) /HPF Urine WBC 0-5 (0-5) /HPF Ur Squamous Epith Cells 0-2 (0-2) /HPF Urine Bacteria None Seen (None Seen) Hyaline Casts 0-2 (0-2) /LPF Urine Opiates Screen Not Detected (Not Detect) Ur Buprenorphine Scrn Not Detected (Not Detect) ng/mL Ur Oxycodone Screen Not Detected (Not Detect) ng/mL Urine Methadone Screen Not Detected (Not Detect) ng/mL Urine Fentanyl Screen Not Detected (Not Detect) Ur Barbiturates Screen Not Detected (Not Detect) Ur Phencyclidine Scrn Not Detected (Not Detect) Ur Amphetamines Screen Not Detected (Not Detect) U Benzodiazepines Scrn Not Detected (Not Detect) Urine Cocaine Screen Not Detected (Not Detect) U Marijuana (THC) Screen POSITIVE H (Not Detect) 02/07/24 Range/Units 15:08 WBC (4.8-10.8) X10*3/uL RBC (4.60-5.80) X10*6/uL Hgb (14.0-18.0) g/dl Hct (42.0-52.0) % MCV (80.0-98.0) fL MCH (27.0-33.0) pg MCHC (31.0-36.0) g/dl RDW (11.0-16.0) % Plt Count (160-400) X10*3/uL MPV (9.4-12.4) fL Immature Gran % (Auto) (0.0-0.4) % Neut % (Auto) (45-73) % Lymph % (Auto) (20-40) % Rock % (Auto) (2-11) % Eos % (Auto) (0-4) % Baso % (Auto) (0-2) % Lymph # (Auto) (1.2-4.9) X10*3/uL Rock # (Auto) (0.1-1.2) X10*3/uL Eos # (Auto) (0.0-0.4) X10*3/uL Baso # (Auto) (0.0-0.2) X10*3/uL Abs Immat Gran (auto) (0.00-0.03) X10*3/uL Absolute Neuts (auto) (2.0-8.3) x10*3/uL Absolute Nucleated RBC (0.0-0.012) X10*3/uL Nucleated RBC % (auto) (0.0-0.2) /100WBC VBG pH (7.32-7.43) VBG pCO2 mmHg VBG pO2 mmHg VBG HCO3 (22-26) mmol/L VBG O2 Saturation % VBG Base Excess mmol/L Sodium (135-145) mmol/L Potassium (3.3-5.1) mmol/L Chloride (96-108) mmol/L Carbon Dioxide (22-29) mmol/L Anion Gap (12-20) BUN (9-16) mg/dL Creatinine (0.5-1.4) mg/dL Estim Creat Clear Calc Estimated GFR POC Glucose 212 H (60-115) mg/dL Random Glucose (60-115) mg/dL Calcium (8.4-10.2) mg/dL Total Bilirubin (0.0-1.0) mg/dL Direct Bilirubin (0.0-0.5) mg/dL AST (5-37) U/L ALT (0-40) U/L Alkaline Phosphatase (39-117) U/L Total Protein (6.5-8.0) g/dL Albumin (3.5-5.0) g/dL Lipase (8-78) U/L Beta-Hydroxybutyrate (0.02-0.27) mmol/L Urine Color Urine Appearance Urine pH (5.0-9.0) Ur Specific [place] (1.005-1.025) Urine Protein (Neg-Trace) mg/dL Urine Glucose (UA) (Negative) mg/dL Urine Ketones (Negative) mg/dL Urine Blood (Negative) Urine Nitrite (Negative) Ur Leukocyte Esterase (Negative) Urine RBC (0-2) /HPF Urine WBC (0-5) /HPF Ur Squamous Epith Cells (0-2) /HPF Urine Bacteria (None Seen) Hyaline Casts (0-2) /LPF Urine Opiates Screen (Not Detect) Ur Buprenorphine Scrn (Not Detect) ng/mL Ur Oxycodone Screen (Not Detect) ng/mL Urine Methadone Screen (Not Detect) ng/mL Urine Fentanyl Screen (Not Detect) Ur Barbiturates Screen (Not Detect) Ur Phencyclidine Scrn (Not Detect) Ur Amphetamines Screen (Not Detect) U Benzodiazepines Scrn (Not Detect) Urine Cocaine Screen (Not Detect) U Marijuana (THC) Screen (Not Detect) Independent Interpretation I performed an independent interpretation of an: CT Scan (No overt obstruction) Radiology Impression Discussion of test interpretation with radiology: I have reviewed the radiologist's reading. Independent Historian Clinical information obtained from an independent historian. History obtained from or confirmed by: EMS External Record Review External record reviewed: Prior outpatient radiology Chronic Conditions Patient?s care impacted by: Diabetes Polysubstance abuse Social Determinants Patient?s care significantly limited by Social Determinants of Health including: Low income, Alcoholism and drug addiction in family, Problems related to primary support group and Other Social Determinant of Health Discharge Plan Discharge Clinical Impression: Cannabinoid hyperemesis syndrome Patient Disposition: Home, Self-Care Instructions: Cannabis Abuse (ED), Acute Nausea and Vomiting (ED) Additional Instructions: Please stop using marijuana. Marijuana is causing you to vomit violently Prescriptions: No Action methadone [Methadose] 10 mg/mL Concentrate 85 mg PO DAILY Patient Comments: [place] [facility] [address] [place] pen needle, diabetic [Pen Needle] 31 gauge x 5/16 needle See Rx Instructions .ROUTE .MEDSUPPLY Qty: 1200 0RF Rx Instructions: As directed ([facility] See Rx Instructions .ROUTE .MEDSUPPLY Qty: 100 0RF Rx Instructions: 4 times daily insulin lispro 100 unit/mL insulin pen 1 sliding scale dose subcut QIDACHS Protocol: Insulin Correction Scale Less than or equal to 110 ---- Give (units): 0 111 to 150 Give (units): 0 151 to 200 Give (units): 2 201 to 250 Give (units): 4 251 to 300 Give (units): 6 301 to 350 Give (units): 8 Greater than 350 Give (units): 10 Call MD if Blood Glucose > : 350 insulin glargine [Lantus Solostar U-100 Insulin] 100 unit/mL (3 mL) insulin pen 12 unit subcut QPM Qty: 15 0RF Referrals: Thania Chakraborty MD [Primary Care Provider] - 02/09/24 Print Language: Turkmen
[2024-02-07 10:20] LABS: MANUAL DIFF FLAG NO
[2024-02-07 10:21] LABS: Basophils Absolute Auto 0.1 X10*3/uL (0.0-0.2); Basophils Percent Auto 0.7 % (0-2); Eosinophils Absolute Auto 0.2 X10*3/uL (0.0-0.4); Eosinophils Percent Auto 1.9 % (0-4); Hemoglobin 13.4 g/dl (14.0-18.0); Imm Gran Abs Auto 0.05 X10*3/uL (0.00-0.03); Imm Gran Pct Auto 0.5 % (0.0-0.4); Lymphocytes Absolute Auto 2.2 X10*3/uL (1.2-4.9); Lymphocytes Percent Auto 21.8 % (20-40); Mean Corpuscular HGB Conc 34.4 g/dl (31.0-36.0); Mean Corpuscular Hemoglobin 29.9 pg (27.0-33.0); Mean Corpuscular Volume 87.1 fL (80.0-98.0); Mean Platelet Volume 10.8 fL (9.4-12.4); Monocytes Absolute Auto 0.5 X10*3/uL (0.1-1.2); Monocytes Percent Auto 5.4 % (2-11); Neutrophils Absolute Auto 6.9 x10*3/uL (2.0-8.3); Neutrophils Percent Auto 69.7 % (45-73); Platelet Count 255 X10*3/uL (160-400); Red Blood Count 4.48 X10*6/uL (4.60-5.80); Red Cell Distribution Width 12.6 % (11.0-16.0)
[2024-02-07 10:24] LABS: Venous Blood Gas Refer to POC result
[2024-02-07 10:25] LABS: VBG Base Excess -1.5 mmol/L; VBG HCO3 19 mmol/L (22-26); VBG pCO2 24 mmHg; VBG pO2 35 mmHg
[2024-02-07] MEDS: Insulin Regular, Human 100 UNIT/ML 10 ML VIAL IVPUSH (10:26)
[2024-02-07] MEDS: Haloperidol Lactate 5 MG/ML VIAL IM (10:26)
[2024-02-07 10:34] LABS: Beta-Hydroxybutyrate 3.81 mmol/L (0.02-0.27)
[2024-02-07 10:40] LABS: Alanine Aminotransferase 23 U/L (0-40); Albumin Level 4.3 g/dL (3.5-5.0); Alkaline Phosphatase 118 U/L (39-117); Anion Gap 21 (12-20); Aspartate Amino Transferase 22 U/L (5-37); Bilirubin Direct 0.1 mg/dL (0.0-0.5); Bilirubin Total 0.6 mg/dL (0.0-1.0); Blood Urea Nitrogen 23 mg/dL (9-16); Calcium 9.6 mg/dL (8.4-10.2); Carbon Dioxide 22 mmol/L (22-29); Chloride 99 mmol/L (96-108); Creatinine Clr Calc Pharmacy 61.9; Estimated Glomerular Filt Rate 52; Glucose Random 384 mg/dL (60-115); Lipase 7 U/L (8-78); Potassium 4.7 mmol/L (3.3-5.1); Sodium 137 mmol/L (135-145); Total Protein 7.1 g/dL (6.5-8.0)
[2024-02-07 11:23] VITALS: BP 136/66; PULSE 76; RESP 20; O2SAT 100
[2024-02-07 11:26] LABS: Glucose, Whole Blood 247 mg/dL (60-115)
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
[2024-02-07 12:11] LABS: Appearance Urine Clear; Color Urine Yellow; Glucose Urine UA 500 mg/dL (Negative); Leukocyte Esterase Urine Negative (Negative); Nitrite Urine Negative (Negative); Urine Blood Negative (Negative); Urine Ketones Trace mg/dL (Negative); Urine Protein Negative (Neg-Trace)
--- NOTE | 2024-02-07 12:15 | PC.NURSE ---
pt continually sticking his fingers in his throat to induce vomiting
[2024-02-07 12:16] LABS: Bacteria Urine None Seen (None Seen); Hyaline Casts Urine 0-2 /LPF (0-2); RBC Urine 0-2 /HPF (0-2); Squamous Epithelial Cell Urine 0-2 /HPF (0-2); WBC Urine 0-5 /HPF (0-5)
[2024-02-07 12:20] LABS: Amphetamine Screen Urine Not Detected (Not Detect); Barbiturates, Urine Not Detected (Not Detect); Benzodiazepines Screen Urine Not Detected (Not Detect); Buprenorphine Scr Not Detected (Not Detect); Cannabinoid Screen Urine POSITIVE (Not Detect); Cocaine Screen Urine Not Detected (Not Detect); Fentanyl, urine Not Detected (Not Detect); Methadone Screen, Urine Not Detected (Not Detect); Opiate Screen Urine Not Detected (Not Detect); Oxycodone Screen Urine Not Detected (Not Detect); Phencyclidine Screen Urine Not Detected (Not Detect)
[2024-02-07] MEDS: diazePAM 10 MG/2 ML CARTRIDGE 2.5 MG IVPUSH ×2 (12:48→15:10)
[2024-02-07 14:45] LABS: Anion Gap 20 (12-20); Beta-Hydroxybutyrate 4.59 mmol/L (0.02-0.27); Blood Urea Nitrogen 16 mg/dL (9-16); Calcium 9.3 mg/dL (8.4-10.2); Carbon Dioxide 22 mmol/L (22-29); Chloride 100 mmol/L (96-108); Creatinine Clr Calc Pharmacy 89.8; Estimated Glomerular Filt Rate > 60; Glucose Random 213 mg/dL (60-115); Potassium 4.5 mmol/L (3.3-5.1); Sodium 137 mmol/L (135-145)
[2024-02-07 14:47] VITALS: BP 123/70; PULSE 64; RESP 16; O2SAT 98
[2024-02-07 15:12] VITALS: BP 138/88; PULSE 76; RESP 18; O2SAT 100
[2024-02-07 15:12] LABS: Glucose, Whole Blood 212 mg/dL (60-115)
[2024-02-07 15:59] VITALS: BP 149/79; PULSE 72; RESP 14; TEMP 36.7; O2SAT 100
--- NOTE | 2024-02-07 16:08 | PC.NURSE ---
discharge paperwork provided to patient, IV line removed. Dr. Gerber at bedside to assist in discharge as pt has been uncooperative with care during his time, yelling at staff and demanding. pt has been putting his fingers down his throat to induce vomiting then going to the bathroom and drinking a large amount of water
[2024-02-07 16:12] VITALS: BP 149/79; PULSE 72; RESP 14; TEMP 36.7; O2SAT 100
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
== END 2024-02-07 16:53 | disposition home or self-care (01) ==
PROVIDERS: Emergency Provider Emergency Medicine Emergency Medical Services; PCP Internal Medicine
DX: R11.2 Nausea with vomiting, unspecified (principal); F12.90 Cannabis use, unspecified, uncomplicated; R10.9 Unspecified abdominal pain; E10.9 Type 1 diabetes mellitus without complications; R07.9 Chest pain, unspecified; F11.20 Opioid dependence, uncomplicated; Z79.4 Long term (current) use of insulin
CPT/HCPCS: 36415; 74176; 80048; 80076; 80307; 81001; 82010; 82803; 82947; 83690; 85025; 93005; 96361; 96372; 96374; 96375; 96376; 99285; J1630; J3360